=== PATIENT | female | born 1935 | race Caucasian/White ===

== ENCOUNTER 2017-02-06 21:11 | Inpatient (IN) | payer MEDICARE, BC ==
[2017-02-06 22:37] LABS: Basophils # (A) 0.1 k/uL (0-0.2); Basophils % (A) 1 %; CH 27.5; CHCM 32.3; Eosinophils # (A) 0.4 k/uL (0-0.7); Eosinophils % (A) 2 %; HCT 33.3 % (34.0-46.0); HDW 2.38; Luc # (Auto) 0.25; Luc % (Auto) 2; Lymphocytes # (A) 2.9 k/uL (1.0-4.8); Lymphocytes % (A) 18 %; MCH 28.2 pg (25.0-35.0); MCHC 32.9 g/dL (31.0-37.0); MCV 85.5 fL (80.0-100.0); Mean Platelet Volume 6.6; Monocytes # (A) 1.1 k/uL (0-1.0); Monocytes % (A) 7 %; Neutrophils # (A) 11.5 k/uL (1.3-7.7); Neutrophils % (A) 71 %; RBC 3.89 m/uL (3.80-5.40); RDW 14.8 % (11.5-15.5); WBC 16.1 k/uL (3.8-10.6); WBC (Perox) 15.63
[2017-02-06 22:43] LABS: Appearance,Urine Bloody (Clear); Bacteria,Urine Moderate /hpf; Particle Count 122698; RBC,Urine >182 /hpf (0-5); Squamous Epithelial Cell,Urine 10 /hpf (0-4); WBC,Urine >182 /hpf (0-5)
[2017-02-06 22:44] LABS: UA Billing (MACRO vs. MICRO) MICRO
[2017-02-06 22:45] LABS: INR 2.8 (<1.1); Partial Thromboplastin Time 36.2 sec (22.0-30.0); Prothrombin Time 26.8 sec (9.0-12.0)
[2017-02-06 22:50] LABS: Calcium 9.1 mg/dL (8.4-10.2); Potassium 4.2 mmol/L (3.5-5.1); Total Bilirubin 0.4 mg/dL (0.2-1.3); Total Protein 8.1 g/dL (6.3-8.2)
[2017-02-07] MEDS ORDERED: ONDANSETRON 4 MG/2 ML VIAL IVP PRN (00:09)
[2017-02-07] MEDS ORDERED: NALOXONE 0.4 MG/ML 1 ML VIAL IV PRN (00:09)
--- NOTE | 2017-02-07 00:09 | ED ---
Female Urogenital HPI - General Chief complaint: Urogenital Stated complaint: Blood in Urine Time Seen by Provider: 02/06/17 21:40 Source: patient, EMS, RN notes reviewed Mode of arrival: EMS - History of Present Illness Initial comments: Patient is an 81-year-old female presents to the emergency room for evaluation of blood in Pulido catheter bag. Patient was brought here from nursing facility. Patient had the same symptoms 3 weeks ago and was on antibiotics. Apparently, blood has returned over the past few days. Patient denies abdominal pain. Patient denies fevers or chills. Patient denies nausea or vomiting. Patient denies chest pain or shortness of breath. Patient is on Coumadin for A. fib. - Related Data Home Medications Medication Instructions Recorded Confirmed Aspirin 81 mg PO HS 09/11/15 02/06/17 Levothyroxine Sodium [Synthroid] 50 mcg PO HS 09/11/15 02/06/17 Pravastatin Sodium [Pravachol] 80 mg PO HS 09/11/15 02/06/17 Warfarin [Coumadin] 3 mg PO MOTUWEFRSA 09/11/15 02/06/17 aMILoride-HCTZ 5-50 mg [Moduretic 1 tab PO QAM 09/11/15 02/06/17 5-50] amLODIPine [Norvasc] 5 mg PO DAILY 09/11/15 02/06/17 INSULIN LISPRO (humaLOG) [humaLOG See Protocol SQ ACHS 01/16/16 02/06/17 (formulary)] Lisinopril [Zestril] 10 mg PO BID 01/16/16 02/06/17 Acetaminophen Tab [Tylenol Tab] 650 mg PO Q4H PRN 02/06/17 02/06/17 Folic Acid/Multivit-Min/Lutein 1 tab PO DAILY 02/06/17 02/06/17 [Therapeutic-M Tablet] Insulin Glargine [Lantus] 25 unit SQ HS 02/06/17 02/06/17 Warfarin Sodium [Coumadin] 4 mg PO SUTH 02/06/17 02/06/17 Previous Rx's Medication Instructions Recorded Bisacodyl [Dulcolax] 5 mg PO DAILY PRN #30 tablet. 12/05/15 Metoprolol Tartrate [Lopressor] 100 mg PO BID #1 tab 01/23/16 sitaGLIPtin [Januvia] 50 mg PO HS #1 tab 01/23/16 Allergies Allergy/AdvReac Type Severity Reaction Status Date / Time No Known Allergies Allergy Verified 02/06/17 21:58 Review of Systems ROS Statement: Those systems with pertinent positive or pertinent negative responses have been documented in the HPI. ROS Other: All systems not noted in ROS Statement are negative. Past Medical History Past Medical History: Atrial Fibrillation, Diabetes Mellitus, Hyperlipidemia, Hypertension, Thyroid Disorder Additional Past Medical History / Comment(s): peripheral neuropathy, UTIs, urinary incontinence, OA bilateral hands and back, PVD, cervical cancer History of Any Multi-Drug Resistant Organisms: MRSA Date of last positivie culture/infection: 09/11/2015 MDRO Source:: RIGHT FOOT Past Surgical History: Hysterectomy, Tonsillectomy Additional Past Surgical History / Comment(s): R leg bypass surgery, bilateral cataract removal Past Anesthesia/Blood Transfusion Reactions: No Reported Reaction Past Psychological History: No Psychological Hx Reported Smoking Status: Never smoker Past Alcohol Use History: None Reported Past Drug Use History: None Reported - Past Family History Mother Family Medical History: CVA/TIA Additional Family Medical History / Comment(s): Mother in her 70's. Father Family Medical History: Hypertension Additional Family Medical History / Comment(s): Father in his 70's. General Exam - General Exam Comments Initial Comments: laying in exam room, no acute distress. General appearance: alert, in no apparent distress Head exam: Present: atraumatic, normocephalic, normal inspection Eye exam: Present: normal appearance ENT exam: Present: normal exam Neck exam: Present: normal inspection Respiratory exam: Present: normal lung sounds bilaterally. Absent: respiratory distress Cardiovascular Exam: Present: regular rate, normal rhythm, normal heart sounds GI/Abdominal exam: Present: soft, normal bowel sounds. Absent: distended, tenderness, guarding, rebound, rigid External exam: Present: other (pulido catheter in place, blood in urine pulido bag ) Extremities exam: Present: normal inspection Back exam: Present: normal inspection Neurological exam: Present: alert, oriented X3, CN II-XII intact, normal gait Psychiatric exam: Present: normal affect, normal mood Skin exam: Present: warm, dry, intact, normal color. Absent: rash Course Vital Signs 02/06/17 02/06/17 02/07/17 21:19 23:33 00:54 Temperature 98.1 F 98.4 F Pulse Rate 87 68 84 Respiratory 18 18 18 Rate Blood Pressure 150/71 139/66 141/65 O2 Sat by Pulse 100 94 L 100 Oximetry 02/07/17 01:21 Temperature 98.1 F Pulse Rate 92 Respiratory 20 Rate Blood Pressure 133/63 O2 Sat by Pulse 98 Oximetry Medical Decision Making - Medical Decision Making Patient is an 81-year-old female presents emergency room for evaluation hematuria. Urinalysis suspicious for urinary tract infection. WBC elevated. Patient started on Rocephin and admitted. Case discussed with Dr. Corcoran. Dr. Corcoran discussed case with Dr. Chirinos who agreed to admit patient. Will consult with urology. - Lab Data Result diagrams: 02/06/17 22:20 02/06/17 22:20 Lab Results 02/06/17 02/06/17 02/06/17 Range/Units 22:20 22:20 22:20 WBC 16.1 H (3.8-10.6) k/uL RBC 3.89 (3.80-5.40) m/uL Hgb 11.0 L (11.4-16.0) gm/dL Hct 33.3 L (34.0-46.0) % MCV 85.5 (80.0-100.0) fL MCH 28.2 (25.0-35.0) pg MCHC 32.9 (31.0-37.0) g/dL RDW 14.8 (11.5-15.5) % Plt Count 373 (150-450) k/uL Neutrophils % 71 % Lymphocytes % 18 % Monocytes % 7 % Eosinophils % 2 % Basophils % 1 % Neutrophils # 11.5 H (1.3-7.7) k/uL Lymphocytes # 2.9 (1.0-4.8) k/uL Monocytes # 1.1 H (0-1.0) k/uL Eosinophils # 0.4 (0-0.7) k/uL Basophils # 0.1 (0-0.2) k/uL PT 26.8 H (9.0-12.0) sec INR 2.8 (<1.1) APTT 36.2 H (22.0-30.0) sec Sodium 135 L (137-145) mmol/L Potassium 4.2 (3.5-5.1) mmol/L Chloride 102 (98-107) mmol/L Carbon Dioxide 23 (22-30) mmol/L Anion Gap 10 mmol/L BUN 42 H (7-17) mg/dL Creatinine 1.37 H (0.52-1.04) mg/dL Est GFR (MDRD) Af Amer 45 (>60 ml/min/1.73 sqM) Est GFR (MDRD) Non-Af 37 (>60 ml/min/1.73 sqM) Glucose 263 H (74-99) mg/dL Calcium 9.1 (8.4-10.2) mg/dL Total Bilirubin 0.4 (0.2-1.3) mg/dL AST 18 (14-36) U/L ALT 22 (9-52) U/L Alkaline Phosphatase 116 (38-126) U/L Total Protein 8.1 (6.3-8.2) g/dL Albumin 3.6 (3.5-5.0) g/dL Urine Color Urine Appearance (Clear) Urine RBC (0-5) /hpf Urine WBC (0-5) /hpf Urine WBC Clumps (None) /hpf Ur Squamous Epith Cells (0-4) /hpf Urine Bacteria (None) /hpf 02/06/17 Range/Units 22:20 WBC (3.8-10.6) k/uL RBC (3.80-5.40) m/uL Hgb (11.4-16.0) gm/dL Hct (34.0-46.0) % MCV (80.0-100.0) fL MCH (25.0-35.0) pg MCHC (31.0-37.0) g/dL RDW (11.5-15.5) % Plt Count (150-450) k/uL Neutrophils % % Lymphocytes % % Monocytes % % Eosinophils % % Basophils % % Neutrophils # (1.3-7.7) k/uL Lymphocytes # (1.0-4.8) k/uL Monocytes # (0-1.0) k/uL Eosinophils # (0-0.7) k/uL Basophils # (0-0.2) k/uL PT (9.0-12.0) sec INR (<1.1) APTT (22.0-30.0) sec Sodium (137-145) mmol/L Potassium (3.5-5.1) mmol/L Chloride (98-107) mmol/L Carbon Dioxide (22-30) mmol/L Anion Gap mmol/L BUN (7-17) mg/dL Creatinine (0.52-1.04) mg/dL Est GFR (MDRD) Af Amer (>60 ml/min/1.73 sqM) Est GFR (MDRD) Non-Af (>60 ml/min/1.73 sqM) Glucose (74-99) mg/dL Calcium (8.4-10.2) mg/dL Total Bilirubin (0.2-1.3) mg/dL AST (14-36) U/L ALT (9-52) U/L Alkaline Phosphatase (38-126) U/L Total Protein (6.3-8.2) g/dL Albumin (3.5-5.0) g/dL Urine Color Red Urine Appearance Bloody H (Clear) Urine RBC >182 H (0-5) /hpf Urine WBC >182 H (0-5) /hpf Urine WBC Clumps Many H (None) /hpf Ur Squamous Epith Cells 10 H (0-4) /hpf Urine Bacteria Moderate H (None) /hpf Disposition Clinical Impression: Urinary tract infection Disposition: ADMITTED IP TO THIS HOSP Condition: Stable Decision Date: 02/07/17
[2017-02-07] MEDS: SODIUM CHLORIDE 0.9% 1,000 ML IV SCH ×2 (00:52→11:26)
[2017-02-07 02:37] LABS: Glucose,Whole Blood 184 mg/dL (75-99)
[2017-02-07 02:46] VITALS: BMI 35.8
[2017-02-07] MEDS ORDERED: ACETAMINOPHEN TAB 325 MG TAB PO PRN (03:15)
[2017-02-07] MEDS ORDERED: BISACODYL 5 MG TABLET.DR PO PRN (03:15)
[2017-02-07 07:16] LABS: Glucose,Whole Blood 179 mg/dL (75-99)
[2017-02-07 08:16] LABS: Basophils # (A) 0.1 k/uL (0-0.2); Basophils % (A) 1 %; CH 26.8; CHCM 31.5; Eosinophils # (A) 0.2 k/uL (0-0.7); Eosinophils % (A) 2 %; HCT 31.7 % (34.0-46.0); HDW 2.36; HGB 10.6 gm/dL (11.4-16.0); Hypochromasia Slight; Luc % (Auto) 2; Lymphocytes # (A) 2.5 k/uL (1.0-4.8); Lymphocytes % (A) 21 %; MCH 28.5 pg (25.0-35.0); MCHC 33.4 g/dL (31.0-37.0); MCV 85.6 fL (80.0-100.0); Mean Platelet Volume 6.5; Monocytes # (A) 0.8 k/uL (0-1.0); Monocytes % (A) 7 %; Neutrophils # (A) 8.2 k/uL (1.3-7.7); Neutrophils % (A) 69 %; RBC 3.71 m/uL (3.80-5.40); RDW 14.6 % (11.5-15.5); WBC 11.9 k/uL (3.8-10.6); WBC (Perox) 12.16
[2017-02-07] MEDS: MULTIVITAMINS, THERA 1 EACH TAB PO SCH (08:16)
[2017-02-07] MEDS: amLODIPine 5 MG TAB PO SCH (08:16)
[2017-02-07] MEDS: aMILoride-HCTZ 5-50 mg 1 EACH TAB PO SCH (08:16)
[2017-02-07] MEDS: LISINOPRIL 10 MG TAB PO SCH ×2 (08:16→21:24)
[2017-02-07] MEDS: METOPROLOL TARTRATE 50 MG TAB PO SCH ×2 (08:16→21:24)
[2017-02-07] MEDS: INSULIN LISPRO (humaLOG) 300 UNIT/3 ML VIAL SQ SCH ×4 (08:21→21:24)
[2017-02-07 08:32] LABS: Calcium 8.9 mg/dL (8.4-10.2); Potassium 4.2 mmol/L (3.5-5.1); Total Bilirubin 0.5 mg/dL (0.2-1.3); Total Protein 7.5 g/dL (6.3-8.2)
[2017-02-07 10:18] LABS: Hemoglobin A1C 7.9 % (4.2-6.1)
--- NOTE | 2017-02-07 11:43 | P.HPIM ---
History of Present Illness H&P Date: 02/07/17 Chief Complaint: Blood and urine This is a 81-year-old female well-known to me with past medical history noted below significant for urinary retention with chronic indwelling Weeks catheter that presented to the emergency yesterday with blood in her urine. Patient herself is a very poor historian and most of the history was obtained by chart review and nursing staff report. Patient was doing fairly well few days ago and yesterday noted large amount of blood in her Weeks bag. Blood was bright red. Patient denies any abdominal pain, fevers or chills, or nausea. She was brought into the emergency room for further evaluation. She was noted to have significant hematuria but her hemoglobin was stable. Patient remained hemodynamically stable. She is awake and alert. She was seen and evaluated by urology earlier and plan is to exchange the catheter tube larger caliber catheter. Review of Systems Review of system: 14 points review of systems were obtained and were negative except to what were mentioned in the HPI. Past Medical History Past Medical History: Atrial Fibrillation, Diabetes Mellitus, Hyperlipidemia, Hypertension, Thyroid Disorder Additional Past Medical History / Comment(s): peripheral neuropathy, UTIs, urinary incontinence, OA bilateral hands and back, PVD, cervical cancer History of Any Multi-Drug Resistant Organisms: MRSA Date of last positivie culture/infection: 09/11/2015 MDRO Source:: RIGHT FOOT Past Surgical History: Hysterectomy, Tonsillectomy Additional Past Surgical History / Comment(s): R leg bypass surgery, bilateral cataract removal Past Anesthesia/Blood Transfusion Reactions: No Reported Reaction Past Psychological History: No Psychological Hx Reported Smoking Status: Never smoker Past Alcohol Use History: None Reported Past Drug Use History: None Reported - Past Family History Mother Family Medical History: CVA/TIA Additional Family Medical History / Comment(s): Mother in her 70's. Father Family Medical History: Hypertension Additional Family Medical History / Comment(s): Father in his 70's. Medications and Allergies Home Medications Medication Instructions Recorded Confirmed Type Aspirin 81 mg PO HS 09/11/15 02/06/17 History Levothyroxine Sodium [Synthroid] 50 mcg PO HS 09/11/15 02/06/17 History Pravastatin Sodium [Pravachol] 80 mg PO HS 09/11/15 02/06/17 History Warfarin [Coumadin] 3 mg PO MOTUWEFRSA 09/11/15 02/06/17 History aMILoride-HCTZ 5-50 mg [Moduretic 1 tab PO QAM 09/11/15 02/06/17 History 5-50] amLODIPine [Norvasc] 5 mg PO DAILY 09/11/15 02/06/17 History INSULIN LISPRO (humaLOG) [humaLOG See Protocol SQ ACHS 01/16/16 02/06/17 History (formulary)] Lisinopril [Zestril] 10 mg PO BID 01/16/16 02/06/17 History Acetaminophen Tab [Tylenol Tab] 650 mg PO Q4H PRN 02/06/17 02/06/17 History Folic Acid/Multivit-Min/Lutein 1 tab PO DAILY 02/06/17 02/06/17 History [Therapeutic-M Tablet] Insulin Glargine [Lantus] 25 unit SQ HS 02/06/17 02/06/17 History Warfarin Sodium [Coumadin] 4 mg PO SUTH 02/06/17 02/06/17 History Allergies Allergy/AdvReac Type Severity Reaction Status Date / Time No Known Allergies Allergy Verified 02/06/17 21:58 Physical Exam Vitals: Vital Signs Temp Pulse Pulse Resp BP BP Pulse Ox 02/07/17 07:00 98.3 F 78 18 128/62 97 02/07/17 02:42 97.9 F 78 20 142/67 100 02/07/17 01:21 98.1 F 92 20 133/63 98 02/07/17 00:54 98.4 F 84 18 141/65 100 02/06/17 23:33 68 18 139/66 94 L 02/06/17 21:19 98.1 F 87 18 150/71 100 Intake and Output 02/06/17 02/07/17 02/07/17 22:59 06:59 14:59 Intake Total 200 Output Total 1000 Balance -1000 200 Intake: Oral 200 Output: Urine 1000 Other: Voiding Method Indwelling Catheter Indwelling Catheter Weight 86.183 kg 90.718 kg General: The patient is awake and alert, in no distress Eye: there is normal conjunctiva bilaterally. Neck: The neck is supple, there is no JVD. Cardiovascular: Normal S1-S2, no S3-S4, no murmurs. Respiratory: Lungs clear to auscultation bilaterally Gastrointestinal: Abdomen is soft, nontender Musculoskeletal: There is no pedal edema. Neurological:. Speech is normal. Skin: Skin is warm and dry Results CBC & Chem 7: 02/07/17 08:00 02/07/17 08:00 Labs: Abnormal Lab Results - Last 24 Hours (Table) 02/06/17 02/06/17 02/06/17 Range/Units 22:20 22:20 22:20 WBC 16.1 H (3.8-10.6) k/uL RBC (3.80-5.40) m/uL Hgb 11.0 L (11.4-16.0) gm/dL Hct 33.3 L (34.0-46.0) % Neutrophils # 11.5 H (1.3-7.7) k/uL Monocytes # 1.1 H (0-1.0) k/uL PT 26.8 H (9.0-12.0) sec APTT 36.2 H (22.0-30.0) sec Sodium 135 L (137-145) mmol/L Chloride (98-107) mmol/L Carbon Dioxide (22-30) mmol/L BUN 42 H (7-17) mg/dL Creatinine 1.37 H (0.52-1.04) mg/dL Glucose 263 H (74-99) mg/dL POC Glucose (mg/dL) (75-99) mg/dL Hemoglobin A1c (4.2-6.1) % Albumin (3.5-5.0) g/dL Urine Appearance (Clear) Urine RBC (0-5) /hpf Urine WBC (0-5) /hpf Urine WBC Clumps (None) /hpf Ur Squamous Epith Cells (0-4) /hpf Urine Bacteria (None) /hpf 02/06/17 02/07/17 02/07/17 Range/Units 22:20 02:32 07:15 WBC (3.8-10.6) k/uL RBC (3.80-5.40) m/uL Hgb (11.4-16.0) gm/dL Hct (34.0-46.0) % Neutrophils # (1.3-7.7) k/uL Monocytes # (0-1.0) k/uL PT (9.0-12.0) sec APTT (22.0-30.0) sec Sodium (137-145) mmol/L Chloride (98-107) mmol/L Carbon Dioxide (22-30) mmol/L BUN (7-17) mg/dL Creatinine (0.52-1.04) mg/dL Glucose (74-99) mg/dL POC Glucose (mg/dL) 184 H 179 H (75-99) mg/dL Hemoglobin A1c (4.2-6.1) % Albumin (3.5-5.0) g/dL Urine Appearance Bloody H (Clear) Urine RBC >182 H (0-5) /hpf Urine WBC >182 H (0-5) /hpf Urine WBC Clumps Many H (None) /hpf Ur Squamous Epith Cells 10 H (0-4) /hpf Urine Bacteria Moderate H (None) /hpf 02/07/17 02/07/17 02/07/17 Range/Units 08:00 08:00 08:00 WBC 11.9 H (3.8-10.6) k/uL RBC 3.71 L (3.80-5.40) m/uL Hgb 10.6 L (11.4-16.0) gm/dL Hct 31.7 L (34.0-46.0) % Neutrophils # 8.2 H (1.3-7.7) k/uL Monocytes # (0-1.0) k/uL PT (9.0-12.0) sec APTT (22.0-30.0) sec Sodium (137-145) mmol/L Chloride 108 H (98-107) mmol/L Carbon Dioxide 20 L (22-30) mmol/L BUN 35 H (7-17) mg/dL Creatinine 1.16 H (0.52-1.04) mg/dL Glucose 167 H (74-99) mg/dL POC Glucose (mg/dL) (75-99) mg/dL Hemoglobin A1c 7.9 H (4.2-6.1) % Albumin 3.2 L (3.5-5.0) g/dL Urine Appearance (Clear) Urine RBC (0-5) /hpf Urine WBC (0-5) /hpf Urine WBC Clumps (None) /hpf Ur Squamous Epith Cells (0-4) /hpf Urine Bacteria (None) /hpf Thrombosis Risk Factor Assmnt - Choose All That Apply Any of the Below Risk Factors Present?: Yes Each Factor Represents 1 point: Medical pt on bed rest, Obesity (BMI >25), Swollen legs (current) Other Risk Factors: Yes Each Risk Factor Represents 2 Points: Patient confined to bed Each Risk Factor Represents 3 Points: Age 75 years or older Thrombosis Risk Factor Assessment Total Risk Factor Score: 8 Thrombosis Risk Factor Assessment Level: High Risk Assessment and Plan Plan: 1. Hematuria: Maybe traumatic secondary to Weeks catheter. Now improving and clearing up. Urology consulted, appreciate recommendations. Hemoglobin is stable. 2. Complicated urinary tract infection: Currently on IV ceftriaxone. 3. Paroxysmal atrial fibrillation on anticoagulation with Coumadin 4. Essential hypertension: Blood pressure well controlled 5. Type 2 diabetes mellitus 6. Mixed hyperlipidemia Today, I reviewed her medication list and lab work results. I will continue with anticoagulation for now as her hematuria appears to be improving anyway despite that her INR is 2.8. I would await further recommendations from urology. Will repeat CBC in the morning. Exchange Weeks catheter as directed.
[2017-02-07 11:51] LABS: Glucose,Whole Blood 145 mg/dL (75-99)
[2017-02-07 16:53] LABS: Glucose,Whole Blood 159 mg/dL (75-99)
[2017-02-07] MEDS: WARFARIN 3 MG TAB PO SCH (16:55)
--- NOTE | 2017-02-07 17:13 | P.GSCN ---
History of Present Illness Consult date: 02/07/17 Reason for Consult: Hematuria Requesting physician: Nette Chirinos History of present illness: She is an 81-year-old woman hospitalized in January 2016. At that time, she was found to have a UTI, as well as bilateral hydronephrosis secondary to urinary retention. She has had a Weeks catheter in place since that time, and her overall health has improved. A renal ultrasound in April 2016 confirmed resolution of her hydronephrosis, and she has had an IDC since that time. The catheter is changed monthly, and was last changed approximately 3 days ago. Since that time, she has experienced gross hematuria. She was admitted for this reason. On the morning of my evaluation, the urine is faint pink in color without clots. Review of Systems - Genitourinary Genitourinary: Reports difficulty voiding, Reports hematuria Past Medical History Past Medical History: Atrial Fibrillation, Diabetes Mellitus, Hyperlipidemia, Hypertension, Thyroid Disorder Additional Past Medical History / Comment(s): peripheral neuropathy, UTIs, urinary incontinence, OA bilateral hands and back, PVD, cervical cancer History of Any Multi-Drug Resistant Organisms: MRSA Year Discovered:: 09/11/2015 MDRO Source:: RIGHT FOOT Past Surgical History: Hysterectomy, Tonsillectomy Additional Past Surgical History / Comment(s): R leg bypass surgery, bilateral cataract removal Past Anesthesia/Blood Transfusion Reactions: No Reported Reaction Past Psychological History: No Psychological Hx Reported Smoking Status: Never smoker Past Alcohol Use History: None Reported Past Drug Use History: None Reported - Past Family History Mother Family Medical History: CVA/TIA Additional Family Medical History / Comment(s): Mother in her 70's. Father Family Medical History: Hypertension Additional Family Medical History / Comment(s): Father in his 70's. Medications and Allergies Home Medications Medication Instructions Recorded Confirmed Type Aspirin 81 mg PO HS 09/11/15 02/06/17 History Levothyroxine Sodium [Synthroid] 50 mcg PO HS 09/11/15 02/06/17 History Pravastatin Sodium [Pravachol] 80 mg PO HS 09/11/15 02/06/17 History Warfarin [Coumadin] 3 mg PO MOTUWEFRSA 09/11/15 02/06/17 History aMILoride-HCTZ 5-50 mg [Moduretic 1 tab PO QAM 09/11/15 02/06/17 History 5-50] amLODIPine [Norvasc] 5 mg PO DAILY 09/11/15 02/06/17 History INSULIN LISPRO (humaLOG) [humaLOG See Protocol SQ ACHS 01/16/16 02/06/17 History (formulary)] Lisinopril [Zestril] 10 mg PO BID 01/16/16 02/06/17 History Acetaminophen Tab [Tylenol Tab] 650 mg PO Q4H PRN 02/06/17 02/06/17 History Folic Acid/Multivit-Min/Lutein 1 tab PO DAILY 02/06/17 02/06/17 History [Therapeutic-M Tablet] Insulin Glargine [Lantus] 25 unit SQ HS 02/06/17 02/06/17 History Warfarin Sodium [Coumadin] 4 mg PO SUTH 02/06/17 02/06/17 History Allergies Allergy/AdvReac Type Severity Reaction Status Date / Time No Known Allergies Allergy Verified 02/06/17 21:58 Surgical - Exam Vital Signs Temp Pulse Resp BP Pulse Ox 98.1 F 87 18 150/71 100 02/06/17 21:19 02/06/17 21:19 02/06/17 21:19 02/06/17 21:19 02/06/17 21:19 - General well developed, well nourished, no distress - Abdomen Abdomen: soft, non tender, no guarding, no rigid, no rebound - Psychiatric oriented to time, oriented to person, oriented to place, speech is normal, memory intact Results - Labs 02/07/17 08:00 02/07/17 08:00 Abnormal Lab Results - Last 24 Hours (Table) 02/06/17 02/06/17 02/06/17 Range/Units 22:20 22:20 22:20 WBC 16.1 H (3.8-10.6) k/uL Hgb 11.0 L (11.4-16.0) gm/dL Hct 33.3 L (34.0-46.0) % Neutrophils # 11.5 H (1.3-7.7) k/uL Monocytes # 1.1 H (0-1.0) k/uL PT 26.8 H (9.0-12.0) sec APTT 36.2 H (22.0-30.0) sec Sodium 135 L (137-145) mmol/L BUN 42 H (7-17) mg/dL Creatinine 1.37 H (0.52-1.04) mg/dL Glucose 263 H (74-99) mg/dL POC Glucose (mg/dL) (75-99) mg/dL Urine Appearance (Clear) Urine RBC (0-5) /hpf Urine WBC (0-5) /hpf Urine WBC Clumps (None) /hpf Ur Squamous Epith Cells (0-4) /hpf Urine Bacteria (None) /hpf 02/06/17 02/07/17 Range/Units 22:20 02:32 WBC (3.8-10.6) k/uL Hgb (11.4-16.0) gm/dL Hct (34.0-46.0) % Neutrophils # (1.3-7.7) k/uL Monocytes # (0-1.0) k/uL PT (9.0-12.0) sec APTT (22.0-30.0) sec Sodium (137-145) mmol/L BUN (7-17) mg/dL Creatinine (0.52-1.04) mg/dL Glucose (74-99) mg/dL POC Glucose (mg/dL) 184 H (75-99) mg/dL Urine Appearance Bloody H (Clear) Urine RBC >182 H (0-5) /hpf Urine WBC >182 H (0-5) /hpf Urine WBC Clumps Many H (None) /hpf Ur Squamous Epith Cells 10 H (0-4) /hpf Urine Bacteria Moderate H (None) /hpf Diabetes panel 02/06/17 Range/Units 22:20 Sodium 135 L (137-145) mmol/L Potassium 4.2 (3.5-5.1) mmol/L Chloride 102 (98-107) mmol/L Carbon Dioxide 23 (22-30) mmol/L BUN 42 H (7-17) mg/dL Creatinine 1.37 H (0.52-1.04) mg/dL Glucose 263 H (74-99) mg/dL Calcium 9.1 (8.4-10.2) mg/dL AST 18 (14-36) U/L ALT 22 (9-52) U/L Alkaline Phosphatase 116 (38-126) U/L Total Protein 8.1 (6.3-8.2) g/dL Albumin 3.6 (3.5-5.0) g/dL Calcium panel 02/06/17 Range/Units 22:20 Calcium 9.1 (8.4-10.2) mg/dL Albumin 3.6 (3.5-5.0) g/dL Pituitary panel 02/06/17 Range/Units 22:20 Sodium 135 L (137-145) mmol/L Potassium 4.2 (3.5-5.1) mmol/L Chloride 102 (98-107) mmol/L Carbon Dioxide 23 (22-30) mmol/L BUN 42 H (7-17) mg/dL Creatinine 1.37 H (0.52-1.04) mg/dL Glucose 263 H (74-99) mg/dL Calcium 9.1 (8.4-10.2) mg/dL Adrenal panel 02/06/17 Range/Units 22:20 Sodium 135 L (137-145) mmol/L Potassium 4.2 (3.5-5.1) mmol/L Chloride 102 (98-107) mmol/L Carbon Dioxide 23 (22-30) mmol/L BUN 42 H (7-17) mg/dL Creatinine 1.37 H (0.52-1.04) mg/dL Glucose 263 H (74-99) mg/dL Calcium 9.1 (8.4-10.2) mg/dL Total Bilirubin 0.4 (0.2-1.3) mg/dL AST 18 (14-36) U/L ALT 22 (9-52) U/L Alkaline Phosphatase 116 (38-126) U/L Total Protein 8.1 (6.3-8.2) g/dL Albumin 3.6 (3.5-5.0) g/dL Assessment and Plan (1) Gross hematuria Status: Acute Plan: Mrs. Rene has a chronic indwelling Weeks catheter and takes Coumadin for atrial fibrillation. Her catheter was changed approximately 3 days ago, and she has experienced gross hematuria since that time. This occurred several weeks ago, and she was treated with antibiotics. I have asked the nursing staff to change her Weeks catheter, given that she has had problems since this catheter was placed. It is noteworthy that the catheter currently in place has a 30 mL balloon, and I have suggested to be replaced with an 18-Polish Weeks catheter with a 5 mL balloon. I do not feel that any further evaluation is warranted at this time. I have suggested to Mrs. Rene that she follow up with me as an outpatient if this is an ongoing problem, in which case I will perform cystoscopy to rule out intravesical pathology. Please notify me if I can be of any further assistance during this hospitalization.
[2017-02-07 21:03] LABS: Glucose,Whole Blood 207 mg/dL (75-99)
[2017-02-07] MEDS: LEVOTHYROXINE 50 MCG TAB PO SCH (21:24)
[2017-02-07] MEDS: PRAVASTATIN SODIUM 80 MG TAB PO SCH (21:24)
[2017-02-07] MEDS: ASPIRIN 81 MG CHEW PO SCH (21:24)
[2017-02-08 07:32] LABS: Glucose,Whole Blood 161 mg/dL (75-99)
[2017-02-08] MEDS: aMILoride-HCTZ 5-50 mg 1 EACH TAB PO SCH (07:50)
[2017-02-08] MEDS: INSULIN LISPRO (humaLOG) 300 UNIT/3 ML VIAL SQ SCH ×4 (07:50→21:50)
[2017-02-08] MEDS: MULTIVITAMINS, THERA 1 EACH TAB PO SCH (07:51)
[2017-02-08] MEDS: LISINOPRIL 10 MG TAB PO SCH ×2 (07:51→20:33)
[2017-02-08] MEDS: METOPROLOL TARTRATE 50 MG TAB PO SCH ×2 (07:51→20:33)
[2017-02-08] MEDS: amLODIPine 5 MG TAB PO SCH (07:51)
[2017-02-08 07:54] LABS: Basophils # (A) 0.1 k/uL (0-0.2); Basophils % (A) 1 %; CH 26.8; CHCM 30.9; Eosinophils # (A) 0.3 k/uL (0-0.7); Eosinophils % (A) 2 %; HCT 34.1 % (34.0-46.0); HDW 2.31; HGB 11.1 gm/dL (11.4-16.0); Hypochromasia Slight; Luc # (Auto) 0.26; Luc % (Auto) 2; Lymphocytes # (A) 2.2 k/uL (1.0-4.8); Lymphocytes % (A) 21 %; MCH 28.3 pg (25.0-35.0); MCHC 32.5 g/dL (31.0-37.0); MCV 87.1 fL (80.0-100.0); Mean Platelet Volume 6.5; Monocytes # (A) 0.7 k/uL (0-1.0); Monocytes % (A) 7 %; Neutrophils # (A) 6.9 k/uL (1.3-7.7); Neutrophils % (A) 66 %; RBC 3.91 m/uL (3.80-5.40); RDW 14.6 % (11.5-15.5); WBC 10.5 k/uL (3.8-10.6); WBC (Perox) 10.94
[2017-02-08 07:59] LABS: INR 2.7 (<1.1); Prothrombin Time 25.9 sec (9.0-12.0)
[2017-02-08 08:19] LABS: Calcium 9.4 mg/dL (8.4-10.2); Potassium 4.3 mmol/L (3.5-5.1)
[2017-02-08 12:11] LABS: Glucose,Whole Blood 224 mg/dL (75-99)
--- NOTE | 2017-02-08 15:09 | P.PN ---
Objective - Vital Signs Vital signs: Vital Signs Temp 97.5 F L 02/08/17 07:00 Pulse 79 02/08/17 07:00 Resp 18 02/08/17 07:00 BP 162/72 02/08/17 07:00 Pulse Ox 98 02/08/17 07:00 Intake & Output 02/07/17 02/08/17 02/08/17 18:59 06:59 18:59 Intake Total 200 120 Output Total 2450 1500 Balance -2250 -1380 Intake: Oral 200 120 Output: Urine 2450 1500 Other: Voiding Method Indwelling Catheter Indwelling Catheter Indwelling Catheter # Bowel Movements 0 - Labs CBC & Chem 7: 02/08/17 07:28 02/08/17 07:28 Labs: Abnormal Lab Results - Last 24 Hours (Table) 02/07/17 02/07/17 02/08/17 Range/Units 16:51 21:02 07:28 Hgb 11.1 L (11.4-16.0) gm/dL PT (9.0-12.0) sec Carbon Dioxide (22-30) mmol/L BUN (7-17) mg/dL Creatinine (0.52-1.04) mg/dL Glucose (74-99) mg/dL POC Glucose (mg/dL) 159 H 207 H (75-99) mg/dL 02/08/17 02/08/17 02/08/17 Range/Units 07:28 07:28 07:30 Hgb (11.4-16.0) gm/dL PT 25.9 H (9.0-12.0) sec Carbon Dioxide 20 L (22-30) mmol/L BUN 38 H (7-17) mg/dL Creatinine 1.09 H (0.52-1.04) mg/dL Glucose 169 H (74-99) mg/dL POC Glucose (mg/dL) 161 H (75-99) mg/dL 02/08/17 Range/Units 12:09 Hgb (11.4-16.0) gm/dL PT (9.0-12.0) sec Carbon Dioxide (22-30) mmol/L BUN (7-17) mg/dL Creatinine (0.52-1.04) mg/dL Glucose (74-99) mg/dL POC Glucose (mg/dL) 224 H (75-99) mg/dL Assessment and Plan Plan: 1. Hematuria: now resolved. Maybe traumatic secondary to Weeks catheter. Urology consulted, appreciate recommendations. Hemoglobin is stable. 2. Complicated urinary tract infection: Currently on IV ceftriaxone. 3. Paroxysmal atrial fibrillation on anticoagulation with Coumadin 4. Essential hypertension: Blood pressure well controlled 5. Type 2 diabetes mellitus 6. Mixed hyperlipidemia Today, I reviewed her medication list and lab work results. I will continue with anticoagulation for now as her hematuria appears to be improving anyway despite that her INR is therapeutic. Will repeat CBC in the morning. plan to return to [facility] on Friday
--- NOTE | 2017-02-08 15:34 | P.PN ---
Progress Note - Text Mrs. Rene is resting comfortably. Her urine is clear, and her hemoglobin level is stable. I agree with the plan to transfer her back to the [facility] on 02/10. Please notify me if I can be of any further assistance.
[2017-02-08] MEDS: WARFARIN 3 MG TAB PO SCH (17:36)
[2017-02-08 17:44] LABS: Glucose,Whole Blood 170 mg/dL (75-99)
[2017-02-08] MEDS: LEVOTHYROXINE 50 MCG TAB PO SCH (20:33)
[2017-02-08] MEDS: ASPIRIN 81 MG CHEW PO SCH (20:33)
[2017-02-08] MEDS: PRAVASTATIN SODIUM 80 MG TAB PO SCH (20:33)
[2017-02-08 21:48] LABS: Glucose,Whole Blood 210 mg/dL (75-99)
[2017-02-09] MEDS: INSULIN LISPRO (humaLOG) 300 UNIT/3 ML VIAL SQ SCH ×4 (07:34→21:28)
[2017-02-09] MEDS: LISINOPRIL 10 MG TAB PO SCH ×2 (07:35→21:28)
[2017-02-09] MEDS: MULTIVITAMINS, THERA 1 EACH TAB PO SCH (07:35)
[2017-02-09] MEDS: aMILoride-HCTZ 5-50 mg 1 EACH TAB PO SCH (07:35)
[2017-02-09] MEDS: METOPROLOL TARTRATE 50 MG TAB PO SCH ×2 (07:35→21:28)
[2017-02-09] MEDS: amLODIPine 5 MG TAB PO SCH (07:35)
[2017-02-09 07:45] LABS: Basophils # (A) 0.1 k/uL (0-0.2); Basophils % (A) 1 %; CH 26.9; CHCM 31.4; Eosinophils # (A) 0.2 k/uL (0-0.7); Eosinophils % (A) 3 %; HCT 31.7 % (34.0-46.0); HDW 2.36; HGB 10.2 gm/dL (11.4-16.0); Hypochromasia Slight; Luc # (Auto) 0.24; Luc % (Auto) 3; Lymphocytes # (A) 2.2 k/uL (1.0-4.8); Lymphocytes % (A) 23 %; MCH 27.8 pg (25.0-35.0); MCHC 32.3 g/dL (31.0-37.0); MCV 86.1 fL (80.0-100.0); Mean Platelet Volume 6.7; Monocytes # (A) 0.7 k/uL (0-1.0); Monocytes % (A) 7 %; Neutrophils # (A) 6.2 k/uL (1.3-7.7); Neutrophils % (A) 64 %; RBC 3.69 m/uL (3.80-5.40); RDW 14.6 % (11.5-15.5); WBC 9.7 k/uL (3.8-10.6); WBC (Perox) 10.53
[2017-02-09 07:46] LABS: INR 2.9 (<1.1); Prothrombin Time 27.7 sec (9.0-12.0)
[2017-02-09 07:54] LABS: Glucose,Whole Blood 182 mg/dL (75-99)
[2017-02-09 08:11] LABS: Calcium 9.2 mg/dL (8.4-10.2); Potassium 3.8 mmol/L (3.5-5.1)
[2017-02-09 11:56] LABS: Glucose,Whole Blood 204 mg/dL (75-99)
[2017-02-09 17:20] LABS: Glucose,Whole Blood 173 mg/dL (75-99)
[2017-02-09] MEDS ORDERED: WARFARIN 2 MG TAB PO SCH (18:00)
--- NOTE | 2017-02-09 18:18 | P.PN ---
Subjective No events overnight Objective - Vital Signs Vital signs: Vital Signs Temp 97.6 F 02/09/17 15:00 Pulse 81 02/09/17 15:00 Resp 18 02/09/17 15:00 BP 134/71 02/09/17 15:00 Pulse Ox 99 02/09/17 15:00 Intake & Output 02/08/17 02/09/17 02/09/17 18:59 06:59 18:59 Intake Total 240 100 400 Output Total 700 1100 800 Balance -460 -1000 -400 Intake: Oral 240 100 400 Output: Urine 700 1100 800 Other: Voiding Method Indwelling Catheter Indwelling Catheter Indwelling Catheter # Bowel Movements 0 0 - Exam General: The patient is awake and alert, in no distress Eye: there is normal conjunctiva bilaterally. Neck: The neck is supple, there is no JVD. Cardiovascular: Normal S1-S2, no S3-S4, no murmurs. Respiratory: Lungs clear to auscultation bilaterally Gastrointestinal: Abdomen is soft, nontender Musculoskeletal: There is no pedal edema. Neurological:. Speech is normal. Skin: Skin is warm and dry - Labs CBC & Chem 7: 02/09/17 07:21 02/09/17 07:21 Labs: Abnormal Lab Results - Last 24 Hours (Table) 02/08/17 02/09/17 02/09/17 Range/Units 21:31 07:21 07:21 RBC 3.69 L (3.80-5.40) m/uL Hgb 10.2 L (11.4-16.0) gm/dL Hct 31.7 L (34.0-46.0) % PT 27.7 H (9.0-12.0) sec Chloride (98-107) mmol/L Carbon Dioxide (22-30) mmol/L BUN (7-17) mg/dL Creatinine (0.52-1.04) mg/dL Glucose (74-99) mg/dL POC Glucose (mg/dL) 210 H (75-99) mg/dL 02/09/17 02/09/17 02/09/17 Range/Units 07:21 07:27 11:49 RBC (3.80-5.40) m/uL Hgb (11.4-16.0) gm/dL Hct (34.0-46.0) % PT (9.0-12.0) sec Chloride 109 H (98-107) mmol/L Carbon Dioxide 20 L (22-30) mmol/L BUN 34 H (7-17) mg/dL Creatinine 1.09 H (0.52-1.04) mg/dL Glucose 179 H (74-99) mg/dL POC Glucose (mg/dL) 182 H 204 H (75-99) mg/dL 02/09/17 Range/Units 17:04 RBC (3.80-5.40) m/uL Hgb (11.4-16.0) gm/dL Hct (34.0-46.0) % PT (9.0-12.0) sec Chloride (98-107) mmol/L Carbon Dioxide (22-30) mmol/L BUN (7-17) mg/dL Creatinine (0.52-1.04) mg/dL Glucose (74-99) mg/dL POC Glucose (mg/dL) 173 H (75-99) mg/dL Assessment and Plan Plan: 1. Hematuria: now resolved. Maybe traumatic secondary to Weeks catheter. Urology consulted, appreciate recommendations. Hemoglobin is stable. 2. Complicated urinary tract infection: Currently on IV ceftriaxone. 3. Paroxysmal atrial fibrillation on anticoagulation with Coumadin 4. Essential hypertension: Blood pressure well controlled 5. Type 2 diabetes mellitus 6. Mixed hyperlipidemia Today, I reviewed her medication list and lab work results. I will continue with anticoagulation for now as her hematuria appears to be improving anyway despite that her INR is therapeutic. Will repeat CBC in the morning. plan to return to ECF on Friday
[2017-02-09 20:45] LABS: Glucose,Whole Blood 297 mg/dL (75-99)
[2017-02-09] MEDS: PRAVASTATIN SODIUM 80 MG TAB PO SCH (21:28)
[2017-02-09] MEDS: LEVOTHYROXINE 50 MCG TAB PO SCH (21:28)
[2017-02-09] MEDS: ASPIRIN 81 MG CHEW PO SCH (21:28)
[2017-02-10 07:05] LABS: Glucose,Whole Blood 163 mg/dL (75-99)
[2017-02-10 07:25] VITALS: PULSE 78
[2017-02-10] MEDS: METOPROLOL TARTRATE 50 MG TAB PO SCH (07:43)
[2017-02-10] MEDS: MULTIVITAMINS, THERA 1 EACH TAB PO SCH (07:43)
[2017-02-10] MEDS: aMILoride-HCTZ 5-50 mg 1 EACH TAB PO SCH (07:43)
[2017-02-10] MEDS: amLODIPine 5 MG TAB PO SCH (07:43)
[2017-02-10] MEDS: LISINOPRIL 10 MG TAB PO SCH (07:43)
[2017-02-10] MEDS: INSULIN LISPRO (humaLOG) 300 UNIT/3 ML VIAL SQ SCH ×2 (07:43→13:03)
[2017-02-10 09:27] LABS: INR 2.7 (<1.1); Prothrombin Time 26.1 sec (9.0-12.0)
[2017-02-10 09:50] LABS: Calcium 9.2 mg/dL (8.4-10.2); Potassium 3.9 mmol/L (3.5-5.1)
[2017-02-10 11:17] LABS: Basophils # (A) 0.1 k/uL (0-0.2); Basophils % (A) 1 %; CH 26.7; CHCM 30.5; Eosinophils # (A) 0.3 k/uL (0-0.7); Eosinophils % (A) 3 %; HCT 33.6 % (34.0-46.0); HDW 2.37; HGB 10.9 gm/dL (11.4-16.0); Hypochromasia Moderate; Luc # (Auto) 0.33; Luc % (Auto) 3; Lymphocytes # (A) 2.6 k/uL (1.0-4.8); Lymphocytes % (A) 25 %; MCH 28.5 pg (25.0-35.0); MCHC 32.5 g/dL (31.0-37.0); MCV 87.8 fL (80.0-100.0); Mean Platelet Volume 7.5; Monocytes # (A) 0.8 k/uL (0-1.0); Monocytes % (A) 7 %; Neutrophils # (A) 6.3 k/uL (1.3-7.7); Neutrophils % (A) 61 %; RBC 3.83 m/uL (3.80-5.40); RDW 14.6 % (11.5-15.5); WBC 10.4 k/uL (3.8-10.6); WBC (Perox) 8.95
[2017-02-10 11:57] LABS: Glucose,Whole Blood 221 mg/dL (75-99)
--- NOTE | 2017-02-10 14:51 | P.DS ---
Providers Date of admission: 02/07/17 01:34 Expected date of discharge: 02/10/17 Attending physician: Nette Chirinos Consults: 02/07/17 00:13 Consult Physician Urgent Consulting Provider: Abilio Hansen Consult Reason/Comments: urinary tract infeciton Do you want consulting provider notified?: Yes Primary care physician: Nette Chirinos [facility] Course: This is a 81-year-old female who presented to the hospital from a half-way with deyvi hematuria. Patient was admitted and was seen and evaluated by urology. Hemoglobin remained stable. Her hematuria was thought to be attributed to a traumatic Weeks insertion. Her urine cleared within the first 24 hours. She was maintained on Coumadin and her INR was therapeutic. She will be discharged back in stable condition. 1. Hematuria 2. Complicated urinary tract infection: Will finish antibiotic course with Keflex. 3. Paroxysmal atrial fibrillation on anticoagulation with Coumadin 4. Essential hypertension: Blood pressure well controlled 5. Type 2 diabetes mellitus 6. Mixed hyperlipidemia Patient Condition at Discharge: Stable Plan - Discharge Summary New Discharge Prescriptions: New Cephalexin [Keflex] 500 mg PO Q8HR #21 cap Continue Aspirin 81 mg PO HS Pravastatin Sodium [Pravachol] 80 mg PO HS Warfarin [Coumadin] 3 mg PO MOTUWEFRSA Levothyroxine Sodium [Synthroid] 50 mcg PO HS aMILoride-HCTZ 5-50 mg [Moduretic 5-50] 1 tab PO QAM amLODIPine [Norvasc] 5 mg PO DAILY Bisacodyl [Dulcolax] 5 mg PO DAILY PRN #30 tablet. PRN Reason: Constipation Lisinopril [Zestril] 10 mg PO BID INSULIN LISPRO (humaLOG) [humaLOG (formulary)] See Protocol SQ ACHS sitaGLIPtin [Januvia] 50 mg PO HS #1 tab Metoprolol Tartrate [Lopressor] 100 mg PO BID #1 tab Acetaminophen Tab [Tylenol] 650 mg PO Q4H PRN PRN Reason: Pain Folic Acid/Multivit-Min/Lutein [Therapeutic-M Tablet] 1 tab PO DAILY Insulin Glargine [Lantus] 25 unit SQ HS Warfarin Sodium [Coumadin] 4 mg PO SUTH Discharge Medication List Aspirin 81 mg PO HS 09/11/15 [History] Levothyroxine Sodium [Synthroid] 50 mcg PO HS 09/11/15 [History] Pravastatin Sodium [Pravachol] 80 mg PO HS 09/11/15 [History] Warfarin [Coumadin] 3 mg PO MOTUWEFRSA 09/11/15 [History] aMILoride-HCTZ 5-50 mg [Moduretic 5-50] 1 tab PO QAM 09/11/15 [History] amLODIPine [Norvasc] 5 mg PO DAILY 09/11/15 [History] Bisacodyl [Dulcolax] 5 mg PO DAILY PRN #30 tablet. 12/05/15 [Rx] INSULIN LISPRO (humaLOG) [humaLOG (formulary)] See Protocol SQ ACHS 01/16/16 [ History] Lisinopril [Zestril] 10 mg PO BID 01/16/16 [History] Metoprolol Tartrate [Lopressor] 100 mg PO BID #1 tab 01/23/16 [Rx] sitaGLIPtin [Januvia] 50 mg PO HS #1 tab 01/23/16 [Rx] Acetaminophen Tab [Tylenol] 650 mg PO Q4H PRN 02/06/17 [History] Folic Acid/Multivit-Min/Lutein [Therapeutic-M Tablet] 1 tab PO DAILY 02/06/17 [ History] Insulin Glargine [Lantus] 25 unit SQ HS 02/06/17 [History] Warfarin Sodium [Coumadin] 4 mg PO SUTH 02/06/17 [History] Cephalexin [Keflex] 500 mg PO Q8HR #21 cap 02/10/17 [Rx] Follow up Appointment(s)/Referral(s): Nette Chirinos MD [Primary Care Provider] - 1-2 days Discharge Disposition: TRANSFER TO SNF/ECF
[2017-02-10 15:23] VITALS: BP 131/55; RESP 16; TEMP 97.4
--- NOTE | 2017-02-12 10:40 | CDI ---
In responding to this query, please exercise your independent professional judgment. The [facility] Coding Staff and Clinical Documentation Specialists appreciate your assistance in clarifying documentation, maintaining compliance with coding guidelines, accurately documenting patients condition and capturing severity of illness. The fact that a question is asked does not imply that any particular answer is desired or expected. Communication forms are a method of clarifying documentation and are not made part of the Legal Health Record. Thank you in advance for your clarification. Last Revision, June 2015 [facility] [address] [facility] [place] [address] Documentation Clarification Form Date: 02/12/2017 10:28:00 AM From: Mariah Velazquez Admit Date: 02/07/2017 1:34:00 AM Patient Name: Fozia Rene Visit Number: [id number] Discharge Date: 02/10/17 Dr. Nette Chirinos 81 year old female presents with blood in Weeks catheter bag following recent catheter change. She was found to have a complicated urinary tract infection. Urinalysis: WBC>182, WBC clumps many, bacteria: moderate. Placed on IV Ceftriaxone. In your professional opinion, can you please clarify the etiology of the UTI, if known? Weeks catheter UTI not related to catheter/urostomy Other condition, please specify Unable to determine If an infective organism is present, please specify cause and effect relationship if applicable. Please document addendum in your discharge summary in order to capture severity of illness and risk of mortality. Include clinical findings that support your diagnosis. FYI: Press F11 to launch patient chart Place X here if this finding has no clinical significance, is not applicable or if you are not able to provide any additional documentation. OSCAR Alexander, CCS, AHIMA Certified [employer] Hospital Librarian/Pier Hand/Hospital Librarian II If you have any questions or concerns please contact Jodi Lindsay, Community Service Organization Director, Catie Fraser @ [phone] [facility]
== END 2017-02-10 16:45 | DRG 699 ==
LOC: EC 21:11 → 4MS4W 02-07 01:34
PROVIDERS: ADMIT Internal Medicine; ATTEND Internal Medicine
DX: T83.83XA Hemorrhage due to genitourinary prosthetic devices, implants and grafts, initial encounter (principal); N39.0 Urinary tract infection, site not specified; T83.518A Infection and inflammatory reaction due to other urinary catheter, initial encounter; E11.42 Type 2 diabetes mellitus with diabetic polyneuropathy; E11.51 Type 2 diabetes mellitus with diabetic peripheral angiopathy without gangrene; I48.0 Paroxysmal atrial fibrillation; I10 Essential (primary) hypertension; R32 Unspecified urinary incontinence; E78.2 Mixed hyperlipidemia; M19.041 Primary osteoarthritis, right hand; M19.042 Primary osteoarthritis, left hand; Z86.14 Personal history of Methicillin resistant Staphylococcus aureus infection; Z85.41 Personal history of malignant neoplasm of cervix uteri; Z79.01 Long term (current) use of anticoagulants; Z79.4 Long term (current) use of insulin; Z79.82 Long term (current) use of aspirin; Z79.899 Other long term (current) drug therapy; Z79.84 Long term (current) use of oral hypoglycemic drugs; Y84.6 Urinary catheterization as the cause of abnormal reaction of the patient, or of later complication, without mention of misadventure at the time of the procedure; Y92.129 Unspecified place in nursing home as the place of occurrence of the external cause
CPT/HCPCS: 36415; 80048; 80053; 81001; 83036; 85025; 85610; 85730; 96365; 99285

== ENCOUNTER 2017-06-17 09:57 | Observation (INO) | payer MEDICARE, BC ==
[2017-06-17] MEDS ORDERED: ALPRAZolam 0.25 MG TAB PO PRN (10:21)
[2017-06-17] MEDS ORDERED: SODIUM CHLORIDE 0.9% 1,000 ML in EMPTY BAG 1 BAG IV ONE ×2 (10:21→15:11)
[2017-06-17] MEDS ORDERED: ASPIRIN 325 MG TAB PO STA (10:22)
[2017-06-17 10:46] LABS: INR 1.4 (<1.2); Prothrombin Time 13.9 sec (9.0-12.0)
[2017-06-17 10:57] LABS: Glucose,Whole Blood 206 mg/dL (75-99)
[2017-06-17] MEDS: INSULIN ASPART 100 UNIT/ML 1 ML 10 ML VIAL SQ SCH ×3 (11:10→21:52)
[2017-06-17] MEDS ORDERED: SODIUM CHLORIDE 0.9% 1,000 ML IV SCH (11:45)
[2017-06-17] MEDS ORDERED: INSULIN ASPART 100 UNIT/ML 1 ML 10 ML VIAL SQ SCH (17:30)
[2017-06-17 17:46] LABS: Glucose,Whole Blood 116 mg/dL (75-99)
[2017-06-17 20:27] LABS: Glucose,Whole Blood 143 mg/dL (75-99)
[2017-06-17] MEDS ORDERED: INSULIN DETEMIR 100 UNIT/ML 10 ML VIAL SQ SCH (21:00)
[2017-06-17] MEDS ORDERED: PRAVASTATIN SODIUM 80 MG TAB PO SCH (21:00)
[2017-06-17] MEDS ORDERED: LINAGLIPTIN 5 MG TABLET PO SCH (21:00)
[2017-06-17] MEDS: METOPROLOL TARTRATE 50 MG TAB PO SCH (21:52)
[2017-06-17] MEDS: LISINOPRIL 10 MG TAB PO SCH (21:52)
[2017-06-18 06:18] LABS: Anisocytosis Slight; Basophils # (A) 0.1 k/uL (0-0.2); Basophils % (A) 1 %; Eosinophils # (A) 0.4 k/uL (0-0.7); Eosinophils % (A) 4 %; HCT 35.8 % (34.0-46.0); HGB 11.4 gm/dL (11.4-16.0); Hypochromasia Moderate; Lymphocytes % (A) 30 %; MCH 28.5 pg (25.0-35.0); MCHC 31.8 g/dL (31.0-37.0); MCV 89.6 fL (80.0-100.0); Mean Platelet Volume 7.2; Monocytes # (A) 0.8 k/uL (0-1.0); Monocytes % (A) 8 %; Neutrophils # (A) 5.5 k/uL (1.3-7.7); Neutrophils % (A) 56 %; Platelet Count 244 k/uL (150-450)
[2017-06-18 06:28] LABS: Calcium 9.2 mg/dL (8.4-10.2); Potassium 4.1 mmol/L (3.5-5.1)
[2017-06-18] MEDS ORDERED: LEVOTHYROXINE 50 MCG TAB PO SCH (06:30)
[2017-06-18] MEDS ORDERED: fentaNYL (PF) 50 MCG/ML 2 ML AMP IV ONE (06:39)
[2017-06-18] MEDS ORDERED: MIDAZOLAM 2 MG/2 ML VIAL IV ONE (06:39)
[2017-06-18] MEDS ORDERED: LIDOCAINE 2% INJ 20 MG/ML SQ ONE ×2 (06:40→06:41)
[2017-06-18] MEDS ORDERED: SODIUM CHLORIDE 0.9% 1,000 ML IV ONE (06:44)
[2017-06-18] MEDS ORDERED: IODIXANOL 320 MG/ML 100 ML INTRAARTER ONE (06:52)
[2017-06-18] MEDS ORDERED: METOPROLOL TARTRATE 5 MG/5 ML VIAL IVP ONE (07:03)
[2017-06-18] MEDS ORDERED: hydrALAZINE HCL 20 MG/ML 1 ML VIAL IV ONE (07:03)
[2017-06-18] MEDS ORDERED: SODIUM CHLORIDE 0.9% 1,000 ML IV SCH (07:15)
[2017-06-18] MEDS ORDERED: INSULIN ASPART 100 UNIT/ML 1 ML 10 ML VIAL SQ SCH ×2 (07:30→12:30)
[2017-06-18 07:43] VITALS: RESP 18
--- NOTE | 2017-06-18 08:06 | AN ---
ANGIOGRAPHY REPORT DATE OF SERVICE: 06/18/2017 PERFORMING PHYSICIAN: Yoel Dye MD, Home Delivery Driver. PROCEDURE PERFORMED: Right lower extremity runoff. INDICATION: This is a pleasant 81-year-old female patient who sees Dr. Aragon as an outpatient who was diagnosed with what seems to be critical limb ischemia and nonhealing ulcer involving the right foot. In view of that, she was scheduled to undergo a peripheral angiogram. APPROACH: Right common femoral artery. COMPLICATION: None. LEVEL OF SEDATION: Moderate with sedation length of 13 minutes. PROCEDURE DESCRIPTION: After obtaining an informed consent, the patient was brought to the Cardiac Janitorial Services Supervisor. The right common femoral artery was cannulated using micropuncture technique, the micropuncture wire passed easily, then I placed a 5-[place] sheath in the right common femoral artery. After that, I did right lower extremity runoff using DSA. The procedure was completed without any complication. SELECTIVE PERIPHERAL ANGIOGRAM: The right common femoral artery is angiographically normal. It bifurcates into profunda and SFA. The right profunda is angiographically normal. The right SFA appeared to have mild disease only. The right popliteal is occluded in the mid segment. The occlusion is extending into the right tibioperoneal trunk. Then the proximal AT as well as proximal PT are occluded. The peroneal was not opacified at all. The AT and PT occlusions only in the proximal portion. Down by the foot, I was able to visualize both the AT and PT. CONCLUSION: 1. Occluded right popliteal. 2. Occluded tibioperoneal trunk. 3. Two-vessel runoff below the knee with anterior tibial and posterior tibial. POSTPROCEDURE MANAGEMENT: The patient is going to follow up with Dr. Aragon who will assess the patient for revascularization in term of percutaneous or surgical. MMODL / IJN: [id number] /
[2017-06-18] MEDS ORDERED: SENNOSIDES-DOCUSATE SODIUM 1 EACH TAB PO SCH (09:00)
[2017-06-18] MEDS ORDERED: amLODIPine 5 MG TAB PO SCH (09:00)
[2017-06-18] MEDS ORDERED: aMILoride-HCTZ 5-50 mg 1 EACH TAB PO SCH (09:00)
[2017-06-18] MEDS ORDERED: VIT A,C & E-LUTEIN-MINERALS 1 EACH TAB PO SCH (09:00)
[2017-06-18] MEDS: METOPROLOL TARTRATE 50 MG TAB PO SCH (09:28)
[2017-06-18] MEDS: LISINOPRIL 10 MG TAB PO SCH (09:28)
--- NOTE | 2017-06-18 09:42 | DS ---
DISCHARGE SUMMARY DATE OF ADMISSION: 06/17/2017 DATE OF DISCHARGE: 06/18/2017 BRIEF HISTORY: This is a pleasant 81-year-old female patient who sees Dr. Aragon as an outpatient who is known to have peripheral arterial disease and she underwent in the past a popliteal to pedal bypass for what seems to be critical limb ischemia, was not doing well and her right foot ulcer was not healing well. She was seen and evaluated by Dr. Aragon who recommended proceeding with a peripheral angiogram for better clarification. The patient was admitted overnight for IV hydration in view of her low GFR which was about 35. Her max contrast was 110 mL. The patient underwent only right lower extremity runoff and that revealed an occluded right popliteal and occluded right tibioperoneal trunk. She has 2-vessel runoff with AT and PT. The patient is going to be discharged later on today into an extended care facility and she will follow up with Dr. Aragon as an outpatient. MMODL / TRICIAN: [id number] /
--- NOTE | 2017-06-18 09:44 | IR ---
Fluoroscopy HISTORY: Pain 2 minutes fluoroscopy time supplied to the referring clinician. 79 intraoperative C-arm images docum ent the procedure. See dictated report from cardiology.
[2017-06-18] MEDS: INSULIN ASPART 100 UNIT/ML 1 ML 10 ML VIAL SQ SCH ×2 (10:53→12:31)
[2017-06-18 12:06] LABS: Glucose,Whole Blood 169 mg/dL (75-99)
[2017-06-18 12:36] LABS: Hemoglobin A1C 7.5 % (4.0-6.0)
[2017-06-18 15:33] VITALS: BP 136/61; PULSE 101; TEMP 97.9
[2017-06-18] MEDS ORDERED: ASPIRIN 81 MG PO SCH (21:00)
== END 2017-06-18 16:25 ==
LOC: CATHCVL 09:57 → 3OBS 15:21
PROVIDERS: ADMIT Internal Medicine Interventional Cardiology; ATTEND Internal Medicine Interventional Cardiology
DX: I70.235 Atherosclerosis of native arteries of right leg with ulceration of other part of foot (principal); E11.621 Type 2 diabetes mellitus with foot ulcer; E78.5 Hyperlipidemia, unspecified; I10 Essential (primary) hypertension; I48.91 Unspecified atrial fibrillation; E11.51 Type 2 diabetes mellitus with diabetic peripheral angiopathy without gangrene; L97.519 Non-pressure chronic ulcer of other part of right foot with unspecified severity; Z79.899 Other long term (current) drug therapy; Z79.01 Long term (current) use of anticoagulants; Z79.82 Long term (current) use of aspirin; Z79.4 Long term (current) use of insulin; Z68.34 Body mass index [BMI] 34.0-34.9, adult
CPT/HCPCS: 36140; 75710; 80048; 85025; 85610; 83036; G0378 ×2; C1769 ×3; J2001; J2250; J0360; Q9967; J3010; 36200

== ENCOUNTER → 2017-08-15 | Outpatient (CLI) | payer MEDICARE, BC, OTHER ==
--- NOTE | 2017-08-15 11:32 | CT ---
EXAMINATION TYPE: CT abdomen pelvis wo con DATE OF EXAM: 08/15/2017 COMPARISON: NONE HISTORY: Stones, Chronic bladder pain CT DLP: 824.50 mGycm Automated exposure control for dose reduction was used. TECHNIQUE: Helical acquisition of images from the lung bases through the pelvis. FINDINGS: Lack of contrast could compromise sensitivity. LUNG BASES: Similar to prior exam, minimal pleural effusion suspected on the right, some basilar atel ectasis is noted. Heart is enlarged. There are coronary artery calcifications. AORTA: No significant abnormality is appreciated. LIVER/GB: No significant abnormality is appreciated. PANCREAS: No significant abnormality is seen. SPLEEN: No significant abnormality is seen. ADRENALS: No significant abnormality is seen. KIDNEYS: Similar to prior exam. Right kidney is atrophic. There is improvement in the bilateral hydro nephrosis. Cortical cyst present at the lower pole of the left kidney. No evident ureteral calculus. REPRODUCTIVE ORGANS: Not seen with certainty. URINARY BLADDER: Catheterized however urine is present within the bladder, urinary bladder shows wal l thickening BOWEL: Question some thickening of the rectosigmoid junction. FREE AIR: No Free Air is visible. ASCITES: None visible. PELVIC ADENOPATHY: None visualized. RETROPERITONEAL ADENOPATHY: No Retroperitoneal Adenopathy visible. OSSEOUS STRUCTURES: Stable. There is a marked scoliosis, degenerative disc changes in the visualized spine. IMPRESSION: NONCONTRAST EXAM. THERE IS URINE PRESENT WITHIN THE BLADDER DESPITE CATHETERIZATION, CORRELATE FOR PO SSIBLE CYSTITIS, THERE IS WALL THICKENING. DIFFICULT TO EXCLUDE A MUCOSAL LESION AT THE RECTOSIGMOID JUNCTION OF THE COLON. CONSIDER BOWEL SURVEILLANCE IF THIS HAS NOT BEEN PERFORMED. CORONARY ARTERY DI SEASE AND CARDIOMEGALY. SMALL RIGHT PLEURAL EFFUSION. INTERVAL RESOLUTION OF PATIENT'S HYDRONEPHROSIS BILATERALLY. ATROPHIC RIGHT KIDNEY.
== END | disposition home or self-care (01) ==
LOC: RADCTMAIN 09:10
PROVIDERS: ATTEND Internal Medicine
DX: N26.1 Atrophy of kidney (terminal) (principal); N32.89 Other specified disorders of bladder
CPT/HCPCS: 74176

== ENCOUNTER 2018-05-04 11:54 | Inpatient (IN) | payer MEDICARE, BC, OTHER ==
[2018-05-04 12:39] LABS: Basophils # (A) 0.1 k/uL (0-0.2); Basophils % (A) 0 %; Eosinophils # (A) 0.2 k/uL (0-0.7); Eosinophils % (A) 1 %; HCT 30.6 % (34.0-46.0); HGB 10.3 gm/dL (11.4-16.0); Lymphocytes # (A) 1.9 k/uL (1.0-4.8); Lymphocytes % (A) 9 %; MCH 28.6 pg (25.0-35.0); MCHC 33.6 g/dL (31.0-37.0); Mean Platelet Volume 7.7; Monocytes # (A) 1.1 k/uL (0-1.0); Monocytes % (A) 5 %; Neutrophils # (A) 18.8 k/uL (1.3-7.7); Neutrophils % (A) 84 %; Platelet Count 248 k/uL (150-450); RDW 13.4 % (11.5-15.5); WBC 22.4 k/uL (3.8-10.6)
[2018-05-04 12:46] LABS: Amorphous Sediment,Urine Few /hpf; Appearance,Urine Cloudy (Clear); Bacteria,Urine Occasional /hpf; Bilirubin,Urine Negative (Negative); Blood,Urine Trace (Negative); Color,Urine Light Yellow; Glucose,Urine (UA) Negative (Negative); Ketones,Urine Negative (Negative); Leukocyte Esterase,Urine Large (Negative); Mucus,Urine Rare /hpf; Nitrite,Urine Positive (Negative); Protein,Urine Negative (Negative); RBC,Urine 3 /hpf (0-5); Specific Gravity,Urine 1.008 (1.001-1.035); Urobilinogen,Urine <2.0 mg/dL (<2.0); WBC,Urine 13 /hpf (0-5)
[2018-05-04 12:50] LABS: Albumin 3.6 g/dL (3.5-5.0); Total Bilirubin 0.9 mg/dL (0.2-1.3); Total Protein 8.3 g/dL (6.3-8.2)
[2018-05-04 12:57] LABS: Potassium 5.2 mmol/L (3.5-5.1)
--- NOTE | 2018-05-04 13:04 | ED ---
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 Pt states that she has had chronic issues with her right leg and neuropathy b/l however for weeks she has had right LE swelling and redness Erythema was worsening and pt was sent for evaluation for DVT by [facility]. Upon arrival pt febrile at 100.0F, remainder VS within acceptable limits. (Karen Bianchi) - Related Data Home Medications Medication Instructions Recorded Confirmed Aspirin 81 mg PO HS 09/11/15 05/04/18 Levothyroxine Sodium [Synthroid] 50 mcg PO QAM 09/11/15 05/04/18 Pravastatin Sodium [Pravachol] 80 mg PO HS 09/11/15 05/04/18 Warfarin [Coumadin] 3 mg PO SUMOTUTHSA 09/11/15 05/04/18 aMILoride-HCTZ 5-50 mg [Moduretic 1 tab PO DAILY 09/11/15 05/04/18 5-50] amLODIPine [Norvasc] 5 mg PO DAILY 09/11/15 05/04/18 Lisinopril [Zestril] 10 mg PO BID 01/16/16 05/04/18 Insulin Glargine [Lantus] 30 unit SQ HS 02/06/17 05/04/18 INSULIN LISPRO (humaLOG) [humaLOG] 10 units SQ AC-TID@07,,16 06/16/17 05/04/18 Sennosides-Docusate Sodium 1 tab PO DAILY 06/16/17 05/04/18 [Senokot-S] Acetaminophen Tab [Tylenol Tab] 650 mg PO Q6H PRN 10/01/18 10/01/18 Furosemide [Lasix] 60 mg PO BID@08,16 05/04/18 05/04/18 Multivitamins, Thera [Multivitamin 1 tab PO DAILY 05/04/18 05/04/18 (formulary)] Potassium Chloride ER [K-Dur 10] 10 meq PO DAILY 05/04/18 05/04/18 Sodium Chloride 5% Ophth Soln 1 drop BOTH EYES BID 05/04/18 05/04/18 [Hari 128] Warfarin [Coumadin] 6 mg PO WEFR 05/04/18 05/04/18 Previous Rx's Medication Instructions Recorded Metoprolol Tartrate [Lopressor] 100 mg PO BID #1 tab 01/23/16 sitaGLIPtin [Januvia] 50 mg PO HS #1 tab 01/23/16 Allergies Allergy/AdvReac Type Severity Reaction Status Date / Time No Known Allergies Allergy Verified 05/04/18 12:45 Review of Systems ROS Other: All systems not noted in ROS Statement are negative. <Sixto Dumont - Last Filed: 05/04/18 14:23> ROS Other: All systems not noted in ROS Statement are negative. Constitutional: Denies: fever, chills, night sweats ENT: Denies: ear pain, throat pain Respiratory: Denies: cough, dyspnea, wheezes, hemoptysis, stridor Cardiovascular: Denies: chest pain, palpitations, dyspnea on exertion Gastrointestinal: Denies: abdominal pain, nausea, vomiting, diarrhea, constipation Genitourinary: Denies: urgency, dysuria, frequency, hematuria Musculoskeletal: Reports: other (right LE swelling, erythema and warmth). Denies: back pain Skin: Reports: as per HPI, change in color. Denies: rash, lesions Neurological: Denies: headache, weakness, numbness, paresthesias, confusion, abnormal gait <Karen Bianchi - Last Filed: 05/04/18 16:01> ROS Statement: Those systems with pertinent positive or pertinent negative responses have been documented in the HPI. Past Medical History Past Medical History: Atrial Fibrillation, Diabetes Mellitus, Hyperlipidemia, Hypertension, Thyroid Disorder Additional Past Medical History / Comment(s): peripheral neuropathy, UTIs, urinary incontinence, OA bilateral hands and back, PVD, cervical cancer History of Any Multi-Drug Resistant Organisms: MRSA Date of last positivie culture/infection: 09/11/2015 MDRO Source:: RIGHT FOOT Past Surgical History: Hysterectomy, Tonsillectomy Additional Past Surgical History / Comment(s): R leg bypass surgery, bilateral cataract removal Past Anesthesia/Blood Transfusion Reactions: No Reported Reaction Past Psychological History: No Psychological Hx Reported Smoking Status: Never smoker Past Alcohol Use History: None Reported Past Drug Use History: None Reported - Past Family History Mother Family Medical History: CVA/TIA Additional Family Medical History / Comment(s): Mother in her 70's. Father Family Medical History: Hypertension Additional Family Medical History / Comment(s): Father in his 70's. <KipgregKaren L - Last Filed: 05/04/18 16:01> General Exam <Sixto Dumont - Last Filed: 05/04/18 14:23> Limitations: no limitations <Tessa Bianchijavy Pryor - Last Filed: 05/04/18 16:01> - General Exam Comments Initial Comments: General: The patient is awake and alert, in no distress, and does not appear acutely ill. Pt is hard of hearing. Eye: Pupils are equal, round and reactive to light, extra-ocular movements are intact. No nystagmus. There is normal conjunctiva bilaterally. No signs of icterus. Ears, nose, mouth and throat: There are moist mucous membranes and no oral lesions. Neck: The neck is supple, there is no tenderness or JVD. Cardiovascular: There is a regular rate and rhythm. No murmur, rub or gallop is appreciated. Respiratory: Lungs are clear to auscultation, respirations are non-labored, breath sounds are equal. No wheezes, stridor, rales, or rhonchi. Gastrointestinal: Soft, non-distended, non-tender abdomen without masses or organomegaly noted. There is no rebound or guarding present. No CVA tenderness. Bowel sounds are unremarkable. Musculoskeletal: Normal ROM of the LE equally b/l, no tenderness. Strength 5/ 5. Pt able to feel deep palpation of the LE bilaterally, but not with light touch. Posterior tibial pulses equal bilaterally 2+, unable to palpate DP pulses b/l. Extremities are warm to touch b/l. No pallor. Neurological: A&O x 3. CN II-XII intact, There are no obvious motor or sensory deficits. Coordination appears grossly intact. Speech is normal. Skin: Skin is warm and dry. Right LE is sigificantly larger on the left. There is erythema that is warm to palpation from ankle to 3inches below the knee joint. No pitting edema b/l. No pain to palpation along the deep venous system. (-) Homans b/l. No palpable masses along deep venous system. No areas of ulceration. Psychiatric: Cooperative, appropriate mood & affect, normal judgment. (Karen Bianchi) Vital Signs 05/04/18 05/04/18 12:02 13:28 Temperature 100.0 F H Pulse Rate 94 89 Respiratory 18 18 Rate Blood Pressure 120/60 129/59 O2 Sat by Pulse 98 99 Oximetry Medical Decision Making - Lab Data Result diagrams: 05/04/18 12:17 05/04/18 12:17 <Sixto Dumont - Last Filed: 05/04/18 14:23> - Lab Data Result diagrams: 05/04/18 12:17 05/04/18 12:17 <Karen Bianchi - Last Filed: 05/04/18 16:01> - Medical Decision Making Patient reevaluated by myself, Dr. Dumont. Patient does have erythema of the right lower leg with warmth. Decreased pulses of the right lower leg however this is easily heard with Doppler. Cap refill 2 seconds. Patient updated. Case was discussed in detail with Dr. Schuler who will admit for Dr. Mendoza. She does recommend vancomycin and cefepime. (Sixto Dumont) PE as noted above. Pulses diminished but heard easily with doppler. Labs as noted above. WBC with source of infection concerning for possible sepsis. Elevated BUN/Cr concerning for ALEA (last Cr 1.48). Lactic Acid WNL. Urine as noted above, concerning for catheter associated infection. Case discusse with Dr. Dumont and admission decided at this time. Pt given 500mL bolus. Dr. Reji carter, Dr. Schuler accepted admission for Dr. Mendoza after speaking with Dr. Dumont, at this time we ruled pt met sepsis critera pt started on cefepime and vanco. Pt transferred to floor in stable condition. (Karen Bianchi) - Lab Data Lab Results 05/04/18 05/04/18 05/04/18 Range/Units 12:17 12:17 12:17 WBC (3.8-10.6) k/uL RBC (3.80-5.40) m/uL Hgb (11.4-16.0) gm/dL Hct (34.0-46.0) % MCV (80.0-100.0) fL MCH (25.0-35.0) pg MCHC (31.0-37.0) g/dL RDW (11.5-15.5) % Plt Count (150-450) k/uL Neutrophils % % Lymphocytes % % Monocytes % % Eosinophils % % Basophils % % Neutrophils # (1.3-7.7) k/uL Lymphocytes # (1.0-4.8) k/uL Monocytes # (0-1.0) k/uL Eosinophils # (0-0.7) k/uL Basophils # (0-0.2) k/uL PT (9.0-12.0) sec INR (<1.2) APTT (22.0-30.0) sec Sodium 132 L (137-145) mmol/L Potassium 5.2 H (3.5-5.1) mmol/L Chloride 95 L (98-107) mmol/L Carbon Dioxide 25 (22-30) mmol/L Anion Gap 12 mmol/L BUN 108 H* (7-17) mg/dL Creatinine 2.35 H (0.52-1.04) mg/dL Est GFR (CKD-EPI)AfAm 21 (>60 ml/min/1.73 sqM) Est GFR (CKD-EPI)NonAf 19 (>60 ml/min/1.73 sqM) Glucose 144 H (74-99) mg/dL Plasma Lactic Acid Misael 1.4 (0.7-2.0) mmol/L Calcium 9.0 (8.4-10.2) mg/dL Total Bilirubin 0.9 (0.2-1.3) mg/dL AST 42 H (14-36) U/L ALT 23 (9-52) U/L Alkaline Phosphatase 70 (38-126) U/L Total Protein 8.3 H (6.3-8.2) g/dL Albumin 3.6 (3.5-5.0) g/dL Urine Color Light Yellow Urine Appearance Cloudy H (Clear) Urine pH 7.0 (5.0-8.0) Ur Specific Tracy 1.008 (1.001-1.035) Urine Protein Negative (Negative) Urine Glucose (UA) Negative (Negative) Urine Ketones Negative (Negative) Urine Blood Trace H (Negative) Urine Nitrite Positive H (Negative) Urine Bilirubin Negative (Negative) Urine Urobilinogen <2.0 (<2.0) mg/dL Ur Leukocyte Esterase Large H (Negative) Urine RBC 3 (0-5) /hpf Urine WBC 13 H (0-5) /hpf Amorphous Sediment Few H (None) /hpf Urine Bacteria Occasional H (None) /hpf Urine Mucus Rare H (None) /hpf 05/04/18 05/04/18 Range/Units 12:17 12:17 WBC 22.4 H (3.8-10.6) k/uL RBC 3.60 L (3.80-5.40) m/uL Hgb 10.3 L (11.4-16.0) gm/dL Hct 30.6 L (34.0-46.0) % MCV 85.0 (80.0-100.0) fL MCH 28.6 (25.0-35.0) pg MCHC 33.6 (31.0-37.0) g/dL RDW 13.4 (11.5-15.5) % Plt Count 248 (150-450) k/uL Neutrophils % 84 % Lymphocytes % 9 % Monocytes % 5 % Eosinophils % 1 % Basophils % 0 % Neutrophils # 18.8 H (1.3-7.7) k/uL Lymphocytes # 1.9 (1.0-4.8) k/uL Monocytes # 1.1 H (0-1.0) k/uL Eosinophils # 0.2 (0-0.7) k/uL Basophils # 0.1 (0-0.2) k/uL PT 27.4 H (9.0-12.0) sec INR 3.1 H (<1.2) APTT 39.8 H (22.0-30.0) sec Sodium (137-145) mmol/L Potassium (3.5-5.1) mmol/L Chloride (98-107) mmol/L Carbon Dioxide (22-30) mmol/L Anion Gap mmol/L BUN (7-17) mg/dL Creatinine (0.52-1.04) mg/dL Est GFR (CKD-EPI)AfAm (>60 ml/min/1.73 sqM) Est GFR (CKD-EPI)NonAf (>60 ml/min/1.73 sqM) Glucose (74-99) mg/dL Plasma Lactic Acid Misael (0.7-2.0) mmol/L Calcium (8.4-10.2) mg/dL Total Bilirubin (0.2-1.3) mg/dL AST (14-36) U/L ALT (9-52) U/L Alkaline Phosphatase (38-126) U/L Total Protein (6.3-8.2) g/dL Albumin (3.5-5.0) g/dL Urine Color Urine Appearance (Clear) Urine pH (5.0-8.0) Ur Specific Tracy (1.001-1.035) Urine Protein (Negative) Urine Glucose (UA) (Negative) Urine Ketones (Negative) Urine Blood (Negative) Urine Nitrite (Negative) Urine Bilirubin (Negative) Urine Urobilinogen (<2.0) mg/dL Ur Leukocyte Esterase (Negative) Urine RBC (0-5) /hpf Urine WBC (0-5) /hpf Amorphous Sediment (None) /hpf Urine Bacteria (None) /hpf Urine Mucus (None) /hpf Disposition <Sixto Dumont - Last Filed: 05/04/18 14:23> Is patient prescribed a controlled substance at d/c from ED?: No Time of Disposition: 14:43 Decision Date: 05/04/18 Decision Time: 14:00 <Karen Bianhci - Last Filed: 05/04/18 16:01> Clinical Impression: Sepsis, Cellulitis of right lower limb, Leukocytosis, UTI (urinary tract infection) Disposition: ADMITTED IP TO [facility] Condition: Stable
[2018-05-04 13:28] LABS: INR 3.1 (<1.2); Partial Thromboplastin Time 39.8 sec (22.0-30.0); Prothrombin Time 27.4 sec (9.0-12.0)
--- NOTE | 2018-05-04 13:39 | US ---
EXAMINATION TYPE: US venous doppler duplex LE RT DATE OF EXAM: 05/04/2018 1:17 PM COMPARISON: NONE CLINICAL HISTORY: Pain. Edema right leg for 2+ weeks. Discoloration right lower leg. Right leg bypass SIDE PERFORMED: right TECHNIQUE: The lower extremity deep venous system is examined utilizing real time linear array sonog en[place] with graded compression, doppler sonography and color-flow sonography. VESSELS IMAGED: External Iliac Vein (EIV) Common Femoral Vein Deep Femoral Vein Greater Saphenous Vein * Femoral Vein Popliteal Vein Small Saphenous Vein * Proximal Calf Veins (* superficial vessels) There is normal flow, compressibility, vascular waveforms. Right Leg: No evidence of DVT as visualized IMPRESSION: No evident deep venous thrombosis at or above the right knee. Follow-up as indicated.
[2018-05-04] MEDS ORDERED: SODIUM CHLORIDE 0.9% 500 ML 500 ML IV ONE (13:41)
[2018-05-04] MEDS ORDERED: VANCOMYCIN IV PER PHARMACY 1 EACH MISC MISCELLANE PRN (14:23)
[2018-05-04] MEDS ORDERED: CEFEPIME 2 GM in SODIUM CHLORIDE 0.9% 50 ML IVPB STA (14:27)
[2018-05-04] MEDS ORDERED: ACETAMINOPHEN TAB 325 MG TAB PO PRN ×2 (14:28→16:08)
[2018-05-04] MEDS ORDERED: IBUPROFEN 400 MG TAB PO PRN (14:28)
[2018-05-04] MEDS ORDERED: NALOXONE 0.4 MG/ML 1 ML VIAL IV PRN (14:28)
[2018-05-04] MEDS ORDERED: HYDROcodone/APAP 5-325MG 1 EACH TAB PO PRN (14:28)
[2018-05-04] MEDS ORDERED: SODIUM CHLORIDE 0.9% 1,000 ML IV SCH (14:30)
[2018-05-04] MEDS ORDERED: VANCOMYCIN 1,500 MG in SODIUM CHLORIDE 0.9% 250 ML IVPB STA (14:33)
--- NOTE | 2018-05-04 15:27 | US ---
EXAMINATION TYPE: US kidneys/renal and bladder DATE OF EXAM: 05/04/2018 COMPARISON: CT CLINICAL HISTORY: ALEA on CKD , r/o pyelonephritis . EXAM MEASUREMENTS: Right Kidney: 5.2 x 2.7 x 3.1 cm Left Kidney: 12.1 x 5.3 x 4.9 cm Morbidly obese patient laying RLD unable to move. Technically difficult, somewhat limited study. Right Kidney: not well visualized, atrophied, lower pole obscured by overlying bowel gas, no evident hydronephrosis Left Kidney: cyst seen 1.9 x 1.3 x 1.6cm, no hydronephrosis Bladder: not visualized There is no evidence for hydronephrosis at this point in time. No nephrolithiasis is seen. No pablo s are identified. The urinary bladder is anechoic. Bilateral ureteral jets are seen. There is no ascites. IMPRESSION: Atrophic changes of the right kidney as on prior exam. Cystic focus lower pole left kidney is similar to prior exam
[2018-05-04] MEDS ORDERED: SODIUM CHLORIDE 0.9% 1,000 ML IV ONE (15:40)
[2018-05-04] MEDS ORDERED: SODIUM POLYSTYRENE SULFONATE 15 GM/60 ML BOTTLE PO ONE (16:07)
[2018-05-04] MEDS ORDERED: MORPHINE SULFATE 2 MG/ML SYRINGE IVP PRN (16:08)
[2018-05-04] MEDS ORDERED: IPRATROPIUM-ALBUTEROL 3 ML NEB INHALATION PRN (16:08)
[2018-05-04] MEDS ORDERED: ONDANSETRON 4 MG/2 ML VIAL IVP PRN (16:08)
--- NOTE | 2018-05-04 16:17 | XR ---
Right hip HISTORY: Chronic right hip pain 2 views of the right hip Correlation to plain film of the pelvis 09/11/2015 Bone mineralization is reduced. Alignment, joint space maintained. There are vascular calcifications present, surgical clips present in the medial right thigh. No fracture or dislocation. Technique is s omewhat limited. IMPRESSION: No fracture or dislocation. No significant arthropathy.
--- NOTE | 2018-05-04 16:25 | P.HPIM ---
History of Present Illness H&P Date: 05/04/18 Chief Complaint: lower extremity swelling and pain 1 years old female patient of Dr. Mendoza recites them medical large with past medical history of atrial fibrillation on Coumadin, diabetes mellitus with neuropathy, hyperlipidemia, hypertension, thyroid disorder, history of peripheral artery disease status post to right lower extremity bypasses by Dr. Aragon, history of critical limb ischemia and nonhealing ulcer of right 11th in 2016 history of UTIs, urinary incontinence history of MRSA in 2016 presents with swelling and pain in the right lower extremity. Patient comes to the ER with significant swelling on involving the right lower extremity with erythema for the past few weeks. Arterial study was done as outpatient by Dr. Mendoza that suggested worsening of the peripheral artery disease. Venous Doppler was done in the ER to rule out DVT that was negative for any occlusion. Patient continues to complain of significant pain in the right lower extremity at the level of groin. Patient is wheelchair bound and is a long-term patient at discharge. Patient is hard of hearing and is unable to provide any history by herself history is obtained by the previous documentation and ER documentation. On evaluation in the ER, where a suggested temp of 101, tachycardia 101, blood pressure 120/60 saturating well on room air. Lab obtained suggest leukocytosis of 22.4, hemoglobin 10.3 which is close to patient's baseline. INR obtained suggest 3.1, BNP suggestive sodium 132, potassium 5.2, V1 108 which is increased from the baseline, creatinine 2.35 and GFR decreased to 21 from 38 urinalysis obtained as suggest some leukocytosis 13, with positive nitrates and leukocyte esterase. Review of Systems Constitutional: Denies chills, Denies fever, Denies lethargy, Denies malaise, Denies poor appetite, Denies weakness, Denies weight loss Eyes: denies decreased vision, denies diplopia, denies discharge, denies pain Ears: deny: decreased hearing Ears, nose, mouth and throat: Denies dental pain, Denies headache, Denies nasal discharge, Denies nose pain Cardiovascular: Denies chest pain, Denies decreased exercise tolerance, Denies edema, Denies high blood pressure, Denies irregular heart beat, Denies palpitations, Denies paroxysmal nocturnal dyspnea, Denies rapid heart beat, Denies shortness of breath Respiratory: Denies congestion, Denies cough, Denies cough with sputum, Denies dyspnea, Denies home oxygen, Denies wheezing Gastrointestinal: Endorses right lower quadrant abdominal pain, Denies change in bowel habits, Denies coffee ground emesis, Denies early satiety, Denies excessive gas, Denies heartburn, Denies hematemesis, Denies hematochezia, Denies loss of appetite, Denies nausea, Denies vomiting Genitourinary: Denies dysuria, Denies flank pain, Denies kidney stones, Denies menorrhagia, Denies urgency, Denies urinary frequency Musculoskeletal: Patient is wheelchair bound with limitation of motion. Weakness in the lower extremity bilaterally Integumentary: Denies rash, Denies wounds, Denies brittle nails, Denies change in hair/nails, Denies darkening of skin Neurological: Denies balance difficulties, Denies change in speech, Denies double vision, Denies gait dysfunction, Denies loss of vision, Denies motor disturbance, Denies numbness, Denies paralysis, Denies paresthesias, Denies seizures Psychiatric: Denies anxiety, Denies depression Endocrine: Denies excessive sweating, Denies excessive thirst, Denies high blood sugars, Denies palpitations Hematologic/Lymphatic: Denies easy bruising, Denies lymphadenopathy Past Medical History Past Medical History: Atrial Fibrillation, Diabetes Mellitus, Hyperlipidemia, Hypertension, Thyroid Disorder Additional Past Medical History / Comment(s): peripheral neuropathy, UTIs, urinary incontinence, OA bilateral hands and back, PVD, cervical cancer History of Any Multi-Drug Resistant Organisms: MRSA Date of last positivie culture/infection: 09/11/2015 MDRO Source:: RIGHT FOOT Past Surgical History: Hysterectomy, Tonsillectomy Additional Past Surgical History / Comment(s): R leg bypass surgery, bilateral cataract removal Past Anesthesia/Blood Transfusion Reactions: No Reported Reaction Past Psychological History: No Psychological Hx Reported Smoking Status: Never smoker Past Alcohol Use History: None Reported Past Drug Use History: None Reported - Past Family History Mother Family Medical History: CVA/TIA Additional Family Medical History / Comment(s): Mother in her 70's. Father Family Medical History: Hypertension Additional Family Medical History / Comment(s): Father in his 70's. Medications and Allergies Home Medications Medication Instructions Recorded Confirmed Type Aspirin 81 mg PO HS 09/11/15 05/04/18 History Levothyroxine Sodium [Synthroid] 50 mcg PO QAM 09/11/15 05/04/18 History Pravastatin Sodium [Pravachol] 80 mg PO HS 09/11/15 05/04/18 History Warfarin [Coumadin] 3 mg PO SUMOTUTHSA 09/11/15 05/04/18 History aMILoride-HCTZ 5-50 mg [Moduretic 1 tab PO DAILY 09/11/15 05/04/18 History 5-50] amLODIPine [Norvasc] 5 mg PO DAILY 09/11/15 05/04/18 History Lisinopril [Zestril] 10 mg PO BID 01/16/16 05/04/18 History Metoprolol Tartrate [Lopressor] 100 mg PO BID #1 tab 01/23/16 05/04/18 Rx sitaGLIPtin [Januvia] 50 mg PO HS #1 tab 01/23/16 05/04/18 Rx Insulin Glargine [Lantus] 30 unit SQ HS 02/06/17 05/04/18 History INSULIN LISPRO (humaLOG) [humaLOG] 10 units SQ AC-TID@07,,06/16/17 History Sennosides-Docusate Sodium 1 tab PO DAILY 06/16/17 05/04/18 History [Senokot-S] Acetaminophen Tab [Tylenol Tab] 650 mg PO Q6H PRN 05/04/18 05/04/18 History Furosemide [Lasix] 60 mg PO BID@08,16 05/04/18 05/04/18 History Multivitamins, Thera [Multivitamin 1 tab PO DAILY 05/04/18 05/04/18 History (formulary)] Potassium Chloride ER [K-Dur 10] 10 meq PO DAILY 05/04/18 05/04/18 History Sodium Chloride 5% Ophth Soln 1 drop BOTH EYES BID 05/04/18 05/04/18 History [Hari 128] Warfarin [Coumadin] 6 mg PO WEFR 05/04/18 05/04/18 History Allergies Allergy/AdvReac Type Severity Reaction Status Date / Time No Known Allergies Allergy Verified 05/04/18 12:45 Physical Exam Vitals: Vital Signs Temp Pulse Resp BP Pulse Ox 05/04/18 15:31 101 F H 107 H 18 116/59 100 05/04/18 13:28 89 18 129/59 99 05/04/18 12:02 100.0 F H 94 18 120/60 98 Intake and Output 05/04/18 05/04/18 05/04/18 06:59 14:59 22:59 Intake Total 500 Balance 500 Intake: Amount of Fluid Infused ( 500 ml) Other: Weight 90.718 kg - Constitutional General appearance: Unable to provide any history, cooperative, moderate acute distress, obese - EENT Eyes: anicteric sclerae, PERRLA, normal appearance ENT: Hard of hearing - Neck Neck: no lymphadenopathy, normal ROM, no other, no rigidity, no stridor, no thyromegaly - Respiratory Respiratory: bilateral: CTA, negative: diminished, dullness, rales, rhonchi - Cardiovascular Rhythm: regular Heart sounds: normal: S1, S2 Abnormal Heart Sounds: no systolic murmur, no diastolic murmur, no rub, no S3 Gallop, no S4 Gallop, no click, no other - Gastrointestinal General gastrointestinal: normal bowel sounds, soft - Integumentary Integumentary: no rash fourth and fifth right lower extremity digits with the necrotic tip with serous drainage and bad odor. With significant lower extremity edema and redness involving the medial side of the thigh and williamson - Neurologic Neurologic: CNII-XII intact - Musculoskeletal Musculoskeletal: Gait could not be assessed due to generalized weakness, strength equal bilaterally decreased in the lower extremity 3+/5 - Psychiatric Psychiatric: A&O x's3, appropriate affect Results CBC & Chem 7: 05/04/18 12:17 05/04/18 12:17 Labs: Abnormal Lab Results - Last 24 Hours (Table) 05/04/18 05/04/18 05/04/18 Range/Units 12:17 12:17 12:17 WBC 22.4 H (3.8-10.6) k/uL RBC 3.60 L (3.80-5.40) m/uL Hgb 10.3 L (11.4-16.0) gm/dL Hct 30.6 L (34.0-46.0) % Neutrophils # 18.8 H (1.3-7.7) k/uL Monocytes # 1.1 H (0-1.0) k/uL PT (9.0-12.0) sec INR (<1.2) APTT (22.0-30.0) sec Sodium 132 L (137-145) mmol/L Potassium 5.2 H (3.5-5.1) mmol/L Chloride 95 L (98-107) mmol/L BUN 108 H* (7-17) mg/dL Creatinine 2.35 H (0.52-1.04) mg/dL Glucose 144 H (74-99) mg/dL AST 42 H (14-36) U/L Total Protein 8.3 H (6.3-8.2) g/dL Urine Appearance Cloudy H (Clear) Urine Blood Trace H (Negative) Urine Nitrite Positive H (Negative) Ur Leukocyte Esterase Large H (Negative) Urine WBC 13 H (0-5) /hpf Amorphous Sediment Few H (None) /hpf Urine Bacteria Occasional H (None) /hpf Urine Mucus Rare H (None) /hpf 05/04/18 Range/Units 12:17 WBC (3.8-10.6) k/uL RBC (3.80-5.40) m/uL Hgb (11.4-16.0) gm/dL Hct (34.0-46.0) % Neutrophils # (1.3-7.7) k/uL Monocytes # (0-1.0) k/uL PT 27.4 H (9.0-12.0) sec INR 3.1 H (<1.2) APTT 39.8 H (22.0-30.0) sec Sodium (137-145) mmol/L Potassium (3.5-5.1) mmol/L Chloride (98-107) mmol/L BUN (7-17) mg/dL Creatinine (0.52-1.04) mg/dL Glucose (74-99) mg/dL AST (14-36) U/L Total Protein (6.3-8.2) g/dL Urine Appearance (Clear) Urine Blood (Negative) Urine Nitrite (Negative) Ur Leukocyte Esterase (Negative) Urine WBC (0-5) /hpf Amorphous Sediment (None) /hpf Urine Bacteria (None) /hpf Urine Mucus (None) /hpf Thrombosis Risk Factor Assmnt - DVT/VTE Prophylaxis DVT/VTE Prophylaxis: Pharmacologic Prophylaxis ordered Assessment and Plan Plan: #1 sepsis secondary to diabetic ulcer/lower extremity cellulitis. Temp of 101 with tachycardia and leukocytosis. Infectious disease and vascular surgery consulted for possible diabetic ulcer/osteomyelitis. Lower extremity with chronic dermatitis changes his possible superimposed infection as patient is warm and red to touch in the medial side of the thigh. Lower extremity Doppler was negative for DVT. Continue vancomycin pharmacy to dose and cefepime #2. 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 History of peripheral artery disease status post bypass and stenting with Dr. Aragon and Dr. Bond. Consult vascular surgery for possible angiogram and debridement. Continue aspirin hold Coumadin #3 paroxysmal atrial fibrillation on Coumadin. INR 3.1 hold Coumadin today. Repeat INR tomorrow #4 hyperkalemia secondary to acute kidney injury on CK D. Kayexalate ordered. 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 Status post 2 L IV fluid continue normal saline at 75 mL per hour. Hold Lasix, hydrochlorothiazide and amiloride. Hold lisinopril. Nephrology consult CT abdomen ordered to rule out pyelonephritis #6 UTI urine culture ordered continue cefepime and vancomycin pharmacy to dose #7 diabetes2 with diabetic neuropathy continue Lantus 30 units daily at bedtime with 10 units lispro with sliding scale #8 hypertension controlled on metoprolol hold Lasix hold hydrochlorothiazide and amiloride. Hold lisinopril for hyper hyperkalemia #10 DVT prophylaxis INR therapeutic hold Coumadin INR tomorrow #11 GI prophylaxis Pepcid 20 mg by mouth daily #12 CODE STATUS full code #13 right lower quadrant abdominal pain on movement CT abdomen and pelvis ordered to rule out abdominal source of infection and obstruction Disposition patient may need 1-2 inpatient night for stabilization
--- NOTE | 2018-05-04 16:31 | CT ---
EXAMINATION TYPE: CT abdomen pelvis wo con DATE OF EXAM: 05/04/2018 COMPARISON: Prior CT 08/15/2017 HISTORY: ALEA on CKD, right lower quad pain CT DLP: 770.1 mGycm Automated exposure control for dose reduction was used. TECHNIQUE: Helical acquisition of images from the lung bases through the pelvis. FINDINGS: Lack of contrast could compromise sensitivity. There is a fixed hiatal hernia present. Part ial intrathoracic stomach is noted. There are coronary artery calcifications. The heart is enlarged. LUNG BASES: Some minimal dependent atelectatic changes are present. No pleural or pericardial effusio n. AORTA: No significant abnormality is appreciated. LIVER/GB: No significant abnormality is appreciated. PANCREAS: No significant abnormality is seen. SPLEEN: No significant abnormality is seen. ADRENALS: No significant abnormality is seen. KIDNEYS: Right kidney is atrophic. Left kidney shows a lower pole cyst as on prior exam. REPRODUCTIVE ORGANS: No significant abnormality is seen. URINARY BLADDER: Catheterized. Weeks catheter is in place. Bladder is not distended. BOWEL: No significant abnormality is seen. FREE AIR: No Free Air is visible. ASCITES: None visible. PELVIC ADENOPATHY: None visualized. RETROPERITONEAL ADENOPATHY: No Retroperitoneal Adenopathy visible. OSSEOUS STRUCTURES: Degenerative disc changes are present, there is anterolisthesis grade 1 L4-5. Mi ld anterior wedging present at L3, scoliotic curvature. Multilevel spondylosis is present.. IMPRESSION: Noncontrast exam. Atrophic right kidney. Cardiomegaly. Coronary artery disease. Hiatal he rnia. Additional findings above.
[2018-05-04] MEDS: FAMOTIDINE 20 MG TAB PO SCH (17:06)
[2018-05-04] MEDS: SODIUM CHLORIDE 0.9% 1,000 ML IV SCH (17:06)
[2018-05-04 17:25] LABS: Glucose,Whole Blood 162 mg/dL (75-99)
[2018-05-04] MEDS: SODIUM CHLORIDE 5% OPHTH DROPS 15 ML BTL BOTH EYES SCH (20:27)
[2018-05-04] MEDS: LINAGLIPTIN 5 MG TABLET PO SCH (20:27)
[2018-05-04] MEDS: METOPROLOL TARTRATE 50 MG TAB PO SCH (20:27)
[2018-05-04] MEDS: ASPIRIN 81 MG PO SCH (20:27)
[2018-05-04] MEDS: PRAVASTATIN SODIUM 80 MG TAB PO SCH (20:27)
[2018-05-04 21:05] LABS: Glucose,Whole Blood 288 mg/dL (75-99)
[2018-05-04] MEDS: INSULIN DETEMIR 100 UNIT/ML 10 ML VIAL SQ SCH (21:12)
[2018-05-05] MEDS: LEVOTHYROXINE 50 MCG TAB PO SCH (05:59)
[2018-05-05] MEDS ORDERED: CEFEPIME 2 GM in SODIUM CHLORIDE 0.9% 50 ML IVPB SCH (06:00)
[2018-05-05] MEDS: SODIUM CHLORIDE 0.9% 1,000 ML IV SCH ×2 (06:00→17:32)
[2018-05-05 07:18] LABS: Glucose,Whole Blood 102 mg/dL (75-99)
[2018-05-05] MEDS: INSULIN ASPART 100 UNIT/ML 1 ML 10 ML VIAL SQ SCH ×3 (07:31→17:30)
[2018-05-05] MEDS: SODIUM CHLORIDE 5% OPHTH DROPS 15 ML BTL BOTH EYES SCH ×2 (07:38→21:02)
[2018-05-05] MEDS: METOPROLOL TARTRATE 50 MG TAB PO SCH ×3 (07:39→21:02)
[2018-05-05] MEDS: FAMOTIDINE 20 MG TAB PO SCH (07:39)
[2018-05-05] MEDS: SENNOSIDES-DOCUSATE SODIUM 1 EACH TAB PO SCH (07:39)
[2018-05-05] MEDS ORDERED: FUROSEMIDE 20 MG TAB PO SCH (08:00)
[2018-05-05] MEDS ORDERED: VANCOMYCIN 1,500 MG in SODIUM CHLORIDE 0.9% 250 ML IVPB ONE (08:00)
[2018-05-05] MEDS ORDERED: amLODIPine 5 MG TAB PO SCH (09:00)
[2018-05-05 09:28] LABS: Basophils # (A) 0.1 k/uL (0-0.2); Basophils % (A) 1 %; Eosinophils # (A) 0.2 k/uL (0-0.7); Eosinophils % (A) 1 %; HGB 9.9 gm/dL (11.4-16.0); Lymphocytes # (A) 1.3 k/uL (1.0-4.8); Lymphocytes % (A) 8 %; MCHC 31.9 g/dL (31.0-37.0); MCV 87.8 fL (80.0-100.0); Mean Platelet Volume 7.1; Monocytes # (A) 0.6 k/uL (0-1.0); Monocytes % (A) 4 %; Neutrophils # (A) 12.7 k/uL (1.3-7.7); Neutrophils % (A) 84 %; Platelet Count 242 k/uL (150-450); RBC 3.53 m/uL (3.80-5.40); RDW 13.2 % (11.5-15.5); WBC 15.1 k/uL (3.8-10.6)
[2018-05-05 09:32] LABS: Albumin 3.1 g/dL (3.5-5.0); Calcium 8.6 mg/dL (8.4-10.2); Potassium 3.5 mmol/L (3.5-5.1); Total Bilirubin 0.5 mg/dL (0.2-1.3); Total Protein 7.2 g/dL (6.3-8.2)
--- NOTE | 2018-05-05 11:23 | P.GSCN ---
History of Present Illness Consult date: 05/05/18 Reason for Consult: right 4th and 5th toe gangrene Requesting physician: Josephine Lu History of present illness: 82-year-old female past medical history of Atrial fibrillation on warfarin, diabetes, b/l peripheral neuropathy, UTIs, urinary incontinence, peripherall vascular disease status post two right lower extremity bypasses ([place]) and CHF presented from [facility] where she is a permanent resident for right LE erythema, and swelling x few weeks. Pt states that she has had chronic issues with her right leg and neuropathy b/l however for weeks she has had right LE swelling and redness which was worsening and pt was sent for evaluation for DVT by [facility]. Upon arrival pt febrile at 100.0F, remainder VS within acceptable limits. Patients denies any pain at her toes or feet. She was evaluated and noted to have black tips to the 4th and 5th toe. Review of Systems All systems: negative Past Medical History Past Medical History: Atrial Fibrillation, Diabetes Mellitus, Hyperlipidemia, Hypertension, Thyroid Disorder Additional Past Medical History / Comment(s): peripheral neuropathy, UTIs, urinary incontinence, OA bilateral hands and back, PVD, cervical cancer History of Any Multi-Drug Resistant Organisms: MRSA Year Discovered:: 09/11/2015 MDRO Source:: RIGHT FOOT Past Surgical History: Hysterectomy, Tonsillectomy Additional Past Surgical History / Comment(s): R leg bypass surgery, bilateral cataract removal Past Anesthesia/Blood Transfusion Reactions: No Reported Reaction Past Psychological History: No Psychological Hx Reported Smoking Status: Never smoker Past Alcohol Use History: None Reported Past Drug Use History: None Reported - Past Family History Mother Family Medical History: CVA/TIA Additional Family Medical History / Comment(s): Mother in her 70's. Father Family Medical History: Hypertension Additional Family Medical History / Comment(s): Father in his 70's. Medications and Allergies Home Medications Medication Instructions Recorded Confirmed Type Aspirin 81 mg PO HS 09/11/15 05/04/18 History Levothyroxine Sodium [Synthroid] 50 mcg PO QAM 09/11/15 05/04/18 History Pravastatin Sodium [Pravachol] 80 mg PO HS 09/11/15 05/04/18 History Warfarin [Coumadin] 3 mg PO SUMOTUTHSA 09/11/15 05/04/18 History aMILoride-HCTZ 5-50 mg [Moduretic 1 tab PO DAILY 09/11/15 05/04/18 History 5-50] amLODIPine [Norvasc] 5 mg PO DAILY 09/11/15 05/04/18 History Lisinopril [Zestril] 10 mg PO BID 01/16/16 05/04/18 History Metoprolol Tartrate [Lopressor] 100 mg PO BID #1 tab 01/23/16 05/04/18 Rx sitaGLIPtin [Januvia] 50 mg PO HS #1 tab 01/23/16 05/04/18 Rx Insulin Glargine [Lantus] 30 unit SQ HS 02/06/17 05/04/18 History INSULIN LISPRO (humaLOG) [humaLOG] 10 units SQ AC-TID@07,,06/16/17 History Sennosides-Docusate Sodium 1 tab PO DAILY 06/16/17 05/04/18 History [Senokot-S] Acetaminophen Tab [Tylenol Tab] 650 mg PO Q6H PRN 05/04/18 05/04/18 History Furosemide [Lasix] 60 mg PO BID@08,16 05/04/18 05/04/18 History Multivitamins, Thera [Multivitamin 1 tab PO DAILY 05/04/18 05/04/18 History (formulary)] Potassium Chloride ER [K-Dur 10] 10 meq PO DAILY 05/04/18 05/04/18 History Sodium Chloride 5% Ophth Soln 1 drop BOTH EYES BID 05/04/18 05/04/18 History [Hari 128] Warfarin [Coumadin] 6 mg PO WEFR 05/04/18 05/04/18 History Allergies Allergy/AdvReac Type Severity Reaction Status Date / Time No Known Allergies Allergy Verified 05/04/18 12:45 Surgical - Exam Vital Signs Temp Pulse Resp BP Pulse Ox 100.0 F H 94 18 120/60 98 05/04/18 12:02 05/04/18 12:02 05/04/18 12:02 05/04/18 12:02 05/04/18 12:02 +dp multiphasic signal right lower extremity. Multiphasic dp/pt signals of the left lower extremity. Multiple scars noted on right lower leg consistent with multiple bypasses. Foot is warm. There are two small distal areas of dry gangrene involving the right 4th and 5th toes, no purulent drainage from these areas, no fluctuance. Minimal erythema noted but doesn't extend to the foot or leg. Shallow ulcers noted on the sacral area and back x 4 consistent with stage I and II. Subcutaneous wounds without fat, muscle or bone exposure. Patient is wheelchair bound. Does move foot and lower legs with ease. - General well developed, no distress, no pain - Eyes PERRL, normal ocular movement - ENT normal pinna, normal nares - Neck no masses - Respiratory normal expansion - Cardiovascular Rhythm: regularly irregular - Abdomen Abdomen: soft, non tender, no rebound, no distended - Integumentary no rash, no growths - Neurologic normal coordination, no normal sensation - Psychiatric oriented to time, oriented to person Results - Labs 05/05/18 08:20 05/05/18 08:20 Abnormal Lab Results - Last 24 Hours (Table) 05/04/18 05/04/18 05/04/18 Range/Units 12:17 12:17 12:17 WBC 22.4 H (3.8-10.6) k/uL RBC 3.60 L (3.80-5.40) m/uL Hgb 10.3 L (11.4-16.0) gm/dL Hct 30.6 L (34.0-46.0) % Neutrophils # 18.8 H (1.3-7.7) k/uL Monocytes # 1.1 H (0-1.0) k/uL ESR (0-20) mm/hr PT (9.0-12.0) sec INR (<1.2) APTT (22.0-30.0) sec Sodium 132 L (137-145) mmol/L Potassium 5.2 H (3.5-5.1) mmol/L Chloride 95 L (98-107) mmol/L BUN 108 H* (7-17) mg/dL Creatinine 2.35 H (0.52-1.04) mg/dL Glucose 144 H (74-99) mg/dL POC Glucose (mg/dL) (75-99) mg/dL AST 42 H (14-36) U/L C-Reactive Protein (<10.0) mg/L Total Protein 8.3 H (6.3-8.2) g/dL Albumin (3.5-5.0) g/dL Urine Appearance Cloudy H (Clear) Urine Blood Trace H (Negative) Urine Nitrite Positive H (Negative) Ur Leukocyte Esterase Large H (Negative) Urine WBC 13 H (0-5) /hpf Amorphous Sediment Few H (None) /hpf Urine Bacteria Occasional H (None) /hpf Urine Mucus Rare H (None) /hpf 05/04/18 05/04/18 05/04/18 Range/Units 12:17 15:27 15:27 WBC (3.8-10.6) k/uL RBC (3.80-5.40) m/uL Hgb (11.4-16.0) gm/dL Hct (34.0-46.0) % Neutrophils # (1.3-7.7) k/uL Monocytes # (0-1.0) k/uL ESR 110 H (0-20) mm/hr PT 27.4 H (9.0-12.0) sec INR 3.1 H (<1.2) APTT 39.8 H (22.0-30.0) sec Sodium (137-145) mmol/L Potassium (3.5-5.1) mmol/L Chloride (98-107) mmol/L BUN (7-17) mg/dL Creatinine (0.52-1.04) mg/dL Glucose (74-99) mg/dL POC Glucose (mg/dL) (75-99) mg/dL AST (14-36) U/L C-Reactive Protein 83.6 H (<10.0) mg/L Total Protein (6.3-8.2) g/dL Albumin (3.5-5.0) g/dL Urine Appearance (Clear) Urine Blood (Negative) Urine Nitrite (Negative) Ur Leukocyte Esterase (Negative) Urine WBC (0-5) /hpf Amorphous Sediment (None) /hpf Urine Bacteria (None) /hpf Urine Mucus (None) /hpf 05/04/18 05/04/18 05/05/18 Range/Units 17:16 21:02 07:14 WBC (3.8-10.6) k/uL RBC (3.80-5.40) m/uL Hgb (11.4-16.0) gm/dL Hct (34.0-46.0) % Neutrophils # (1.3-7.7) k/uL Monocytes # (0-1.0) k/uL ESR (0-20) mm/hr PT (9.0-12.0) sec INR (<1.2) APTT (22.0-30.0) sec Sodium (137-145) mmol/L Potassium (3.5-5.1) mmol/L Chloride (98-107) mmol/L BUN (7-17) mg/dL Creatinine (0.52-1.04) mg/dL Glucose (74-99) mg/dL POC Glucose (mg/dL) 162 H 288 H 102 H (75-99) mg/dL AST (14-36) U/L C-Reactive Protein (<10.0) mg/L Total Protein (6.3-8.2) g/dL Albumin (3.5-5.0) g/dL Urine Appearance (Clear) Urine Blood (Negative) Urine Nitrite (Negative) Ur Leukocyte Esterase (Negative) Urine WBC (0-5) /hpf Amorphous Sediment (None) /hpf Urine Bacteria (None) /hpf Urine Mucus (None) /hpf 05/05/18 05/05/18 Range/Units 08:20 08:20 WBC 15.1 H (3.8-10.6) k/uL RBC 3.53 L (3.80-5.40) m/uL Hgb 9.9 L (11.4-16.0) gm/dL Hct 31.0 L (34.0-46.0) % Neutrophils # 12.7 H (1.3-7.7) k/uL Monocytes # (0-1.0) k/uL ESR (0-20) mm/hr PT (9.0-12.0) sec INR (<1.2) APTT (22.0-30.0) sec Sodium (137-145) mmol/L Potassium (3.5-5.1) mmol/L Chloride (98-107) mmol/L BUN 98 H (7-17) mg/dL Creatinine 2.44 H (0.52-1.04) mg/dL Glucose 107 H (74-99) mg/dL POC Glucose (mg/dL) (75-99) mg/dL AST (14-36) U/L C-Reactive Protein (<10.0) mg/L Total Protein (6.3-8.2) g/dL Albumin 3.1 L (3.5-5.0) g/dL Urine Appearance (Clear) Urine Blood (Negative) Urine Nitrite (Negative) Ur Leukocyte Esterase (Negative) Urine WBC (0-5) /hpf Amorphous Sediment (None) /hpf Urine Bacteria (None) /hpf Urine Mucus (None) /hpf Diabetes panel 05/04/18 05/05/18 Range/Units 12:17 08:20 Sodium 132 L 139 (137-145) mmol/L Potassium 5.2 H 3.5 (3.5-5.1) mmol/L Chloride 95 L 100 (98-107) mmol/L Carbon Dioxide 25 26 (22-30) mmol/L BUN 108 H* 98 H (7-17) mg/dL Creatinine 2.35 H 2.44 H (0.52-1.04) mg/dL Glucose 144 H 107 H (74-99) mg/dL Calcium 9.0 8.6 (8.4-10.2) mg/dL AST 42 H 18 (14-36) U/L ALT 23 18 (9-52) U/L Alkaline Phosphatase 70 77 (38-126) U/L Total Protein 8.3 H 7.2 (6.3-8.2) g/dL Albumin 3.6 3.1 L (3.5-5.0) g/dL Calcium panel 05/04/18 05/05/18 Range/Units 12:17 08:20 Calcium 9.0 8.6 (8.4-10.2) mg/dL Albumin 3.6 3.1 L (3.5-5.0) g/dL Pituitary panel 05/04/18 05/05/18 Range/Units 12:17 08:20 Sodium 132 L 139 (137-145) mmol/L Potassium 5.2 H 3.5 (3.5-5.1) mmol/L Chloride 95 L 100 (98-107) mmol/L Carbon Dioxide 25 26 (22-30) mmol/L BUN 108 H* 98 H (7-17) mg/dL Creatinine 2.35 H 2.44 H (0.52-1.04) mg/dL Glucose 144 H 107 H (74-99) mg/dL Calcium 9.0 8.6 (8.4-10.2) mg/dL Adrenal panel 05/04/18 05/05/18 Range/Units 12:17 08:20 Sodium 132 L 139 (137-145) mmol/L Potassium 5.2 H 3.5 (3.5-5.1) mmol/L Chloride 95 L 100 (98-107) mmol/L Carbon Dioxide 25 26 (22-30) mmol/L BUN 108 H* 98 H (7-17) mg/dL Creatinine 2.35 H 2.44 H (0.52-1.04) mg/dL Glucose 144 H 107 H (74-99) mg/dL Calcium 9.0 8.6 (8.4-10.2) mg/dL Total Bilirubin 0.9 0.5 (0.2-1.3) mg/dL AST 42 H 18 (14-36) U/L ALT 23 18 (9-52) U/L Alkaline Phosphatase 70 77 (38-126) U/L Total Protein 8.3 H 7.2 (6.3-8.2) g/dL Albumin 3.6 3.1 L (3.5-5.0) g/dL Assessment and Plan Assessment: 1. 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 Severe peripheral arterial disease with h/o multiple right lower extremity bypass surgeries. 3. Stage 1 and II sacral decubitus ulcers. 4. DM 5. Acute on chronic renal failure Plan: Local wound care to the sacral decubitus ulcers. At this time there is little to be done to the toes and her peripheral vascular disease. If her kidney function improves then may benefit from angiogram to further delineate blood flow. I would recommend continued monitoring of the toes and if become purulent then will need distal amputation.
[2018-05-05] MEDS: MULTIVITAMINS, THERA 1 EACH TAB PO SCH (12:04)
[2018-05-05 12:20] LABS: Glucose,Whole Blood 110 mg/dL (75-99)
--- NOTE | 2018-05-05 14:09 | P.PN ---
Subjective Progress Note Date: 05/05/18 1 years old female patient of Dr. Mendoza recites them medical large with past medical history of atrial fibrillation on Coumadin, diabetes mellitus with neuropathy, hyperlipidemia, hypertension, thyroid disorder, history of peripheral artery disease status post to right lower extremity bypasses by Dr. Aragon, history of critical limb ischemia and nonhealing ulcer of right 11th in 2016 history of UTIs, urinary incontinence history of MRSA in 2016 presents with swelling and pain in the right lower extremity. Patient comes to the ER with significant swelling on involving the right lower extremity with erythema for the past few weeks. Arterial study was done as outpatient by Dr. Mendoza that suggested worsening of the peripheral artery disease. Venous Doppler was done in the ER to rule out DVT that was negative for any occlusion. Patient continues to complain of significant pain in the right lower extremity at the level of groin. Patient is wheelchair bound and is a long-term patient at discharge. Patient is hard of hearing and is unable to provide any history by herself history is obtained by the previous documentation and ER documentation. On evaluation in the ER, where a suggested temp of 101, tachycardia 101, blood pressure 120/60 saturating well on room air. Lab obtained suggest leukocytosis of 22.4, hemoglobin 10.3 which is close to patient's baseline. INR obtained suggest 3.1, BNP suggestive sodium 132, potassium 5.2, V1 108 which is increased from the baseline, creatinine 2.35 and GFR decreased to 21 from 38 urinalysis obtained as suggest some leukocytosis 13, with positive nitrates and leukocyte esterase. 05/05: Consults and place with Dr. Garcia and Dr. Boyd. Dr. Garcia does not plan for any intervention at this time. If patient's kidney function improve she may benefit from angiogram. Patient does have pulses palpable in her lower extremities. Weeks catheter is to be exchanged today. She has stage II pressure ulcers of the buttocks that were present on admission. She has been afebrile since admission. White count is down to 15.1. BUN 98 creatinine 2.44. She is currently on cefepime and vancomycin that have been changed over to Zosyn and vancomycin. Patient remains pleasantly confused and also suffers from difficulty hearing patient communication difficult. Abdominal pain seems to have resolved. Hip x-ray showed no fracture or dislocation. CT of the abdomen and pelvis shows atrophic right kidney. Cardiomegaly. Coronary artery disease. Hiatal hernia. Renal ultrasound shows atrophic changes to the right kidney as on prior exam. Cystic focus lower pole left kidney is similar to prior exam. Objective - Vital Signs Vital signs: Vital Signs Temp 97.7 F 05/05/18 06:13 Pulse 82 05/05/18 06:13 Resp 16 05/05/18 06:13 BP 99/52 05/05/18 06:13 Pulse Ox 99 05/05/18 06:13 Intake & Output 05/04/18 05/05/18 05/05/18 18:59 06:59 18:59 Intake Total 500 20 240 Output Total 1501 Balance 500 -1481 240 Weight 90.718 kg Intake: Amount of Fluid Infused ( 500 ml) Oral 20 240 Output: Urine 1500 Stool 1 Other: Voiding Method Indwelling Catheter Indwelling Catheter # Voids 1 # Bowel Movements 1 - Exam General appearance: Unable to provide any history, cooperative, moderate acute distress, obese - EENT Eyes: anicteric sclerae, PERRLA, normal appearance ENT: Hard of hearing - Neck Neck: no lymphadenopathy, normal ROM, no other, no rigidity, no stridor, no thyromegaly - Respiratory Respiratory: bilateral: CTA, negative: diminished, dullness, rales, rhonchi - Cardiovascular Rhythm: regular Heart sounds: normal: S1, S2 Abnormal Heart Sounds: no systolic murmur, no diastolic murmur, no rub, no S3 Gallop, no S4 Gallop, no click, no other - Gastrointestinal General gastrointestinal: normal bowel sounds, soft - Integumentary Integumentary: no rash fourth and fifth right lower extremity digits with the necrotic tip with serous drainage and bad odor. With significant lower extremity edema and redness involving the medial side of the thigh and williamson - Neurologic Neurologic: CNII-XII intact - Musculoskeletal Musculoskeletal: Gait could not be assessed due to generalized weakness, strength equal bilaterally decreased in the lower extremity 3+/5 - Psychiatric Psychiatric: A&O x's3, appropriate affect - Labs CBC & Chem 7: 05/05/18 08:20 05/05/18 08:20 Labs: Abnormal Lab Results - Last 24 Hours (Table) 05/04/18 05/04/18 05/04/18 Range/Units 12:17 12:17 12:17 WBC 22.4 H (3.8-10.6) k/uL RBC 3.60 L (3.80-5.40) m/uL Hgb 10.3 L (11.4-16.0) gm/dL Hct 30.6 L (34.0-46.0) % Neutrophils # 18.8 H (1.3-7.7) k/uL Monocytes # 1.1 H (0-1.0) k/uL ESR (0-20) mm/hr PT (9.0-12.0) sec INR (<1.2) APTT (22.0-30.0) sec Sodium 132 L (137-145) mmol/L Potassium 5.2 H (3.5-5.1) mmol/L Chloride 95 L (98-107) mmol/L BUN 108 H* (7-17) mg/dL Creatinine 2.35 H (0.52-1.04) mg/dL Glucose 144 H (74-99) mg/dL POC Glucose (mg/dL) (75-99) mg/dL AST 42 H (14-36) U/L C-Reactive Protein (<10.0) mg/L Total Protein 8.3 H (6.3-8.2) g/dL Albumin (3.5-5.0) g/dL Urine Appearance Cloudy H (Clear) Urine Blood Trace H (Negative) Urine Nitrite Positive H (Negative) Ur Leukocyte Esterase Large H (Negative) Urine WBC 13 H (0-5) /hpf Amorphous Sediment Few H (None) /hpf Urine Bacteria Occasional H (None) /hpf Urine Mucus Rare H (None) /hpf 05/04/18 05/04/18 05/04/18 Range/Units 12:17 15:27 15:27 WBC (3.8-10.6) k/uL RBC (3.80-5.40) m/uL Hgb (11.4-16.0) gm/dL Hct (34.0-46.0) % Neutrophils # (1.3-7.7) k/uL Monocytes # (0-1.0) k/uL ESR 110 H (0-20) mm/hr PT 27.4 H (9.0-12.0) sec INR 3.1 H (<1.2) APTT 39.8 H (22.0-30.0) sec Sodium (137-145) mmol/L Potassium (3.5-5.1) mmol/L Chloride (98-107) mmol/L BUN (7-17) mg/dL Creatinine (0.52-1.04) mg/dL Glucose (74-99) mg/dL POC Glucose (mg/dL) (75-99) mg/dL AST (14-36) U/L C-Reactive Protein 83.6 H (<10.0) mg/L Total Protein (6.3-8.2) g/dL Albumin (3.5-5.0) g/dL Urine Appearance (Clear) Urine Blood (Negative) Urine Nitrite (Negative) Ur Leukocyte Esterase (Negative) Urine WBC (0-5) /hpf Amorphous Sediment (None) /hpf Urine Bacteria (None) /hpf Urine Mucus (None) /hpf 05/04/18 05/04/18 05/05/18 Range/Units 17:16 21:02 07:14 WBC (3.8-10.6) k/uL RBC (3.80-5.40) m/uL Hgb (11.4-16.0) gm/dL Hct (34.0-46.0) % Neutrophils # (1.3-7.7) k/uL Monocytes # (0-1.0) k/uL ESR (0-20) mm/hr PT (9.0-12.0) sec INR (<1.2) APTT (22.0-30.0) sec Sodium (137-145) mmol/L Potassium (3.5-5.1) mmol/L Chloride (98-107) mmol/L BUN (7-17) mg/dL Creatinine (0.52-1.04) mg/dL Glucose (74-99) mg/dL POC Glucose (mg/dL) 162 H 288 H 102 H (75-99) mg/dL AST (14-36) U/L C-Reactive Protein (<10.0) mg/L Total Protein (6.3-8.2) g/dL Albumin (3.5-5.0) g/dL Urine Appearance (Clear) Urine Blood (Negative) Urine Nitrite (Negative) Ur Leukocyte Esterase (Negative) Urine WBC (0-5) /hpf Amorphous Sediment (None) /hpf Urine Bacteria (None) /hpf Urine Mucus (None) /hpf 05/05/18 05/05/18 Range/Units 08:20 08:20 WBC 15.1 H (3.8-10.6) k/uL RBC 3.53 L (3.80-5.40) m/uL Hgb 9.9 L (11.4-16.0) gm/dL Hct 31.0 L (34.0-46.0) % Neutrophils # 12.7 H (1.3-7.7) k/uL Monocytes # (0-1.0) k/uL ESR (0-20) mm/hr PT (9.0-12.0) sec INR (<1.2) APTT (22.0-30.0) sec Sodium (137-145) mmol/L Potassium (3.5-5.1) mmol/L Chloride (98-107) mmol/L BUN 98 H (7-17) mg/dL Creatinine 2.44 H (0.52-1.04) mg/dL Glucose 107 H (74-99) mg/dL POC Glucose (mg/dL) (75-99) mg/dL AST (14-36) U/L C-Reactive Protein (<10.0) mg/L Total Protein (6.3-8.2) g/dL Albumin 3.1 L (3.5-5.0) g/dL Urine Appearance (Clear) Urine Blood (Negative) Urine Nitrite (Negative) Ur Leukocyte Esterase (Negative) Urine WBC (0-5) /hpf Amorphous Sediment (None) /hpf Urine Bacteria (None) /hpf Urine Mucus (None) /hpf Assessment and Plan Plan: #1 sepsis secondary to urinary tract infection. Weeks catheter to be changed. IV antibiotics have been changed to Zosyn and vancomycin by Dr. Boyd. Continue to monitor closely. #2. 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 History of peripheral artery disease status post bypass and stenting with Dr. Aragon and Dr. Bond. Consult with Dr. Garcia. No plan for any intervention. If patient kidney function improve she may benefit from angiogram. #3 paroxysmal atrial fibrillation on Coumadin. INR 3.1 hold Coumadin today. Repeat INR tomorrow #4 hyperkalemia secondary to acute kidney injury on CKD. Kayexalate ordered. 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 Status post 2 L IV fluid continue normal saline at 75 mL per hour. Hold Lasix, hydrochlorothiazide and amiloride. Hold lisinopril. Nephrology consult CT abdomen and renal ultrasound as above. #6 UTI urine culture ordered. #7 diabetes2 with diabetic neuropathy continue Lantus 30 units daily at bedtime with 10 units lispro with sliding scale #8 hypertension controlled on metoprolol hold Lasix hold hydrochlorothiazide and amiloride. Hold lisinopril for hyper hyperkalemia #10 DVT prophylaxis INR therapeutic hold Coumadin INR tomorrow #11 GI prophylaxis Pepcid 20 mg by mouth daily #12 CODE STATUS full code #13 right lower quadrant abdominal pain, resolved. No acute abnormality on CAT scan. Discharge plan: Return to [facility]. Impression and plan of care have been directed as dictated by the signing physician. Xi Olguin nurse practitioner acting as scribe for signing physician.
--- NOTE | 2018-05-05 14:29 | P.CONS ---
History of Present Illness - Reason for Consult Consult date: 05/05/18 Cellulitis right lower extremity - History of Present Illness This is an 82-year-old female patient known to ID service as she was seen in the past for right foot ulcer as well as sepsis from urinary tract infection in the past. Patient currently resides at [facility] and is wheelchair bound. She is known to have severe peripheral artery disease status post to right lower extremity bypasses by Dr. Aragon, history of critical limb ischemia and nonhealing ulcer of right. [facility] emergency center due to concerns of wounds to the fourth and fifth right toes. Venous Doppler was negative for DVT. Patient is hard of hearing and is unable to provide any history by herself history is obtained by the previous documentation and ER documentation. Temperature max was 101, tachycardia 101, blood pressure 120/60 saturating well on room air. Lab obtained suggest leukocytosis of 22.4, hemoglobin 10.3 which is close to patient's baseline. INR obtained suggest 3.1 and patient is on chronic Coumadin for atrial fibrillation, BNP suggestive sodium 132, potassium 5.2, creatinine 2.35 and GFR decreased to 21 from 38 urinalysis obtained as suggest some leukocytosis 13, with positive nitrates and leukocyte esterase. In the emergency center, patient received vancomycin and cefepime. Kayexalate was given for hyperkalemia. [facility] She has been seen by Dr. Garcia and he does not plan for any intervention at this time. If patient's kidney function improve she may benefit from angiogram. Patient does have pulses palpable in her lower extremities. Weeks catheter is to be exchanged today. She has stage II pressure ulcers of the buttocks that were present on admission. She has been afebrile since admission. White count is down to 15.1. BUN 98 creatinine 2.44. She is currently on cefepime and vancomycin. She apparently presented with abdominal pain that has resolved. Hip x-ray showed no fracture or dislocation. CT of the abdomen and pelvis shows atrophic right kidney. Cardiomegaly. Coronary artery disease. Hiatal hernia. Renal ultrasound shows atrophic changes to the right kidney as on prior exam. Cystic focus lower pole left kidney is similar to prior exam. Most recent previous urine culture from July 2017 was positive for ESBL E. coli and Enterococcus faecalis. Review of Systems ROS unobtainable: due to mental status All systems: negative Constitutional: Denies chills, Denies fever Eyes: denies blurred vision, denies pain Ears, nose, mouth and throat: Denies headache, Denies sore throat Cardiovascular: Denies chest pain, Denies shortness of breath Respiratory: Denies cough Gastrointestinal: Denies abdominal pain, Denies diarrhea, Denies nausea, Denies vomiting Genitourinary: Denies dysuria, Denies hematuria Musculoskeletal: Denies myalgias Integumentary: Denies pruritus, Denies rash Neurological: Denies numbness, Denies weakness Psychiatric: Denies anxiety, Denies depression Endocrine: Denies fatigue, Denies weight change Past Medical History Past Medical History: Atrial Fibrillation, Diabetes Mellitus, Hyperlipidemia, Hypertension, Thyroid Disorder Additional Past Medical History / Comment(s): peripheral neuropathy, UTIs, urinary incontinence, OA bilateral hands and back, PVD, cervical cancer History of Any Multi-Drug Resistant Organisms: MRSA Year Discovered:: 09/11/2015 MDRO Source:: RIGHT FOOT Past Surgical History: Hysterectomy, Tonsillectomy Additional Past Surgical History / Comment(s): R leg bypass surgery, bilateral cataract removal Past Anesthesia/Blood Transfusion Reactions: No Reported Reaction Past Psychological History: No Psychological Hx Reported Smoking Status: Never smoker Past Alcohol Use History: None Reported Additional Past Alcohol Use History / Comment(s): Patient resides at [facility] and is wheelchair bound. Past Drug Use History: None Reported - Past Family History Mother Family Medical History: CVA/TIA Additional Family Medical History / Comment(s): Mother in her 70's. Father Family Medical History: Hypertension Additional Family Medical History / Comment(s): Father in his 70's. Medications and Allergies Home Medications Medication Instructions Recorded Confirmed Type Aspirin 81 mg PO HS 09/11/15 05/04/18 History Levothyroxine Sodium [Synthroid] 50 mcg PO QAM 09/11/15 05/04/18 History Pravastatin Sodium [Pravachol] 80 mg PO HS 09/11/15 05/04/18 History Warfarin [Coumadin] 3 mg PO SUMOTUTHSA 09/11/15 05/04/18 History aMILoride-HCTZ 5-50 mg [Moduretic 1 tab PO DAILY 09/11/15 05/04/18 History 5-50] amLODIPine [Norvasc] 5 mg PO DAILY 09/11/15 05/04/18 History Lisinopril [Zestril] 10 mg PO BID 01/16/16 05/04/18 History Metoprolol Tartrate [Lopressor] 100 mg PO BID #1 tab 01/23/16 05/04/18 Rx sitaGLIPtin [Januvia] 50 mg PO HS #1 tab 01/23/16 05/04/18 Rx Insulin Glargine [Lantus] 30 unit SQ HS 02/06/17 05/04/18 History INSULIN LISPRO (humaLOG) [humaLOG] 10 units SQ AC-TID@,,06/16/17 History Sennosides-Docusate Sodium 1 tab PO DAILY 06/16/17 05/04/18 History [Senokot-S] Acetaminophen Tab [Tylenol Tab] 650 mg PO Q6H PRN 05/04/18 05/04/18 History Furosemide [Lasix] 60 mg PO BID@,05/04/18 05/04/18 History Multivitamins, Thera [Multivitamin 1 tab PO DAILY 05/04/18 05/04/18 History (formulary)] Potassium Chloride ER [K-Dur 10] 10 meq PO DAILY 05/04/18 05/04/18 History Sodium Chloride 5% Ophth Soln 1 drop BOTH EYES BID 05/04/18 05/04/18 History [Hari 128] Warfarin [Coumadin] 6 mg PO WEFR 05/04/18 05/04/18 History Allergies Allergy/AdvReac Type Severity Reaction Status Date / Time No Known Allergies Allergy Verified 05/04/18 12:45 Physical Exam Vitals: Vital Signs Temp Pulse Pulse Resp BP BP Pulse Ox 05/05/18 06:13 97.7 F 82 16 99/52 99 05/04/18 23:00 97.8 F 67 16 99/53 98 05/04/18 16:26 97.9 F 108 H 20 114/54 97 05/04/18 15:31 101 F H 107 H 18 116/59 100 05/04/18 13:28 89 18 129/59 99 05/04/18 12:02 100.0 F H 94 18 120/60 98 Intake and Output 05/04/18 05/05/18 05/05/18 22:59 06:59 14:59 Intake Total 520 240 Output Total 1501 Balance 520 -1501 240 Intake: Amount of Fluid Infused ( 500 ml) Oral 20 240 Output: Urine 1500 Stool 1 Other: Voiding Method Indwelling Catheter Indwelling Catheter # Voids 1 # Bowel Movements 1 Gen: This is an 82-year-old obese female. She is resting in bed appears to be comfortable and in no acute distress. HEENT: Head is atraumatic, normocephalic. Pupils equal, round. Sclerae is anicteric. NECK: Supple. No JVD. No lymphadenopathy. No thyromegaly. LUNGS: Clear to auscultation. No wheezes or rhonchi. No intercostal retractions. HEART: Regular rate and rhythm. No murmur. ABDOMEN: Soft. Bowel sounds are present. No masses. No tenderness. EXTREMITIES: No pedal edema. No calf tenderness. Necrotic tissue at the ends of toes 4 and 5 on the right foot. Foot is warm to the touch. No drainage noted. Minimal erythema localized only. NEUROLOGICAL: Patient is awake, alert and oriented to person and place. Generalized weakness. Her lower extremities.. Results Results: Laboratory Results WBC 15.1 k/uL (3.8-10.6) H 05/05/18 08:20 RBC 3.53 m/uL (3.80-5.40) L 05/05/18 08:20 Hgb 9.9 gm/dL (11.4-16.0) L 05/05/18 08:20 Hct 31.0 % (34.0-46.0) L 05/05/18 08:20 MCV 87.8 fL (80.0-100.0) 05/05/18 08:20 MCH 28.0 pg (25.0-35.0) 05/05/18 08:20 MCHC 31.9 g/dL (31.0-37.0) 05/05/18 08:20 RDW 13.2 % (11.5-15.5) 05/05/18 08:20 Plt Count 242 k/uL (150-450) 05/05/18 08:20 Neutrophils % 84 % 05/05/18 08:20 Lymphocytes % 8 % 05/05/18 08:20 Monocytes % 4 % 05/05/18 08:20 Eosinophils % 1 % 05/05/18 08:20 Basophils % 1 % 05/05/18 08:20 Neutrophils # 12.7 k/uL (1.3-7.7) H 05/05/18 08:20 Lymphocytes # 1.3 k/uL (1.0-4.8) 05/05/18 08:20 Monocytes # 0.6 k/uL (0-1.0) 05/05/18 08:20 Eosinophils # 0.2 k/uL (0-0.7) 05/05/18 08:20 Basophils # 0.1 k/uL (0-0.2) 05/05/18 08:20 ESR 110 mm/hr (0-20) H 05/04/18 15:27 PT 27.4 sec (9.0-12.0) H 05/04/18 12:17 INR 3.1 (<1.2) H 05/04/18 12:17 APTT 39.8 sec (22.0-30.0) H 05/04/18 12:17 Sodium 139 mmol/L (137-145) 05/05/18 08:20 Potassium 3.5 mmol/L (3.5-5.1) 05/05/18 08:20 Chloride 100 mmol/L (98-107) 05/05/18 08:20 Carbon Dioxide 26 mmol/L (22-30) 05/05/18 08:20 Anion Gap 13 mmol/L 05/05/18 08:20 BUN 98 mg/dL (7-17) H 05/05/18 08:20 Creatinine 2.44 mg/dL (0.52-1.04) H 05/05/18 08:20 Est GFR (CKD-EPI)AfAm 21 (>60 ml/min/1.73 sqM) 05/05/18 08:20 Est GFR (CKD-EPI)NonAf 18 (>60 ml/min/1.73 sqM) 05/05/18 08:20 Glucose 107 mg/dL (74-99) H 05/05/18 08:20 POC Glucose (mg/dL) 110 mg/dL (75-99) H 05/05/18 12:14 POC Glu Head Usher ID Grecia Herron 05/05/18 12:14 Plasma Lactic Acid Misael 1.4 mmol/L (0.7-2.0) 05/04/18 12:17 Calcium 8.6 mg/dL (8.4-10.2) 05/05/18 08:20 Total Bilirubin 0.5 mg/dL (0.2-1.3) 05/05/18 08:20 AST 18 U/L (14-36) 05/05/18 08:20 ALT 18 U/L (9-52) 05/05/18 08:20 Alkaline Phosphatase 77 U/L (38-126) 05/05/18 08:20 C-Reactive Protein 83.6 mg/L (<10.0) H 05/04/18 15:27 Total Protein 7.2 g/dL (6.3-8.2) 05/05/18 08:20 Albumin 3.1 g/dL (3.5-5.0) L 05/05/18 08:20 Urine Color Light Yellow 05/04/18 12:17 Urine Appearance Cloudy (Clear) H 05/04/18 12:17 Urine pH 7.0 (5.0-8.0) 05/04/18 12:17 Ur Specific Reading 1.008 (1.001-1.035) 05/04/18 12:17 Urine Protein Negative (Negative) 05/04/18 12:17 Urine Glucose (UA) Negative (Negative) 05/04/18 12:17 Urine Ketones Negative (Negative) 05/04/18 12:17 Urine Blood Trace (Negative) H 05/04/18 12:17 Urine Nitrite Positive (Negative) H 05/04/18 12:17 Urine Bilirubin Negative (Negative) 05/04/18 12:17 Urine Urobilinogen <2.0 mg/dL (<2.0) 05/04/18 12:17 Ur Leukocyte Esterase Large (Negative) H 05/04/18 12:17 Urine RBC 3 /hpf (0-5) 05/04/18 12:17 Urine WBC 13 /hpf (0-5) H 05/04/18 12:17 Amorphous Sediment Few /hpf (None) H 05/04/18 12:17 Urine Bacteria Occasional /hpf (None) H 05/04/18 12:17 Urine Mucus Rare /hpf (None) H 05/04/18 12:17 CBC & Chem 7: 05/05/18 08:20 05/05/18 08:20 Labs: Abnormal Lab Results - Last 24 Hours (Table) 05/04/18 05/04/18 05/04/18 Range/Units 12:17 12:17 12:17 WBC 22.4 H (3.8-10.6) k/uL RBC 3.60 L (3.80-5.40) m/uL Hgb 10.3 L (11.4-16.0) gm/dL Hct 30.6 L (34.0-46.0) % Neutrophils # 18.8 H (1.3-7.7) k/uL Monocytes # 1.1 H (0-1.0) k/uL ESR (0-20) mm/hr PT (9.0-12.0) sec INR (<1.2) APTT (22.0-30.0) sec Sodium 132 L (137-145) mmol/L Potassium 5.2 H (3.5-5.1) mmol/L Chloride 95 L (98-107) mmol/L BUN 108 H* (7-17) mg/dL Creatinine 2.35 H (0.52-1.04) mg/dL Glucose 144 H (74-99) mg/dL POC Glucose (mg/dL) (75-99) mg/dL AST 42 H (14-36) U/L C-Reactive Protein (<10.0) mg/L Total Protein 8.3 H (6.3-8.2) g/dL Albumin (3.5-5.0) g/dL Urine Appearance Cloudy H (Clear) Urine Blood Trace H (Negative) Urine Nitrite Positive H (Negative) Ur Leukocyte Esterase Large H (Negative) Urine WBC 13 H (0-5) /hpf Amorphous Sediment Few H (None) /hpf Urine Bacteria Occasional H (None) /hpf Urine Mucus Rare H (None) /hpf 05/04/18 05/04/18 05/04/18 Range/Units 12:17 15:27 15:27 WBC (3.8-10.6) k/uL RBC (3.80-5.40) m/uL Hgb (11.4-16.0) gm/dL Hct (34.0-46.0) % Neutrophils # (1.3-7.7) k/uL Monocytes # (0-1.0) k/uL ESR 110 H (0-20) mm/hr PT 27.4 H (9.0-12.0) sec INR 3.1 H (<1.2) APTT 39.8 H (22.0-30.0) sec Sodium (137-145) mmol/L Potassium (3.5-5.1) mmol/L Chloride (98-107) mmol/L BUN (7-17) mg/dL Creatinine (0.52-1.04) mg/dL Glucose (74-99) mg/dL POC Glucose (mg/dL) (75-99) mg/dL AST (14-36) U/L C-Reactive Protein 83.6 H (<10.0) mg/L Total Protein (6.3-8.2) g/dL Albumin (3.5-5.0) g/dL Urine Appearance (Clear) Urine Blood (Negative) Urine Nitrite (Negative) Ur Leukocyte Esterase (Negative) Urine WBC (0-5) /hpf Amorphous Sediment (None) /hpf Urine Bacteria (None) /hpf Urine Mucus (None) /hpf 05/04/18 05/04/18 05/05/18 Range/Units 17:16 21:02 07:14 WBC (3.8-10.6) k/uL RBC (3.80-5.40) m/uL Hgb (11.4-16.0) gm/dL Hct (34.0-46.0) % Neutrophils # (1.3-7.7) k/uL Monocytes # (0-1.0) k/uL ESR (0-20) mm/hr PT (9.0-12.0) sec INR (<1.2) APTT (22.0-30.0) sec Sodium (137-145) mmol/L Potassium (3.5-5.1) mmol/L Chloride (98-107) mmol/L BUN (7-17) mg/dL Creatinine (0.52-1.04) mg/dL Glucose (74-99) mg/dL POC Glucose (mg/dL) 162 H 288 H 102 H (75-99) mg/dL AST (14-36) U/L C-Reactive Protein (<10.0) mg/L Total Protein (6.3-8.2) g/dL Albumin (3.5-5.0) g/dL Urine Appearance (Clear) Urine Blood (Negative) Urine Nitrite (Negative) Ur Leukocyte Esterase (Negative) Urine WBC (0-5) /hpf Amorphous Sediment (None) /hpf Urine Bacteria (None) /hpf Urine Mucus (None) /hpf 05/05/18 05/05/18 Range/Units 08:20 08:20 WBC 15.1 H (3.8-10.6) k/uL RBC 3.53 L (3.80-5.40) m/uL Hgb 9.9 L (11.4-16.0) gm/dL Hct 31.0 L (34.0-46.0) % Neutrophils # 12.7 H (1.3-7.7) k/uL Monocytes # (0-1.0) k/uL ESR (0-20) mm/hr PT (9.0-12.0) sec INR (<1.2) APTT (22.0-30.0) sec Sodium (137-145) mmol/L Potassium (3.5-5.1) mmol/L Chloride (98-107) mmol/L BUN 98 H (7-17) mg/dL Creatinine 2.44 H (0.52-1.04) mg/dL Glucose 107 H (74-99) mg/dL POC Glucose (mg/dL) (75-99) mg/dL AST (14-36) U/L C-Reactive Protein (<10.0) mg/L Total Protein (6.3-8.2) g/dL Albumin 3.1 L (3.5-5.0) g/dL Urine Appearance (Clear) Urine Blood (Negative) Urine Nitrite (Negative) Ur Leukocyte Esterase (Negative) Urine WBC (0-5) /hpf Amorphous Sediment (None) /hpf Urine Bacteria (None) /hpf Urine Mucus (None) /hpf Assessment and Plan Plan: This is an 82-year-old female who presents to hospital with sepsis most likely secondary to urinary tract infection. Weeks catheter has been changed today. She is currently on IV antibiotics in form of cefepime and vancomycin. Antibiotics will be changed over to Zosyn and vancomycin. Patient also has severe peripheral vascular disease with dry gangrene to the tips of fourth and fifth toes on the right. Local wound care will be addressed. Continue local wound care to stage II decubitus to buttocks, present on admission. Continue supportive care. Further recommendations as patient versus. The above dictated assessment and findings were discussed with Dr. Boyd. The impression and plan of care have been directed as dictated. Xi Olguin nurse practitioner acting as scribe for Dr. Boyd.
[2018-05-05 17:16] LABS: Glucose,Whole Blood 213 mg/dL (75-99)
[2018-05-05] MEDS: PIPERACILLIN-TAZOBACTAM 3.375 GM in DEXTROSE/WATER 1 50ML.BAG IVPB SCH (17:30)
--- NOTE | 2018-05-05 20:34 | CONS ---
CONSULTATION REASON FOR CONSULT: Renal failure. HISTORY OF PRESENT ILLNESS: Patient is an 82-year-old female who was admitted to the hospital yesterday with complaints of right lower extremity swelling which had been going on for about a few weeks. Patient resides at [facility]. Her serum creatinine was 2.4 mg/dL today. Yesterday it was 2.35 and review of previous labs shows a serum creatinine of about 1.2 to 1.4 mg/dL in October and January of 2018. On this admission, blood pressure is noted to be on the lower side with systolic in the 99 range. The patient denies use of any non- steroidal anti-inflammatory agents prior to admission. Review of her med list shows she was on BATSHEVA inhibitors, which are currently on hold. Patient states she has been voiding well. She did have an ultrasound which did not show any evidence of hydronephrosis. Her right kidney is atrophic at 5.2 cm. PAST MEDICAL HISTORY: 1. Hypertension. 2. Chronic kidney disease. It appears to NKF stage III with baseline creatinine 1.2 to 1.4 mg/dL. 3. History of atrial fibrillation. 4. Type 2 diabetes with neuropathy. 5. Hyperlipidemia. 6. UTIs. 7. History of cervical cancer. 8. Peripheral vascular disease. PAST SURGICAL HISTORY: 1. Right leg vascular surgery for bypass. 2. Bilateral cataract surgery. 3. Tonsillectomy. 4. Hysterectomy. SOCIAL HISTORY: Negative for smoking, drug abuse or alcohol abuse. MEDICATIONS PRIOR TO ADMISSION: 1. Synthroid. 2. Aspirin. 3. Pravachol. 4. Coumadin. 5. Moduretic. 6. Zestril. 7. Norvasc. 8. Lopressor. 9. Januvia. 10.Insulin. 11.Potassium. 12.Coumadin. ALLERGIES: NONE. REVIEW OF SYSTEMS: As per HPI. Other systems negative. PHYSICAL EXAMINATION: Patient is comfortable, awake, alert, oriented x3. She is not in any acute distress. Blood pressure is 117/52, heart rate 88 per minute. She is afebrile. EXAMINATION OF THE HEART: S1, S2. EXAMINATION OF LUNGS: Bilateral breath sounds are heard. Decreased breath sounds at the bases. ABDOMEN: Soft, non-tender. Examination of lower extremities shows chronic skin changes. Bilateral lower extremity edema is noted. 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 LABS: Sodium 139, potassium 3.5, chloride 100, BUN 98, serum creatinine 2.4, hemoglobin 9.9 g/dL. ASSESSMENT: 1. Acute kidney injury, most likely secondary to hypoperfusion, currently non- oliguric. There is no evidence of obstruction noted on ultrasound; however, patient has an atrophic right kidney. Most of her kidney function is coming from the left kidney. She is not on any nephrotoxic medications. I will decrease the Lopressor and hold off on the Norvasc, given the low blood pressure. We will monitor her urine output closely. Patient is maintained on vancomycin, which I would avoid unless absolutely necessary, given her renal failure with acute kidney injury. Continue with the IV fluids for now. 2. Chronic kidney disease, NKF stage III, most likely secondary to nephrosclerosis. No evidence of proteinuria on current UA. Baseline creatinine about 1.2 to 1.4 mg/dL. 3. Anemia. Rule out iron deficiency. No active bleeding noted at this time. 4. Hypertension. Currently blood pressure is low. 5. Possible urinary tract infection. Culture has not grown anything yet. 6. 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 7. Paroxysmal atrial fibrillation, maintained on Coumadin. 8. Hyperkalemia associated with acute kidney injury. BATSHEVA inhibitors are on hold. PLAN: Hold Norvasc. Continue to hold off on BATSHEVA inhibitors. Decrease Lopressor. Continue IV fluids. Repeat labs in a.m. and check iron studies. Check phosphorus as well with labs in a.m. I would hold off on the vancomycin unless absolutely necessary. Thank you for this consultation. We will continue to follow the patient with you during her hospitalization. MMODL / IJN: [id number] /
[2018-05-05] MEDS: LINAGLIPTIN 5 MG TABLET PO SCH (21:02)
[2018-05-05] MEDS: PRAVASTATIN SODIUM 80 MG TAB PO SCH (21:02)
[2018-05-05] MEDS: ASPIRIN 81 MG PO SCH (21:02)
[2018-05-05] MEDS: INSULIN DETEMIR 100 UNIT/ML 10 ML VIAL SQ SCH (21:11)
[2018-05-05 21:15] LABS: Glucose,Whole Blood 287 mg/dL (75-99)
--- NOTE | 2018-05-05 21:19 | P.CON ---
Consult Note - . Consult date: 05/05/18 Assessment/Plan:: This is an 82-year-old female patient known to ID service as she was seen in the past for right foot ulcer as well as sepsis from urinary tract infection in the past. Patient currently resides at [facility] and is wheelchair bound. She is known to have severe peripheral artery disease status post to right lower extremity bypasses by Dr. Aragon, history of critical limb ischemia and nonhealing ulcer of right. Patient was transferred from the snf to [facility] emergency center due to concerns of wounds to the fourth and fifth right toes. Venous Doppler was negative for DVT. Patient is hard of hearing and is unable to provide any history by herself history is obtained by the previous documentation and ER documentation. Temperature max was 101, tachycardia 101, blood pressure 120/60 saturating well on room air. Lab obtained suggest leukocytosis of 22.4, hemoglobin 10.3 which is close to patient's baseline. INR obtained suggest 3.1 and patient is on chronic Coumadin for atrial fibrillation, BNP suggestive sodium 132, potassium 5.2, creatinine 2.35 and GFR decreased to 21 from 38 urinalysis obtained as suggest some leukocytosis 13, with positive nitrates and leukocyte esterase. In the emergency center, patient received vancomycin and cefepime. Kayexalate was given for hyperkalemia. Patient was admitted to the [facility] floor. She has been seen by Dr. Garcia and he does not plan for any intervention at this time. If patient's kidney function improve she may benefit from angiogram. Patient does have pulses palpable in her lower extremities. Weeks catheter is to be exchanged today. She has stage II pressure ulcers of the buttocks that were present on admission. She has been afebrile since admission. White count is down to 15.1. BUN 98 creatinine 2.44. She is currently on cefepime and vancomycin. She apparently presented with abdominal pain that has resolved. Hip x-ray showed no fracture or dislocation. CT of the abdomen and pelvis shows atrophic right kidney. Cardiomegaly. Coronary artery disease. Hiatal hernia. Renal ultrasound shows atrophic changes to the right kidney as on prior exam. Cystic focus lower pole left kidney is similar to prior exam. Most recent previous urine culture from July 2017 was positive for ESBL E. coli and Enterococcus faecalis. Please see the consult note is dictated by nurse practitioner Mrs. Xi Olguin. 82-year-old woman presents to Hospital from the extended care facility because of changes to her right foot at the distal aspect of the toes as well as significant swelling and erythema to the right leg. She's been evaluated by vascular surgery. Is on evidence of fever and there is concerns of a cellulitis to the area. Zosyn and vancomycin have been started because of her prior history of ESBL E. coli and enterococcal infection. With evidence of the dry gangrene, just a dry dressing will be utilized to the toes. She over does have more active ulcerations to her buttocks for which medical honey will be applied. She is evidence of acute renal failure with a creatinine from 2017 and 1.02. At presentation there was a severe leukocytosis of 22.4 improving to 15.1 with concerns for urinary infection as well as the dry gangrenous changes to her right leg and a cellulitis. Cultures are in process will further help direct therapy. I agree with evaluation, assessment and plan as dictated by nurse practitioner Mrs. Xi Olguin.
[2018-05-06 04:27] LABS: Iron Saturation 4.66 (12.00-45.00)
[2018-05-06] MEDS: PIPERACILLIN-TAZOBACTAM 3.375 GM in DEXTROSE/WATER 1 50ML.BAG IVPB SCH ×2 (06:19→17:11)
[2018-05-06] MEDS: LEVOTHYROXINE 50 MCG TAB PO SCH (06:19)
[2018-05-06 07:19] LABS: Glucose,Whole Blood 115 mg/dL (75-99)
[2018-05-06] MEDS: INSULIN ASPART 100 UNIT/ML 1 ML 10 ML VIAL SQ SCH ×3 (07:57→18:01)
[2018-05-06] MEDS: METOPROLOL TARTRATE 50 MG TAB PO SCH ×2 (07:58→21:32)
[2018-05-06] MEDS: MULTIVITAMINS, THERA 1 EACH TAB PO SCH (07:58)
[2018-05-06] MEDS: FAMOTIDINE 20 MG TAB PO SCH (07:58)
[2018-05-06] MEDS: SENNOSIDES-DOCUSATE SODIUM 1 EACH TAB PO SCH (07:58)
[2018-05-06] MEDS: SODIUM CHLORIDE 0.9% 1,000 ML IV SCH ×2 (07:58→21:34)
[2018-05-06] MEDS: SODIUM CHLORIDE 5% OPHTH DROPS 15 ML BTL BOTH EYES SCH ×2 (08:00→21:32)
--- NOTE | 2018-05-06 09:24 | CDI ---
Last Revision, July 2017 Documentation Clarification Form Date: 05/06/2018 8:59:48 AM From: María Elena Watson RN, CCDS Admit Date: 05/04/2018 2:43:00 PM Patient Name: Fozia Rene Visit Number: [id number] Discharge Date: ATTENTION: The Clinical Documentation Specialists (CDI) and [facility] Coding Staff appreciate your assistance in clarifying documentation. Please respond to the clarification below the line at the bottom and electronically sign. The CDI & [facility] Coding staff will review the response and follow-up if needed. Please note: Queries are made part of the Legal Health Record. If you have any questions, please contact the author of this message via ITS. Josephine Gillis MD A diagnosis of UTI has been documented in the ED, H/P and progress notes. . History/Risk factors: Chronic Weeks catheter, Paroxysmal atrial fibrillation, Diabetes mellitus, CKD stage 3, Per documentation in the ED assessment this patient was admitted with an indwelling Weeks catheter for urinary retention. Clinical Indicators: Per your progress notes on 05/05/18 presents to hospital with sepsis most likely secondary to urinary tract infection. Urinalysis: Ur Leukocyte Esterase Large, Urine bacteria occasional Urine culture: Pending Lab results: WBC 22.4, Neutrophils 18.8, BUN 108, CR 2.35, Lactic acid 1.4, c- reactive protein 83.6 Treatment: 05/05 Weeks catheter change Monotor Labs Vancomycin IV Zosyn IV IV Fluids In your professional opinion, can you please clarify the etiology of the UTI, if known? Weeks catheter related UTI UTI not related to catheter Other condition, please specify Unable to determine If an infective organism is present, please specify cause and effect relationship if applicable. Please continue to document in your progress notes and discharge summary in order to capture severity of illness and risk of mortality. Include clinical findings that support your diagnosis. Foley catheter related UTI MTDD
[2018-05-06] MEDS ORDERED: SODIUM FERRIC GLUCONAT-SUCROSE 125 MG in SODIUM CHLORIDE 0.9% 100 ML IVPB ONE (10:54)
[2018-05-06 11:34] LABS: Albumin 3.1 g/dL (3.5-5.0); Calcium 8.6 mg/dL (8.4-10.2); Potassium 3.6 mmol/L (3.5-5.1); Total Bilirubin 0.6 mg/dL (0.2-1.3); Total Protein 7.5 g/dL (6.3-8.2)
[2018-05-06 11:39] LABS: HCT 30.4 % (34.0-46.0); HGB 9.8 gm/dL (11.4-16.0); MCH 28.2 pg (25.0-35.0); MCHC 32.2 g/dL (31.0-37.0); MCV 87.4 fL (80.0-100.0); Mean Platelet Volume 7.2; Platelet Count 284 k/uL (150-450); RBC 3.48 m/uL (3.80-5.40); RDW 13.5 % (11.5-15.5); WBC 13.2 k/uL (3.8-10.6)
[2018-05-06 11:40] LABS: Vancomycin,Random 19.1 ug/mL
[2018-05-06 12:30] LABS: INR 2.5 (<1.2)
[2018-05-06 12:31] LABS: Prothrombin Time 22.7 sec (9.0-12.0)
[2018-05-06 12:39] LABS: Glucose,Whole Blood 108 mg/dL (75-99)
--- NOTE | 2018-05-06 15:29 | P.PN ---
Subjective Progress Note Date: 05/06/18 82-year-old female patient of Dr. Mendoza resides at [facility] with past medical history of atrial fibrillation on Coumadin, diabetes mellitus with neuropathy, hyperlipidemia, hypertension, thyroid disorder, history of peripheral artery disease status post to right lower extremity bypasses by Dr. Aragon, history of critical limb ischemia and nonhealing ulcer of right in 2016 history of UTIs, urinary incontinence history of MRSA in 2016 presents with swelling and pain in the right lower extremity. Patient comes to the ER with significant swelling on involving the right lower extremity with erythema for the past few weeks. Arterial study was done as outpatient by Dr. Mendoza that suggested worsening of the peripheral artery disease. Venous Doppler was done in the ER to rule out DVT that was negative for any occlusion. Patient continues to complain of significant pain in the right lower extremity at the level of groin. Patient is wheelchair bound and is a long-term patient at discharge. Patient is hard of hearing and is unable to provide any history by herself history is obtained by the previous documentation and ER documentation. On evaluation in the ER, where a suggested temp of 101, tachycardia 101, blood pressure 120/60 saturating well on room air. Lab obtained suggest leukocytosis of 22.4, hemoglobin 10.3 which is close to patient's baseline. INR obtained suggest 3.1, BNP suggestive sodium 132, potassium 5.2, V1 108 which is increased from the baseline, creatinine 2.35 and GFR decreased to 21 from 38 urinalysis obtained as suggest some leukocytosis 13 , with positive nitrates and leukocyte esterase. 05/05: Consults and place with Dr. Garcia and Dr. Boyd. Dr. Garcia does not plan for any intervention at this time. If patient's kidney function improve she may benefit from angiogram. Patient does have pulses palpable in her lower extremities. Weeks catheter is to be exchanged today. She has stage II pressure ulcers of the buttocks that were present on admission. She has been afebrile since admission. White count is down to 15.1. BUN 98 creatinine 2.44. She is currently on cefepime and vancomycin that have been changed over to Zosyn and vancomycin. Patient remains pleasantly confused and also suffers from difficulty hearing patient communication difficult. Abdominal pain seems to have resolved. Hip x-ray showed no fracture or dislocation. CT of the abdomen and pelvis shows atrophic right kidney. Cardiomegaly. Coronary artery disease. Hiatal hernia. Renal ultrasound shows atrophic changes to the right kidney as on prior exam. Cystic focus lower pole left kidney is similar to prior exam. 05/06: Dr. Boyd has added [facility] for local wound care on the right toes. Patient has been seen by nephrology and recommends avoiding vancomycin. Patient is currently on Zosyn and vancomycin. Iron level is low and patient will be giving Ferrlecit one dose. She did cough up small blood clot but otherwise has not had a cough. Blood culture and urine culture are in progress. Anticipate discharge back to [facility] tomorrow. Objective - Vital Signs Vital signs: Vital Signs Temp 98.0 F 05/06/18 07:00 Pulse 94 05/06/18 07:00 Resp 20 05/06/18 07:00 BP 132/67 05/06/18 07:00 Pulse Ox 99 05/06/18 07:00 Intake & Output 05/05/18 05/06/18 05/06/18 18:59 06:59 18:59 Intake Total 480 100 360 Output Total 1650 Balance 480 -1550 360 Intake: Oral 480 100 360 Output: Urine 1650 Other: Voiding Method Indwelling Catheter Indwelling Catheter Indwelling Catheter - Exam General appearance: Unable to provide any history, cooperative, moderate acute distress, obese - EENT Eyes: anicteric sclerae, PERRLA, normal appearance ENT: Hard of hearing - Neck Neck: no lymphadenopathy, normal ROM, no other, no rigidity, no stridor, no thyromegaly - Respiratory Respiratory: bilateral: CTA, negative: diminished, dullness, rales, rhonchi - Cardiovascular Rhythm: regular Heart sounds: normal: S1, S2 Abnormal Heart Sounds: no systolic murmur, no diastolic murmur, no rub, no S3 Gallop, no S4 Gallop, no click, no other - Gastrointestinal General gastrointestinal: normal bowel sounds, soft - Integumentary Integumentary: no rash fourth and fifth right lower extremity digits with the necrotic tip with serous drainage and bad odor. With significant lower extremity edema and redness involving the medial side of the thigh and williamson - Neurologic Neurologic: CNII-XII intact - Musculoskeletal Musculoskeletal: Gait could not be assessed due to generalized weakness, strength equal bilaterally decreased in the lower extremity 3+/5 - Psychiatric Psychiatric: A&O x's3, appropriate affect - Labs CBC & Chem 7: 05/06/18 10:22 05/06/18 10:22 Labs: Abnormal Lab Results - Last 24 Hours (Table) 05/05/18 05/05/18 05/05/18 Range/Units 08:20 12:14 16:59 POC Glucose (mg/dL) 110 H 213 H (75-99) mg/dL Iron 13 L (50-170) ug/dL Iron Saturation 4.66 L (12.00-45.00) 05/05/18 05/06/18 Range/Units 20:51 07:10 POC Glucose (mg/dL) 287 H 115 H (75-99) mg/dL Iron (50-170) ug/dL Iron Saturation (12.00-45.00) Microbiology - Last 24 Hours (Table) 05/05/18 14:21 Urine Culture - Preliminary Urine,Catheterized 05/04/18 12:45 Blood Culture - Preliminary Blood No Growth after 24 hours Assessment and Plan Plan: #1 sepsis secondary to the catheter associated urinary tract infection. Weeks catheter to be changed. IV antibiotics have been changed to Zosyn and daptomycin by Dr. Boyd. Continue to monitor closely. Urine culture is in progress. #2. 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 History of peripheral artery disease status post bypass and stenting with Dr. Aragon and Dr. Bond. Consult with Dr. Garcia. No plan for any intervention. If patient kidney function improve she may benefit from angiogram. #3 paroxysmal atrial fibrillation on Coumadin. INR 3.1 hold Coumadin today. Repeat INR tomorrow #4 hyperkalemia secondary to acute kidney injury on CKD. Kayexalate ordered. 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 Status post 2 L IV fluid continue normal saline at 75 mL per hour. Hold Lasix, hydrochlorothiazide and amiloride. Hold lisinopril. Nephrology consult appreciated. CT abdomen and renal ultrasound as above. #6 UTI urine culture ordered. #7 diabetes2 with diabetic neuropathy continue Lantus 30 units daily at bedtime with 10 units lispro with sliding scale #8 hypertension controlled on metoprolol hold Lasix hold hydrochlorothiazide and amiloride. Hold lisinopril for hyper hyperkalemia #10 DVT prophylaxis INR therapeutic hold Coumadin INR tomorrow #11 GI prophylaxis Pepcid 20 mg by mouth daily #12 CODE STATUS full code #13 right lower quadrant abdominal pain, resolved. No acute abnormality on CAT scan. Discharge plan: Return to [facility] on . Impression and plan of care have been directed as dictated by the signing physician. Xi Olguin nurse practitioner acting as scribe for signing physician.
[2018-05-06] MEDS: DAPTOmycin 500 MG in SODIUM CHLORIDE 0.9% 50 ML IVPB SCH (16:22)
[2018-05-06 17:02] LABS: Glucose,Whole Blood 164 mg/dL (75-99)
--- NOTE | 2018-05-06 19:36 | PN ---
PROGRESS NOTE Patient is seen for followup for acute kidney injury. Her serum creatinine was 2.3 mg/dL and it increased to 2.4 on admission. Patient's blood pressure has been on the lower side. Her previous creatinine was 1.2 to 1.4 mg/dL. Yesterday antihypertensive medications were held and serum creatinine has improved to 2.1 mg/dL today. Patient was also on vancomycin. Random vancomycin level is 19.1. Currently she is maintained on IV fluids at 75 mL/hour. On examination, blood pressure was 132/67, heart rate 94 per minute. Patient is afebrile. EXAMINATION OF THE HEART: S1, S2. EXAMINATION OF LUNGS: Bilateral breath sounds are heard. ABDOMEN: Soft, non-tender, obese. Examination of lower extremities shows chronic skin changes. Right leg is currently wrapped. There is 1+ edema noted. 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 ASSESSMENT: 1. Acute kidney injury secondary to hypotension and underlying infection, currently improved. Serum creatinine is down to 2.1. The patient is non-oliguric. UA shows some WBCs. There is no proteinuria. Patient has trace hematuria. She has an indwelling Weeks catheter. Abdominal CT did not show any significant abnormalities in the kidney; however, patient does have an atrophic right kidney and there is a cyst in the left kidney. No retention or hydronephrosis was noted. Vancomycin level was 19. 2. Chronic kidney disease, NKF stage III, secondary to nephrosclerosis. Baseline creatinine about 1.2 to 1.4. 3. Hyperkalemia on initial admission associated with acute kidney injury. BATSHEVA inhibitors are on hold. Renal function has improved. 4. Iron deficiency, maintained on IV iron. PLAN: Continue off of vancomycin. I will decrease the IV fluids. I will give her 2 more doses of IV iron, as iron saturation was only 4%. MMODL / IJN: [id number] /
[2018-05-06] MEDS ORDERED: VANCOMYCIN 1,500 MG in SODIUM CHLORIDE 0.9% 250 ML IVPB ONE (20:00)
[2018-05-06 20:47] LABS: Glucose,Whole Blood 193 mg/dL (75-99)
[2018-05-06] MEDS: ASPIRIN 81 MG PO SCH (21:32)
[2018-05-06] MEDS: LINAGLIPTIN 5 MG TABLET PO SCH (21:32)
[2018-05-06] MEDS: INSULIN DETEMIR 100 UNIT/ML 10 ML VIAL SQ SCH (21:34)
[2018-05-07] MEDS: PIPERACILLIN-TAZOBACTAM 3.375 GM in DEXTROSE/WATER 1 50ML.BAG IVPB SCH ×2 (06:44→18:11)
[2018-05-07] MEDS: LEVOTHYROXINE 50 MCG TAB PO SCH (06:44)
[2018-05-07 07:50] LABS: Glucose,Whole Blood 90 mg/dL (75-99)
[2018-05-07] MEDS: INSULIN ASPART 100 UNIT/ML 1 ML 10 ML VIAL SQ SCH ×3 (08:04→17:37)
[2018-05-07] MEDS: SODIUM CHLORIDE 5% OPHTH DROPS 15 ML BTL BOTH EYES SCH ×2 (08:05→20:48)
[2018-05-07] MEDS: SENNOSIDES-DOCUSATE SODIUM 1 EACH TAB PO SCH (08:05)
[2018-05-07] MEDS: FAMOTIDINE 20 MG TAB PO SCH (08:05)
[2018-05-07] MEDS: METOPROLOL TARTRATE 50 MG TAB PO SCH ×2 (08:05→20:47)
[2018-05-07 09:44] LABS: HCT 30.4 % (34.0-46.0); HGB 9.4 gm/dL (11.4-16.0); Hypochromasia Slight; MCH 28.3 pg (25.0-35.0); MCHC 30.8 g/dL (31.0-37.0); Mean Platelet Volume 6.8; Platelet Count 247 k/uL (150-450); RBC 3.31 m/uL (3.80-5.40); RDW 13.3 % (11.5-15.5); WBC 12.5 k/uL (3.8-10.6)
[2018-05-07] MEDS: SODIUM FERRIC GLUCONAT-SUCROSE 125 MG in SODIUM CHLORIDE 0.9% 100 ML IVPB SCH (09:57)
[2018-05-07 09:59] LABS: Prothrombin Time 18.2 sec (9.0-12.0)
[2018-05-07 10:05] LABS: Albumin 2.9 g/dL (3.5-5.0); Calcium 8.6 mg/dL (8.4-10.2); Potassium 3.5 mmol/L (3.5-5.1); Total Bilirubin 0.6 mg/dL (0.2-1.3); Total Protein 6.9 g/dL (6.3-8.2)
[2018-05-07 12:05] LABS: Glucose,Whole Blood 172 mg/dL (75-99)
[2018-05-07] MEDS: MULTIVITAMINS, THERA 1 EACH TAB PO SCH (12:32)
[2018-05-07] MEDS ORDERED: POTASSIUM CHLORIDE ER 20 MEQ TAB.ER PO STA (13:03)
--- NOTE | 2018-05-07 13:03 | P.PN ---
Subjective Patient is seen in follow-up for acute kidney injury on chronic kidney disease. Patient has chronic kidney disease stage III with baseline creatinine in the range of 1.2-1.4. Renal function is better today with creatinine down to 1.92. She is noted to have an atrophic right kidney. BATSHEVA inhibitor is held. Blood pressure is well controlled. She is nonoliguric. Oral intake is good. Vital signs are stable. General: The patient appeared well nourished and normally developed. HEENT: Head exam is unremarkable. Neck is without jugular venous distension. LUNGS: Lungs are clear to auscultation and percussion. Breath sounds decreased. HEART: Rate and Rhythm are regular. First and second heart sounds normal. No murmurs, rubs or gallops. ABDOMEN: Abdominal exam reveals normal bowel sounds. Non-tender and non- distended. No evidence of peritonitis. EXTREMITITES: No clubbing, cyanosis, or edema. Objective - Vital Signs Vital signs: Vital Signs Temp 99.2 F 05/07/18 07:00 Pulse 94 05/07/18 07:00 Resp 16 05/07/18 07:00 BP 138/75 05/07/18 07:00 Pulse Ox 99 05/07/18 07:00 Intake & Output 05/06/18 05/07/18 05/07/18 18:59 06:59 18:59 Intake Total 600 200 Output Total 1225 2100 Balance -625 -2100 200 Intake: Oral 600 200 Output: Urine 1225 2100 Uretheral (Weeks) 800 Other: Voiding Method Indwelling Catheter Indwelling Catheter Indwelling Catheter # Bowel Movements 1 - Labs CBC & Chem 7: 05/07/18 08:57 05/07/18 08:57 Labs: Abnormal Lab Results - Last 24 Hours (Table) 05/06/18 05/06/18 05/07/18 Range/Units 16:54 20:46 08:57 WBC (3.8-10.6) k/uL RBC (3.80-5.40) m/uL Hgb (11.4-16.0) gm/dL Hct (34.0-46.0) % MCHC (31.0-37.0) g/dL PT (9.0-12.0) sec INR (<1.2) Carbon Dioxide 21 L (22-30) mmol/L BUN 71 H (7-17) mg/dL Creatinine 1.92 H (0.52-1.04) mg/dL Glucose 137 H (74-99) mg/dL POC Glucose (mg/dL) 164 H 193 H (75-99) mg/dL Albumin 2.9 L (3.5-5.0) g/dL 05/07/18 05/07/18 05/07/18 Range/Units 08:57 08:57 12:03 WBC 12.5 H (3.8-10.6) k/uL RBC 3.31 L (3.80-5.40) m/uL Hgb 9.4 L (11.4-16.0) gm/dL Hct 30.4 L (34.0-46.0) % MCHC 30.8 L (31.0-37.0) g/dL PT 18.2 H (9.0-12.0) sec INR 2.0 H (<1.2) Carbon Dioxide (22-30) mmol/L BUN (7-17) mg/dL Creatinine (0.52-1.04) mg/dL Glucose (74-99) mg/dL POC Glucose (mg/dL) 172 H (75-99) mg/dL Albumin (3.5-5.0) g/dL Microbiology - Last 24 Hours (Table) 05/05/18 14:21 Urine Culture - Final Urine,Catheterized 05/04/18 12:45 Blood Culture - Preliminary Blood No Growth after 48 hours Assessment and Plan Plan: Assessment: 1. Nonoliguric acute kidney injury secondary to ATN secondary to hypotension and underlying infection. Renal function improving with creatinine down to 1.92 today. Vancomycin level 19.1 as of yesterday. 2. Chronic kidney disease stage III secondary to nephrosclerosis with baseline creatinine in the range of 1.2-1.4. 3. Hyperkalemia secondary to acute kidney injury and a slightly better. Resolved. 4. Anemia with severe iron deficiency maintained on IV iron. 5. Catheter associated UTI maintained on antibiotics per infectious disease. 6. Hypertension with chronic kidney disease. Controlled. 7. Mild metabolic acidosis secondary to acute kidney injury and IV fluids. 8. Insulin-dependent diabetes mellitus. Plan: Hep-Lock IV fluids. Encourage oral intake. Avoid nephrotoxins. 20 mEq daily today. Check magnesium level as well. Vancomycin discontinued. Now on daptomycin and Zosyn. Possible discharge tomorrow. Follow up outpatient in the next 1-2 weeks.
--- NOTE | 2018-05-07 14:34 | P.PN ---
Subjective Progress Note Date: 05/07/18 82-year-old female patient of Dr. Mendoza resides at [facility] with past medical history of atrial fibrillation on Coumadin, diabetes mellitus with neuropathy, hyperlipidemia, hypertension, thyroid disorder, history of peripheral artery disease status post to right lower extremity bypasses by Dr. Aragon, history of critical limb ischemia and nonhealing ulcer of right in 2016 history of UTIs, urinary incontinence history of MRSA in 2016 presents with swelling and pain in the right lower extremity. Patient comes to the ER with significant swelling on involving the right lower extremity with erythema for the past few weeks. Arterial study was done as outpatient by Dr. Mendoza that suggested worsening of the peripheral artery disease. Venous Doppler was done in the ER to rule out DVT that was negative for any occlusion. Patient continues to complain of significant pain in the right lower extremity at the level of groin. Patient is wheelchair bound and is a long-term patient at discharge. Patient is hard of hearing and is unable to provide any history by herself history is obtained by the previous documentation and ER documentation. On evaluation in the ER, where a suggested temp of 101, tachycardia 101, blood pressure 120/60 saturating well on room air. Lab obtained suggest leukocytosis of 22.4, hemoglobin 10.3 which is close to patient's baseline. INR obtained suggest 3.1, BNP suggestive sodium 132, potassium 5.2, V1 108 which is increased from the baseline, creatinine 2.35 and GFR decreased to 21 from 38 urinalysis obtained as suggest some leukocytosis 13 , with positive nitrates and leukocyte esterase. 05/05: Consults and place with Dr. Garcia and Dr. Boyd. Dr. Garcia does not plan for any intervention at this time. If patient's kidney function improve she may benefit from angiogram. Patient does have pulses palpable in her lower extremities. Weeks catheter is to be exchanged today. She has stage II pressure ulcers of the buttocks that were present on admission. She has been afebrile since admission. White count is down to 15.1. BUN 98 creatinine 2.44. She is currently on cefepime and vancomycin that have been changed over to Zosyn and vancomycin. Patient remains pleasantly confused and also suffers from difficulty hearing patient communication difficult. Abdominal pain seems to have resolved. Hip x-ray showed no fracture or dislocation. CT of the abdomen and pelvis shows atrophic right kidney. Cardiomegaly. Coronary artery disease. Hiatal hernia. Renal ultrasound shows atrophic changes to the right kidney as on prior exam. Cystic focus lower pole left kidney is similar to prior exam. 05/06: Dr. Boyd has added medihoney for local wound care on the right toes. Patient has been seen by nephrology and recommends avoiding vancomycin. Patient is currently on Zosyn and vancomycin. Iron level is low and patient will be giving Ferrlecit one dose. She did cough up small blood clot but otherwise has not had a cough. Blood culture and urine culture are in progress. Anticipate discharge back to [facility] tomorrow. 05/07: Nephrology has seen the patient and added and 2 more doses of Ferrlecit which will be completed tomorrow. Urine culture is showing no growth but note that this was obtained after 24 hours of antibiotics. White count is at 12.5, hemoglobin 9.4. Creatinine is down to 1.92. INR 2.0 and Coumadin will be resumed at her normal dose. Patient remains pleasantly confused.. Objective - Vital Signs Vital signs: Vital Signs Temp 99.2 F 05/07/18 07:00 Pulse 94 05/07/18 07:00 Resp 16 05/07/18 07:00 BP 138/75 05/07/18 07:00 Pulse Ox 99 05/07/18 07:00 Intake & Output 05/06/18 05/07/18 05/07/18 18:59 06:59 18:59 Intake Total 600 200 Output Total 1225 2100 Balance -625 -2100 200 Intake: Oral 600 200 Output: Urine 1225 2100 Uretheral (Weeks) 800 Other: Voiding Method Indwelling Catheter Indwelling Catheter Indwelling Catheter # Bowel Movements 1 - Exam General appearance: Unable to provide any history, cooperative, moderate acute distress, obese - EENT Eyes: anicteric sclerae, PERRLA, normal appearance ENT: Hard of hearing - Neck Neck: no lymphadenopathy, normal ROM, no other, no rigidity, no stridor, no thyromegaly - Respiratory Respiratory: bilateral: CTA, negative: diminished, dullness, rales, rhonchi - Cardiovascular Rhythm: regular Heart sounds: normal: S1, S2 Abnormal Heart Sounds: no systolic murmur, no diastolic murmur, no rub, no S3 Gallop, no S4 Gallop, no click, no other - Gastrointestinal General gastrointestinal: normal bowel sounds, soft - Integumentary Integumentary: no rash fourth and fifth right lower extremity digits with the necrotic tip with serous drainage and bad odor. With significant lower extremity edema and redness involving the medial side of the thigh and williamson - Neurologic Neurologic: CNII-XII intact - Musculoskeletal Musculoskeletal: Gait could not be assessed due to generalized weakness, strength equal bilaterally decreased in the lower extremity 3+/5 - Psychiatric Psychiatric: A&O x's2, appropriate affect - Labs CBC & Chem 7: 05/07/18 08:57 05/07/18 08:57 Labs: Abnormal Lab Results - Last 24 Hours (Table) 05/06/18 05/06/18 05/06/18 Range/Units 10:22 10:22 10:22 WBC 13.2 H (3.8-10.6) k/uL RBC 3.48 L (3.80-5.40) m/uL Hgb 9.8 L (11.4-16.0) gm/dL Hct 30.4 L (34.0-46.0) % MCHC (31.0-37.0) g/dL PT 22.7 H (9.0-12.0) sec INR 2.5 H (<1.2) Carbon Dioxide (22-30) mmol/L BUN 92 H (7-17) mg/dL Creatinine 2.15 H (0.52-1.04) mg/dL Glucose 116 H (74-99) mg/dL POC Glucose (mg/dL) (75-99) mg/dL AST 38 H (14-36) U/L Albumin 3.1 L (3.5-5.0) g/dL 05/06/18 05/06/18 05/06/18 Range/Units 12:33 16:54 20:46 WBC (3.8-10.6) k/uL RBC (3.80-5.40) m/uL Hgb (11.4-16.0) gm/dL Hct (34.0-46.0) % MCHC (31.0-37.0) g/dL PT (9.0-12.0) sec INR (<1.2) Carbon Dioxide (22-30) mmol/L BUN (7-17) mg/dL Creatinine (0.52-1.04) mg/dL Glucose (74-99) mg/dL POC Glucose (mg/dL) 108 H 164 H 193 H (75-99) mg/dL AST (14-36) U/L Albumin (3.5-5.0) g/dL 05/07/18 05/07/18 05/07/18 Range/Units 08:57 08:57 08:57 WBC 12.5 H (3.8-10.6) k/uL RBC 3.31 L (3.80-5.40) m/uL Hgb 9.4 L (11.4-16.0) gm/dL Hct 30.4 L (34.0-46.0) % MCHC 30.8 L (31.0-37.0) g/dL PT 18.2 H (9.0-12.0) sec INR 2.0 H (<1.2) Carbon Dioxide 21 L (22-30) mmol/L BUN 71 H (7-17) mg/dL Creatinine 1.92 H (0.52-1.04) mg/dL Glucose 137 H (74-99) mg/dL POC Glucose (mg/dL) (75-99) mg/dL AST (14-36) U/L Albumin 2.9 L (3.5-5.0) g/dL Microbiology - Last 24 Hours (Table) 05/05/18 14:21 Urine Culture - Final Urine,Catheterized 05/04/18 12:45 Blood Culture - Preliminary Blood No Growth after 48 hours Assessment and Plan Plan: #1 sepsis secondary to the catheter associated urinary tract infection. Weeks catheter to be changed. IV antibiotics have been changed to Zosyn and daptomycin by Dr. Boyd. Continue to monitor closely. Urine culture is showing no growth. #2. 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 History of peripheral artery disease status post bypass and stenting with Dr. Aragon and Dr. Bond. Consult with Dr. Garcia. No plan for any intervention. If patient kidney function improve she may benefit from angiogram. #3 paroxysmal atrial fibrillation on Coumadin. INR 3.1 hold Coumadin today. Repeat INR tomorrow #4 hyperkalemia secondary to acute kidney injury on CKD. Kayexalate ordered. 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 Status post 2 L IV fluid continue normal saline at 75 mL per hour. Hold Lasix, hydrochlorothiazide and amiloride. Hold lisinopril. Nephrology consult appreciated. CT abdomen and renal ultrasound as above. #6 UTI urine culture ordered. #7 diabetes2 with diabetic neuropathy continue Lantus 30 units daily at bedtime with 10 units lispro with sliding scale #8 hypertension controlled on metoprolol hold Lasix hold hydrochlorothiazide and amiloride. Hold lisinopril for hyper hyperkalemia #10 DVT prophylaxis INR therapeutic hold Coumadin INR tomorrow #11 GI prophylaxis Pepcid 20 mg by mouth daily #12 CODE STATUS full code #13 right lower quadrant abdominal pain, resolved. No acute abnormality on CAT scan. 14. Anemia of chronic disease. Ferrlecit transfusion 3 to be completed tomorrow. [facility] Impression and plan of care have been directed as dictated by the signing physician. Xi Olguin nurse practitioner acting as scribe for signing physician.
[2018-05-07 17:34] LABS: Glucose,Whole Blood 131 mg/dL (75-99)
[2018-05-07] MEDS ORDERED: WARFARIN 3 MG TAB PO ONE (18:00)
[2018-05-07] MEDS: LINAGLIPTIN 5 MG TABLET PO SCH (20:47)
[2018-05-07] MEDS: ASPIRIN 81 MG PO SCH (20:47)
[2018-05-07] MEDS: INSULIN DETEMIR 100 UNIT/ML 10 ML VIAL SQ SCH (21:10)
[2018-05-07 21:23] LABS: Glucose,Whole Blood 167 mg/dL (75-99)
[2018-05-08 00:37] VITALS: RESP 18
[2018-05-08] MEDS: PIPERACILLIN-TAZOBACTAM 3.375 GM in DEXTROSE/WATER 1 50ML.BAG IVPB SCH (05:35)
[2018-05-08] MEDS: LEVOTHYROXINE 50 MCG TAB PO SCH (06:12)
[2018-05-08 07:21] VITALS: BP 144/79; PULSE 80; TEMP 99.3
[2018-05-08 07:32] LABS: Glucose,Whole Blood 91 mg/dL (75-99)
[2018-05-08] MEDS: METOPROLOL TARTRATE 50 MG TAB PO SCH (08:04)
[2018-05-08] MEDS: INSULIN ASPART 100 UNIT/ML 1 ML 10 ML VIAL SQ SCH ×2 (08:04→13:23)
[2018-05-08] MEDS: SODIUM CHLORIDE 5% OPHTH DROPS 15 ML BTL BOTH EYES SCH (08:05)
[2018-05-08] MEDS: FAMOTIDINE 20 MG TAB PO SCH (08:05)
[2018-05-08] MEDS: SENNOSIDES-DOCUSATE SODIUM 1 EACH TAB PO SCH (08:07)
[2018-05-08 09:01] LABS: HCT 30.7 % (34.0-46.0); HGB 9.6 gm/dL (11.4-16.0); MCH 27.7 pg (25.0-35.0); MCHC 31.4 g/dL (31.0-37.0); MCV 88.1 fL (80.0-100.0); Mean Platelet Volume 7.2; Platelet Count 278 k/uL (150-450); RBC 3.49 m/uL (3.80-5.40); RDW 13.5 % (11.5-15.5); WBC 11.1 k/uL (3.8-10.6)
[2018-05-08 09:07] LABS: INR 1.7 (<1.2); Prothrombin Time 15.3 sec (9.0-12.0)
[2018-05-08 09:08] LABS: Calcium 8.9 mg/dL (8.4-10.2); Magnesium 2.1 mg/dL (1.6-2.3); Potassium 3.9 mmol/L (3.5-5.1)
[2018-05-08 09:13] LABS: Vancomycin,Random 10.7 ug/mL
[2018-05-08] MEDS: SODIUM FERRIC GLUCONAT-SUCROSE 125 MG in SODIUM CHLORIDE 0.9% 100 ML IVPB SCH (10:03)
[2018-05-08 12:01] LABS: Glucose,Whole Blood 102 mg/dL (75-99)
[2018-05-08] MEDS: MULTIVITAMINS, THERA 1 EACH TAB PO SCH (12:25)
--- NOTE | 2018-05-08 14:54 | P.DS ---
Providers Date of admission: 05/04/18 14:43 Expected date of discharge: 05/08/18 Attending physician: Josephine Lu MD Consults: 05/04/18 15:38 Consult Physician Routine Consulting Provider: Dalton Fernandez Consult Reason/Comments: ALEA on CKD Do you want consulting provider notified?: Yes 05/04/18 15:39 Consult Physician Routine Consulting Provider: Garrett Boyd Consult Reason/Comments: cellulitis right lower extremity Do you want consulting provider notified?: Yes 05/04/18 16:19 Consult Physician Routine Consulting Provider: Randy Garcia Consult Reason/Comments: h/o PAD, new ulcer 4th and 5th right toes Do you want consulting provider notified?: Yes Primary care physician: Jeanne Mendoza Hospital Course: 82-year-old female patient of Dr. Mendoza resides at [facility] with past medical history of atrial fibrillation on Coumadin, diabetes mellitus with neuropathy, hyperlipidemia, hypertension, thyroid disorder, history of peripheral artery disease status post to right lower extremity bypasses by Dr. Aragon, history of critical limb ischemia and nonhealing ulcer of right in 2016 history of UTIs, urinary incontinence history of MRSA in 2016 presents with swelling and pain in the right lower extremity. Patient comes to the ER with significant swelling on involving the right lower extremity with erythema for the past few weeks. Arterial study was done as outpatient by Dr. Mendoza that suggested worsening of the peripheral artery disease. Venous Doppler was done in the ER to rule out DVT that was negative for any occlusion. Patient continues to complain of significant pain in the right lower extremity at the level of groin. Patient is wheelchair bound and is a long-term patient at discharge. Patient is hard of hearing and is unable to provide any history by herself history is obtained by the previous documentation and ER documentation. On evaluation in the ER, where a suggested temp of 101, tachycardia 101, blood pressure 120/60 saturating well on room air. Lab obtained suggest leukocytosis of 22.4, hemoglobin 10.3 which is close to patient's baseline. INR obtained suggest 3.1, BNP suggestive sodium 132, potassium 5.2, V1 108 which is increased from the baseline, creatinine 2.35 and GFR decreased to 21 from 38 urinalysis obtained as suggest some leukocytosis 13 , with positive nitrates and leukocyte esterase. 10: Consults and place with Dr. Garcia and Dr. Boyd. Dr. Garcia does not plan for any intervention at this time. If patient's kidney function improve she may benefit from angiogram. Patient does have pulses palpable in her lower extremities. Weeks catheter is to be exchanged today. She has stage II pressure ulcers of the buttocks that were present on admission. She has been afebrile since admission. White count is down to 15.1. BUN 98 creatinine 2.44. She is currently on cefepime and vancomycin that have been changed over to Zosyn and vancomycin. Patient remains pleasantly confused and also suffers from difficulty hearing patient communication difficult. Abdominal pain seems to have resolved. Hip x-ray showed no fracture or dislocation. CT of the abdomen and pelvis shows atrophic right kidney. Cardiomegaly. Coronary artery disease. Hiatal hernia. Renal ultrasound shows atrophic changes to the right kidney as on prior exam. Cystic focus lower pole left kidney is similar to prior exam. 05/06: Dr. Boyd has added [facility] for local wound care on the right toes. Patient has been seen by nephrology and recommends avoiding vancomycin. Patient is currently on Zosyn and vancomycin. Iron level is low and patient will be giving Ferrlecit one dose. She did cough up small blood clot but otherwise has not had a cough. Blood culture and urine culture are in progress. Anticipate discharge back to [facility] tomorrow. 05/07: Nephrology has seen the patient and added and 2 more doses of Ferrlecit which will be completed tomorrow. Urine culture is showing no growth but note that this was obtained after 24 hours of antibiotics. White count is at 12.5, hemoglobin 9.4. Creatinine is down to 1.92. INR 2.0 and Coumadin will be resumed at her normal dose. Patient remains pleasantly confused.. 05/08: Patient will follow up with Drs. Aragon and Marnie. White count is11.1, hgb 9.6, BUN [address] Boyd has clarified antibiotics with doxycycline. Patient will return to [facility] today in stable condition. Discharge diagnoses: #1 sepsis secondary to the catheter associated urinary tract infection. #2. 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 History of peripheral artery disease status post bypass and stenting with Dr. Aragon and Dr. Bond. #3 paroxysmal atrial fibrillation on Coumadin. #4 hyperkalemia secondary to acute kidney injury on CKD. #5 ALEA on CKD 3 #6 UTI #7 diabetes2 with diabetic neuropathy #8 hypertension #10 right lower quadrant abdominal pain, resolved. No acute abnormality on CAT scan. 14. Anemia of chronic disease. Discharge plan: Return to [facility] Impression and plan of care have been directed as dictated by the signing physician. Xi Olguin nurse practitioner acting as scribe for signing physician. Patient Condition at Discharge: Good Plan - Discharge Summary Discharge Rx Participant: No New Discharge Prescriptions: New Metoprolol Tartrate [Lopressor] 75 mg PO BID tab Continue Aspirin 81 mg PO HS Pravastatin Sodium [Pravachol] 80 mg PO HS Warfarin [Coumadin] 3 mg PO SUMOTUTHSA Levothyroxine Sodium [Synthroid] 50 mcg PO QAM sitaGLIPtin [Januvia] 50 mg PO HS #1 tab Insulin Glargine [Lantus] 30 unit SQ HS INSULIN LISPRO (humaLOG) [humaLOG] 10 units SQ AC-TID@07,11,16 Sennosides-Docusate Sodium [Senokot-S] 1 tab PO DAILY Acetaminophen Tab [Tylenol] 650 mg PO Q6H PRN PRN Reason: Pain Sodium Chloride 5% Ophth Soln [Hari 128] 1 drop BOTH EYES BID Multivitamins, Thera [Multivitamin (formulary)] 1 tab PO DAILY Potassium Chloride ER [K-Dur 10] 10 meq PO DAILY Warfarin [Coumadin] 6 mg PO WEFR Changed Furosemide [Lasix] 40 mg PO DAILY #0 Discontinued aMILoride-HCTZ 5-50 mg [Moduretic 5-50] 1 tab PO DAILY amLODIPine [Norvasc] 5 mg PO DAILY Lisinopril [Zestril] 10 mg PO BID Metoprolol Tartrate [Lopressor] 100 mg PO BID #1 tab Discharge Medication List Aspirin 81 mg PO HS 09/11/15 [History] Levothyroxine Sodium [Synthroid] 50 mcg PO QAM 09/11/15 [History] Pravastatin Sodium [Pravachol] 80 mg PO HS 09/11/15 [History] Warfarin [Coumadin] 3 mg PO SUMOTUTHSA 09/11/15 [History] sitaGLIPtin [Januvia] 50 mg PO HS #1 tab 01/23/16 [Rx] Insulin Glargine [Lantus] 30 unit SQ HS 02/06/17 [History] INSULIN LISPRO (humaLOG) [humaLOG] 10 units SQ AC-TID@07,11,16 06/16/17 [History ] Sennosides-Docusate Sodium [Senokot-S] 1 tab PO DAILY 06/16/17 [History] Acetaminophen Tab [Tylenol] 650 mg PO Q6H PRN 05/04/18 [History] Multivitamins, Thera [Multivitamin (formulary)] 1 tab PO DAILY 05/04/18 [History ] Potassium Chloride ER [K-Dur 10] 10 meq PO DAILY 05/04/18 [History] Sodium Chloride 5% Ophth Soln [Hari 128] 1 drop BOTH EYES BID 05/04/18 [History] Warfarin [Coumadin] 6 mg PO WEFR 05/04/18 [History] Furosemide [Lasix] 40 mg PO DAILY #0 05/08/18 [Rx] Metoprolol Tartrate [Lopressor] 75 mg PO BID tab 05/08/18 [Rx] Follow up Appointment(s)/Referral(s): Jeanne Mendoza MD [Primary Care Provider] - 1-2 days (at [facility]) Yoel Dye MD [STAFF PHYSICIAN] - 1 Week [facility], [NON-STAFF] - 1 Week Alan Aragon DO [Doctor of Osteopathic Medicine] - 1 Week Ambulatory/Diagnostic Orders: Prothrombin Time INR [LAB.AMB] Location: None Selected Patient Instructions/Handouts: Sepsis (IP), Gangrene (DC) Activity/Diet/Wound Care/Special Instructions: Cardiac, diabetic diet Weeks to gravity, pericare every 8 hours. Change position every 2 hours while awake, stay off pressure ulcer on buttock therahoney to pressure ulcers MWF. . Right foot dressing change daily with dry dressing and kerlex
[2018-05-08] MEDS: DAPTOmycin 500 MG in SODIUM CHLORIDE 0.9% 50 ML IVPB SCH (15:57)
--- NOTE | 2018-05-08 17:47 | PN ---
PROGRESS NOTE Patient is seen for followup for acute kidney injury. She is currently sitting up in a bedside chair. Patient states she feels well. Her kidney function has improved with the serum creatinine down from 2.3 to 1.8 mg/dL. The patient denies any significant complaints. She is maintained on IV iron. She is not on any diuretics or IV fluids. The patient has had good oral intake. PHYSICAL EXAMINATION: Blood pressure is 144/79, heart rate 80 per minute. She is afebrile. Examination of the heart S1, S2. Examination of the lungs bilateral breath sounds are heard. Abdomen is soft, nontender. Examination of lower extremities shows chronic skin changes, chronic edema bilaterally. Legs are wrapped. LABS: Revealed sodium 140, potassium 3.9, chloride 106, BUN 63, serum creatinine 1.82, hemoglobin 9.6 g/dL. ASSESSMENT: 1. Acute kidney injury, nonoliguric, currently improving. Continue to encourage increased oral intake. The patient is not on any IV fluids or diuretics. She does have an atrophic right kidney. She is off of BATSHEVA inhibitors. The vancomycin level was slightly on the high side at 19. It is currently down to 10. 2. Chronic kidney disease stage 3 secondary to nephrosclerosis. Baseline creatinine 1.2-1.4. 3. Hyperkalemia associated with acute kidney injury, now improved and resolved. 4. Urinary tract infection with indwelling Weeks catheter, being followed by ID. 5. Hypertension currently controlled. Hypertension with chronic kidney disease, currently controlled. 6. Type 2 diabetes. Continue to maintain good oral intake. Repeat labs in a.m. The patient is stable for discharge from Nephrology standpoint. She will need follow up as outpatient for CKD. MMODL / IJN: [id number] /
--- NOTE | 2018-05-08 22:15 | P.PN ---
Subjective Progress Note Date: 05/08/18 This is an 82-year-old female patient known to ID service as she was seen in the past for right foot ulcer as well as sepsis from urinary tract infection in the past. Patient currently resides at [facility] and is wheelchair bound. She is known to have severe peripheral artery disease status post to right lower extremity bypasses by Dr. Aragon, history of critical limb ischemia and nonhealing ulcer of right. Patient was transferred from the alf to [facility] emergency center due to concerns of wounds to the fourth and fifth right toes. Venous Doppler was negative for DVT. Patient is hard of hearing and is unable to provide any history by herself history is obtained by the previous documentation and ER documentation. Temperature max was 101, tachycardia 101, blood pressure 120/60 saturating well on room air. Lab obtained suggest leukocytosis of 22.4, hemoglobin 10.3 which is close to patient's baseline. INR obtained suggest 3.1 and patient is on chronic Coumadin for atrial fibrillation, BNP suggestive sodium 132, potassium 5.2, creatinine 2.35 and GFR decreased to 21 from 38 urinalysis obtained as suggest some leukocytosis 13, with positive nitrates and leukocyte esterase. In the emergency center, patient received vancomycin and cefepime. Kayexalate was given for hyperkalemia. Patient was admitted to the [facility] floor. She has been seen by Dr. Garcia and he does not plan for any intervention at this time. If patient's kidney function improve she may benefit from angiogram. Patient does have pulses palpable in her lower extremities. Weeks catheter is to be exchanged today. She has stage II pressure ulcers of the buttocks that were present on admission. She has been afebrile since admission. White count is down to 15.1. BUN 98 creatinine 2.44. She is currently on cefepime and vancomycin. She apparently presented with abdominal pain that has resolved. Hip x-ray showed no fracture or dislocation. CT of the abdomen and pelvis shows atrophic right kidney. Cardiomegaly. Coronary artery disease. Hiatal hernia. Renal ultrasound shows atrophic changes to the right kidney as on prior exam. Cystic focus lower pole left kidney is similar to prior exam. Most recent previous urine culture from July 2017 was positive for ESBL E. coli and Enterococcus faecalis. 05/07/2018 patient is having further improvement and will be discharged to the extended care facility today. The patient is denying fevers or chills overall feeling better. Leukocytosis is improving and is afebrile. Objective - Vital Signs Vital signs: Vital Signs Temp 99.3 F 05/08/18 07:00 Pulse 80 05/08/18 07:00 Resp 18 05/08/18 07:00 BP 144/79 05/08/18 07:00 Pulse Ox 99 05/08/18 07:00 Intake & Output 05/08/18 05/08/18 05/09/18 06:59 18:59 06:59 Intake Total 450 Output Total 950 700 Balance -500 -700 Intake: Oral 450 Output: Urine 950 700 Other: Voiding Method Indwelling Catheter Indwelling Catheter - Exam Gen: This is an 82-year-old obese female. She is resting in bed appears to be comfortable and in no acute distress. HEENT: Head is atraumatic, normocephalic. Pupils equal, round. Sclerae is anicteric. NECK: Supple. No JVD. No lymphadenopathy. No thyromegaly. LUNGS: Clear to auscultation. No wheezes or rhonchi. No intercostal retractions. HEART: Regular rate and rhythm. No murmur. ABDOMEN: Soft. Bowel sounds are present. No masses. No tenderness. EXTREMITIES: No pedal edema. No calf tenderness. Necrotic tissue at the ends of toes 4 and 5 on the right foot. Foot is warm to the touch. No drainage noted. Minimal erythema localized only. NEUROLOGICAL: Patient is awake, alert and oriented to person and place. Generalized weakness. - Labs CBC & Chem 7: 05/08/18 08:22 05/08/18 08:22 Labs: Abnormal Lab Results - Last 24 Hours (Table) 05/08/18 05/08/18 05/08/18 Range/Units 08:22 08:22 08:22 WBC 11.1 H (3.8-10.6) k/uL RBC 3.49 L (3.80-5.40) m/uL Hgb 9.6 L (11.4-16.0) gm/dL Hct 30.7 L (34.0-46.0) % PT 15.3 H (9.0-12.0) sec INR 1.7 H (<1.2) BUN 63 H (7-17) mg/dL Creatinine 1.82 H (0.52-1.04) mg/dL Glucose 131 H (74-99) mg/dL POC Glucose (mg/dL) (75-99) mg/dL 05/08/18 Range/Units 11:59 WBC (3.8-10.6) k/uL RBC (3.80-5.40) m/uL Hgb (11.4-16.0) gm/dL Hct (34.0-46.0) % PT (9.0-12.0) sec INR (<1.2) BUN (7-17) mg/dL Creatinine (0.52-1.04) mg/dL Glucose (74-99) mg/dL POC Glucose (mg/dL) 102 H (75-99) mg/dL Microbiology - Last 24 Hours (Table) 05/04/18 12:45 Blood Culture - Preliminary Blood No Growth after 96 hours Laboratory Results WBC 11.1 k/uL (3.8-10.6) H 05/08/18 08:22 RBC 3.49 m/uL (3.80-5.40) L 05/08/18 08:22 Hgb 9.6 gm/dL (11.4-16.0) L 05/08/18 08:22 Hct 30.7 % (34.0-46.0) L 05/08/18 08:22 MCV 88.1 fL (80.0-100.0) 05/08/18 08:22 MCH 27.7 pg (25.0-35.0) 05/08/18 08:22 MCHC 31.4 g/dL (31.0-37.0) 05/08/18 08:22 RDW 13.5 % (11.5-15.5) 05/08/18 08:22 Plt Count 278 k/uL (150-450) 05/08/18 08:22 Neutrophils % 84 % 05/05/18 08:20 Lymphocytes % 8 % 05/05/18 08:20 Monocytes % 4 % 05/05/18 08:20 Eosinophils % 1 % 05/05/18 08:20 Basophils % 1 % 05/05/18 08:20 Neutrophils # 12.7 k/uL (1.3-7.7) H 05/05/18 08:20 Lymphocytes # 1.3 k/uL (1.0-4.8) 05/05/18 08:20 Monocytes # 0.6 k/uL (0-1.0) 05/05/18 08:20 Eosinophils # 0.2 k/uL (0-0.7) 05/05/18 08:20 Basophils # 0.1 k/uL (0-0.2) 05/05/18 08:20 Hypochromasia Slight 05/07/18 08:57 ESR 110 mm/hr (0-20) H 05/04/18 15:27 PT 15.3 sec (9.0-12.0) H 05/08/18 08:22 INR 1.7 (<1.2) H 05/08/18 08:22 APTT 39.8 sec (22.0-30.0) H 05/04/18 12:17 Sodium 140 mmol/L (137-145) 05/08/18 08:22 Potassium 3.9 mmol/L (3.5-5.1) 05/08/18 08:22 Chloride 106 mmol/L (98-107) 05/08/18 08:22 Carbon Dioxide 25 mmol/L (22-30) 05/08/18 08:22 Anion Gap 9 mmol/L 05/08/18 08:22 BUN 63 mg/dL (7-17) H 05/08/18 08:22 Creatinine 1.82 mg/dL (0.52-1.04) H 05/08/18 08:22 Est GFR (CKD-EPI)AfAm 29 (>60 ml/min/1.73 sqM) 05/08/18 08:22 Est GFR (CKD-EPI)NonAf 25 (>60 ml/min/1.73 sqM) 05/08/18 08:22 Glucose 131 mg/dL (74-99) H 05/08/18 08:22 POC Glucose (mg/dL) 102 mg/dL (75-99) H 05/08/18 11:59 POC Glu Cad Administrator Kaila Hamilton 05/08/18 11:59 Plasma Lactic Acid Misael 1.4 mmol/L (0.7-2.0) 05/04/18 12:17 Calcium 8.9 mg/dL (8.4-10.2) 05/08/18 08:22 Magnesium 2.1 mg/dL (1.6-2.3) 05/08/18 08:22 Iron 13 ug/dL (50-170) L 05/05/18 08:20 TIBC 279 ug/dL (228-460) 05/05/18 08:20 Iron Saturation 4.66 (12.00-45.00) L 05/05/18 08:20 Total Bilirubin 0.6 mg/dL (0.2-1.3) 05/07/18 08:57 AST 25 U/L (14-36) 05/07/18 08:57 ALT 29 U/L (9-52) 05/07/18 08:57 Alkaline Phosphatase 93 U/L (38-126) 05/07/18 08:57 C-Reactive Protein 83.6 mg/L (<10.0) H 05/04/18 15:27 Total Protein 6.9 g/dL (6.3-8.2) 05/07/18 08:57 Albumin 2.9 g/dL (3.5-5.0) L 05/07/18 08:57 Urine Color Light Yellow 05/04/18 12:17 Urine Appearance Cloudy (Clear) H 05/04/18 12:17 Urine pH 7.0 (5.0-8.0) 05/04/18 12:17 Ur Specific [place] 1.008 (1.001-1.035) 05/04/18 12:17 Urine Protein Negative (Negative) 05/04/18 12:17 Urine Glucose (UA) Negative (Negative) 05/04/18 12:17 Urine Ketones Negative (Negative) 05/04/18 12:17 Urine Blood Trace (Negative) H 05/04/18 12:17 Urine Nitrite Positive (Negative) H 05/04/18 12:17 Urine Bilirubin Negative (Negative) 05/04/18 12:17 Urine Urobilinogen <2.0 mg/dL (<2.0) 05/04/18 12:17 Ur Leukocyte Esterase Large (Negative) H 05/04/18 12:17 Urine RBC 3 /hpf (0-5) 05/04/18 12:17 Urine WBC 13 /hpf (0-5) H 05/04/18 12:17 Amorphous Sediment Few /hpf (None) H 05/04/18 12:17 Urine Bacteria Occasional /hpf (None) H 05/04/18 12:17 Urine Mucus Rare /hpf (None) H 05/04/18 12:17 Random Vancomycin 10.7 ug/mL 05/08/18 08:22 Microbiology 05/04/18 12:45 Blood Blood Culture - Preliminary No Growth after 96 hours 05/05/18 14:21 Urine,Catheterized Urine Culture - Final Assessment and Plan Assessment: 82-year-old woman presents to Hospital from the [facility] care facility because of changes to her right foot at the distal aspect of the toes as well as significant swelling and erythema to the right leg. She's been evaluated by vascular surgery. Is on evidence of fever and there is concerns of a cellulitis to the area. Zosyn and vancomycin have been started because of her prior history of ESBL E. coli and enterococcal infection. With evidence of the dry gangrene, just a dry dressing will be utilized to the toes. She over does have more active ulcerations to her buttocks for which medical honey will be applied. She is evidence of acute renal failure with a creatinine from 2017 and 1.02. At presentation there was a severe leukocytosis of 22.4 improving to 15.1 with concerns for urinary infection as well as the dry gangrenous changes to her right leg and a cellulitis. Cultures are in process will further help direct therapy. 05/08/2018 patient has improved. Leukocytosis is nearly resolved. She's having no fever or other acute changes. Explored going back to [facility] facility today. Will change antibiotic therapy to oral doxycycline 100 mg orally twice per day. She'll follow up with vascular surgery is indicated for the changes to the lower extremity. Continue with the medical honey dressings to the buttock ulcerations.
== END 2018-05-08 16:57 | DRG 698 ==
LOC: EC 11:54 → 4MS4W 14:43
PROVIDERS: ADMIT Internal Medicine; ATTEND Internal Medicine
DX: T83.511A Infection and inflammatory reaction due to indwelling urethral catheter, initial encounter (principal); A41.9 Sepsis, unspecified organism; N17.0 Acute kidney failure with tubular necrosis; E11.52 Type 2 diabetes mellitus with diabetic peripheral angiopathy with gangrene; E87.2 Acidosis; I13.0 Hypertensive heart and chronic kidney disease with heart failure and stage 1 through stage 4 chronic kidney disease, or unspecified chronic kidney disease; L03.115 Cellulitis of right lower limb; I96 Gangrene, not elsewhere classified; L89.302 Pressure ulcer of unspecified buttock, stage 2; N39.0 Urinary tract infection, site not specified; E11.22 Type 2 diabetes mellitus with diabetic chronic kidney disease; E11.42 Type 2 diabetes mellitus with diabetic polyneuropathy; E11.621 Type 2 diabetes mellitus with foot ulcer; I48.0 Paroxysmal atrial fibrillation; I50.9 Heart failure, unspecified; E87.5 Hyperkalemia; L97.519 Non-pressure chronic ulcer of other part of right foot with unspecified severity; N28.1 Cyst of kidney, acquired; D63.8 Anemia in other chronic diseases classified elsewhere; N18.3 Chronic kidney disease, stage 3 (moderate); D50.9 Iron deficiency anemia, unspecified; E66.9 Obesity, unspecified; E78.5 Hyperlipidemia, unspecified; H91.90 Unspecified hearing loss, unspecified ear; I25.10 Atherosclerotic heart disease of native coronary artery without angina pectoris; K44.9 Diaphragmatic hernia without obstruction or gangrene; L30.9 Dermatitis, unspecified; M19.041 Primary osteoarthritis, right hand; M19.042 Primary osteoarthritis, left hand; R32 Unspecified urinary incontinence; M47.9 Spondylosis, unspecified; E07.9 Disorder of thyroid, unspecified; Z79.01 Long term (current) use of anticoagulants; Z79.4 Long term (current) use of insulin; Z79.899 Other long term (current) drug therapy; Z79.890 Hormone replacement therapy; Z79.82 Long term (current) use of aspirin; Z99.3 Dependence on wheelchair; Z90.710 Acquired absence of both cervix and uterus; Z87.440 Personal history of urinary (tract) infections; Z86.19 Personal history of other infectious and parasitic diseases; Z86.14 Personal history of Methicillin resistant Staphylococcus aureus infection; Z85.41 Personal history of malignant neoplasm of cervix uteri; Z68.35 Body mass index [BMI] 35.0-35.9, adult; Z82.49 Family history of ischemic heart disease and other diseases of the circulatory system; Z82.3 Family history of stroke; Y84.6 Urinary catheterization as the cause of abnormal reaction of the patient, or of later complication, without mention of misadventure at the time of the procedure
CPT/HCPCS: 36415; 73502; 74176; 76770; 80048; 80053; 80202; 81001; 83540; 83550; 83605; 83735; 85025; 85027; 85610; 85652; 85730; 86140; 87040; 87086; 93005; 96361; 96365; 99285

== ENCOUNTER 2018-10-13 12:33 | Inpatient (IN) | payer MEDICARE, BC, OTHER ==
[2018-10-13] MEDS ORDERED: SODIUM CHLORIDE 0.9% 500 ML 500 ML IV STA (12:39)
[2018-10-13] MEDS ORDERED: SODIUM CHLORIDE 0.9% 1,000 ML IV STA (12:39)
--- NOTE | 2018-10-13 12:42 | ED ---
General Adult HPI - General Stated complaint: abnormal labs Time Seen by Provider: 10/13/18 12:35 Source: patient, EMS, RN notes reviewed, old records reviewed - History of Present Illness Initial comments: 83-year-old female presents from [facility] with abnormal outpatient laboratory studies. Patient has no history of chronic kidney disease, was noted to have an elevated BUN and creatinine. Patient reports increased generalized weakness and not feeling well over the past week. Denies pain complaints. Denies nausea vomiting or diarrhea. She states she has not had an appetite and has had very little to eat or drink over the past one week. She does have indwelling Weeks catheter, she is primarily bedbound and wheelchair-bound. Denies chest pain or dyspnea. Denies fever or chills. - Related Data Home Medications Medication Instructions Recorded Confirmed Aspirin 81 mg PO HS 09/11/15 10/13/18 Levothyroxine Sodium [Synthroid] 50 mcg PO QAM 09/11/15 10/13/18 Pravastatin Sodium [Pravachol] 80 mg PO HS 09/11/15 10/13/18 Insulin Glargine [Lantus] 26 unit SQ HS 02/06/17 10/13/18 INSULIN LISPRO (humaLOG) [humaLOG] 10 units SQ AC-TID 06/16/17 10/13/18 Sennosides-Docusate Sodium 1 tab PO DAILY 06/16/17 10/13/18 [Senokot-S] Multivitamins, Thera [Multivitamin 1 tab PO DAILY 05/04/18 10/13/18 (formulary)] Potassium Chloride ER [K-Dur 10] 10 meq PO DAILY 05/04/18 10/13/18 Sodium Chloride 5% Ophth Soln 1 drop BOTH EYES BID 05/04/18 10/13/18 [Hari 128] Amino Acids/Protein Hydrolys 30 ml PO DAILY 06/10/18 10/13/18 [Pro-Stat Supplement] amLODIPine BESYLATE 5 mg PO DAILY 06/10/18 10/13/18 Spironolactone [Aldactone] 12.5 mg PO DAILY 07/01/18 10/13/18 Cranberry 450mg 1 tab PO DAILY 10/13/18 10/13/18 Losartan Potassium 100 mg PO DAILY 10/13/18 10/13/18 Metoprolol Tartrate [Lopressor] 100 mg PO BID 10/13/18 10/13/18 Warfarin [Coumadin] 2.5 mg PO HS 10/13/18 10/13/18 hydrALAZINE HCL [Apresoline] 100 mg PO TID 10/13/18 10/13/18 sitaGLIPtin PHOSPHATE [Januvia] 50 mg PO HS 10/13/18 10/13/18 Previous Rx's Medication Instructions Recorded Furosemide [Lasix] 40 mg PO DAILY #0 05/08/18 Allergies Allergy/AdvReac Type Severity Reaction Status Date / Time No Known Allergies Allergy Verified 10/13/18 13:16 Review of Systems ROS Statement: Those systems with pertinent positive or pertinent negative responses have been documented in the HPI. ROS Other: All systems not noted in ROS Statement are negative. Past Medical History Past Medical History: Atrial Fibrillation, Diabetes Mellitus, Hyperlipidemia, Hypertension, Thyroid Disorder Additional Past Medical History / Comment(s): peripheral neuropathy, UTIs, urinary incontinence, OA bilateral hands and back, PVD, cervical cancer History of Any Multi-Drug Resistant Organisms: MRSA Date of last positivie culture/infection: 09/11/2015 MDRO Source:: RIGHT FOOT Past Surgical History: Hysterectomy, Tonsillectomy Additional Past Surgical History / Comment(s): R leg bypass surgery, bilateral cataract removal Past Anesthesia/Blood Transfusion Reactions: No Reported Reaction Past Psychological History: No Psychological Hx Reported Additional Psychological History / Comment(s): Pt states she lives at [facility]. States uses a wheelchair to get around. Smoking Status: Never smoker Past Alcohol Use History: None Reported Additional Past Alcohol Use History / Comment(s): Patient resides at [facility] and is wheelchair bound. Past Drug Use History: None Reported - Past Family History Mother Family Medical History: CVA/TIA Additional Family Medical History / Comment(s): Mother in her 70's. Father Family Medical History: Hypertension Additional Family Medical History / Comment(s): Father in his 70's. General Exam General appearance: alert, in no apparent distress Head exam: Present: atraumatic, normocephalic Eye exam: Present: normal appearance, PERRL ENT exam: Present: mucous membranes dry Neck exam: Present: normal inspection. Absent: tenderness, meningismus Respiratory exam: Present: normal lung sounds bilaterally. Absent: respiratory distress, wheezes Cardiovascular Exam: Present: regular rate, irregular rhythm GI/Abdominal exam: Present: soft. Absent: distended, tenderness, guarding, rebound, rigid Extremities exam: Present: normal capillary refill, other (Right lower extremity, greater circumference than left no tenderness.) Neurological exam: Present: alert, oriented X3. Absent: motor sensory deficit Psychiatric exam: Present: normal affect, normal mood Skin exam: Present: warm, dry, erythema. Absent: cyanosis, diaphoretic Course Vital Signs 10/13/18 10/13/18 10/13/18 12:37 13:00 13:30 Temperature 99.1 F Pulse Rate 96 98 89 Respiratory 18 16 16 Rate Blood Pressure 122/54 122/54 124/59 O2 Sat by Pulse 100 96 98 Oximetry 10/13/18 10/13/18 10/13/18 14:00 14:06 14:30 Temperature 98.8 F Pulse Rate 90 94 93 Respiratory 16 18 16 Rate Blood Pressure 125/62 134/64 134/64 O2 Sat by Pulse 99 99 100 Oximetry 10/13/18 16:00 Temperature Pulse Rate 85 Respiratory 18 Rate Blood Pressure 138/66 O2 Sat by Pulse 98 Oximetry EKG Findings - EKG Comments: EKG Findings:: EKG: Atrial fibrillation, no ST segment elevation, rate of 94, QRS duration 92, QTC 495 Medical Decision Making - Medical Decision Making 83-year-old female presents with abnormal outpatient labs. Patient found to be in acute renal failure. Laboratory studies are repeated in the emergency department, patient does have significantly elevated BUN and creatinine. Patient herself has no complaints, family had been sent with the patient complai bill of some lower abdominal pain. Weeks catheter is exchanged in the emergency department. Urinalysis does show signs of urinary tract infection, given the elevated white blood cell count of 15.2 patient is treated for UTI. She has mild electrolyte abnormalities with sodium 131 potassium 3.2 this is replaced. Hemoglobin is 8.4 which is stable from earlier at 8.3. CT the abdomen shows renal atrophy, does show concern for pelvic fluid which may be hemorrhagic. Patient is on Coumadin with INR 3.5. She is given vitamin K, repeat hemoglobin will be obtained, pelvic ultrasound will be obtained to evaluate for hemorrhage. Case discussed with Dr. Azevedo, who will admit. - Lab Data Result diagrams: 10/13/18 12:54 10/13/18 12:54 Lab Results 10/13/18 10/13/18 10/13/18 Range/Units 12:54 12:54 12:54 WBC 15.2 H (3.8-10.6) k/uL RBC 3.27 L (3.80-5.40) m/uL Hgb 8.4 L (11.4-16.0) gm/dL Hct 26.8 L (34.0-46.0) % MCV 82.0 (80.0-100.0) fL MCH 25.7 (25.0-35.0) pg MCHC 31.3 (31.0-37.0) g/dL RDW 16.6 H (11.5-15.5) % Plt Count 259 (150-450) k/uL Neutrophils % 81 % Lymphocytes % 6 % Monocytes % 10 % Eosinophils % 0 % Basophils % 0 % Neutrophils # 12.2 H (1.3-7.7) k/uL Lymphocytes # 1.0 (1.0-4.8) k/uL Monocytes # 1.4 H (0-1.0) k/uL Eosinophils # 0.1 (0-0.7) k/uL Basophils # 0.0 (0-0.2) k/uL Anisocytosis Slight PT (9.0-12.0) sec INR (<1.2) APTT (22.0-30.0) sec Sodium 131 L (137-145) mmol/L Potassium 3.2 L (3.5-5.1) mmol/L Chloride 97 L (98-107) mmol/L Carbon Dioxide 22 (22-30) mmol/L Anion Gap 12 mmol/L BUN 107 H* (7-17) mg/dL Creatinine 3.18 H (0.52-1.04) mg/dL Est GFR (CKD-EPI)AfAm 15 (>60 ml/min/1.73 sqM) Est GFR (CKD-EPI)NonAf 13 (>60 ml/min/1.73 sqM) Glucose 101 H (74-99) mg/dL Plasma Lactic Acid Misael 0.7 (0.7-2.0) mmol/L Calcium 8.4 (8.4-10.2) mg/dL Magnesium 2.0 (1.6-2.3) mg/dL Total Bilirubin 0.9 (0.2-1.3) mg/dL AST 57 H (14-36) U/L ALT 52 (9-52) U/L Alkaline Phosphatase 143 H (38-126) U/L Total Protein 6.8 (6.3-8.2) g/dL Albumin 3.0 L (3.5-5.0) g/dL Urine Color Urine Appearance (Clear) Urine pH (5.0-8.0) Ur Specific [place] (1.001-1.035) Urine Protein (Negative) Urine Glucose (UA) (Negative) Urine Ketones (Negative) Urine Blood (Negative) Urine Nitrite (Negative) Urine Bilirubin (Negative) Urine Urobilinogen (<2.0) mg/dL Ur Leukocyte Esterase (Negative) Urine RBC (0-5) /hpf Urine WBC (0-5) /hpf Urine WBC Clumps (None) /hpf Ur Squamous Epith Cells (0-4) /hpf Urine Bacteria (None) /hpf Urine Mucus (None) /hpf Influenza Type A RNA (Not Detectd) Influenza Type B (PCR) (Not Detectd) 10/13/18 10/13/18 10/13/18 Range/Units 12:54 12:54 14:45 WBC (3.8-10.6) k/uL RBC (3.80-5.40) m/uL Hgb (11.4-16.0) gm/dL Hct (34.0-46.0) % MCV (80.0-100.0) fL MCH (25.0-35.0) pg MCHC (31.0-37.0) g/dL RDW (11.5-15.5) % Plt Count (150-450) k/uL Neutrophils % % Lymphocytes % % Monocytes % % Eosinophils % % Basophils % % Neutrophils # (1.3-7.7) k/uL Lymphocytes # (1.0-4.8) k/uL Monocytes # (0-1.0) k/uL Eosinophils # (0-0.7) k/uL Basophils # (0-0.2) k/uL Anisocytosis PT 33.3 H (9.0-12.0) sec INR 3.5 H (<1.2) APTT 35.7 H (22.0-30.0) sec Sodium (137-145) mmol/L Potassium (3.5-5.1) mmol/L Chloride (98-107) mmol/L Carbon Dioxide (22-30) mmol/L Anion Gap mmol/L BUN (7-17) mg/dL Creatinine (0.52-1.04) mg/dL Est GFR (CKD-EPI)AfAm (>60 ml/min/1.73 sqM) Est GFR (CKD-EPI)NonAf (>60 ml/min/1.73 sqM) Glucose (74-99) mg/dL Plasma Lactic Acid Misael (0.7-2.0) mmol/L Calcium (8.4-10.2) mg/dL Magnesium (1.6-2.3) mg/dL Total Bilirubin (0.2-1.3) mg/dL AST (14-36) U/L ALT (9-52) U/L Alkaline Phosphatase (38-126) U/L Total Protein (6.3-8.2) g/dL Albumin (3.5-5.0) g/dL Urine Color Yellow Urine Appearance Cloudy H (Clear) Urine pH 6.5 (5.0-8.0) Ur Specific [place] 1.010 (1.001-1.035) Urine Protein 1+ H (Negative) Urine Glucose (UA) Negative (Negative) Urine Ketones Negative (Negative) Urine Blood Moderate H (Negative) Urine Nitrite Positive H (Negative) Urine Bilirubin Negative (Negative) Urine Urobilinogen <2.0 (<2.0) mg/dL Ur Leukocyte Esterase Large H (Negative) Urine RBC 134 H (0-5) /hpf Urine WBC >182 H (0-5) /hpf Urine WBC Clumps Many H (None) /hpf Ur Squamous Epith Cells 1 (0-4) /hpf Urine Bacteria Many H (None) /hpf Urine Mucus Rare H (None) /hpf Influenza Type A RNA Not Detected (Not Detectd) Influenza Type B (PCR) Not Detected (Not Detectd) Disposition Clinical Impression: Hypokalemia, Acute renal failure, UTI (urinary tract infection) Disposition: ADMITTED IP TO THIS HOSP Condition: Stable Is patient prescribed a controlled substance at d/c from ED?: No Referrals: Jeanne Mendoza MD [Primary Care Provider] - 1-2 days Decision to Admit Reason: Admit from EC Decision Date: 10/13/18 Decision Time: 16:33
[2018-10-13 13:06] LABS: Anisocytosis Slight; Basophils % (A) 0 %; Eosinophils # (A) 0.1 k/uL (0-0.7); Eosinophils % (A) 0 %; HCT 26.8 % (34.0-46.0); HGB 8.4 gm/dL (11.4-16.0); Lymphocytes % (A) 6 %; MCH 25.7 pg (25.0-35.0); MCHC 31.3 g/dL (31.0-37.0); Mean Platelet Volume 7.6; Monocytes # (A) 1.4 k/uL (0-1.0); Monocytes % (A) 10 %; Neutrophils # (A) 12.2 k/uL (1.3-7.7); Neutrophils % (A) 81 %; Platelet Count 259 k/uL (150-450); RBC 3.27 m/uL (3.80-5.40); RDW 16.6 % (11.5-15.5); WBC 15.2 k/uL (3.8-10.6)
[2018-10-13 13:14] LABS: INR 3.5 (<1.2); Partial Thromboplastin Time 35.7 sec (22.0-30.0); Prothrombin Time 33.3 sec (9.0-12.0)
[2018-10-13 13:22] LABS: Calcium 8.4 mg/dL (8.4-10.2); Potassium 3.2 mmol/L (3.5-5.1); Total Bilirubin 0.9 mg/dL (0.2-1.3); Total Protein 6.8 g/dL (6.3-8.2)
--- NOTE | 2018-10-13 13:45 | XR ---
EXAMINATION TYPE: XR chest 2V DATE OF EXAM: 10/13/2018 COMPARISON: 01/22/2016 HISTORY: Shortness of breath TECHNIQUE: Frontal and lateral views of the chest are obtained. FINDINGS: Scattered senescent parenchymal changes noted. Hyperinflation compatible with COPD. No evidence for infiltrate. No evidence for atelectasis. There is cardiomegaly with pulmonary venous congestion and small effusions. Mediastinal structures are stable and grossly unremarkable. No evidence for hilar prominence. Degenerative changes dorsal spine. IMPRESSION: 1. Borderline to mild congestive failure.
[2018-10-13] MEDS ORDERED: MORPHINE SULFATE 4 MG/ML SYRINGE IVP STA (15:00)
[2018-10-13 15:18] LABS: Appearance,Urine Cloudy (Clear); Bacteria,Urine Many /hpf; Bilirubin,Urine Negative (Negative); Blood,Urine Moderate (Negative); Color,Urine Yellow; Glucose,Urine (UA) Negative (Negative); Ketones,Urine Negative (Negative); Leukocyte Esterase,Urine Large (Negative); Mucus,Urine Rare /hpf; Nitrite,Urine Positive (Negative); PH, Urine 6.5 (5.0-8.0); Protein,Urine 1+ (Negative); RBC,Urine 134 /hpf (0-5); Squamous Epithelial Cell,Urine 1 /hpf (0-4); Urobilinogen,Urine <2.0 mg/dL (<2.0); WBC,Urine >182 /hpf (0-5)
--- NOTE | 2018-10-13 15:35 | CT ---
EXAMINATION TYPE: CT abdomen pelvis wo con DATE OF EXAM: 10/13/2018 COMPARISON: 05/04/2018 HISTORY: Abnormal renal function. CT DLP: 866 mGycm Automated exposure control for dose reduction was used. TECHNIQUE: Helical acquisition of images was performed from the lung bases through the pelvis. FINDINGS: LUNG BASES: There is cardiomegaly with right lower lobe and left lower lobe consolidation and pleural effusion. LIVER/GB: No significant abnormality is appreciated. PANCREAS: Localized focal prominence of the junction of the pancreatic body and tail on axial image 3 6 is indeterminate by noncontrast CT.. SPLEEN: No significant abnormality is seen. ADRENALS: No significant abnormality is seen. KIDNEYS: Right kidney is markedly atrophic. There is a hypodense lesion extending off the left kidney which is stable from prior exam measures 15 Hounsfield units. Perinephric edema noted bilaterally. B ladder wall is thickened but there is a Weeks catheter which may account for the finding. Suggestion of a hyperdense 1 cm lesion involving the upper pole the left kidney ADENOPATHY: The mesentery adjacent to left aorta there are multiple rounded densities measuring a sh ort axis of 1.4 cm compatible with adenopathy OSSEOUS STRUCTURES: Hypertrophic and degenerative change of the spine with facet arthropathy. BOWEL: Retained fecal debris throughout the rectum. Bowel gas pattern nonspecific. Appendix normal. OTHER: Atherosclerotic change of the vasculature. Small amount of free fluid in the pelvis. IMPRESSION: 1. There is marked atrophy of the right kidney correlate for chronic medical renal disease. 2. Stable indeterminate left renal lesion measuring 15Hounsfield units likely related to renal cyst. Perinephric edema noted bilaterally correlate with renal function study in urinalysis. Additionally, there is a 1 cm hyperdense lesion involving the upper pole the left kidney which could be correlated with ultrasound. 3. There is nonspecific pathologic adenopathy within the mesentery left periaortic region. 4. Small amount of free fluid in the pelvis. Appears somewhat hyperdense which may represent a hemorr hagic component. Would recommend pelvic ultrasound to exclude adnexal mass. 5. Cardiomegaly with coronary artery calcification bilateral consolidation and small pleural effusion s. 6. There is a localized focal prominence of the pancreatic body on axial image 36. This is difficult to assess without contrast. Recommend follow-up MRI.
[2018-10-13] MEDS ORDERED: cefTRIAXone IN SWFI 1,000 MG/10 ML SYRINGE IVP STA (15:55)
[2018-10-13] MEDS ORDERED: NALOXONE 0.4 MG/ML 1 ML VIAL IV PRN (16:08)
[2018-10-13] MEDS ORDERED: PHYTONADIONE 2 MG in SODIUM CHLORIDE 0.9% 50 ML IVPB STA (16:11)
--- NOTE | 2018-10-13 17:07 | P.HPIM ---
History of Present Illness H&P Date: 10/13/18 Chief Complaint: Mental status changes weakness, abnormal renal function test This is an 83-year-old pleasant female followed by Dr. [facility]endo[facility] of known history off diabetes mellitus type 2 requiring insulin, peripheral neuropathy hypertension, hypothyroidism atrial fibrillation, admitted to [facility] via EMS transfer secondary to increasing d ehydration. Patient has had diminished appetite, over the past 4-5 days, no diarrhea, patient is on diuretics, for chronic dependent edema, heat she has had increasing fatigue, weakness, patient cannot specify dysuria, however his recurrent low back pain, and has urinary incontinence occasional chills and myalgia. has nausea, bruises, chronic edema right leg more than left, chronic pulido x 2 years In the emergency room creatinine was 3.18, she was subsequently admitted for acute kidney failure, and azotemia electrolyte abnormalities, as well as with acute urinary tract infection urinalysis leukocyte positive nitrate positive with WBC clumping computed tomography scan emergency room, right kidney is markedly atrophic, hypodense lesion extending off the left kidney stable from previous, perinephric edema noted, bladder was taken, 1 cm lesion upper pole left kidney no hydronephrosis noted, lung bases shows cardiomegaly with right lower lobe left lower lobe consolidation pleural effusion there is small amount of free fluid in the pelvis, hypodense could represent hemorrhagic component, they have recommended pelvic ultrasound to exclude adrenal adnexal mass also localized focal prominence of pancreatic body however this is difficult to address to have recommended MRI Review of Systems Constitutional: Reports anorexia Ears, nose, mouth and throat: Reports as per HPI, Denies ant. neck pain, Denies bleeding gums, Denies dental pain, Denies dysphagia, Denies epistaxis, Denies headache, Denies hoarseness, Denies mouth pain, Denies nasal congestion, Denies nasal discharge, Denies neck fullness/pressure, Denies neck lump, Denies nose pain, Denies odynophagia, Denies post-nasal drip, Denies sinus pain, Denies sinu s pressure, Denies swelling in mouth, Denies swelling in throat, Denies sore throat, Denies vertigo, Denies voice changes Cardiovascular: Reports as per HPI, Reports lightheadedness Respiratory: Reports as per HPI Gastrointestinal: Reports as per HPI, Reports abdominal pain, Reports bloating, Reports change in bowel habits, Reports early satiety, Reports excessive gas Genitourinary: Reports as per HPI, Denies abnormal vaginal bleeding, Denies decreased libido, Denies difficulty conceiving, Denies difficulty voiding, Denies dysmenorrhea, Denies dyspareunia, Denies dysuria, Denies flank pain, De nies genital sores, Denies hematuria, Denies hot flashes, Denies incomplete emptying, Denies kidney stones, Denies menorrhagia, Denies mixed incontinence, Denies nocturia, Denies pelvic pain, Denies post void dribbling, Denies , Denies prolapse symptoms, Denies stress incontinence, Denies urge incontinence, Denies urgency, Denies urinary frequency, Denies vaginal discharge, Denies vaginal dryness, Denies vaginal itching, Denies vaginal odor Menstruation: Reports as per HPI Musculoskeletal: Reports as per HPI, Reports gait dysfunction, Reports limitation of motion Integumentary: Reports as per HPI, Denies acne, Denies boils, Denies brittle nails, Denies change in hair/nails, Denies color changes, Denies darkening of skin, Denies depigmentation, Denies dryness, Denies foot/leg ulcers, Denies growths, Denies hirsutism, Denies lesions, Denies onychomycosis, Denies pruritus, Denies rash, Denies sores, Denies striae, Denies unusual bruising, Denies wounds Neurological: Reports as per HPI, Reports loss of vision, Reports weakness Psychiatric: Reports as per HPI, Denies anhedonia, Denies anxiety, Denies anxiety attacks, Denies change in appetite, Denies change in libido, Denies change in sleep habits, Denies confusion, Denies depression, Denies difficulty concentrating, Denies disorientation, Denies hallucinations, Denies hopelessness, Denies hypersomnia, Denies insomnia, Denies irritability, Denies memory loss, Denies mood swings, Denies paranoia, Denies sadness/tearfulness, Denies sleep disturbances, Denies suicidal ideation Endocrine: Reports as per HPI, Denies cold intolerance, Denies deepening of the voice, Denies excessive sweating, Denies excessive thirst, Denies fatigue, Denies flushing, Denies heat intolerance, Denies high blood sugars, Denies increase in ring/shoe/hat size, Denies low blood sugars, Denies nocturia, Denies palpitations, Denies polydipsia, Denies polyphagia, Denies polyuria, Denies proptosis, Denies recent glucocorticoid use, Denies thyroid mass, Denies weight change Hematologic/Lymphatic: Reports as per HPI Allergic/Immunologic: Reports as per HPI, Denies allergic rhinitis, Denies anaphylaxis, Denies angioedema, Denies gluten intolerance, Denies persistent infections, Denies seasonal allergies, Denies urticaria, Denies wheezing Past Medical History Past Medical History: Atrial Fibrillation, Diabetes Mellitus, Hyperlipidemia, Hypertension, Thyroid Disorder Additional Past Medical History / Comment(s): peripheral neuropathy, UTIs, urinary incontinence, OA bilateral hands and back, PVD, cervical cancer History of Any Multi-Drug Resistant Organisms: MRSA Date of last positivie culture/infection: 09/11/2015 MDRO Source:: RIGHT FOOT Past Surgical History: Hysterectomy, Tonsillectomy Additional Past Surgical History / Comment(s): R leg bypass surgery, bilateral cataract removal Past Anesthesia/Blood Transfusion Reactions: No Reported Reaction Past Psychological History: No Psychological Hx Reported Additional Psychological History / Comment(s): Pt states she lives at [facility]. States uses a wheelchair to get around. Smoking Status: Never smoker Past Alcohol Use History: None Reported Additional Past Alcohol Use History / Comment(s): Patient resides at [facility] and is wheelchair bound. Past Drug Use History: None Reported - Past Family History Mother Family Medical History: CVA/TIA Additional Family Medical History / Comment(s): Mother in her 70's. Father Family Medical History: Hypertension Additional Family Medical History / Comment(s): Father in his 70's. Medications and Allergies Home Medications Medication Instructions Recorded Confirmed Type Aspirin 81 mg PO HS 09/11/15 10/13/18 History Levothyroxine Sodium [Synthroid] 50 mcg PO QAM 09/11/15 10/13/18 History Pravastatin Sodium [Pravachol] 80 mg PO HS 09/11/15 10/13/18 History Insulin Glargine [Lantus] 26 unit SQ HS 02/06/17 10/13/18 History INSULIN LISPRO (humaLOG) [humaLOG] 10 units SQ AC-TID 06/16/17 10/13/18 History Sennosides-Docusate Sodium 1 tab PO DAILY 06/16/17 10/13/18 History [Senokot-S] Multivitamins, Thera [Multivitamin 1 tab PO DAILY 05/04/18 10/13/18 History (formulary)] Potassium Chloride ER [K-Dur 10] 10 meq PO DAILY 05/04/18 10/13/18 History Sodium Chloride 5% Ophth Soln 1 drop BOTH EYES BID 05/04/18 10/13/18 History [Hari 128] Furosemide [Lasix] 40 mg PO DAILY #0 05/08/18 10/13/18 Rx Amino Acids/Protein Hydrolys 30 ml PO DAILY 06/10/18 10/13/18 History [Pro-Stat Supplement] amLODIPine BESYLATE 5 mg PO DAILY 06/10/18 10/13/18 History Spironolactone [Aldactone] 12.5 mg PO DAILY 07/01/18 10/13/18 History Cranberry 450mg 1 tab PO DAILY 10/13/18 10/13/18 History Losartan Potassium 100 mg PO DAILY 10/13/18 10/13/18 History Metoprolol Tartrate [Lopressor] 100 mg PO BID 10/13/18 10/13/18 History Warfarin [Coumadin] 2.5 mg PO HS 10/13/18 10/13/18 History hydrALAZINE HCL [Apresoline] 100 mg PO TID 10/13/18 10/13/18 History sitaGLIPtin PHOSPHATE [Januvia] 50 mg PO HS 10/13/18 10/13/18 History Allergies Allergy/AdvReac Type Severity Reaction Status Date / Time No Known Allergies Allergy Verified 10/13/18 13:16 Physical Exam Vitals: Vital Signs Temp Pulse Resp BP Pulse Ox 10/13/18 16:31 78 16 127/67 97 10/13/18 16:00 85 18 138/66 98 10/13/18 14:30 93 16 134/64 100 10/13/18 14:06 98.8 F 94 18 134/64 99 10/13/18 14:00 90 16 125/62 99 10/13/18 13:30 89 16 124/59 98 10/13/18 13:00 98 16 122/54 96 10/13/18 12:37 99.1 F 96 18 122/54 100 Intake and Output 10/13/18 10/13/18 10/13/18 06:59 14:59 22:59 Other: Weight 92.76 kg - Constitutional General appearance: cooperative, no acute distress - EENT Eyes: anicteric sclerae, EOMI, PERRLA, photophobia ENT: NA/AT, normal oropharynx - Neck Neck: normal ROM - Respiratory Respiratory: bilateral: CTA, negative: diminished, dullness, rales - Cardiovascular Rhythm: regular Heart sounds: normal: S1, S2 Abnormal Heart Sounds: no systolic murmur, no diastolic murmur, no rub, no S3 Gallop, no S4 Gallop, no click, no other - Gastrointestinal General gastrointestinal: normal bowel sounds, soft - Integumentary Integumentary: decreased turgor, normal - Neurologic Neurologic: CNII-XII intact - Musculoskeletal Musculoskeletal: gait normal, strength equal bilaterally - Psychiatric Psychiatric: appropriate affect, intact judgment & insight Results CBC & Chem 7: 10/14/18 06:44 10/14/18 06:44 Labs: Abnormal Lab Results - Last 24 Hours (Table) 10/13/18 10/13/18 10/13/18 Range/Units 12:54 12:54 12:54 WBC 15.2 H (3.8-10.6) k/uL RBC 3.27 L (3.80-5.40) m/uL Hgb 8.4 L (11.4-16.0) gm/dL Hct 26.8 L (34.0-46.0) % RDW 16.6 H (11.5-15.5) % Neutrophils # 12.2 H (1.3-7.7) k/uL Monocytes # 1.4 H (0-1.0) k/uL PT 33.3 H (9.0-12.0) sec INR 3.5 H (<1.2) APTT 35.7 H (22.0-30.0) sec Sodium 131 L (137-145) mmol/L Potassium 3.2 L (3.5-5.1) mmol/L Chloride 97 L (98-107) mmol/L BUN 107 H* (7-17) mg/dL Creatinine 3.18 H (0.52-1.04) mg/dL Glucose 101 H (74-99) mg/dL AST 57 H (14-36) U/L Alkaline Phosphatase 143 H (38-126) U/L Albumin 3.0 L (3.5-5.0) g/dL Urine Appearance (Clear) Urine Protein (Negative) Urine Blood (Negative) Urine Nitrite (Negative) Ur Leukocyte Esterase (Negative) Urine RBC (0-5) /hpf Urine WBC (0-5) /hpf Urine WBC Clumps (None) /hpf Urine Bacteria (None) /hpf Urine Mucus (None) /hpf 10/13/18 Range/Units 14:45 WBC (3.8-10.6) k/uL RBC (3.80-5.40) m/uL Hgb (11.4-16.0) gm/dL Hct (34.0-46.0) % RDW (11.5-15.5) % Neutrophils # (1.3-7.7) k/uL Monocytes # (0-1.0) k/uL PT (9.0-12.0) sec INR (<1.2) APTT (22.0-30.0) sec Sodium (137-145) mmol/L Potassium (3.5-5.1) mmol/L Chloride (98-107) mmol/L BUN (7-17) mg/dL Creatinine (0.52-1.04) mg/dL Glucose (74-99) mg/dL AST (14-36) U/L Alkaline Phosphatase (38-126) U/L Albumin (3.5-5.0) g/dL Urine Appearance Cloudy H (Clear) Urine Protein 1+ H (Negative) Urine Blood Moderate H (Negative) Urine Nitrite Positive H (Negative) Ur Leukocyte Esterase Large H (Negative) Urine RBC 134 H (0-5) /hpf Urine WBC >182 H (0-5) /hpf Urine WBC Clumps Many H (None) /hpf Urine Bacteria Many H (None) /hpf Urine Mucus Rare H (None) /hpf Assessment and Plan Plan: 1 sepsis secondary to acute urinary tract infection, chronic indwelling pulido, influenza test negative, IV Rocephin renal dosing, cultures has been sent, renal ultrasound to evaluate for nephrolithiasis or struvite stones 2 Acute kidney failure with azotemia from ATN secondary to dehydration, underlying history CK D stage III last creatinine 1.11 May 2018, and 3 creatinine 3.17, CPK will be done to evaluate for rhabdomyolysis, and postvoid residual as well as renal ultrasound, consult with Dr. Jerome nephrology, avoid nephrotoxins and hypotension. Hold of Lasix secondary to dehydration, losartan is held, continue on amlodipine and hydralazine with parameters. 3 paroxysmal atrial fibrillation on Coumadin. INR 3.1 hold Coumadin today as there are some concerns regarding hemorrhagic component in the pelvis. Repeat INR tomorrow vitamin K2.5 5 milligrams 1 dose given in the emergency room 4 diabetes2 with diabetic neuropathy continue Lantus 30 units daily at bedtime with hold 10 units lispro with sliding scale at this time until diet by mouth has fully recovered, correctional scale insulin to be given, but hold Januvia secondary to elevated creatinine 5. 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 Hold lisinopril for hyper hyperkalemia 6 Hyperlipidemia hold statins until CPK would stabilize 7 Mild protein calorie malnutrition 8 Mild transaminitis with slight elevation of alkaline phosphatase, check for l ipase CMP to be monitored DVT prophylaxis INR therapeutic hold Coumadin INR tomorrow GI prophylaxis Pepcid 20 mg by mouth daily CODE STATUS full code Disposition patient may need 1-2 inpatient night for stabilization
[2018-10-13 18:06] LABS: Anisocytosis Slight; Basophils # (A) 0.1 k/uL (0-0.2); Basophils % (A) 0 %; Eosinophils # (A) 0.1 k/uL (0-0.7); Eosinophils % (A) 0 %; HCT 26.1 % (34.0-46.0); HGB 8.2 gm/dL (11.4-16.0); Lymphocytes # (A) 1.1 k/uL (1.0-4.8); Lymphocytes % (A) 6 %; MCH 26.1 pg (25.0-35.0); MCHC 31.4 g/dL (31.0-37.0); MCV 83.2 fL (80.0-100.0); Monocytes # (A) 1.6 k/uL (0-1.0); Monocytes % (A) 9 %; Neutrophils % (A) 81 %; Platelet Count 252 k/uL (150-450); RBC 3.13 m/uL (3.80-5.40); RDW 16.6 % (11.5-15.5); WBC 17.3 k/uL (3.8-10.6)
[2018-10-13 18:18] LABS: Potassium 3.2 mmol/L (3.5-5.1); Total Bilirubin 0.8 mg/dL (0.2-1.3); Total Protein 6.8 g/dL (6.3-8.2)
[2018-10-13 18:30] VITALS: BMI 35.1
--- NOTE | 2018-10-13 19:25 | US ---
EXAMINATION TYPE: US pelvic complete DATE OF EXAM: 10/13/2018 COMPARISON: CT 05/04/2018 CLINICAL HISTORY: pain. ? Partial hysterectomy; patient not sure if she has her ovaries. TECHNIQUE: Transabdominal (TA). Transabdominal sonographic images of the pelvis were acquired. FINDINGS: Uterus: Surgically absent. Right Ovary: Ovary not visualized, surgically absent? No right adnexal findings. Left Ovary: Ovary not visualized, surgically absent? Area of shadowing in the left adnexal region is noted, measuring 11.9 x 7.5 x 5.9 cm. This nonspecifi c finding can be further characterized with CT if clinically indicated. CUL-DE-SAC: No fluid. IMPRESSION: Partially visualized left adnexal finding of unknown clinical significance; without CT correlate on [address]
[2018-10-13] MEDS: POTASSIUM CHLORIDE 10 MEQ in WATER FOR INJECTION 1 100ML.BAG IVPB SCH ×3 (20:08→22:58)
[2018-10-13 20:25] LABS: Glucose,Whole Blood 90 mg/dL (75-99)
[2018-10-13] MEDS: METOPROLOL TARTRATE 50 MG TAB PO SCH (21:49)
[2018-10-13] MEDS: INSULIN DETEMIR (LEVEMIR) 100 UNIT/ML SYR SQ SCH (21:51)
[2018-10-13 23:27] LABS: Anisocytosis Slight; HCT 26.3 % (34.0-46.0); HGB 8.7 gm/dL (11.4-16.0); MCH 27.5 pg (25.0-35.0); MCV 83.4 fL (80.0-100.0); Mean Platelet Volume 7.3; Platelet Count 237 k/uL (150-450); RBC 3.16 m/uL (3.80-5.40); RDW 16.7 % (11.5-15.5); WBC 16.8 k/uL (3.8-10.6)
[2018-10-14] MEDS: POTASSIUM CHLORIDE 10 MEQ in WATER FOR INJECTION 1 100ML.BAG IVPB SCH (02:58)
[2018-10-14] MEDS: LEVOTHYROXINE 50 MCG TAB PO SCH (05:28)
[2018-10-14 06:08] LABS: Glucose,Whole Blood 70 mg/dL (75-99)
[2018-10-14 06:56] LABS: Anisocytosis Slight; Basophils # (A) 0.1 k/uL (0-0.2); Basophils % (A) 0 %; Eosinophils # (A) 0.1 k/uL (0-0.7); Eosinophils % (A) 0 %; HCT 28.1 % (34.0-46.0); HGB 8.9 gm/dL (11.4-16.0); Lymphocytes % (A) 5 %; MCH 26.5 pg (25.0-35.0); MCHC 31.7 g/dL (31.0-37.0); MCV 83.5 fL (80.0-100.0); Mean Platelet Volume 7.3; Monocytes # (A) 1.8 k/uL (0-1.0); Monocytes % (A) 9 %; Neutrophils # (A) 17.4 k/uL (1.3-7.7); Neutrophils % (A) 84 %; Platelet Count 277 k/uL (150-450); RBC 3.36 m/uL (3.80-5.40); RDW 16.7 % (11.5-15.5); WBC 20.9 k/uL (3.8-10.6)
[2018-10-14 07:01] LABS: INR 1.5 (<1.2); Prothrombin Time 15.4 sec (9.0-12.0)
[2018-10-14 07:18] LABS: Albumin 3.1 g/dL (3.5-5.0); Calcium 8.4 mg/dL (8.4-10.2); Magnesium 1.9 mg/dL (1.6-2.3); Potassium 3.8 mmol/L (3.5-5.1); Total Bilirubin 1.1 mg/dL (0.2-1.3)
[2018-10-14] MEDS ORDERED: amLODIPine 5 MG TAB PO SCH (09:00)
[2018-10-14] MEDS: METOPROLOL TARTRATE 50 MG TAB PO SCH ×2 (09:25→21:27)
[2018-10-14 11:29] LABS: Glucose,Whole Blood 119 mg/dL (75-99)
[2018-10-14] MEDS: SODIUM CHLORIDE 0.9% 1,000 ML IV SCH (12:18)
[2018-10-14] MEDS: SENNOSIDES-DOCUSATE SODIUM 1 EACH TAB PO SCH (12:18)
[2018-10-14] MEDS: MORPHINE SULFATE 4 MG/ML SYRINGE IV PRN ×2 (13:45→18:09)
[2018-10-14] MEDS: INSULIN ASPART (NovoLOG) 100 UNIT/ML VIAL SQ SCH ×3 (14:06→22:24)
--- NOTE | 2018-10-14 14:55 | P.PN ---
Subjective Progress Note Date: 10/14/18 This is an 83-year-old pleasant female followed by Dr. Mendoza in [facility], known history off diabetes mellitus type 2 requiring insulin, peripheral neuropathy hypertension, hypothyroidism atrial fibrillation, admitted to [facility] via EMS transfer secondary to increasing dehy dration. Patient has had diminished appetite, over the past 4-5 days, no diarrhea, patient is on diuretics, for chronic dependent edema, heat she has had increasing fatigue, weakness, patient cannot specify dysuria, however his recurrent low back pain, and has urinary incontinence occasional chills and myalgia. has nausea, bruises, chronic edema right leg more than left, chronic pulido x 2 years In the emergency room creatinine was 3.18, she was subsequently admitted for acute kidney failure, and azotemia electrolyte abnormalities, as well as with acute urinary tract infection urinalysis leukocyte positive nitrate positive with WBC clumping computed tomography scan emergency room, right kidney is markedly atrophic, hypodense lesion extending off the left kidney stable from previous, perinephric edema noted, bladder was taken, 1 cm lesion upper pole left kidney no hydronephrosis noted, lung bases shows cardiomegaly with right lower lobe left lower lobe consolidation pleural effusion there is small amount of free fluid in the pelvis, hypodense could represent hemorrhagic component, they have recommended pelvic ultrasound to exclude adrenal adnexal mass also localized focal prominence of pancreatic body however this is difficult to address to have recommended MRI 10/14: Patient has been afebrile, heart rate in the 80s, blood pressure 118/64, pulse ox 96% on room air. Repeat lab work shows a white count of 20.9, hemoglobin 8.9, platelet count 277, INR 1.5. Sodium 134, potassium 3.8, chloride 101, CO2 20, BUN 97 creatinine 2.7. Liver function tests are improved with AST of 44, ALT 50, alkaline phosphatase 163. CK 228. Pulido catheter was changed in the ER. Urine culture is in progress. Patient has been seen by Dr. Madrid with no plan for any surgical intervention. CEA 125 came back at 147.4. Coumadin is currently on hold. Renal artery ultrasound ordered to rule out renal artery stenosis which will be done tomorrow. Review Of Systems: Constitutional: No fever, no chills, no night sweats. No weight change. Reports weakness, fatigue or lethargy. Reports daytime sleepiness. EENT: No headache. No blurred vision or double vision, no loss of vision. No loss of Hearing, no ringing in the ears, no dizziness. No nasal drainage or congestion. No epistaxis. No sore throat. Lungs: No shortness of breath, cough, no sputum production. No wheezing. Cardiovascular: No chest pain, no lower extremity edema. No palpitations. No paroxysmal nocturnal dyspnea. No orthopnea. Reports lightheadedness or dizziness. No syncopal episodes. Abdominal: Reports abdominal pain. Reports bloating, reports early satiety, No nausea, vomiting. No diarrhea. No constipation. No bloody or tarry stools.. No loss of appetite. Genitourinary: No dysuria, increased frequency, urgency. No urinary retention. Reports chronic Pulido catheter Musculoskeletal: No myalgias. No muscle weakness, reports gait dysfunction, no frequent falls. No back pain. No neck pain. Integumentary: No rash or pruritus. No unusual bruising. No change in hair or nails. Neurologic: Reports weakness, reports loss of vision. Psychiatric: No depression. No anxiety. No mood swings. Endocrine: No abnormal blood sugars. No weight change. No excessive sweating or thirst. No cold intolerance. No weight change. Objective - Vital Signs Vital signs: Vital Signs Temp 96 F L 10/14/18 03:50 Pulse 82 10/14/18 03:50 Resp 16 10/14/18 03:50 BP 118/64 10/14/18 03:50 Pulse Ox 96 10/14/18 03:50 Intake & Output 10/13/18 10/14/18 10/14/18 18:59 06:59 18:59 Intake Total 700 100 Output Total 975 Balance -275 100 Weight 92.76 kg 82.9 kg Intake: Intake, IV Titration 700 Amount Potassium Chloride 10 meq 400 In Water For Injection 1 100ml.bag @ 100 mls/hr IVPB Q1HR DENISE Rx#: [id number] Sodium Chloride 0.9% 1, 300 000 ml @ 75 mls/hr IV . [id number] STA Rx#:[id number] Oral 100 Output: Urine 975 Other: Voiding Method Indwelling Catheter # Voids 1 1 - Exam General appearance: cooperative, no acute distress, patient resting in recliner - EENT Eyes: anicteric sclerae, EOMI, PERRLA, photophobia ENT: NA/AT, normal oropharynx - Neck Neck: normal ROM - Respiratory Respiratory: bilateral: CTA, negative: diminished, dullness, rales - Cardiovascular Rhythm: regular Heart sounds: normal: S1, S2 Abnormal Heart Sounds: no systolic murmur, no diastolic murmur, no rub, no S3 Gallop, no S4 Gallop, no click, no other - Gastrointestinal General gastrointestinal: normal bowel sounds, soft - Integumentary Integumentary: decreased turgor, normal - Neurologic Neurologic: CNII-XII intact - Musculoskeletal Musculoskeletal: gait normal, strength equal bilaterally - Psychiatric Psychiatric: appropriate affect, intact judgment & insight - Labs CBC & Chem 7: 10/14/18 06:44 10/14/18 06:44 Labs: Abnormal Lab Results - Last 24 Hours (Table) 10/13/18 10/13/18 10/13/18 Range/Units 12:54 12:54 12:54 WBC 15.2 H (3.8-10.6) k/uL RBC 3.27 L (3.80-5.40) m/uL Hgb 8.4 L (11.4-16.0) gm/dL Hct 26.8 L (34.0-46.0) % RDW 16.6 H (11.5-15.5) % Neutrophils # 12.2 H (1.3-7.7) k/uL Monocytes # 1.4 H (0-1.0) k/uL PT 33.3 H (9.0-12.0) sec INR 3.5 H (<1.2) APTT 35.7 H (22.0-30.0) sec Sodium 131 L (137-145) mmol/L Potassium 3.2 L (3.5-5.1) mmol/L Chloride 97 L (98-107) mmol/L Carbon Dioxide (22-30) mmol/L BUN 107 H* (7-17) mg/dL Creatinine 3.18 H (0.52-1.04) mg/dL Glucose 101 H (74-99) mg/dL POC Glucose (mg/dL) (75-99) mg/dL Calcium (8.4-10.2) mg/dL AST 57 H (14-36) U/L ALT (9-52) U/L Alkaline Phosphatase 143 H (38-126) U/L Creatine Kinase (30-135) U/L Albumin 3.0 L (3.5-5.0) g/dL CA 125 Antigen (0.0-30.1) U/mL Urine Appearance (Clear) Urine Protein (Negative) Urine Blood (Negative) Urine Nitrite (Negative) Ur Leukocyte Esterase (Negative) Urine RBC (0-5) /hpf Urine WBC (0-5) /hpf Urine WBC Clumps (None) /hpf Urine Bacteria (None) /hpf Urine Mucus (None) /hpf 10/13/18 10/13/18 10/13/18 Range/Units 14:45 17:51 17:51 WBC 17.3 H (3.8-10.6) k/uL RBC 3.13 L (3.80-5.40) m/uL Hgb 8.2 L (11.4-16.0) gm/dL Hct 26.1 L (34.0-46.0) % RDW 16.6 H (11.5-15.5) % Neutrophils # 14.0 H (1.3-7.7) k/uL Monocytes # 1.6 H (0-1.0) k/uL PT (9.0-12.0) sec INR (<1.2) APTT (22.0-30.0) sec Sodium 134 L (137-145) mmol/L Potassium 3.2 L (3.5-5.1) mmol/L Chloride (98-107) mmol/L Carbon Dioxide 21 L (22-30) mmol/L BUN 106 H* (7-17) mg/dL Creatinine 3.08 H (0.52-1.04) mg/dL Glucose (74-99) mg/dL POC Glucose (mg/dL) (75-99) mg/dL Calcium 8.0 L (8.4-10.2) mg/dL AST 65 H (14-36) U/L ALT 56 H (9-52) U/L Alkaline Phosphatase 166 H (38-126) U/L Creatine Kinase (30-135) U/L Albumin 3.0 L (3.5-5.0) g/dL CA 125 Antigen (0.0-30.1) U/mL Urine Appearance Cloudy H (Clear) Urine Protein 1+ H (Negative) Urine Blood Moderate H (Negative) Urine Nitrite Positive H (Negative) Ur Leukocyte Esterase Large H (Negative) Urine RBC 134 H (0-5) /hpf Urine WBC >182 H (0-5) /hpf Urine WBC Clumps Many H (None) /hpf Urine Bacteria Many H (None) /hpf Urine Mucus Rare H (None) /hpf 10/13/18 10/13/18 10/14/18 Range/Units 17:51 22:52 06:02 WBC 16.8 H (3.8-10.6) k/uL RBC 3.16 L (3.80-5.40) m/uL Hgb 8.7 L (11.4-16.0) gm/dL Hct 26.3 L (34.0-46.0) % RDW 16.7 H (11.5-15.5) % Neutrophils # (1.3-7.7) k/uL Monocytes # (0-1.0) k/uL PT (9.0-12.0) sec INR (<1.2) APTT (22.0-30.0) sec Sodium (137-145) mmol/L Potassium (3.5-5.1) mmol/L Chloride (98-107) mmol/L Carbon Dioxide (22-30) mmol/L BUN (7-17) mg/dL Creatinine (0.52-1.04) mg/dL Glucose (74-99) mg/dL POC Glucose (mg/dL) 70 L (75-99) mg/dL Calcium (8.4-10.2) mg/dL AST (14-36) U/L ALT (9-52) U/L Alkaline Phosphatase (38-126) U/L Creatine Kinase (30-135) U/L Albumin (3.5-5.0) g/dL CA 125 Antigen 147.4 H (0.0-30.1) U/mL Urine Appearance (Clear) Urine Protein (Negative) Urine Blood (Negative) Urine Nitrite (Negative) Ur Leukocyte Esterase (Negative) Urine RBC (0-5) /hpf Urine WBC (0-5) /hpf Urine WBC Clumps (None) /hpf Urine Bacteria (None) /hpf Urine Mucus (None) /hpf 10/14/18 10/14/18 10/14/18 Range/Units 06:44 06:44 06:44 WBC 20.9 H (3.8-10.6) k/uL RBC 3.36 L (3.80-5.40) m/uL Hgb 8.9 L (11.4-16.0) gm/dL Hct 28.1 L (34.0-46.0) % RDW 16.7 H (11.5-15.5) % Neutrophils # 17.4 H (1.3-7.7) k/uL Monocytes # 1.8 H (0-1.0) k/uL PT 15.4 H (9.0-12.0) sec INR 1.5 H (<1.2) APTT (22.0-30.0) sec Sodium 134 L (137-145) mmol/L Potassium (3.5-5.1) mmol/L Chloride (98-107) mmol/L Carbon Dioxide 20 L (22-30) mmol/L BUN 97 H (7-17) mg/dL Creatinine 2.70 H (0.52-1.04) mg/dL Glucose 102 H (74-99) mg/dL POC Glucose (mg/dL) (75-99) mg/dL Calcium (8.4-10.2) mg/dL AST 44 H (14-36) U/L ALT (9-52) U/L Alkaline Phosphatase 163 H (38-126) U/L Creatine Kinase 228 H (30-135) U/L Albumin 3.1 L (3.5-5.0) g/dL CA 125 Antigen (0.0-30.1) U/mL Urine Appearance (Clear) Urine Protein (Negative) Urine Blood (Negative) Urine Nitrite (Negative) Ur Leukocyte Esterase (Negative) Urine RBC (0-5) /hpf Urine WBC (0-5) /hpf Urine WBC Clumps (None) /hpf Urine Bacteria (None) /hpf Urine Mucus (None) /hpf Microbiology - Last 24 Hours (Table) 10/13/18 14:45 Urine Culture - Preliminary Urine,Catheterized Assessment and Plan Plan: 1. Sepsis secondary to acute urinary tract infection due to chronic indwelling pulido. Continue IV Rocephin. Urine culture is in progress. 2 Acute kidney failure with azotemia from ATN secondary to dehydration, underlying history CK D stage III last creatinine 1.11 May 2018, and 3 creatinine 3.17, CPK will be done to evaluate for rhabdomyolysis, and postvoid residual as well as renal ultrasound, consult with Dr. Jerome nephrology, avoid nephrotoxins and hypotension. Hold of Lasix secondary to dehydration, losartan is held, continue on amlodipine and hydralazine with parameters. 3 paroxysmal atrial fibrillation on Coumadin. INR 3.1 hold Coumadin today as there are some concerns regarding hemorrhagic component in the pelvis. Repeat INR tomorrow vitamin K2.5 5 milligrams 1 dose given in the emergency room 4 diabetes2 with diabetic neuropathy continue Lantus 30 units daily at bedtime with hold 10 units lispro with sliding scale at this time until diet by mouth has fully recovered, correctional scale insulin to be given, but hold Januvia secondary to elevated creatinine 5. Suspected hemorrhagic bleed in the pelvis from CT imaging, Coumadin on hold, consult with Dr. Nurys corley. No plan for any intervention. Will monitor hemoglobin and hold Coumadin for 3 days. 5 hypertension on metoprolol hold Lasix hold hydrochlorothiazide and amiloride. Hold lisinopril for hyper hyperkalemia 6 Hyperlipidemia hold statins until CPK would stabilize 7 Mild protein calorie malnutrition 8 Mild transaminitis with slight elevation of alkaline phosphatase, check for lipase CMP to be monitored DVT prophylaxis INR therapeutic hold Coumadin INR tomorrow GI prophylaxis Pepcid 20 mg by mouth daily CODE STATUS full code Discharge plan: Return to [facility]. Family has brought up discussion on hospice with upper caser. Impression and plan of care have been directed as dictated by the signing physician. Xi Olguin nurse practitioner acting as scribe for signing physician.
--- NOTE | 2018-10-14 15:18 | P.GSCN ---
<Tracy Ellison - Last Filed: 10/14/18 15:20> History of Present Illness Consult date: 10/14/18 Reason for Consult: possible pelvis hemorrhage Requesting physician: Eliana Azevedo History of present illness: CHIEF COMPLAINT: possible pelvis hemorrhage HISTORY OF PRESENT ILLNESS: 83-year-old female who was admitted to the hospital secondary to dehydration. CT abdomen and pelvis was obtained which revealed small amount of free fluid in the pelvis. appears somewhat hyperdense which may represent a hemorrhagic component. General surgery was consulted for further evaluation. Patient takes coumadin at home. INR on admission was 3.5. Coumadin has been reversed. INR today is 1.5. Patient was seen and examined this morning at the bedside. She denies abdominal pain. Denies nausea and vomiting. She reports last BM was a couple days. Denies constipation. WBC 20.9. Hemoglobin 8.9. PAST MEDICAL HISTORY: See list. PAST SURGICAL HISTORY: See list. MEDICATIONS: See list. ALLERGIES: See list. SOCIAL HISTORY: No illicit drug use. REVIEW OF SYSTEMS: CONSTITUTIONAL: Denies fever or chills. HEENT: Denies blurred vision, vision changes, or eye pain. Denies hemoptysis ENDOCRINE: Denies heat or cold intolerance. CARDIOVASCULAR: Denies chest pain or pressure. RESPIRATORY: No shortness of breath. GASTROINTESTINAL: Denies abdominal pain. Denies nausea or vomiting. PSYCH: No depression or suicidal ideation HEMATOLOGIC: Denies bleeding disorders. LYMPHATIC: The patient denies any lumps and bumps around the neck. MUSCULOSKELETAL: Denies myalgias. Denies joint swelling. Denies decreased range of motion beyond patients baseline. SKIN: Denies pruitis. Denies rash. PHYSICAL EXAM: VITAL SIGNS: Currently stable. GENERAL: Well-developed in no acute distress. HEENT: No sclera icterus. Extraocular movements grossly intact. Moist buccal mucosa. Head is atraumatic, normocephalic. Hears conversational speech. No nasal drainage. NECK: Supple without lymphadenopathy. CHEST: Non-labored respirations and equal bilateral excursions. CARDIOVASCULAR: Regular rate with regular rhythm. Palpable 2+ radial pulses. ABDOMEN: Soft. Nondistended. Nontender. Positive bowel sounds. MUSCULOSKELETAL: No clubbing, cyanosis or edema. NEUROLOGIC: No focal or lateralizing signs. Cranial nerves II through XII grossly intact. PSYCH: Appropriate affect. Alert and oriented to person, place and time. SKIN: Well perfused. Good skin turgor. IMAGIN. CT abdomen and pelvis: Small amount of free fluid in the pelvis. appears somewhat hyperdense which may represent a hemorrhagic component. 2. Pelvic ultrasound: Ovaries not visualized. Area of shadowing in the left adnexal region is noted measuring 11.9 x 7.5 x 5.9 cm. ASSESSMENT: 1. Hyperdense region in pelvis which may represent a hemorrhagic component per CT, patient without drop in hemoglobin and hemodynamically stable 2. Elevated CA-125, history of hysterectomy including oophorectomy 3. Leukocytosis PLAN: No surgical intervention at this time. Patient is stable from a surgical perspective. She may resume Coumadin from our standpoint. Will defer to medicine. Nurse practitioner note has been reviewed by physician. Signing provider agrees with the documented findings, assessment, and plan of care. Past Medical History Past Medical History: Atrial Fibrillation, Diabetes Mellitus, Hyperlipidemia, Hypertension, Thyroid Disorder Additional Past Medical History / Comment(s): peripheral neuropathy, UTIs, u rinary incontinence, OA bilateral hands and back, PVD, cervical cancer History of Any Multi-Drug Resistant Organisms: MRSA Year Discovered:: 09/11/2015 MDRO Source:: RIGHT FOOT Past Surgical History: Hysterectomy, Tonsillectomy Additional Past Surgical History / Comment(s): R leg bypass surgery, bilateral cataract removal Past Anesthesia/Blood Transfusion Reactions: No Reported Reaction Past Psychological History: No Psychological Hx Reported Additional Psychological History / Comment(s): Pt states she [facility]. States uses a wheelchair to get around. Smoking Status: Never smoker Past Alcohol Use History: None Reported Additional Past Alcohol Use History / Comment(s): Patient resides at [facility] and is wheelchair bound. Past Drug Use History: None Reported - Past Family History Mother Family Medical History: CVA/TIA Additional Family Medical History / Comment(s): Mother in her 70's. Father Family Medical History: Hypertension Additional Family Medical History / Comment(s): Father in his 70's. Medications and Allergies Home Medications Medication Instructions Recorded Confirmed Type Aspirin 81 mg PO HS 09/11/15 10/13/18 History Levothyroxine Sodium [Synthroid] 50 mcg PO QAM 09/11/15 10/13/18 History Pravastatin Sodium [Pravachol] 80 mg PO HS 09/11/15 10/13/18 History Insulin Glargine [Lantus] 26 unit SQ HS 02/06/17 10/13/18 History INSULIN LISPRO (humaLOG) [humaLOG] 10 units SQ AC-TID 06/16/17 10/13/18 History Sennosides-Docusate Sodium 1 tab PO DAILY 06/16/17 10/13/18 History [Senokot-S] Multivitamins, Thera [Multivitamin 1 tab PO DAILY 05/04/18 10/13/18 History (formulary)] Potassium Chloride ER [K-Dur 10] 10 meq PO DAILY 05/04/18 10/13/18 History Sodium Chloride 5% Ophth Soln 1 drop BOTH EYES BID 05/04/18 10/13/18 History [Hari 128] Furosemide [Lasix] 40 mg PO DAILY #0 05/08/18 10/13/18 Rx Amino Acids/Protein Hydrolys 30 ml PO DAILY 06/10/18 10/13/18 History [Pro-Stat Supplement] amLODIPine BESYLATE 5 mg PO DAILY 06/10/18 10/13/18 History Spironolactone [Aldactone] 12.5 mg PO DAILY 07/01/18 10/13/18 History Cranberry 450mg 1 tab PO DAILY 10/13/18 10/13/18 History Losartan Potassium 100 mg PO DAILY 10/13/18 10/13/18 History Metoprolol Tartrate [Lopressor] 100 mg PO BID 10/13/18 10/13/18 History Warfarin [Coumadin] 2.5 mg PO HS 10/13/18 10/13/18 History hydrALAZINE HCL [Apresoline] 100 mg PO TID 10/13/18 10/13/18 History sitaGLIPtin PHOSPHATE [Januvia] 50 mg PO HS 10/13/18 10/13/18 History Allergies Allergy/AdvReac Type Severity Reaction Status Date / Time No Known Allergies Allergy Verified 10/13/18 13:16 Surgical - Exam Vital Signs Temp Pulse Resp BP Pulse Ox 99.1 F 96 18 122/54 100 10/13/18 12:37 10/13/18 12:37 10/13/18 12:37 10/13/18 12:37 10/13/18 12:37 Results - Labs 10/14/18 06:44 10/14/18 06:44 Abnormal Lab Results - Last 24 Hours (Table) 10/13/18 10/13/18 10/13/18 Range/Units 14:45 17:51 17:51 WBC 17.3 H (3.8-10.6) k/uL RBC 3.13 L (3.80-5.40) m/uL Hgb 8.2 L (11.4-16.0) gm/dL Hct 26.1 L (34.0-46.0) % RDW 16.6 H (11.5-15.5) % Neutrophils # 14.0 H (1.3-7.7) k/uL Monocytes # 1.6 H (0-1.0) k/uL PT (9.0-12.0) sec INR (<1.2) Sodium 134 L (137-145) mmol/L Potassium 3.2 L (3.5-5.1) mmol/L Carbon Dioxide 21 L (22-30) mmol/L BUN 106 H* (7-17) mg/dL Creatinine 3.08 H (0.52-1.04) mg/dL Glucose (74-99) mg/dL POC Glucose (mg/dL) (75-99) mg/dL Calcium 8.0 L (8.4-10.2) mg/dL AST 65 H (14-36) U/L ALT 56 H (9-52) U/L Alkaline Phosphatase 166 H (38-126) U/L Creatine Kinase (30-135) U/L Albumin 3.0 L (3.5-5.0) g/dL CA 125 Antigen (0.0-30.1) U/mL Urine Appearance Cloudy H (Clear) Urine Protein 1+ H (Negative) Urine Blood Moderate H (Negative) Urine Nitrite Positive H (Negative) Ur Leukocyte Esterase Large H (Negative) Urine RBC 134 H (0-5) /hpf Urine WBC >182 H (0-5) /hpf Urine WBC Clumps Many H (None) /hpf Urine Bacteria Many H (None) /hpf Urine Mucus Rare H (None) /hpf 10/13/18 10/13/18 10/14/18 Range/Units 17:51 22:52 06:02 WBC 16.8 H (3.8-10.6) k/uL RBC 3.16 L (3.80-5.40) m/uL Hgb 8.7 L (11.4-16.0) gm/dL Hct 26.3 L (34.0-46.0) % RDW 16.7 H (11.5-15.5) % Neutrophils # (1.3-7.7) k/uL Monocytes # (0-1.0) k/uL PT (9.0-12.0) sec INR (<1.2) Sodium (137-145) mmol/L Potassium (3.5-5.1) mmol/L Carbon Dioxide (22-30) mmol/L BUN (7-17) mg/dL Creatinine (0.52-1.04) mg/dL Glucose (74-99) mg/dL POC Glucose (mg/dL) 70 L (75-99) mg/dL Calcium (8.4-10.2) mg/dL AST (14-36) U/L ALT (9-52) U/L Alkaline Phosphatase (38-126) U/L Creatine Kinase (30-135) U/L Albumin (3.5-5.0) g/dL CA 125 Antigen 147.4 H (0.0-30.1) U/mL Urine Appearance (Clear) Urine Protein (Negative) Urine Blood (Negative) Urine Nitrite (Negative) Ur Leukocyte Esterase (Negative) Urine RBC (0-5) /hpf Urine WBC (0-5) /hpf Urine WBC Clumps (None) /hpf Urine Bacteria (None) /hpf Urine Mucus (None) /hpf 10/14/18 10/14/18 10/14/18 Range/Units 06:44 06:44 06:44 WBC 20.9 H (3.8-10.6) k/uL RBC 3.36 L (3.80-5.40) m/uL Hgb 8.9 L (11.4-16.0) gm/dL Hct 28.1 L (34.0-46.0) % RDW 16.7 H (11.5-15.5) % Neutrophils # 17.4 H (1.3-7.7) k/uL Monocytes # 1.8 H (0-1.0) k/uL PT 15.4 H (9.0-12.0) sec INR 1.5 H (<1.2) Sodium 134 L (137-145) mmol/L Potassium (3.5-5.1) mmol/L Carbon Dioxide 20 L (22-30) mmol/L BUN 97 H (7-17) mg/dL Creatinine 2.70 H (0.52-1.04) mg/dL Glucose 102 H (74-99) mg/dL POC Glucose (mg/dL) (75-99) mg/dL Calcium (8.4-10.2) mg/dL AST 44 H (14-36) U/L ALT (9-52) U/L Alkaline Phosphatase 163 H (38-126) U/L Creatine Kinase 228 H (30-135) U/L Albumin 3.1 L (3.5-5.0) g/dL CA 125 Antigen (0.0-30.1) U/mL Urine Appearance (Clear) Urine Protein (Negative) Urine Blood (Negative) Urine Nitrite (Negative) Ur Leukocyte Esterase (Negative) Urine RBC (0-5) /hpf Urine WBC (0-5) /hpf Urine WBC Clumps (None) /hpf Urine Bacteria (None) /hpf Urine Mucus (None) /hpf 10/14/18 Range/Units 11:28 WBC (3.8-10.6) k/uL RBC (3.80-5.40) m/uL Hgb (11.4-16.0) gm/dL Hct (34.0-46.0) % RDW (11.5-15.5) % Neutrophils # (1.3-7.7) k/uL Monocytes # (0-1.0) k/uL PT (9.0-12.0) sec INR (<1.2) Sodium (137-145) mmol/L Potassium (3.5-5.1) mmol/L Carbon Dioxide (22-30) mmol/L BUN (7-17) mg/dL Creatinine (0.52-1.04) mg/dL Glucose (74-99) mg/dL POC Glucose (mg/dL) 119 H (75-99) mg/dL Calcium (8.4-10.2) mg/dL AST (14-36) U/L ALT (9-52) U/L Alkaline Phosphatase (38-126) U/L Creatine Kinase (30-135) U/L Albumin (3.5-5.0) g/dL CA 125 Antigen (0.0-30.1) U/mL Urine Appearance (Clear) Urine Protein (Negative) Urine Blood (Negative) Urine Nitrite (Negative) Ur Leukocyte Esterase (Negative) Urine RBC (0-5) /hpf Urine WBC (0-5) /hpf Urine WBC Clumps (None) /hpf Urine Bacteria (None) /hpf Urine Mucus (None) /hpf Microbiology - Last 24 Hours (Table) 10/13/18 14:45 Urine Culture - Preliminary Urine,Catheterized Diabetes panel 10/13/18 10/14/18 Range/Units 17:51 06:44 Sodium 134 L 134 L (137-145) mmol/L Potassium 3.2 L 3.8 (3.5-5.1) mmol/L Chloride 101 101 (98-107) mmol/L Carbon Dioxide 21 L 20 L (22-30) mmol/L BUN 106 H* 97 H (7-17) mg/dL Creatinine 3.08 H 2.70 H (0.52-1.04) mg/dL Glucose 86 102 H (74-99) mg/dL Calcium 8.0 L 8.4 (8.4-10.2) mg/dL AST 65 H 44 H (14-36) U/L ALT 56 H 50 (9-52) U/L Alkaline Phosphatase 166 H 163 H (38-126) U/L Total Protein 6.8 7.0 (6.3-8.2) g/dL Albumin 3.0 L 3.1 L (3.5-5.0) g/dL Calcium panel 10/13/18 10/14/18 Range/Units 17:51 06:44 Calcium 8.0 L 8.4 (8.4-10.2) mg/dL Albumin 3.0 L 3.1 L (3.5-5.0) g/dL Pituitary panel 10/13/18 10/14/18 Range/Units 17:51 06:44 Sodium 134 L 134 L (137-145) mmol/L Potassium 3.2 L 3.8 (3.5-5.1) mmol/L Chloride 101 101 (98-107) mmol/L Carbon Dioxide 21 L 20 L (22-30) mmol/L BUN 106 H* 97 H (7-17) mg/dL Creatinine 3.08 H 2.70 H (0.52-1.04) mg/dL Glucose 86 102 H (74-99) mg/dL Calcium 8.0 L 8.4 (8.4-10.2) mg/dL Adrenal panel 10/13/18 10/14/18 Range/Units 17:51 06:44 Sodium 134 L 134 L (137-145) mmol/L Potassium 3.2 L 3.8 (3.5-5.1) mmol/L Chloride 101 101 (98-107) mmol/L Carbon Dioxide 21 L 20 L (22-30) mmol/L BUN 106 H* 97 H (7-17) mg/dL Creatinine 3.08 H 2.70 H (0.52-1.04) mg/dL Glucose 86 102 H (74-99) mg/dL Calcium 8.0 L 8.4 (8.4-10.2) mg/dL Total Bilirubin 0.8 1.1 (0.2-1.3) mg/dL AST 65 H 44 H (14-36) U/L ALT 56 H 50 (9-52) U/L Alkaline Phosphatase 166 H 163 H (38-126) U/L Total Protein 6.8 7.0 (6.3-8.2) g/dL Albumin 3.0 L 3.1 L (3.5-5.0) g/dL <Parrish Madrid - Last Filed: 10/14/18 18:29> History of Present Illness History of present illness: As above. We were consulted regarding CAT scan findings showing possible bloody fluid within the pelvis. Patient has an elevated white blood cell count likely related to urinary tract infection with indwelling Weeks catheter. Patient has no abdominal pain. Abdominal exam is benign. Elevated CEA 125 when checked. If family interested in further workup diagnostic paracentesis could be requested of radiology. At this time may resume Coumadin. Continue diet. Will follow. Surgical - Exam Vital Signs Temp Pulse Resp BP Pulse Ox 99.1 F 96 18 122/54 100 10/13/18 12:37 10/13/18 12:37 10/13/18 12:37 10/13/18 12:37 10/13/18 12:37 Results - Labs 10/14/18 06:44 10/14/18 06:44 Abnormal Lab Results - Last 24 Hours (Table) 10/13/18 10/13/18 10/14/18 Range/Units 17:51 22:52 06:02 WBC 16.8 H (3.8-10.6) k/uL RBC 3.16 L (3.80-5.40) m/uL Hgb 8.7 L (11.4-16.0) gm/dL Hct 26.3 L (34.0-46.0) % RDW 16.7 H (11.5-15.5) % Neutrophils # (1.3-7.7) k/uL Monocytes # (0-1.0) k/uL PT (9.0-12.0) sec INR (<1.2) Sodium (137-145) mmol/L Carbon Dioxide (22-30) mmol/L BUN (7-17) mg/dL Creatinine (0.52-1.04) mg/dL Glucose (74-99) mg/dL POC Glucose (mg/dL) 70 L (75-99) mg/dL AST (14-36) U/L Alkaline Phosphatase (38-126) U/L Creatine Kinase (30-135) U/L Albumin (3.5-5.0) g/dL CA 125 Antigen 147.4 H (0.0-30.1) U/mL 10/14/18 10/14/18 10/14/18 Range/Units 06:44 06:44 06:44 WBC 20.9 H (3.8-10.6) k/uL RBC 3.36 L (3.80-5.40) m/uL Hgb 8.9 L (11.4-16.0) gm/dL Hct 28.1 L (34.0-46.0) % RDW 16.7 H (11.5-15.5) % Neutrophils # 17.4 H (1.3-7.7) k/uL Monocytes # 1.8 H (0-1.0) k/uL PT 15.4 H (9.0-12.0) sec INR 1.5 H (<1.2) Sodium 134 L (137-145) mmol/L Carbon Dioxide 20 L (22-30) mmol/L BUN 97 H (7-17) mg/dL Creatinine 2.70 H (0.52-1.04) mg/dL Glucose 102 H (74-99) mg/dL POC Glucose (mg/dL) (75-99) mg/dL AST 44 H (14-36) U/L Alkaline Phosphatase 163 H (38-126) U/L Creatine Kinase 228 H (30-135) U/L Albumin 3.1 L (3.5-5.0) g/dL CA 125 Antigen (0.0-30.1) U/mL 10/14/18 10/14/18 Range/Units 11:28 16:36 WBC (3.8-10.6) k/uL RBC (3.80-5.40) m/uL Hgb (11.4-16.0) gm/dL Hct (34.0-46.0) % RDW (11.5-15.5) % Neutrophils # (1.3-7.7) k/uL Monocytes # (0-1.0) k/uL PT (9.0-12.0) sec INR (<1.2) Sodium (137-145) mmol/L Carbon Dioxide (22-30) mmol/L BUN (7-17) mg/dL Creatinine (0.52-1.04) mg/dL Glucose (74-99) mg/dL POC Glucose (mg/dL) 119 H 191 H (75-99) mg/dL AST (14-36) U/L Alkaline Phosphatase (38-126) U/L Creatine Kinase (30-135) U/L Albumin (3.5-5.0) g/dL CA 125 Antigen (0.0-30.1) U/mL Microbiology - Last 24 Hours (Table) 10/13/18 13:00 Blood Culture - Preliminary Blood No Growth after 24 hours 10/13/18 14:45 Urine Culture - Preliminary Urine,Catheterized Diabetes panel 10/14/18 Range/Units 06:44 Sodium 134 L (137-145) mmol/L Potassium 3.8 (3.5-5.1) mmol/L Chloride 101 (98-107) mmol/L Carbon Dioxide 20 L (22-30) mmol/L BUN 97 H (7-17) mg/dL Creatinine 2.70 H (0.52-1.04) mg/dL Glucose 102 H (74-99) mg/dL Calcium 8.4 (8.4-10.2) mg/dL AST 44 H (14-36) U/L ALT 50 (9-52) U/L Alkaline Phosphatase 163 H (38-126) U/L Total Protein 7.0 (6.3-8.2) g/dL Albumin 3.1 L (3.5-5.0) g/dL Calcium panel 10/14/18 Range/Units 06:44 Calcium 8.4 (8.4-10.2) mg/dL Albumin 3.1 L (3.5-5.0) g/dL Pituitary panel 10/14/18 Range/Units 06:44 Sodium 134 L (137-145) mmol/L Potassium 3.8 (3.5-5.1) mmol/L Chloride 101 (98-107) mmol/L Carbon Dioxide 20 L (22-30) mmol/L BUN 97 H (7-17) mg/dL Creatinine 2.70 H (0.52-1.04) mg/dL Glucose 102 H (74-99) mg/dL Calcium 8.4 (8.4-10.2) mg/dL Adrenal panel 10/14/18 Range/Units 06:44 Sodium 134 L (137-145) mmol/L Potassium 3.8 (3.5-5.1) mmol/L Chloride 101 (98-107) mmol/L Carbon Dioxide 20 L (22-30) mmol/L BUN 97 H (7-17) mg/dL Creatinine 2.70 H (0.52-1.04) mg/dL Glucose 102 H (74-99) mg/dL Calcium 8.4 (8.4-10.2) mg/dL Total Bilirubin 1.1 (0.2-1.3) mg/dL AST 44 H (14-36) U/L ALT 50 (9-52) U/L Alkaline Phosphatase 163 H (38-126) U/L Total Protein 7.0 (6.3-8.2) g/dL Albumin 3.1 L (3.5-5.0) g/dL
[2018-10-14 16:38] LABS: Glucose,Whole Blood 191 mg/dL (75-99)
--- NOTE | 2018-10-14 17:58 | CONS ---
CONSULTATION REASON FOR CONSULT: Renal failure. HISTORY OF PRESENT ILLNESS: The patient is an 83-year-old female who was admitted to the hospital yesterday with abnormal labs. The patient was sent [facility] from the [facility] with elevated BUN and creatinine. She has been feeling more weak over the past few days. The patient has not been eating much. She has been mostly in bed. The patient does have an indwelling Weeks catheter. I do not see any nonsteroidal anti-inflammatory agents listed on her med list. Blood pressure was not significantly low. The lowest blood pressure was 117 mmHg systolic. Patient's serum creatinine was 2.7 mg/dL today, on admission it was 3.1. Review of previous labs shows a creatinine of 1.28 on 06/18/2018. The patient did have an abdominal and pelvic CT yesterday which showed markedly atrophic right kidney. No hydronephrosis was seen, and there was a left renal lesion, most likely a cyst. Another hyperdense lesion was noted on the left kidney. The patient has had good urine output with 24 hour urine output of about 975 mL. PAST MEDICAL HISTORY: Significant for hypertension, history of atrial fibrillation, type 2 diabetes, hypothyroidism, hyperlipidemia, peripheral neuropathy, history of UTIs, history of cervical cancer, peripheral vascular disease, osteoarthritis, previous history of MRSA infection in the right foot. PAST SURGICAL HISTORY: Tonsillectomy, hysterectomy, right leg bypass surgery, cataract surgery. SOCIAL HISTORY: Negative for smoking, drug abuse or alcohol abuse. MEDICATIONS AT HOME: Included aspirin, Synthroid, Pravachol, insulin, potassium, multivitamins, Lasix, Aldactone, Lopressor, Coumadin, hydralazine, Januvia. ALLERGIES: None. REVIEW OF SYSTEMS: Negative for fever, chills, nausea, vomiting, abdominal pain, or diarrhea. PHYSICAL EXAMINATION: Patient was seen this morning. She was comfortable. She is awake, not in any acute distress. Blood pressure was 117/66, heart rate of 90 per minute. Patient is afebrile. Examination of the heart S1, S2. Examination of the lungs bilateral breath sounds are heard. Decreased breath sounds at bases. ABDOMEN: Soft, obese. Examination of lower extremities shows edema 1+ bilaterally. [employer] exam is grossly intact. Patient moving all 4 extremities. LAB: Show hemoglobin 8.9, sodium 134, potassium 3.8, chloride 101, BUN 97, serum creatinine 2.7, INR was 1.5, calcium 8.4, albumin 3.1. UA shows 1+ protein, moderate blood, nitrite positive, WBCs more than 182. Urine culture is currently pending and chest x- ray from yesterday shows borderline to mild congestive heart failure. ASSESSMENT: 1. Acute kidney injury, appears to be prerenal. Patient is maintained on IV fluids. Her renal function has improved. There is no evidence of obstruction. She does have a solitary functioning kidney with significant right renal atrophy noted on the CAT scan. I will continue with IV fluids but turn it down to about 50 mL an hour. Continue to encourage increased oral intake. Patient is not on any nephrotoxic medications. We need to avoid hypotension as well. 2. Chronic kidney disease and NKF stage III, with previous creatinine of about 1.28 on 06/18/2018. 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 UA is protein but currently also has evidence of infection. 3. Urinary tract infection maintained on antibiotics. Urine culture is pending. The patient does have chronic indwelling Weeks catheter. I am not sure if this is asymptomatic bacteriuria. 4. Anemia, rule out iron deficiency. 5. History of atrial fibrillation. 6. Dyslipidemia. PLAN: Continue IV fluids. Decrease fluids to 50 mL an hour. Hold off on Lasix for now. Repeat labs in a.m. Check iron studies and follow up on urine cultures. Thank you for this consultation. We will continue to follow the patient with you during her hospitalization. MMODL / IJN: [id number] /
[2018-10-14] MEDS ORDERED: WARFARIN 2.5 MG TAB PO SCH (21:00)
[2018-10-14 21:11] LABS: Glucose,Whole Blood 162 mg/dL (75-99)
[2018-10-14] MEDS: ACETAMINOPHEN TAB 325 MG TAB PO PRN (21:26)
[2018-10-14] MEDS: ASPIRIN 81 MG PO SCH (21:27)
[2018-10-14] MEDS: INSULIN DETEMIR (LEVEMIR) 100 UNIT/ML SYR SQ SCH (22:26)
[2018-10-14] MEDS: SODIUM CHLORIDE 5% OPHTH DROPS 15 ML BTL BOTH EYES SCH (22:31)
[2018-10-15 01:06] LABS: Iron Saturation 8.2 (12.00-45.00)
[2018-10-15 06:00] LABS: Glucose,Whole Blood 134 mg/dL (75-99)
[2018-10-15] MEDS: SODIUM CHLORIDE 0.9% 1,000 ML IV SCH ×2 (06:25→22:01)
[2018-10-15] MEDS: LEVOTHYROXINE 50 MCG TAB PO SCH (06:25)
[2018-10-15] MEDS: INSULIN ASPART (NovoLOG) 100 UNIT/ML VIAL SQ SCH ×4 (06:30→21:44)
[2018-10-15 06:37] LABS: INR 1.4 (<1.2)
[2018-10-15 06:44] LABS: Calcium 8.6 mg/dL (8.4-10.2); Potassium 3.7 mmol/L (3.5-5.1)
[2018-10-15] MEDS: MULTIVITAMINS, THERA 1 EACH TAB PO SCH (10:19)
[2018-10-15] MEDS: METOPROLOL TARTRATE 50 MG TAB PO SCH ×2 (10:19→21:52)
[2018-10-15] MEDS: SENNOSIDES-DOCUSATE SODIUM 1 EACH TAB PO SCH (10:19)
[2018-10-15] MEDS: SODIUM CHLORIDE 5% OPHTH DROPS 15 ML BTL BOTH EYES SCH ×2 (10:28→22:01)
--- NOTE | 2018-10-15 11:31 | US ---
EXAMINATION TYPE: US renal artery duplex complet DATE OF EXAM: 10/15/2018 COMPARISON: CT 10/13/2018 CLINICAL HISTORY: 83-year-old female HTN, PEDRITO; ARF, anemia,UTI; right atrophic kidney per CT Technique: Multiple sonographic images of the kidneys were obtained. Color Doppler and spectral wavef orm analysis of the renal arteries. FINDINGS: US exam is technically limited for images due to large body habitus and limited patient ability to pe rform breath-hold maneuver for PW Doppler and Color flow assessment. MEASUREMENTS: RENAL SIZE: Rt Kidney: 8.2 x 4.2 x 4.2cm Lt Kidney: 13.6 x 7.0 x 7.0cm RESISTANCE INDEX Right: NA due to above limitations Left: 0.98 RA/AO RATIO (< 3.5 ) Right: NA due to above limitations Left: 1.6 RA VELOCITY ( < 180 cm/s) Right:NA Left: 74.5 distally Right kidney: atrophic with lobular borders as per CT. Limited color flow seen in right kidney. Left kidney: couple of renal cysts seen in lower pole with larger cyst =3.4 x 2.6x 2.7cm. Abnormal RI in acuate arteries left kidney as measured greater than 0.8. Aorta size is wnl. Scattered intimal wall thickening is noted. Overlying bowel gas results in limited organ visualization. IMPRESSION: 1. Technical and patient limitations. This results in inadequate Doppler assessment of the right kidn ey and right renal artery. The kidney, however, is atrophic/atretic. 2. Elevated resistive indices in the left kidney which can be seen in entities such as ureteral obstr uction, renal vein thrombosis, and medical renal disease. With obstruction or underlying medical keyona l disease. The lack of hydronephrosis argues against obstruction. Medical renal disease is favored. R enal vein Doppler can be attempted to exclude renal vein thrombosis.
[2018-10-15 11:33] LABS: Glucose,Whole Blood 146 mg/dL (75-99)
--- NOTE | 2018-10-15 12:21 | P.PN ---
<Tracy Ellison Jeovanny - Last Filed: 10/15/18 12:17> Subjective Progress Note Date: 10/15/18 CHIEF COMPLAINT: possible pelvis hemorrhage HISTORY OF PRESENT ILLNESS: Patient examined at the bedside. No family present. Patient denies abdominal pain. Denies nausea and vomiting. Tolerating heart healthy diet. No repeat cbc today. Vital signs are stable. PHYSICAL EXAM: VITAL SIGNS: Currently stable. GENERAL: Well-developed in no acute distress. HEENT: No sclera icterus. Extraocular movements grossly intact. Moist buccal mucosa. Head is atraumatic, normocephalic. Hears conversational speech. No nasal drainage. NECK: Supple without lymphadenopathy. CHEST: Non-labored respirations and equal bilateral excursions. CARDIOVASCULAR: Regular rate with regular rhythm. Palpable 2+ radial pulses. ABDOMEN: Soft. Nondistended. Nontender. Positive bowel sounds. MUSCULOSKELETAL: No clubbing, cyanosis or edema. NEUROLOGIC: No focal or lateralizing signs. Cranial nerves II through XII grossly intact. PSYCH: Appropriate affect. Alert and oriented to person. SKIN: Well perfused. Good skin turgor. ASSESSMENT: 1. Hyperdense region in pelvis which may represent a hemorrhagic component per CT, patient without drop in hemoglobin and hemodynamically stable 2. Elevated CA-125, history of hysterectomy including oophorectomy 3. Leukocytosis PLAN: No surgical intervention at this time. Patient is stable from a surgical perspective. She may resume Coumadin from our standpoint. Will defer to medicine. Repeat CBC in AM. We will sign off. Please re-consult if needed. Nurse practitioner note has been reviewed by physician. Signing provider agrees with the documented findings, assessment, and plan of care. Objective - Vital Signs Vital signs: Vital Signs Temp 98.2 F 10/15/18 04:00 Pulse 94 10/15/18 08:15 Resp 20 10/15/18 08:15 BP 146/75 10/15/18 08:15 Pulse Ox 98 10/15/18 08:15 Intake & Output 10/14/18 10/15/18 10/15/18 18:59 06:59 18:59 Intake Total 200 100 Output Total 1250 500 Balance -1050 -500 100 Weight 82.5 kg Intake: Oral 200 100 Output: Urine 1250 500 Post Void Residual 0 Other: Voiding Method Indwelling Catheter Indwelling Catheter # Bowel Movements 0 - Labs CBC & Chem 7: 10/14/18 06:44 10/15/18 06:13 Labs: Abnormal Lab Results - Last 24 Hours (Table) 10/14/18 10/14/18 10/14/18 Range/Units 06:44 16:36 21:09 PT (9.0-12.0) sec INR (<1.2) Sodium (137-145) mmol/L Carbon Dioxide (22-30) mmol/L BUN (7-17) mg/dL Creatinine (0.52-1.04) mg/dL Glucose (74-99) mg/dL POC Glucose (mg/dL) 191 H 162 H (75-99) mg/dL Iron 21 L (50-170) ug/dL Iron Saturation 8.20 L (12.00-45.00) 10/15/18 10/15/18 10/15/18 Range/Units 05:59 06:13 06:13 PT 14.0 H (9.0-12.0) sec INR 1.4 H (<1.2) Sodium 136 L (137-145) mmol/L Carbon Dioxide 20 L (22-30) mmol/L BUN 83 H (7-17) mg/dL Creatinine 2.47 H (0.52-1.04) mg/dL Glucose 120 H (74-99) mg/dL POC Glucose (mg/dL) 134 H (75-99) mg/dL Iron (50-170) ug/dL Iron Saturation (12.00-45.00) 10/15/18 Range/Units 11:32 PT (9.0-12.0) sec INR (<1.2) Sodium (137-145) mmol/L Carbon Dioxide (22-30) mmol/L BUN (7-17) mg/dL Creatinine (0.52-1.04) mg/dL Glucose (74-99) mg/dL POC Glucose (mg/dL) 146 H (75-99) mg/dL Iron (50-170) ug/dL Iron Saturation (12.00-45.00) Microbiology - Last 24 Hours (Table) 10/13/18 14:45 Urine Culture - Preliminary Urine,Catheterized Gram Neg Bacilli 10/13/18 13:00 Blood Culture - Preliminary Blood No Growth after 24 hours <Parrish Madrid - Last Filed: 10/15/18 18:34> Subjective Agree with above. Patient doing well clinically. She is afebrile. Denies a bdominal pain. We will sign off. Call if needed. Objective - Vital Signs Vital signs: Vital Signs Temp 99.1 F 10/15/18 16:00 Pulse 100 10/15/18 16:00 Resp 20 10/15/18 16:00 BP 131/65 10/15/18 16:00 Pulse Ox 100 10/15/18 16:00 Intake & Output 10/14/18 10/15/18 10/15/18 18:59 06:59 18:59 Intake Total 200 220 Output Total 7830 871 1835 Balance -1050 -500 -830 Weight 82.5 kg Intake: Oral 200 220 Output: Urine 2725 489 4837 Post Void Residual 0 Other: Voiding Method Indwelling Catheter Indwelling Catheter # Bowel Movements 0 0 - Labs CBC & Chem 7: 10/14/18 06:44 10/15/18 06:13 Labs: Abnormal Lab Results - Last 24 Hours (Table) 10/14/18 10/14/18 10/15/18 Range/Units 06:44 21:09 05:59 PT (9.0-12.0) sec INR (<1.2) Sodium (137-145) mmol/L Carbon Dioxide (22-30) mmol/L BUN (7-17) mg/dL Creatinine (0.52-1.04) mg/dL Glucose (74-99) mg/dL POC Glucose (mg/dL) 162 H 134 H (75-99) mg/dL Iron 21 L (50-170) ug/dL Iron Saturation 8.20 L (12.00-45.00) 10/15/18 10/15/18 10/15/18 Range/Units 06:13 06:13 11:32 PT 14.0 H (9.0-12.0) sec INR 1.4 H (<1.2) Sodium 136 L (137-145) mmol/L Carbon Dioxide 20 L (22-30) mmol/L BUN 83 H (7-17) mg/dL Creatinine 2.47 H (0.52-1.04) mg/dL Glucose 120 H (74-99) mg/dL POC Glucose (mg/dL) 146 H (75-99) mg/dL Iron (50-170) ug/dL Iron Saturation (12.00-45.00) 10/15/18 Range/Units 16:42 PT (9.0-12.0) sec INR (<1.2) Sodium (137-145) mmol/L Carbon Dioxide (22-30) mmol/L BUN (7-17) mg/dL Creatinine (0.52-1.04) mg/dL Glucose (74-99) mg/dL POC Glucose (mg/dL) 201 H (75-99) mg/dL Iron (50-170) ug/dL Iron Saturation (12.00-45.00) Microbiology - Last 24 Hours (Table) 10/13/18 13:00 Blood Culture - Preliminary Blood No Growth after 48 hours 10/13/18 14:45 Urine Culture - Preliminary Urine,Catheterized Gram Neg Bacilli
--- NOTE | 2018-10-15 14:32 | P.PN ---
Subjective Progress Note Date: 10/15/18 This is an 83-year-old pleasant female followed by Dr. Mendoza in [facility], known history off diabetes mellitus type 2 requiring insulin, peripheral neuropathy hypertension, hypothyroidism atrial fibrillation, admitted to [facility] via EMS transfer secondary to increasing dehy dration. Patient has had diminished appetite, over the past 4-5 days, no diarrhea, patient is on diuretics, for chronic dependent edema, heat she has had increasing fatigue, weakness, patient cannot specify dysuria, however his recurrent low back pain, and has urinary incontinence occasional chills and myalgia. has nausea, bruises, chronic edema right leg more than left, chronic pulido x 2 years In the emergency room creatinine was 3.18, she was subsequently admitted for acute kidney failure, and azotemia electrolyte abnormalities, as well as with acute urinary tract infection urinalysis leukocyte positive nitrate positive with WBC clumping computed tomography scan emergency room, right kidney is markedly atrophic, hypodense lesion extending off the left kidney stable from previous, perinephric edema noted, bladder was taken, 1 cm lesion upper pole left kidney no hydronephrosis noted, lung bases shows cardiomegaly with right lower lobe left lower lobe consolidation pleural effusion there is small amount of free fluid in the pelvis, hypodense could represent hemorrhagic component, they have recommended pelvic ultrasound to exclude adrenal adnexal mass also localized focal prominence of pancreatic body however this is difficult to address to have recommended MRI 10/14: Patient has been afebrile, heart rate in the 80s, blood pressure 118/64, pulse ox 96% on room air. Repeat lab work shows a white count of 20.9, hemoglobin 8.9, platelet count 277, INR 1.5. Sodium 134, potassium 3.8, chloride 101, CO2 20, BUN 97 creatinine 2.7. Liver function tests are improved with AST of 44, ALT 50, alkaline phosphatase 163. CK 228. Pulido catheter was changed in the ER. Urine culture is in progress. Patient has been seen by Dr. Madrid with no plan for any surgical intervention. CEA 125 came back at 147.4. Coumadin is currently on hold. Renal artery ultrasound ordered to rule out renal artery stenosis which will be done tomorrow. 10/15: Patient has been afebrile, heart rate in the 80s to 109, blood pressure 132/74, pulse ox 99% on room air. INR is 1.4, BUN 83 and creatinine 2.37, CO2 20. Blood sugars running between 120-162. Renal artery Doppler was inadequate on the right kidney and right renal artery due to atrophy. Elevated indices in the left kidney most likely secondary to medical renal disease. Patient is followed by Dr. Jerome with recommendations to decrease IV fluids to 50 mL per hour and hold Lasix for now. Urine culture showing gram-negative bacilli and blood culture no growth after 24 hours. Consult has been requested with HOT BRAIDER regarding concern for hemorrhage in the pelvis and elevated CA-125. Patient has had previous hysterectomy and bilateral oophorectomy. Family questioned continuous pillowcase cutter about hospice care yesterday. We will ask for hospice informational meeting but no plan to activate hospice at this point. Review Of Systems: Constitutional: No fever, no chills, no night sweats. No weight change. Reports weakness, reports fatigue. Reports daytime sleepiness. EENT: No headache. No blurred vision or double vision, no loss of vision. No loss of Hearing, no ringing in the ears, no dizziness. No nasal drainage or congestion. No epistaxis. No sore throat. Lungs: No shortness of breath, cough, no sputum production. No wheezing. Cardiovascular: No chest pain, no lower extremity edema. No palpitations. No paroxysmal nocturnal dyspnea. No orthopnea. Reports lightheadedness or dizziness. No syncopal episodes. Abdominal: Reports abdominal pain. Reports bloating, reports early satiety, No nausea, vomiting. No diarrhea. No constipation. No bloody or tarry stools.. No loss of appetite. Genitourinary: No dysuria, increased frequency, urgency. No urinary retention. Reports chronic Pulido catheter Musculoskeletal: No myalgias. No muscle weakness, reports gait dysfunction, no frequent falls. No back pain. No neck pain. Integumentary: No rash or pruritus. No unusual bruising. No change in hair or nails. Neurologic: Reports weakness, reports loss of vision. Psychiatric: No depression. No anxiety. No mood swings. Endocrine: No abnormal blood sugars. No weight change. No excessive sweating or thirst. No cold intolerance. No weight change. Objective - Vital Signs Vital signs: Vital Signs Temp 98.2 F 10/15/18 04:00 Pulse 94 10/15/18 08:15 Resp 20 10/15/18 08:15 BP 146/75 10/15/18 08:15 Pulse Ox 98 10/15/18 08:15 Intake & Output 10/14/18 10/15/18 10/15/18 18:59 06:59 18:59 Intake Total 200 100 Output Total 1250 500 Balance -1050 -500 100 Weight 82.5 kg Intake: Oral 200 100 Output: Urine 1250 500 Post Void Residual 0 Other: Voiding Method Indwelling Catheter Indwelling Catheter # Bowel Movements 0 - Exam General appearance: cooperative, no acute distress, patient resting in bed - EENT Eyes: anicteric sclerae, EOMI, PERRLA, photophobia ENT: NA/AT, normal oropharynx - Neck Neck: normal ROM - Respiratory Respiratory: bilateral: CTA, negative: diminished, dullness, rales - Cardiovascular Rhythm: regular Heart sounds: normal: S1, S2 Abnormal Heart Sounds: no systolic murmur, no diastolic murmur, no rub, no S3 Gallop, no S4 Gallop, no click, no other - Gastrointestinal General gastrointestinal: normal bowel sounds, soft - Integumentary Integumentary: decreased turgor, normal - Neurologic Neurologic: CNII-XII intact - Musculoskeletal Musculoskeletal: gait normal, strength equal bilaterally - Psychiatric Psychiatric: appropriate affect, intact judgment & insight - Labs CBC & Chem 7: 10/14/18 06:44 10/15/18 06:13 Labs: Abnormal Lab Results - Last 24 Hours (Table) 10/14/18 10/14/18 10/14/18 Range/Units 06:44 16:36 21:09 PT (9.0-12.0) sec INR (<1.2) Sodium (137-145) mmol/L Carbon Dioxide (22-30) mmol/L BUN (7-17) mg/dL Creatinine (0.52-1.04) mg/dL Glucose (74-99) mg/dL POC Glucose (mg/dL) 191 H 162 H (75-99) mg/dL Iron 21 L (50-170) ug/dL Iron Saturation 8.20 L (12.00-45.00) 10/15/18 10/15/18 10/15/18 Range/Units 05:59 06:13 06:13 PT 14.0 H (9.0-12.0) sec INR 1.4 H (<1.2) Sodium 136 L (137-145) mmol/L Carbon Dioxide 20 L (22-30) mmol/L BUN 83 H (7-17) mg/dL Creatinine 2.47 H (0.52-1.04) mg/dL Glucose 120 H (74-99) mg/dL POC Glucose (mg/dL) 134 H (75-99) mg/dL Iron (50-170) ug/dL Iron Saturation (12.00-45.00) 10/15/18 Range/Units 11:32 PT (9.0-12.0) sec INR (<1.2) Sodium (137-145) mmol/L Carbon Dioxide (22-30) mmol/L BUN (7-17) mg/dL Creatinine (0.52-1.04) mg/dL Glucose (74-99) mg/dL POC Glucose (mg/dL) 146 H (75-99) mg/dL Iron (50-170) ug/dL Iron Saturation (12.00-45.00) Microbiology - Last 24 Hours (Table) 10/13/18 14:45 Urine Culture - Preliminary Urine,Catheterized Gram Neg Bacilli 10/13/18 13:00 Blood Culture - Preliminary Blood No Growth after 24 hours Assessment and Plan Plan: 1. Sepsis secondary to acute urinary tract infection due to chronic indwelling pulido. Continue IV Rocephin. Urine culture is in progress. 2 Acute kidney failure with azotemia from ATN secondary to dehydration, underlying history CK D stage III last creatinine 1.11 May 2018, and 3 creatinine 3.17, CPK will be done to evaluate for rhabdomyolysis, and postvoid residual as well as renal ultrasound, consult with Dr. Jerome nephrology, avoid nephrotoxins and hypotension. Hold of Lasix secondary to dehydration, losartan is held, continue on amlodipine and hydralazine with parameters. 3 paroxysmal atrial fibrillation on Coumadin. INR 3.1 hold Coumadin today as there are some concerns regarding hemorrhagic component in the pelvis. Repeat INR tomorrow vitamin K2.5 5 milligrams 1 dose given in the emergency room 4 diabetes2 with diabetic neuropathy continue Lantus 30 units daily at bedtime with hold 10 units lispro with sliding scale at this time until diet by mouth has fully recovered, correctional scale insulin to be given, but hold Januvia secondary to elevated creatinine 5. Suspected hemorrhagic bleed in the pelvis from CT imaging, Coumadin on hold, consult with Dr. Balbir corley. No plan for any intervention. Plan to keep her Coumadin on hold. Consult with HOT BRAIDER 5 hypertension on metoprolol hold Lasix hold hydrochlorothiazide and amiloride. Hold lisinopril for hyper hyperkalemia 6 Hyperlipidemia hold statins until CPK would stabilize 7 Mild protein calorie malnutrition 8 Mild transaminitis with slight elevation of alkaline phosphatase, check for lipase CMP to be monitored DVT prophylaxis INR therapeutic hold Coumadin INR tomorrow GI prophylaxis Pepcid 20 mg by mouth daily CODE STATUS full code Discharge plan: Return to [facility]. Hospice informational meeting requested the family would like to pursue. Impression and plan of care have been directed as dictated by the signing physician. Xi Olguin nurse practitioner acting as scribe for signing physician.
--- NOTE | 2018-10-15 16:27 | PN ---
PROGRESS NOTE The patient is seen for followup for acute kidney injury. She is currently maintained on gentle IV hydration. Renal function has improved with creatinine going down from 3.1 to 2.47 today. The patient has a chronic indwelling Weeks catheter. She has had good urine output of about 1.7 L over 24 hours. PHYSICAL EXAMINATION: Blood pressure was 132/74, heart rate 109 per minute. Patient is afebrile. Examination of the heart S1, S2. Examination of the lungs bilateral breath sounds are heard. Abdomen is soft, nontender, obese. Examination of the lower extremities shows edema trace bilaterally. Chronic skin changes are noted. BUS MATRON exam is grossly intact. LAB: Shows sodium 136, potassium 3.7, BUN 83, serum creatinine 2.47. ASSESSMENT: 1. Acute kidney injury, acute tubular necrosis, currently nonoliguric. There was a component of prerenal acute renal failure. The patient does have solitary kidney. She has right renal atrophy on the CAT scan. She is not on any nephrotoxic agents at this point. I will continue with the gentle IV hydration at 50 mL an hour. 2. 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 Urinalysis did show evidence of proteinuria. 3. Urinary tract infection maintained on antibiotics. 4. History of atrial fibrillation. 5. Dyslipidemia. PLAN: Continue empiric antibiotics. Continue IV fluids at 50 mL an hour. Repeat labs in a.m. Encourage increased oral intake. MMODL / IJN: [id number] /
[2018-10-15 16:43] LABS: Glucose,Whole Blood 201 mg/dL (75-99)
[2018-10-15 20:44] LABS: Glucose,Whole Blood 231 mg/dL (75-99)
[2018-10-15] MEDS: INSULIN DETEMIR (LEVEMIR) 100 UNIT/ML SYR SQ SCH (21:52)
[2018-10-15] MEDS: ASPIRIN 81 MG PO SCH (21:52)
[2018-10-16 05:55] LABS: Glucose,Whole Blood 65 mg/dL (75-99)
[2018-10-16 06:16] LABS: Glucose,Whole Blood 70 mg/dL (75-99)
[2018-10-16] MEDS: INSULIN ASPART (NovoLOG) 100 UNIT/ML VIAL SQ SCH ×2 (06:19→12:17)
[2018-10-16] MEDS: LEVOTHYROXINE 50 MCG TAB PO SCH (06:27)
[2018-10-16] MEDS: ACETAMINOPHEN TAB 325 MG TAB PO PRN (06:29)
[2018-10-16 07:24] LABS: INR 1.7 (<1.2); Prothrombin Time 17.1 sec (9.0-12.0)
[2018-10-16 07:30] LABS: Anisocytosis Slight; HCT 28.8 % (34.0-46.0); HGB 8.9 gm/dL (11.4-16.0); Hypochromasia Moderate; MCH 26.6 pg (25.0-35.0); MCV 85.9 fL (80.0-100.0); Mean Platelet Volume 6.8; Platelet Count 317 k/uL (150-450); RBC 3.35 m/uL (3.80-5.40); RDW 16.8 % (11.5-15.5); WBC 16.9 k/uL (3.8-10.6)
[2018-10-16 08:27] LABS: Band Neutrophils % 3 %; Eosinophils # (M) 0.34 k/uL (0-0.7); Lymphocytes # (M) 1.86 k/uL (1.0-4.8); Metamyelocytes # (M) 0.17 k/uL (0); Metamyelocytes % 1 %; Monocytes # (M) 1.86 k/uL (0-1.0); Myelocytes # (M) 0.34 k/uL (0); Myelocytes % 2 %; Neutrophils % (M) 71 %; Nucleated Red Blood Cells 0 /100 WBC (0-0); Total Cells Counted 200
--- NOTE | 2018-10-16 09:12 | P.CON ---
Consult Note - . Consult date: 10/16/18 Assessment/Plan:: This is an 83-year-old white female 3 para 3003 status post hysterectomy many years ago for cervical cancer. Patient is a resident at [facility], and was admitted 3 days ago with acute renal failure, nausea with vomiting, and l ower abdominal pain. Patient states her last bowel movement was 9 days ago. The abdominal pain has improved since her admission here. She no longer is experiencing nausea or emesis. Computed tomography scan of the abdomen and pelvis was performed along with pelvic ultrasound. Computed tomography scan is essentially negative for the pelvis, however does reveal pleural effusions bilaterally. Ultrasound however suggests an 11.9 x 7.5 x 5.9 cm left adnexal area of shadowing. I have discussed this with the radiologist Dr. Hensley. It is our feeling that this could likely be consistent with bowel shadowing. I have ordered a repeat ultrasound this morning, with attention to turning of the transducer to see if the area elongates. Past medical history is extensive, and includes chronic atrial fibrillation, chronic Weeks catheter, type 2 diabetes, hyperlipidemia, hypothyroidism, hypertension. Patient also has a history of cervical cancer status post complete hysterectomy and likely pelvic radition. Past surgical history is significant for tonsillectomy as a child, hysterectomy, right leg bypass, and cataract removal. Past obstetric history is significant for normal spontaneous vaginal deliveries 3, 8 pound infants, all healthy. Home medications including hydralazine, amino acid supplement, Senokot, Coumadin, Humalog insulin, losartin, Synthroid, spironolactone, metoprolol, protocol, Lantus, Lasix, Norvasc, baby aspirin, multivitamin daily, and potassium supplement. ALLERGIES none known. Social history patient is , she has never been a smoker, she denies alcohol or drug use. As stated she is a resident at [facility]. Her power of estate planning attorney is her grandson Salomon. Family history is noncontributory. On exam this is a pleasant elderly female who is hard of hearing and a poor historian. She is 5 foot 4 inches, 94.5 kg, current vital signs include temperature 97.8, blood pressure 127/66, pulse 86, respirations 21, 96% O2 saturation on room air. Patient has poor dentition. No obvious thyromegaly. Breasts are atrophic, pendulous, with no obvious masses or lesions. No nipple deviation or skin changes. Abdomen is softly distended, somewhat hypertympanic, active bowel sounds, no obvious abdominal masses. No CVA tenderness. Cardiac exam reveals regular rate and rhythm with no murmur click or rub. Chest revealed diminished air exchange bilaterally, no obvious rales or rhonchi. Extremities reveal decreased peripheral pulses, +1 edema bilaterally. On pelvic exam the external genitalia is age appropriate and atrophic. The vaginal vault is very short, no obvious masses at the vaginal apex. No vaginal bleeding. There are no masses noted in the pelvis to do pelvic examination, however patient is uncomfortable to the exam and it is somewhat limited. Admitting BUN 107, decreased now to 84. Admitting creatinine 3.18, decreased to 2.47 currently. Urine culture positive for gram-negative bacilli, patient currently on IV Rocephin. CA-125 elevated at 147. Impression: Acute renal failure, urinary tract infection, anemia. Multiple medical problems noted. Computed tomography scan of the pelvis negative, ultrasound suggesting possible area of shadowing in the left adnexal region measuring 11.9 x 7.5 x 5.9 cm. Again after discussion with radiologist, we suspect that this could be consistent with bowel shadowing. Physical exa mination of the pelvis this morning is negative. Plan: Awaiting repeat ultrasound with turning of the transducer to see if this area elongate and might be consistent with bowel shadowing. CA-125 elevation is of course a nonspecific test, which can be elevated with many benign conditions including pleural effusion as demonstrated on this patient's computed tomography scan. I am not necessarily concerned that this is consistent with a pelvic malignancy. Thank you for the consultation, will discuss with attending physician after completion of follow-up ultrasound.
--- NOTE | 2018-10-16 09:40 | US ---
EXAMINATION TYPE: US pelvic complete DATE OF EXAM: 10/16/2018 COMPARISON: Pelvic ultrasound dated 10/13/[address] dated 10/13/2018 CLINICAL HISTORY: repeat abd pelvis us bowel vs other etiology. hysterectomy but patient unsure if ov bebo remain, reassess mass versus bowel in lt adnexa TECHNIQUE: TA. Transabdominal sonographic images of the pelvis were acquired. Date of LMP: hysterectomy EXAM MEASUREMENTS: Uterus: Surgically absent Endometrial Stripe: Surgically absent Right Ovary: atrophy versus surgically absent Left Ovary: atrophy versus surgically absent 1. Uterus: Surgically absent 2. Endometrium: Surgically absent 3. Right Ovary: not seen due to atrophy versus surgical removal 4. Left Ovary: not seen due to atrophy versus surgical removal 5. Bilateral Adnexa: Left adnexal area seen previously is slightly recreated at area of symphysis deloris ne, no focal mass lesion noted by scan today 6. Posterior cul-de-sac: wnl Some free fluid was noted underneath peristalsing bowel midline/right pelvis patient had pulido clamped for over an hour and no discernable bladder seen, as with previous study. IMPRESSION: 1. There is diffuse shadowing from the pubic bone and possibly additionally from air within the urina ry bladder as this patient has a Pulido catheter creating shadowing that was questioned to be a mass o n the prior ultrasound. No pelvic mass is seen. Finding was communicated with Dr. Gerber. 2. Small amount of free fluid within the pelvis as seen on the prior CT. This appears dependent and n onloculated.
[2018-10-16] MEDS: SODIUM CHLORIDE 5% OPHTH DROPS 15 ML BTL BOTH EYES SCH (09:54)
[2018-10-16] MEDS: METOPROLOL TARTRATE 50 MG TAB PO SCH (09:54)
[2018-10-16] MEDS: SENNOSIDES-DOCUSATE SODIUM 1 EACH TAB PO SCH (09:54)
[2018-10-16] MEDS: MULTIVITAMINS, THERA 1 EACH TAB PO SCH (09:54)
[2018-10-16 10:59] LABS: Calcium 8.7 mg/dL (8.4-10.2)
[2018-10-16 11:15] LABS: Potassium 3.9 mmol/L (3.5-5.1)
[2018-10-16 11:28] LABS: Glucose,Whole Blood 64 mg/dL (75-99)
[2018-10-16 11:42] LABS: Glucose,Whole Blood 73 mg/dL (75-99)
--- NOTE | 2018-10-16 11:43 | PN ---
PROGRESS NOTE Patient is seen for followup for acute kidney injury. Patient denies any significant complaints. Her renal function had been improving. Serum creatinine was down to 2.47 yesterday. I do not have any labs today. PHYSICAL EXAMINATION: Blood pressure is 127/66, heart rate 86 per minute. Patient is afebrile. Examination of the heart, S1, S2. Examination of the lungs bilateral breath sounds are heard. Abdomen is soft, obese, nontender. Examination of the lower extremities shows trace edema bilaterally. PASTEURIZER HELPER exam is grossly intact. Patient moving all 4 extremities. LABS: Not available from today, they are pending. ASSESSMENT: 1. Acute kidney injury, nonoliguric, currently improving. The patient does have a solitary kidney. She is not on any nephrotoxic agents or medications. The patient is maintained on IV fluids at 50 mL an hour, which we can discontinue and her oral intake has improved. 2. Chronic kidney disease stage III with previous creatinine 1.01 July 2018 secondary to diabetic nephropathy and nephrosclerosis. 3. Urinary tract infection, maintained on antibiotics. 4. History of atrial fibrillation. 5. Dyslipidemia. PLAN: Discontinue IV fluids. Check labs today and repeat labs in a.m. Encourage increased oral intake. MMODL / IJN: [id number] /
[2018-10-16 12:40] VITALS: BP 136/73; PULSE 83; RESP 20; TEMP 97.1
[2018-10-16] MEDS ORDERED: POLYETHYLENE GLYCOL 3350 17 GM POWD.PACK PO PRN (12:43)
[2018-10-16] MEDS ORDERED: SENNOSIDES-DOCUSATE SODIUM 1 EACH TAB PO SCH (12:45)
--- NOTE | 2018-10-16 13:50 | P.DS ---
Providers Date of admission: 10/13/18 16:08 Expected date of discharge: 10/16/18 Attending physician: Eliana Azevedo Consults: 10/13/18 16:09 Consult Physician Routine Consulting Provider: Renae Jerome Consult Reason/Comments: ARF Do you want consulting provider notified?: Yes 10/13/18 17:02 Consult Physician Routine Consulting Provider: Parrish Madrid Consult Reason/Comments: hemmorhage pelvis poss Do you want consulting provider notified?: Yes 10/14/18 17:03 Consult Physician Routine Consulting Provider: Gita Gerber Consult Reason/Comments: CT showed free FL in the abm Do you want consulting provider notified?: Yes Primary care physician: Jeanne Mendoza [facility] Course: This is an 83-year-old pleasant female followed by Dr. Mendoza in [facility], known history off diabetes mellitus type 2 requiring insulin, peripheral neuropathy hypertension, hypothyroidism atrial fibrillation, admitted to [facility] via EMS transfer secondary to increasing dehydration. Patient has had diminished appetite, over the past 4-5 days, no diarrhea, patient is on diuretics, for chronic dependent edema, heat she has had increasing fatigue, weakness, patient cannot specify dysuria, however his recurrent low back pain, and has urinary incontinence occasional chills and myalgia. has nausea, bruises, chronic edema right leg more than left, chronic pulido x 2 years In the emergency room creatinine was 3.18, she was subsequently admitted for acute kidney failure, and azotemia electrolyte abnormalities, as well as with acute urinary tract infection urinalysis leukocyte positive nitrate positive with WBC clumping computed tomography scan emergency room, right kidney is markedly atrophic, hypodense lesion extending off the left kidney stable from p revious, perinephric edema noted, bladder was taken, 1 cm lesion upper pole left kidney no hydronephrosis noted, lung bases shows cardiomegaly with right lower lobe left lower lobe consolidation pleural effusion there is small amount of free fluid in the pelvis, hypodense could represent hemorrhagic component, they have recommended pelvic ultrasound to exclude adrenal adnexal mass also localized focal prominence of pancreatic body however this is difficult to address to have recommended MRI 10/14: Patient has been afebrile, heart rate in the 80s, blood pressure 118/64, pulse ox 96% on room air. Repeat lab work shows a white count of 20.9, hemoglobin 8.9, platelet count 277, INR 1.5. Sodium 134, potassium 3.8, chloride 101, CO2 20, BUN 97 creatinine 2.7. Liver function tests are improved with AST of 44, ALT 50, alkaline phosphatase 163. CK 228. Pulido catheter was changed in the ER. Urine culture is in progress. Patient has been seen by Dr. Madrid with no plan for any surgical intervention. CEA 125 came back at 147.4. Coumadin is currently on hold. Renal artery ultrasound ordered to rule out renal artery stenosis which will be done tomorrow. 10/15: Patient has been afebrile, heart rate in the 80s to 109, blood pressure 132/74, pulse ox 99% on room air. INR is 1.4, BUN 83 and creatinine 2.37, CO2 20. Blood sugars running between 120-162. Renal artery Doppler was inadequate on the right kidney and right renal artery due to atrophy. Elevated indices in the left kidney most likely secondary to medical renal disease. Patient is followed by Dr. Jerome with recommendations to decrease IV fluids to 50 mL per hour and hold Lasix for now. Urine culture showing gram-negative bacilli and blood culture no growth after 24 hours. Consult has been requested with [facility] regarding concern for hemorrhage in the pelvis and elevated CA-125. Patient has had previous hysterectomy and bilateral oophorectomy. Family questioned child support case officer about hospice care yesterday. We will ask for hospice informational meeting but no plan to activate hospice at this point. 10/16: Patient has been afebrile, heart rate running in the 80s, blood pressure 127/66, pulse ox 96% on room air. White count is 16.9, hemoglobin 8.9, platelet count 317. INR is 1.7. His blood sugars have been running in the low 200s yesterday afternoon and evening and this morning at 65. Urine culture has been finalized with Klebsiella and Providencia susceptible to Rocephin. Consult placed with Dr. Boyd and he has recommended Rocephin to continue for 1 week. Midline will be ordered. Blood culture showing no growth after 48 hours. A patient has been seen by Dr. Gerber and repeat pelvic ultrasound was ordered which revealed diffuse shadowing from the pubic bone and possibly additionally from air within the urinary bladder as patient has a Pulido catheter grading shadowing that was questioned to be mass on prior ultrasound. No pelvic mass seen. Small amount of free fluid within the pelvis as seen on the prior CAT scan. No further workup is needed from Dr. Gerber. She also feels that elevated CA-125 is related to patient's pleural effusion. Discharge diagnoses: 1. Sepsis secondary to Klebsiella and Providencia acute urinary tract infection due to chronic indwelling pulido. 2. Acute kidney failure with ATN secondary to dehydration, underlying history CKD stage III 3. Paroxysmal atrial fibrillation 4. Diabetes2 with diabetic neuropathy 5. Suspected hemorrhagic bleed in the pelvis, ruled out 6. Hypertension 7. Hyperlipidemia 8. Mild protein calorie malnutrition 9. Mild transaminitis with slight elevation of alkaline phosphatas Discharge plan: Return to [facility]. Impression and plan of care have been directed as dictated by the signing physician. Xi Olguin nurse practitioner acting as scribe for signing physician. Patient Condition at Discharge: Good Plan - Discharge Summary New Discharge Prescriptions: New cefTRIAXone [Rocephin] 1 gm IVPB Q24HR #7 vial Insulin Detemir (Levemir) [Levemir] 20 unit SQ HS syr Continue Aspirin 81 mg PO HS Pravastatin Sodium [Pravachol] 80 mg PO HS Levothyroxine Sodium [Synthroid] 50 mcg PO QAM Sennosides-Docusate Sodium [Senokot-S] 1 tab PO DAILY Sodium Chloride 5% Ophth Soln [Hari 128] 1 drop BOTH EYES BID Multivitamins, Thera [Multivitamin (formulary)] 1 tab PO DAILY Potassium Chloride ER [K-Dur 10] 10 meq PO DAILY Furosemide [Lasix] 40 mg PO DAILY #0 Amino Acids/Protein Hydrolys [Pro-Stat Supplement] 30 ml PO DAILY amLODIPine BESYLATE 5 mg PO DAILY Spironolactone [Aldactone] 12.5 mg PO DAILY hydrALAZINE HCL [Apresoline] 100 mg PO TID Warfarin [Coumadin] 2.5 mg PO HS Metoprolol Tartrate [Lopressor] 100 mg PO BID Losartan Potassium 100 mg PO DAILY sitaGLIPtin PHOSPHATE [Januvia] 50 mg PO HS Cranberry 450mg 1 tab PO DAILY Changed INSULIN LISPRO (humaLOG) [humaLOG] 6 units SQ AC-TID #0 Discontinued Insulin Glargine [Lantus] 26 unit SQ HS Discharge Medication List Aspirin 81 mg PO HS 09/11/15 [History] Levothyroxine Sodium [Synthroid] 50 mcg PO QAM 09/11/15 [History] Pravastatin Sodium [Pravachol] 80 mg PO HS 09/11/15 [History] Sennosides-Docusate Sodium [Senokot-S] 1 tab PO DAILY 06/16/17 [History] Multivitamins, Thera [Multivitamin (formulary)] 1 tab PO DAILY 05/04/18 [History] Potassium Chloride ER [K-Dur 10] 10 meq PO DAILY 05/04/18 [History] Sodium Chloride 5% Ophth Soln [Hari 128] 1 drop BOTH EYES BID 05/04/18 [History] Furosemide [Lasix] 40 mg PO DAILY #0 05/08/18 [Rx] Amino Acids/Protein Hydrolys [Pro-Stat Supplement] 30 ml PO DAILY 06/10/18 [History] amLODIPine BESYLATE 5 mg PO DAILY 06/10/18 [History] Spironolactone [Aldactone] 12.5 mg PO DAILY 07/01/18 [History] Cranberry 450mg 1 tab PO DAILY 10/13/18 [History] Losartan Potassium 100 mg PO DAILY 10/13/18 [History] Metoprolol Tartrate [Lopressor] 100 mg PO BID 10/13/18 [History] Warfarin [Coumadin] 2.5 mg PO HS 10/13/18 [History] hydrALAZINE HCL [Apresoline] 100 mg PO TID 10/13/18 [History] sitaGLIPtin PHOSPHATE [Januvia] 50 mg PO HS 10/13/18 [History] INSULIN LISPRO (humaLOG) [humaLOG] 6 units SQ AC-TID #0 10/16/18 [Rx] Insulin Detemir (Levemir) [Levemir] 20 unit SQ HS syr 10/16/18 [Rx] cefTRIAXone [Rocephin] 1 gm IVPB Q24HR #7 vial 10/16/18 [Rx] Follow up Appointment(s)/Referral(s): Jeanne Mendoza MD [Primary Care Provider] - 1-2 days [facility], [NON-STAFF] - 1 Week Ambulatory/Diagnostic Orders: Basic Metabolic Panel [LAB.AMB] Location: None Selected Complete Blood Count w/diff [LAB.AMB] Location: None Selected Activity/Diet/Wound Care/Special Instructions: [place] Discharge Disposition: TRANSFER TO SNF/ECF
--- NOTE | 2018-10-16 14:25 | P.CONS ---
History of Present Illness - Reason for Consult Consult date: 10/16/18 Multidrug resistant urinary tract infection - History of Present Illness This is an 83-year-old female patient known to ID service as she was seen in the past for right foot ulcer as well as sepsis from urinary tract infection. Patient currently resides at [facility] and is wheelchair bound. She is known to have severe peripheral artery disease status post to right lower extremity bypasses by Dr. Aragon, history of critical limb ischemia and nonhealing ulcer of right. Patient has a chronic Weeks catheter in place. Patient was brought in to [facility] emergency center due to decreased appetite with decreased oral intake for the past 4-5 days. No diarrhea. Patient is also on diuretics and was having increasing fatigue, weakness, low back pain. She was found to have a creatinine of 3.18 and urinalysis was positive for leukoesterase, nitrates and a BBC clumping. CT of the abdomen and pelvis showed right kidney markedly atrophy, hypodense lesion extending off the left kidney stable, perinephric edema noted. No hydronephrosis. Small amount of free fluid in the pelvis and hypodensity could represent hemorrhagic component. Pelvic ultrasound was done. Patient was seen in consultation by Dr. Madrid and acute abdomen was ruled out. Patient was also seen by Dr. eGrber and repeat pelvic ultrasound was ordered which revealed diffuse shadowing from the pubic bone and possibly additionally from air within the urinary bladder as patient has a Weeks catheter grading shadowing that was questioned to be mass on prior ultrasound. No pelvic mass seen. Small amount of free fluid within the pelvis as seen on the prior CAT scan. No further workup is needed from Dr. Gerber. She also feels that elevated CA-125 is related to patient's pleural effusion. The patient is to be resumed back on Coumadin for her atrial fibrillation. Patient has been afebrile, heart rate running in the 80s, blood pressure 127/66, pulse ox 96% on room air. White count is 16.9, hemoglobin 8.9, platelet count 317. INR is 1.7. Urine culture has been finalized with Klebsiella and Providencia susceptible to Rocephin and thus this consult was requested. Review of Systems All systems: negative Constitutional: Reports anorexia, Reports fatigue, Reports poor appetite, Reports weakness, Denies chills, Denies fever Eyes: denies blurred vision, denies pain Ears, nose, mouth and throat: Denies dysphagia, Denies headache, Denies nasal discharge, Denies sore throat, Denies vertigo Cardiovascular: Denies chest pain, Denies edema, Denies lightheadedness, Denies shortness of breath, Denies syncope Respiratory: Denies cough, Denies cough with sputum, Denies dyspnea, Denies excessive sputum, Denies hemoptysis, Denies home oxygen, Denies wheezing Gastrointestinal: Reports bloating, Reports constipation, Reports loss of appetite, Denies abdominal pain, Denies diarrhea, Denies nausea, Denies vomiting Genitourinary: Denies dysuria, Denies hematuria Musculoskeletal: Denies myalgias Integumentary: Denies pruritus, Denies rash, Denies wounds Neurological: Reports gait dysfunction, Denies aphasia, Denies change in mentation, Denies change in speech, Denies numbness, Denies seizures, Denies we akness Psychiatric: Denies anxiety, Denies depression Endocrine: Denies fatigue, Denies weight change Past Medical History Past Medical History: Atrial Fibrillation, Diabetes Mellitus, Hyperlipidemia, Hypertension, Thyroid Disorder Additional Past Medical History / Comment(s): peripheral neuropathy, UTIs, urinary incontinence, OA bilateral hands and back, PVD, cervical cancer History of Any Multi-Drug Resistant Organisms: MRSA Year Discovered:: 09/11/2015 MDRO Source:: RIGHT FOOT Past Surgical History: Hysterectomy, Tonsillectomy Additional Past Surgical History / Comment(s): R leg bypass surgery, bilateral cataract removal Past Anesthesia/Blood Transfusion Reactions: No Reported Reaction Past Psychological History: No Psychological Hx Reported Additional Psychological History / Comment(s): Pt states she lives at [facility]. States uses a wheelchair to get around. Smoking Status: Never smoker Past Alcohol Use History: None Reported Additional Past Alcohol Use History / Comment(s): Patient resides at [facility] and is wheelchair bound. Past Drug Use History: None Reported - Past Family History Mother Family Medical History: CVA/TIA Additional Family Medical History / Comment(s): Mother in her 70's. Father Family Medical History: Hypertension Additional Family Medical History / Comment(s): Father in his 70's. Medications and Allergies Home Medications Medication Instructions Recorded Confirmed Type Aspirin 81 mg PO HS 09/11/15 10/13/18 History Levothyroxine Sodium [Synthroid] 50 mcg PO QAM 09/11/15 10/13/18 History Pravastatin Sodium [Pravachol] 80 mg PO HS 09/11/15 10/13/18 History Insulin Glargine [Lantus] 26 unit SQ HS 02/06/17 10/13/18 History INSULIN LISPRO (humaLOG) [humaLOG] 10 units SQ AC-TID 06/16/17 10/13/18 History Sennosides-Docusate Sodium 1 tab PO DAILY 06/16/17 10/13/18 History [Senokot-S] Multivitamins, Thera [Multivitamin 1 tab PO DAILY 05/04/18 10/13/18 History (formulary)] Potassium Chloride ER [K-Dur 10] 10 meq PO DAILY 05/04/18 10/13/18 History Sodium Chloride 5% Ophth Soln 1 drop BOTH EYES BID 05/04/18 10/13/18 History [Hari 128] Furosemide [Lasix] 40 mg PO DAILY #0 05/08/18 10/13/18 Rx Amino Acids/Protein Hydrolys 30 ml PO DAILY 06/10/18 10/13/18 History [Pro-Stat Supplement] amLODIPine BESYLATE 5 mg PO DAILY 06/10/18 10/13/18 History Spironolactone [Aldactone] 12.5 mg PO DAILY 07/01/18 10/13/18 History Cranberry 450mg 1 tab PO DAILY 10/13/18 10/13/18 History Losartan Potassium 100 mg PO DAILY 10/13/18 10/13/18 History Metoprolol Tartrate [Lopressor] 100 mg PO BID 10/13/18 10/13/18 History Warfarin [Coumadin] 2.5 mg PO HS 10/13/18 10/13/18 History hydrALAZINE HCL [Apresoline] 100 mg PO TID 10/13/18 10/13/18 History sitaGLIPtin PHOSPHATE [Januvia] 50 mg PO HS 10/13/18 10/13/18 History cefTRIAXone [Rocephin] 1 gm IVPB Q24HR #7 vial 10/16/18 Rx Allergies Allergy/AdvReac Type Severity Reaction Status Date / Time No Known Allergies Allergy Verified 10/13/18 13:16 Physical Exam Vitals: Vital Signs Temp Pulse Resp BP Pulse Ox 10/16/18 12:00 97.1 F L 83 20 136/73 100 10/16/18 08:00 97.8 F 86 21 127/66 96 10/16/18 04:00 98.4 F 89 17 155/74 96 10/16/18 00:00 97.4 F L 83 17 150/74 97 10/15/18 20:00 98.8 F 96 19 154/68 94 L 10/15/18 16:00 99.1 F 100 20 131/65 100 Intake and Output 10/15/18 10/16/18 10/16/18 22:59 06:59 14:59 Intake Total 620 400 Output Total 1500 Balance 620 -1100 Intake: Intake, IV Titration 500 400 Amount Sodium Chloride 0.9% 1, 400 400 000 ml @ 50 mls/hr IV . Q20H DENISE Rx#:[id number] cefTRIAXone 1 gm In 100 Sodium Chloride 0.9% 50 ml @ 100 mls/hr IVPB Q24HR DENISE Rx#:[id number] Oral 120 Output: Urine 1500 Other: Voiding Method Indwelling Catheter Indwelling Catheter Weight 94.5 kg Gen: This is an 83-year-old obese female. She is resting in bed appears to be comfortable and in no acute distress. HEENT: Head is atraumatic, normocephalic. Pupils equal, round. Sclerae is anicteric. NECK: Supple. No JVD. No lymphadenopathy. No thyromegaly. LUNGS: Clear to auscultation. No wheezes or rhonchi. No intercostal ret ractions. HEART: Irregular rate and rhythm. No murmur. ABDOMEN: Soft. Obese. Bowel sounds are present. No masses. No tenderness. EXTREMITIES: No pedal edema. No calf tenderness. NEUROLOGICAL: Patient is awake, alert and oriented to person and place. Generalized weakness. Results CBC & Chem 7: 10/16/18 06:56 10/16/18 06:56 Labs: Abnormal Lab Results - Last 24 Hours (Table) 10/15/18 10/15/18 10/16/18 Range/Units 16:42 20:43 05:53 WBC (3.8-10.6) k/uL RBC (3.80-5.40) m/uL Hgb (11.4-16.0) gm/dL Hct (34.0-46.0) % RDW (11.5-15.5) % Neutrophils # (Manual) (1.3-7.7) k/uL Monocytes # (Manual) (0-1.0) k/uL Metamyelocytes # (Man) (0) k/uL Myelocytes # (Manual) (0) k/uL PT (9.0-12.0) sec INR (<1.2) Carbon Dioxide (22-30) mmol/L BUN (7-17) mg/dL Creatinine (0.52-1.04) mg/dL POC Glucose (mg/dL) 201 H 231 H 65 L (75-99) mg/dL 10/16/18 10/16/18 10/16/18 Range/Units 06:15 06:56 06:56 WBC 16.9 H (3.8-10.6) k/uL RBC 3.35 L (3.80-5.40) m/uL Hgb 8.9 L (11.4-16.0) gm/dL Hct 28.8 L (34.0-46.0) % RDW 16.8 H (11.5-15.5) % Neutrophils # (Manual) 12.50 H (1.3-7.7) k/uL Monocytes # (Manual) 1.86 H (0-1.0) k/uL Metamyelocytes # (Man) 0.17 H (0) k/uL Myelocytes # (Manual) 0.34 H (0) k/uL PT 17.1 H (9.0-12.0) sec INR 1.7 H (<1.2) Carbon Dioxide (22-30) mmol/L BUN (7-17) mg/dL Creatinine (0.52-1.04) mg/dL POC Glucose (mg/dL) 70 L (75-99) mg/dL 10/16/18 10/16/18 10/16/18 Range/Units 06:56 11:16 11:40 WBC (3.8-10.6) k/uL RBC (3.80-5.40) m/uL Hgb (11.4-16.0) gm/dL Hct (34.0-46.0) % RDW (11.5-15.5) % Neutrophils # (Manual) (1.3-7.7) k/uL Monocytes # (Manual) (0-1.0) k/uL Metamyelocytes # (Man) (0) k/uL Myelocytes # (Manual) (0) k/uL PT (9.0-12.0) sec INR (<1.2) Carbon Dioxide 21 L (22-30) mmol/L BUN 69 H (7-17) mg/dL Creatinine 2.04 H (0.52-1.04) mg/dL POC Glucose (mg/dL) 64 L 73 L (75-99) mg/dL Microbiology - Last 24 Hours (Table) 10/13/18 14:45 Urine Culture - Final Urine,Catheterized Providencia stuartii Klebsiella oxytoca 10/13/18 13:00 Blood Culture - Preliminary Blood No Growth after 48 hours Assessment and Plan Plan: This is an 83-year-old female who presented to the hospital with sepsis secondary to catheter associated Klebsiella and Providencia urinary tract infection susceptible to Rocephin. We will plan to order a midline to be placed today and patient can be discharged back to [facility] with plan for a 7 day course of Rocephin. Repeat lab work in 1 week. Continue supportive care. The above dictated assessment and findings were discussed with Dr. Boyd. The impression and plan of care have been directed as dictated. Xi Olguin nurse practitioner acting as scribe for Dr. Boyd.
--- NOTE | 2018-10-16 17:12 | P.CON ---
Consult Note - . Consult date: 10/16/18 Assessment/Plan:: This is an 83-year-old female patient known to ID service as she was seen in the past for right foot ulcer as well as sepsis from urinary tract infection. Patient currently resides at [facility] and is wheelchair bound. She is known to have severe peripheral artery disease status post to right lower extremity bypasses by Dr. Aragon, history of critical limb ischemia and nonhealing ulcer of right. Patient has a chronic Weeks catheter in place. Patient was brought in to [facility] emergency center due to decreased appetite with decreased oral intake for the past 4-5 days. No diarrhea. Patient is also on diuretics and was having increasing fatigue, weakness, low back pain. She was found to have a creatinine of 3.18 and urinalysis was positive for leukoesterase, nitrates and a BBC clumping. CT of the abdomen and pelvis showed right kidney markedly atrophy, hypodense lesion extending off the left kidney stable, perinephric edema noted. No hydronephrosis. Small amount of free fluid in the pelvis and hypodensity could represent hemorrhagic component. Pelvic ultrasound was done. Patient was seen in consultation by Dr. Madrid and acute abdomen was ruled out. Patient was also seen by Dr. Gerber and repeat pelvic ultrasound was ordered which revealed diffuse shadowing from the pubic bone and possibly additionally from air within the urinary bladder as patient has a Weeks catheter grading shadowing that was questioned to be mass on prior ultrasound. No pelvic mass seen. Small amount of free fluid within the pelvis as seen on the prior CAT scan. No further workup is needed from Dr. Gerber. She also feels that elevated CA-125 is related to patient's pleural effusion. The patient is to be resumed back on Coumadin for her atrial fibrillation. Patient has been afebrile, heart rate running in the 80s, blood pressure 127/66, pulse ox 96% on room air. White count is 16.9, hemoglobin 8.9, platelet count 317. INR is 1.7. Urine culture has been finalized with Klebsiella and Providencia susceptible to Rocephin and thus this consult was requested.Please see the consult note as dictated by nurse practitioner Mrs. Xi Olguin. This 83-year-old woman is well known to infectious disease service presents to Hospital from the [facility] where she was having a change of her status in that she stopped eating for several days appetite was poor and became very fatigued and generalized weakness. There was evidence of urinary tract infection and acute renal failure. She is known about hydration and the renal failure is improved but there is no evidence of a polymicrobial gram-negative urinary tract infection that is not amenable to oral therapy and the consult was requested. There was concern for a possible pelvic mass but has been seen by gynecology and no evidence of any significant pelvic mass was found. The patient will have IV access placed and will be transferred to the [facility] today to complete 7 days of Rocephin for her Providencia and Klebsiella urinary infection. This is complicated because of her chronic urinary retention and chronic catheter. Catheter is changed every 4 weeks and ensure proper bag placement to prevent reflux from the catheter bag into the bladder. I agree with evaluation, assessment and plan as dictated by nurse practitioner Mrs. Xi Olguin.
[2018-10-16] MEDS ORDERED: INSULIN DETEMIR (LEVEMIR) 100 UNIT/ML SYR SQ SCH (21:00)
== END 2018-10-16 16:38 | DRG 698 ==
LOC: EC 12:33 → 3SCARD 16:08
PROVIDERS: ADMIT Family Medicine; ATTEND Family Medicine
DX: T83.511A Infection and inflammatory reaction due to indwelling urethral catheter, initial encounter (principal); N17.0 Acute kidney failure with tubular necrosis; A41.59 Other Gram-negative sepsis; E44.1 Mild protein-calorie malnutrition; J90 Pleural effusion, not elsewhere classified; N39.0 Urinary tract infection, site not specified; I48.0 Paroxysmal atrial fibrillation; E86.0 Dehydration; E87.5 Hyperkalemia; E11.42 Type 2 diabetes mellitus with diabetic polyneuropathy; E11.51 Type 2 diabetes mellitus with diabetic peripheral angiopathy without gangrene; E11.21 Type 2 diabetes mellitus with diabetic nephropathy; E11.22 Type 2 diabetes mellitus with diabetic chronic kidney disease; N18.3 Chronic kidney disease, stage 3 (moderate); D64.9 Anemia, unspecified; I73.9 Peripheral vascular disease, unspecified; I12.9 Hypertensive chronic kidney disease with stage 1 through stage 4 chronic kidney disease, or unspecified chronic kidney disease; H91.90 Unspecified hearing loss, unspecified ear; R97.1 Elevated cancer antigen 125 [CA 125]; M19.90 Unspecified osteoarthritis, unspecified site; E03.9 Hypothyroidism, unspecified; E78.5 Hyperlipidemia, unspecified; R32 Unspecified urinary incontinence; E87.6 Hypokalemia; R74.0 Nonspecific elevation of levels of transaminase and lactic acid dehydrogenase [LDH]; Y84.6 Urinary catheterization as the cause of abnormal reaction of the patient, or of later complication, without mention of misadventure at the time of the procedure; E66.9 Obesity, unspecified; Z68.35 Body mass index [BMI] 35.0-35.9, adult; Z99.3 Dependence on wheelchair; Z79.82 Long term (current) use of aspirin; Z79.890 Hormone replacement therapy; Z79.899 Other long term (current) drug therapy; Z79.4 Long term (current) use of insulin; Z79.01 Long term (current) use of anticoagulants; Z85.41 Personal history of malignant neoplasm of cervix uteri; Z86.14 Personal history of Methicillin resistant Staphylococcus aureus infection; Z90.710 Acquired absence of both cervix and uterus; Z98.42 Cataract extraction status, left eye; Z95.828 Presence of other vascular implants and grafts; Z87.440 Personal history of urinary (tract) infections; Z98.41 Cataract extraction status, right eye; Z74.01 Bed confinement status; Z82.49 Family history of ischemic heart disease and other diseases of the circulatory system; Z82.3 Family history of stroke
CPT/HCPCS: 36410; 36415; 51702; 71046; 74176; 76856; 76937; 80048; 80053; 81001; 82550; 83540; 83550; 83605; 83735; 85025; 85027; 85610; 85730; 86304; 87040; 87077; 87086; 87186; 87502; 93975; 96361; 96374; 96375; 99285

== ENCOUNTER 2019-03-31 11:58 | Inpatient (IN) | payer MEDICARE, BC, OTHER ==
--- NOTE | 2019-03-31 13:23 | ED ---
Recheck HPI - General Chief Complaint: Recheck/Abnormal Lab/Rx Stated Complaint: pre surg issue Time Seen by Provider: 03/31/19 12:37 Source: patient Mode of arrival: ambulatory - History of Present Illness Initial Comments: 83-year-old female with extensive past medical history presents today for chief complaint of sent in by provider for amputation of right foot. Patient states that she has had issues with chronic ulcers. Patient states she has had increasing problems with her right heel, "for quite some time". Patient denies any significant pain. She states she has neuropathy. Patient states she was evaluated by her provider who sent her to the emergency department to be admitted for evaluation by vascular surgeon Dr. Weeks who is to perform the amputation. Patient denies or chills night sweats or flank symptoms. Patient has no other complaints. Appears well on arrival. - Related Data Home Medications Medication Instructions Recorded Confirmed Aspirin 81 mg PO DAILY 09/11/15 03/31/19 Levothyroxine Sodium [Synthroid] 50 mcg PO QAM 09/11/15 03/31/19 Pravastatin Sodium [Pravachol] 80 mg PO DAILY@1800 09/11/15 03/31/19 Sennosides-Docusate Sodium 1 tab PO DAILY 06/16/17 03/31/19 [Senokot-S] Multivitamins, Thera [Multivitamin 1 tab PO HS 05/04/18 03/31/19 (formulary)] Potassium Chloride ER [K-Dur 10] 10 meq PO DAILY 05/04/18 03/31/19 Sodium Chloride 5% Ophth Soln 1 drop BOTH EYES BID 05/04/18 03/31/19 [Hari 128] Amino Acids/Protein Hydrolys 30 ml PO DAILY 06/10/18 03/31/19 [Pro-Stat Supplement] amLODIPine BESYLATE 5 mg PO DAILY 06/10/18 03/31/19 Spironolactone [Aldactone] 12.5 mg PO DAILY 07/01/18 03/31/19 Cranberry 450mg 450 mg PO DAILY 10/13/18 03/31/19 Losartan Potassium 100 mg PO DAILY 10/13/18 03/31/19 Metoprolol Tartrate [Lopressor] 100 mg PO BID 10/13/18 03/31/19 Warfarin [Coumadin] 2.5 mg PO HS 10/13/18 03/31/19 hydrALAZINE HCL [Apresoline] 100 mg PO TID 10/13/18 03/31/19 sitaGLIPtin PHOSPHATE [Januvia] 50 mg PO DAILY@1800 10/13/18 03/31/19 Amoxic-Pot Clav 875-125Mg 1 tab PO Q12HR 03/31/19 03/31/19 [Augmentin 875-125] Bisacodyl 5 mg PO DAILY PRN 03/31/19 03/31/19 Cholecalciferol (Vitamin D3) 2,000 unit PO DAILY 03/31/19 03/31/19 [Vitamin D3] Ferrous Sulfate [Feosol] 325 mg PO DAILY 03/31/19 03/31/19 Fluticasone Nasal [place] [Flonase 1 spr EA NOSTRIL DAILY 03/31/19 03/31/19 Nasal [place]] Insulin Detemir (Levemir) [Levemir] 20 unit SQ DAILY@1800 03/31/19 03/31/19 Loratadine [Claritin] 10 mg PO DAILY 03/31/19 03/31/19 Previous Rx's Medication Instructions Recorded Furosemide [Lasix] 40 mg PO DAILY #0 05/08/18 INSULIN LISPRO (humaLOG) [humaLOG] 6 units SQ AC-TID #0 10/16/18 Allergies Allergy/AdvReac Type Severity Reaction Status Date / Time No Known Allergies Allergy Verified 03/31/19 13:54 Review of Systems ROS Statement: Those systems with pertinent positive or pertinent negative responses have been documented in the HPI. ROS Other: All systems not noted in ROS Statement are negative. Past Medical History Past Medical History: Atrial Fibrillation, Diabetes Mellitus, Hyperlipidemia, Hypertension, Thyroid Disorder Additional Past Medical History / Comment(s): peripheral neuropathy, UTIs, urinary incontinence, OA bilateral hands and back, PVD, cervical cancer History of Any Multi-Drug Resistant Organisms: MRSA Date of last positivie culture/infection: 09/11/2015 MDRO Source:: RIGHT FOOT Past Surgical History: Hysterectomy, Tonsillectomy Additional Past Surgical History / Comment(s): R leg bypass surgery, bilateral cataract removal Past Anesthesia/Blood Transfusion Reactions: No Reported Reaction Past Psychological History: No Psychological Hx Reported Smoking Status: Never smoker Past Alcohol Use History: None Reported Past Drug Use History: None Reported - Past Family History Mother Family Medical History: CVA/TIA Additional Family Medical History / Comment(s): Mother in her 70's. Father Family Medical History: Hypertension Additional Family Medical History / Comment(s): Father in his 70's. General Exam - General Exam Comments Initial Comments: General: The patient is awake and alert, in no distress, and does not appear acutely ill. Eye: Pupils are equal, round and reactive to light, extra-ocular movements are intact. No nystagmus. There is normal conjunctiva bilaterally. No signs of icterus. Ears, nose, mouth and throat: There are moist mucous membranes and no oral lesions. Cardiovascular: There is a regular rate and rhythm. No murmur, rub or gallop is appreciated. Respiratory: Lungs are clear to auscultation, respirations are non-labored, breath sounds are equal. No wheezes, stridor, rales, or rhonchi. Musculoskeletal: Normal ROM, no tenderness. Strength 5/5. Sensation intact. Pulses equal bilaterally 2+. Neurological: A&O x 3. CN II-XII intact, There are no obvious motor or sensory deficits. Coordination appears grossly intact. Speech is normal. Skin: Skin is warm and dry and no rashes or lesions are noted. Psychiatric: Cooperative, appropriate mood & affect, normal judgment. Course Vital Signs 03/31/19 12:29 Temperature 98.1 F Pulse Rate 84 Respiratory 18 Rate Blood Pressure 148/75 O2 Sat by Pulse 100 Oximetry - Reevaluation(s) Reevaluation #1: Staff is unable to obtain line. 03/31/19 15:27 Medical Decision Making - Medical Decision Making 83yo female presenting for amputation of the right lower extremity. Patient has gangrene on examination. Afebrile--leukocytosis, does not appear toxic/septic. Evaluated by surgery in the ER. Patient case was discussed with Dr. oCrcoran. Who spoke with admitting provider. No other complaints. Patient appears well. Plan is to ungo surgical clearance before above knee amputation. - Lab Data Result diagrams: 03/31/19 14:26 03/31/19 14:26 Lab Results 03/31/19 03/31/19 03/31/19 Range/Units 14:26 14:26 14:26 WBC 14.0 H (3.8-10.6) k/uL RBC 2.76 L (3.80-5.40) m/uL Hgb 7.3 L (11.4-16.0) gm/dL Hct 22.9 L (34.0-46.0) % MCV 83.1 (80.0-100.0) fL MCH 26.4 (25.0-35.0) pg MCHC 31.8 (31.0-37.0) g/dL RDW 14.5 (11.5-15.5) % Plt Count 433 (150-450) k/uL Neutrophils % 74 % Lymphocytes % 13 % Monocytes % 8 % Eosinophils % 3 % Basophils % 1 % Neutrophils # 10.4 H (1.3-7.7) k/uL Lymphocytes # 1.8 (1.0-4.8) k/uL Monocytes # 1.1 H (0-1.0) k/uL Eosinophils # 0.5 (0-0.7) k/uL Basophils # 0.1 (0-0.2) k/uL Hypochromasia Slight Sodium 136 L (137-145) mmol/L Potassium 4.8 (3.5-5.1) mmol/L Chloride 104 (98-107) mmol/L Carbon Dioxide 21 L (22-30) mmol/L Anion Gap 11 mmol/L BUN 59 H (7-17) mg/dL Creatinine 2.34 H (0.52-1.04) mg/dL Est GFR (CKD-EPI)AfAm 21 (>60 ml/min/1.73 sqM) Est GFR (CKD-EPI)NonAf 19 (>60 ml/min/1.73 sqM) Glucose 112 H (74-99) mg/dL Plasma Lactic Acid Misael 0.8 (0.7-2.0) mmol/L Calcium 9.1 (8.4-10.2) mg/dL Total Bilirubin 0.4 (0.2-1.3) mg/dL AST 16 (14-36) U/L ALT 22 (9-52) U/L Alkaline Phosphatase 101 (38-126) U/L Total Protein 7.6 (6.3-8.2) g/dL Albumin 3.4 L (3.5-5.0) g/dL Disposition Clinical Impression: Gangrene, Arterial insufficiency Disposition: ADMITTED IP TO THIS HOSP Condition: Stable Is patient prescribed a controlled substance at d/c from ED?: No Referrals: Jeanne Mendoza MD [Primary Care Provider] - 1-2 days Time of Disposition: 15:31 Decision to Admit Reason: Admit from EC Decision Date: 03/31/19 Decision Time: 15:31
[2019-03-31] MEDS ORDERED: NALOXONE 0.4 MG/ML 1 ML VIAL IV PRN (14:35)
--- NOTE | 2019-03-31 14:37 | P.GSCN ---
History of Present Illness Consult date: 03/31/19 History of present illness: Fozia is an 83-year-old female with a right heel wound. She was initially seen in the office today for evaluation of her wound possibility of needing an amputation. She has a past medical history of atrial fibrillation with anticoagulation, peripheral arterial disease, hypertension, hypothyroidism, chronic debility, 2 diabetes, hyperlipidemia, chronic kidney disease. She has had a wound on her heel for many months per the patient. Telephone call was also made to her grandson who is her primary contact. He states that she has had issues with this right lower extremity for many years. She's had multiple bypasses in this leg and issues with multiple wounds. At some point there was previous discussion of possibly needing an amputation but the patient at that point years ago did not want to undergo at that time. She's had a wound on her right heel now for significant amount of time and is has only continue to progress. At this time she denies any fevers, chills, nausea or vomiting. Review of Systems 14 point review of systems performed. Pertinent positives and negatives per the HPI Past Medical History Past Medical History: Atrial Fibrillation, Diabetes Mellitus, Hyperlipidemia, Hypertension, Thyroid Disorder Additional Past Medical History / Comment(s): peripheral neuropathy, UTIs, urinary incontinence, OA bilateral hands and back, PVD, cervical cancer History of Any Multi-Drug Resistant Organisms: MRSA Year Discovered:: 09/11/2015 MDRO Source:: RIGHT FOOT Past Surgical History: Hysterectomy, Tonsillectomy Additional Past Surgical History / Comment(s): R leg bypass surgery, bilateral cataract removal Past Anesthesia/Blood Transfusion Reactions: No Reported Reaction Past Psychological History: No Psychological Hx Reported Smoking Status: Never smoker Past Alcohol Use History: None Reported Past Drug Use History: None Reported - Past Family History Mother Family Medical History: CVA/TIA Additional Family Medical History / Comment(s): Mother in her 70's. Father Family Medical History: Hypertension Additional Family Medical History / Comment(s): Father in his 70's. Medications and Allergies Home Medications Medication Instructions Recorded Confirmed Type Aspirin 81 mg PO DAILY 09/11/15 03/31/19 History Levothyroxine Sodium [Synthroid] 50 mcg PO QAM 09/11/15 03/31/19 History Pravastatin Sodium [Pravachol] 80 mg PO DAILY@1800 09/11/15 03/31/19 History Sennosides-Docusate Sodium 1 tab PO DAILY 06/16/17 03/31/19 History [Senokot-S] Multivitamins, Thera [Multivitamin 1 tab PO HS 05/04/18 03/31/19 History (formulary)] Potassium Chloride ER [K-Dur 10] 10 meq PO DAILY 05/04/18 03/31/19 History Sodium Chloride 5% Ophth Soln 1 drop BOTH EYES BID 05/04/18 03/31/19 History [Hari 128] Furosemide [Lasix] 40 mg PO DAILY #0 05/08/18 03/31/19 Rx Amino Acids/Protein Hydrolys 30 ml PO DAILY 06/10/18 03/31/19 History [Pro-Stat Supplement] amLODIPine BESYLATE 5 mg PO DAILY 06/10/18 03/31/19 History Spironolactone [Aldactone] 12.5 mg PO DAILY 07/01/18 03/31/19 History Cranberry 450mg 450 mg PO DAILY 10/13/18 03/31/19 History Losartan Potassium 100 mg PO DAILY 10/13/18 03/31/19 History Metoprolol Tartrate [Lopressor] 100 mg PO BID 10/13/18 03/31/19 History Warfarin [Coumadin] 2.5 mg PO HS 10/13/18 03/31/19 History hydrALAZINE HCL [Apresoline] 100 mg PO TID 10/13/18 03/31/19 History sitaGLIPtin PHOSPHATE [Januvia] 50 mg PO DAILY@1800 10/13/18 03/31/19 History INSULIN LISPRO (humaLOG) [humaLOG] 6 units SQ AC-TID #0 10/16/18 03/31/19 Rx Amoxic-Pot Clav 875-125Mg 1 tab PO Q12HR 03/31/19 03/31/19 History [Augmentin 875-125] Bisacodyl 5 mg PO DAILY PRN 03/31/19 03/31/19 History Cholecalciferol (Vitamin D3) 2,000 unit PO DAILY 03/31/19 03/31/19 History [Vitamin D3] Ferrous Sulfate [Feosol] 325 mg PO DAILY 03/31/19 03/31/19 History Fluticasone Nasal [place] [Flonase 1 spr EA NOSTRIL DAILY 03/31/19 03/31/19 History Nasal [place]] Insulin Detemir (Levemir) [Levemir] 20 unit SQ DAILY@1800 03/31/19 03/31/19 History Loratadine [Claritin] 10 mg PO DAILY 03/31/19 03/31/19 History Allergies Allergy/AdvReac Type Severity Reaction Status Date / Time No Known Allergies Allergy Verified 03/31/19 13:54 Surgical - Exam Vital Signs Temp Pulse Resp BP Pulse Ox 98.1 F 84 18 148/75 100 03/31/19 12:29 03/31/19 12:29 03/31/19 12:29 03/31/19 12:29 03/31/19 12:29 Genitals a pleasant cooperative female in a wheelchair, no acute distress HEENT is normal cephalic atraumatic extra motion intact heart is irregularly irregular lungs without any respiratory distress. No wheezing Abdomen is obese, nontender nondistended. Extremities the right lower extremity is malodorous. There is a significant calcaneal ulceration with wet gangrene. Nonpalpable pulses. Slightly delayed but adequate capillary refill. Assessment and Plan Assessment: #1 wet gangrene right heel #2 peripheral arterial disease #3 atrial fibrillation on anticoagulation #4 hypertension #5 diabetes #6 neuropathy #7 hypothyroidism #8 hyperlipidemia #9 chronic debility, nonambulatory Plan: This time the patient is admitted to the hospital for more expedient evaluation and workup for need to amputate her right lower extremity. Given her peripheral arterial disease with previously failed bypasses, immobility and the fact she does not ambulate, we would go forth with a above-knee amputation. Prior to this would like cardiology evaluation and workup. Hold Coumadin at this point, If the patient needs anticoagulation would prefer heparin drip which will be discontinued prior to surgery. Hopeful to be able to perform surgical intervention on 04/02 unless otherwise noted per medicine and cardiology. Please call with any questions or concerns [phone] (pager)
[2019-03-31 14:41] LABS: Basophils # (A) 0.1 k/uL (0-0.2); Basophils % (A) 1 %; Eosinophils # (A) 0.5 k/uL (0-0.7); Eosinophils % (A) 3 %; HCT 22.9 % (34.0-46.0); HGB 7.3 gm/dL (11.4-16.0); Hypochromasia Slight; Lymphocytes # (A) 1.8 k/uL (1.0-4.8); Lymphocytes % (A) 13 %; MCH 26.4 pg (25.0-35.0); MCHC 31.8 g/dL (31.0-37.0); MCV 83.1 fL (80.0-100.0); Mean Platelet Volume 7.1; Monocytes # (A) 1.1 k/uL (0-1.0); Monocytes % (A) 8 %; Neutrophils # (A) 10.4 k/uL (1.3-7.7); Neutrophils % (A) 74 %; Platelet Count 433 k/uL (150-450); RBC 2.76 m/uL (3.80-5.40); RDW 14.5 % (11.5-15.5)
[2019-03-31] MEDS ORDERED: SODIUM CHLORIDE 0.9% 1,000 ML IV SCH (14:45)
[2019-03-31 14:47] LABS: Albumin 3.4 g/dL (3.5-5.0); Calcium 9.1 mg/dL (8.4-10.2); Potassium 4.8 mmol/L (3.5-5.1); Total Bilirubin 0.4 mg/dL (0.2-1.3); Total Protein 7.6 g/dL (6.3-8.2)
[2019-03-31] MEDS ORDERED: BISACODYL 5 MG TABLET.DR PO PRN (21:16)
[2019-03-31] MEDS ORDERED: WARFARIN 2.5 MG TAB PO SCH (21:30)
[2019-03-31 21:39] LABS: Glucose,Whole Blood 167 mg/dL (75-99)
[2019-03-31 22:03] LABS: INR 1.7 (<1.2); Prothrombin Time 17.1 sec (9.0-12.0)
[2019-03-31] MEDS: hydrALAZINE HCL 50 MG TAB PO SCH (22:19)
--- NOTE | 2019-03-31 22:26 | P.HPIM ---
History of Present Illness H&P Date: 03/31/19 Chief Complaint: Gangrene right heel This is an 83-year-old pleasant female followed by Dr. Mendoza resides [facility] known history of diabetes mellitus type 2 requiring insulin, with PAD and other complications peripheral neuropathy hypertension, hy pothyroidism atrial fibrillation, PAD, call chronic and gangrene/chronic ulcer diabetic foot ulcers right heel at least since October 2018, admitted to [facility] as the ulcers has failed to heal, and they have discussed the necessity of amputation, and requested to be admitted for the vascular surgeon to auscultation with Dr. Weeks, he she was also seen by Dr. Boyd in the past. Cardiology was requested to see the patient consultation for preop, patient denies any history of CHF in the past, no history off CVA, no documented history of myocardial infarction, we are going to request an EKG him up preop. ProBNP, echocardiogram, with anticipation that the surgery would be done in the next 1-2 days. Coumadin will be held, Review of Systems Constitutional: Reports as per HPI, Denies anorexia, Denies chills, Denies chronic headaches, Denies chronic pain, Denies daytime sleepiness, Denies fatigue, Denies fever, Denies lethargy, Denies malaise, Denies night sweats, Denies poor appetite, Denies sweats, Denies weakness, Denies weight gain, Denies weight loss Ears: bilateral: decreased hearing Ears, nose, mouth and throat: Reports as per HPI Cardiovascular: Reports as per HPI, Denies chest pain, Denies claudication, Denies decreased exercise tolerance, Denies dyspnea on exertion, Denies edema, Denies high blood pressure, Denies irregular heart beat, Denies leg edema, Denies lightheadedness, Denies orthopnea, Denies palpitations, Denies paroxysmal nocturnal dyspnea, Denies phlebitis, Denies rapid heart beat, Denies shortness of breath, Denies syncope Respiratory: Reports as per HPI Gastrointestinal: Denies as per HPI, Denies abdominal pain, Denies belching, Denies bloating, Denies BRBPR, Denies change in bowel habits, Denies coffee ground emesis, Denies constipation, Denies diarrhea, Denies dyspepsia, Denies early satiety, Denies excessive gas, Denies heartburn, Denies hematemesis, Denies hematochezia, Denies indigestion, Denies jaundice, Denies lactose intolerance, Denies loss of appetite, Denies melena, Denies nausea, Denies vomiting Genitourinary: Reports as per HPI Menstruation: Reports as per HPI Musculoskeletal: Reports as per HPI Integumentary: Reports as per HPI, Reports foot/leg ulcers, Reports sores Neurological: Reports as per HPI Psychiatric: Reports as per HPI Endocrine: Reports as per HPI Hematologic/Lymphatic: Reports as per HPI Allergic/Immunologic: Reports as per HPI Past Medical History Past Medical History: Atrial Fibrillation, Diabetes Mellitus, Hyperlipidemia, Hypertension, Thyroid Disorder Additional Past Medical History / Comment(s): peripheral neuropathy, UTIs, u rinary incontinence, OA bilateral hands and back, PVD, cervical cancer History of Any Multi-Drug Resistant Organisms: MRSA Date of last positivie culture/infection: 09/11/2015 MDRO Source:: RIGHT FOOT Past Surgical History: Hysterectomy, Tonsillectomy Additional Past Surgical History / Comment(s): R leg bypass surgery, bilateral cataract removal Past Anesthesia/Blood Transfusion Reactions: No Reported Reaction Past Psychological History: No Psychological Hx Reported Additional Psychological History / Comment(s): Pt states she lives at [facility]. States uses a wheelchair to get around. Smoking Status: Never smoker Past Alcohol Use History: None Reported Additional Past Alcohol Use History / Comment(s): Patient resides at [facility] and is wheelchair bound. Past Drug Use History: None Reported - Past Family History Mother Family Medical History: CVA/TIA Additional Family Medical History / Comment(s): Mother in her 70's. Father Family Medical History: Hypertension Additional Family Medical History / Comment(s): Father in his 70's. Medications and Allergies Home Medications Medication Instructions Recorded Confirmed Type Aspirin 81 mg PO DAILY 09/11/15 03/31/19 History Levothyroxine Sodium [Synthroid] 50 mcg PO QAM 09/11/15 03/31/19 History Pravastatin Sodium [Pravachol] 80 mg PO DAILY@1800 09/11/15 03/31/19 History Sennosides-Docusate Sodium 1 tab PO DAILY 06/16/17 03/31/19 History [Senokot-S] Multivitamins, Thera [Multivitamin 1 tab PO HS 05/04/18 03/31/19 History (formulary)] Potassium Chloride ER [K-Dur 10] 10 meq PO DAILY 05/04/18 03/31/19 History Sodium Chloride 5% Ophth Soln 1 drop BOTH EYES BID 05/04/18 03/31/19 History [Hari 128] Furosemide [Lasix] 40 mg PO DAILY #0 05/08/18 03/31/19 Rx Amino Acids/Protein Hydrolys 30 ml PO DAILY 06/10/18 03/31/19 History [Pro-Stat Supplement] amLODIPine BESYLATE 5 mg PO DAILY 06/10/18 03/31/19 History Spironolactone [Aldactone] 12.5 mg PO DAILY 07/01/18 03/31/19 History Cranberry 450mg 450 mg PO DAILY 10/13/18 03/31/19 History Losartan Potassium 100 mg PO DAILY 10/13/18 03/31/19 History Metoprolol Tartrate [Lopressor] 100 mg PO BID 10/13/18 03/31/19 History Warfarin [Coumadin] 2.5 mg PO HS 10/13/18 03/31/19 History hydrALAZINE HCL [Apresoline] 100 mg PO TID 10/13/18 03/31/19 History sitaGLIPtin PHOSPHATE [Januvia] 50 mg PO DAILY@1800 10/13/18 03/31/19 History INSULIN LISPRO (humaLOG) [humaLOG] 6 units SQ AC-TID #0 10/16/18 03/31/19 Rx Amoxic-Pot Clav 875-125Mg 1 tab PO Q12HR 03/31/19 03/31/19 History [Augmentin 875-125] Bisacodyl 5 mg PO DAILY PRN 03/31/19 03/31/19 History Cholecalciferol (Vitamin D3) 2,000 unit PO DAILY 03/31/19 03/31/19 History [Vitamin D3] Ferrous Sulfate [Feosol] 325 mg PO DAILY 03/31/19 03/31/19 History Fluticasone Nasal [place] [Flonase 1 spr EA NOSTRIL DAILY 03/31/19 03/31/19 History Nasal [place]] Insulin Detemir (Levemir) [Levemir] 20 unit SQ DAILY@1800 03/31/19 03/31/19 History Loratadine [Claritin] 10 mg PO DAILY 03/31/19 03/31/19 History Allergies Allergy/AdvReac Type Severity Reaction Status Date / Time No Known Allergies Allergy Verified 03/31/19 13:54 Physical Exam Vitals: Vital Signs Temp Pulse Pulse Resp BP BP Pulse Ox 03/31/19 19:45 98.3 F 73 18 125/68 94 L 03/31/19 12:29 98.1 F 84 18 148/75 100 Intake and Output 03/31/19 03/31/19 03/31/19 06:59 14:59 22:59 Output Total 1400 Balance -1400 Output: Urine 1400 Other: Weight 86.183 kg - Constitutional General appearance: cooperative, no acute distress, obese - EENT Eyes: anicteric sclerae, EOMI, dentition normal, normal appearance ENT: hard of hearing, NA/AT, normal oropharynx - Neck Neck: normal ROM - Respiratory Respiratory: bilateral: CTA, negative: diminished, dullness, rales - Cardiovascular Rhythm: regular Heart sounds: normal: S1, S2 Abnormal Heart Sounds: no systolic murmur, no diastolic murmur, no rub, no S3 Gallop, no S4 Gallop, no click, no other - Gastrointestinal General gastrointestinal: normal bowel sounds, soft - Integumentary Integumentary: normal, ulcer (Has significant calcaneal ulceration with gangrene, mainly moist, PAD is nonpalpable, there is marked odor in the wound,) - Neurologic Neurologic: CNII-XII intact - Musculoskeletal Musculoskeletal: strength equal bilaterally - Psychiatric Psychiatric: A&O x's 3, appropriate affect, intact judgment & insight Results CBC & Chem 7: 04/01/19 05:32 04/01/19 05:32 Labs: Abnormal Lab Results - Last 24 Hours (Table) 03/31/19 03/31/19 03/31/19 Range/Units 14:26 14:26 21:27 WBC 14.0 H (3.8-10.6) k/uL RBC 2.76 L (3.80-5.40) m/uL Hgb 7.3 L (11.4-16.0) gm/dL Hct 22.9 L (34.0-46.0) % Neutrophils # 10.4 H (1.3-7.7) k/uL Monocytes # 1.1 H (0-1.0) k/uL Sodium 136 L (137-145) mmol/L Carbon Dioxide 21 L (22-30) mmol/L BUN 59 H (7-17) mg/dL Creatinine 2.34 H (0.52-1.04) mg/dL Glucose 112 H (74-99) mg/dL POC Glucose (mg/dL) 167 H (75-99) mg/dL Albumin 3.4 L (3.5-5.0) g/dL Laboratory Results WBC 14.0 k/uL (3.8-10.6) H 03/31/19 14:26 RBC 2.76 m/uL (3.80-5.40) L 03/31/19 14:26 Hgb 7.3 gm/dL (11.4-16.0) L 03/31/19 14:26 Hct 22.9 % (34.0-46.0) L 03/31/19 14:26 MCV 83.1 fL (80.0-100.0) 03/31/19 14:26 MCH 26.4 pg (25.0-35.0) 03/31/19 14:26 MCHC 31.8 g/dL (31.0-37.0) 03/31/19 14:26 RDW 14.5 % (11.5-15.5) 03/31/19 14:26 Plt Count 433 k/uL (150-450) 03/31/19 14:26 Neutrophils % 74 % 03/31/19 14:26 Lymphocytes % 13 % 03/31/19 14:26 Monocytes % 8 % 03/31/19 14:26 Eosinophils % 3 % 03/31/19 14:26 Basophils % 1 % 03/31/19 14:26 Neutrophils # 10.4 k/uL (1.3-7.7) H 03/31/19 14:26 Lymphocytes # 1.8 k/uL (1.0-4.8) 03/31/19 14:26 Monocytes # 1.1 k/uL (0-1.0) H 03/31/19 14:26 Eosinophils # 0.5 k/uL (0-0.7) 03/31/19 14:26 Basophils # 0.1 k/uL (0-0.2) 03/31/19 14:26 Hypochromasia Slight 03/31/19 14:26 PT 17.1 sec (9.0-12.0) H 03/31/19 14:26 INR 1.7 (<1.2) H 03/31/19 14:26 Sodium 136 mmol/L (137-145) L 03/31/19 14:26 Potassium 4.8 mmol/L (3.5-5.1) 03/31/19 14:26 Chloride 104 mmol/L (98-107) 03/31/19 14:26 Carbon Dioxide 21 mmol/L (22-30) L 03/31/19 14:26 Anion Gap 11 mmol/L 03/31/19 14:26 BUN 59 mg/dL (7-17) H 03/31/19 14:26 Creatinine 2.34 mg/dL (0.52-1.04) H 03/31/19 14:26 Est GFR (CKD-EPI)AfAm 21 (>60 ml/min/1.73 sqM) 03/31/19 14:26 Est GFR (CKD-EPI)NonAf 19 (>60 ml/min/1.73 sqM) 03/31/19 14:26 Glucose 112 mg/dL (74-99) H 03/31/19 14:26 POC Glucose (mg/dL) 167 mg/dL (75-99) H 03/31/19 21:27 POC Glu Wire Stitcher Operator ID Layo Aviles 03/31/19 21:27 Plasma Lactic Acid Misael 0.8 mmol/L (0.7-2.0) 03/31/19 14:26 Calcium 9.1 mg/dL (8.4-10.2) 03/31/19 14:26 Total Bilirubin 0.4 mg/dL (0.2-1.3) 03/31/19 14:26 AST 16 U/L (14-36) 03/31/19 14:26 ALT 22 U/L (9-52) 03/31/19 14:26 Alkaline Phosphatase 101 U/L (38-126) 03/31/19 14:26 NT-Pro-B Natriuret Pep 6910 pg/mL 03/31/19 14:26 Total Protein 7.6 g/dL (6.3-8.2) 03/31/19 14:26 Albumin 3.4 g/dL (3.5-5.0) L 03/31/19 14:26 Thrombosis Risk Factor Assmnt - DVT/VTE Prophylaxis DVT/VTE Prophylaxis: Pharmacologic Prophylaxis ordered, Contraindicated - See note (Calcaneal ulcer) - Choose All That Apply Any of the Below Risk Factors Present?: Yes Each Factor Represents 1 point: Obesity (BMI >25) Other Risk Factors: Yes Each Risk Factor Represents 2 Points: Patient confined to bed Other congenital or acquired thrombophilia - If yes, enter type in comment: No Thrombosis Risk Factor Assessment Total Risk Factor Score: 3 Thrombosis Risk Factor Assessment Level: Moderate Risk Assessment and Plan Plan: 1. Diabetic foot ulcer, involving right heel, with wet gangrene, known history of PAD, failed to heal despite adequate length of time as an outpatient, appr oximately 6 months has passed by, patient is now being prepared for amputation, a [facility] vascular surgeon, we are going to prepare the patient operatively, with an EKG, proBNP, echocardiogram, and a chest x-ray. He is on the current EKG based on the current values, no one cultures are anticipated to be done on as its expected that the amputation site with the above the gangrenous area however I will leave it up to the surgeon for the choice of culture, patient will be receiving pre-or prophylaxis antibiotics Preop clearance as follows RCRI of 2 based on creatinine, and current use insulin preop; ASA risk of class III, patient would be monitored with telemetry, proBNP, EKG, echocardiogram, troponins will be monitored for the next 2 days along with the proBNP. 2 Iron deficiency anemia or anemia of chronic disease needs to be called, patient we'll have iron studies, hemoglobin currently at 7.3, patient might need 1 unit of packed red blood cells prior to amputation, 3. Paroxysmal atrial fibrillation on chronic Coumadin for anticoagulation, Coumadin will be held today in this patient for her proposed procedure for below the knee amputation, patient would be receiving IV heparin, 4. CK D stage IV, creatinine of 2.34, avoid nephrotoxins and hypotension, 5 paroxysmal atrial fibrillation on Coumadin. Coumadin on hold a 28 with anticipation for the proposed below the knee amputation right leg [id number] with diabetic neuropathy continue Lantus 30 units daily at bedtime with hold 10 units lispro with sliding scale at this time until diet by mouth has fully recovered, correctional scale insulin to be given, continue her gentle, A1c to be done to maximize treatment, 7hypertension on metoprolol hold Lasix hold hydrochlorothiazide and amiloride. Hold lisinopril for hyper hyperkalemia 8Hyperlipidemia hold statins until CPK would stabilize 9Mild protein calorie malnutrition patient will be started on Glucerna, or ensure and live Debility, with expected below the knee amputation, to be seen by PT OT postdischarge, and subacute rehab is expected DVT prophylaxis INR therapeutic hold Coumadin, INR daily GI prophylaxis Pepcid 20 mg by mouth daily CODE STATUS full code
[2019-04-01] MEDS: LEVOTHYROXINE 50 MCG TAB PO SCH (05:30)
[2019-04-01 05:50] LABS: Basophils # (A) 0.1 k/uL (0-0.2); Basophils % (A) 1 %; Eosinophils # (A) 0.4 k/uL (0-0.7); Eosinophils % (A) 4 %; HCT 20.9 % (34.0-46.0); Hypochromasia Slight; Lymphocytes # (A) 1.7 k/uL (1.0-4.8); Lymphocytes % (A) 17 %; MCHC 31.1 g/dL (31.0-37.0); MCV 83.7 fL (80.0-100.0); Mean Platelet Volume 7.7; Monocytes # (A) 0.9 k/uL (0-1.0); Monocytes % (A) 9 %; Neutrophils # (A) 6.5 k/uL (1.3-7.7); Neutrophils % (A) 67 %; Platelet Count 349 k/uL (150-450); RDW 14.3 % (11.5-15.5); WBC 9.7 k/uL (3.8-10.6)
[2019-04-01 06:00] LABS: HGB 6.5 gm/dL (11.4-16.0)
[2019-04-01 06:05] LABS: Calcium 8.7 mg/dL (8.4-10.2); Potassium 4.2 mmol/L (3.5-5.1); Total Bilirubin 0.4 mg/dL (0.2-1.3); Total Protein 6.7 g/dL (6.3-8.2)
[2019-04-01 07:26] LABS: Glucose,Whole Blood 125 mg/dL (75-99)
[2019-04-01] MEDS: ASPIRIN 81 MG PO SCH (07:46)
[2019-04-01] MEDS: amLODIPine 5 MG TAB PO SCH (07:46)
[2019-04-01] MEDS: CHOLECALCIFEROL 1,000 UNIT TAB PO SCH (07:46)
[2019-04-01] MEDS: LOSARTAN 50 MG TAB PO SCH (07:47)
[2019-04-01] MEDS: SPIRONOLACTONE 25 MG TAB PO SCH (07:47)
[2019-04-01] MEDS: LORATADINE 10 MG TAB PO SCH (07:47)
[2019-04-01] MEDS: METOPROLOL TARTRATE 50 MG TAB PO SCH ×2 (07:47→20:59)
[2019-04-01] MEDS: hydrALAZINE HCL 50 MG TAB PO SCH ×3 (07:47→22:32)
[2019-04-01] MEDS: INSULIN ASPART (NovoLOG) 100 UNIT/ML VIAL SQ SCH ×3 (07:48→17:25)
[2019-04-01] MEDS: SENNOSIDES-DOCUSATE SODIUM 1 EACH TAB PO SCH (07:48)
[2019-04-01] MEDS: FUROSEMIDE 40 MG TAB PO SCH (07:48)
[2019-04-01] MEDS: FLUTICASONE 50MCG/SPRAY NASAL 16GM EA NOSTRIL SCH (07:48)
[2019-04-01] MEDS: POTASSIUM CHLORIDE ER 10 MEQ TAB.ER.PRT PO SCH (07:49)
[2019-04-01] MEDS: SODIUM CHLORIDE 5% OPHTH DROPS 15 ML BTL BOTH EYES SCH ×2 (07:49→20:59)
[2019-04-01] MEDS ORDERED: FUROSEMIDE 10 MG/ML 2 ML VIAL IV PRN (08:22)
--- NOTE | 2019-04-01 08:43 | P.PN ---
Subjective Progress Note Date: 04/01/19 Patient seen and examined. No complaints. Objective - Vital Signs Vital signs: Vital Signs Temp 98.3 F 04/01/19 07:00 Pulse 87 04/01/19 07:00 Resp 16 04/01/19 07:00 BP 123/65 04/01/19 07:00 Pulse Ox 96 04/01/19 07:00 Intake & Output 03/31/19 04/01/19 04/01/19 18:59 06:59 18:59 Intake Total 50 Output Total 1750 Balance -1700 Weight 86.183 kg Intake: Oral 50 Output: Urine 1750 Other: Voiding Method Indwelling Catheter - Exam No acute distress resting comfortably Heart irregularly irregular Lungs clear Abdomen soft, obese, nontender Foul odor still from right heel - Labs CBC & Chem 7: 04/01/19 05:32 04/01/19 05:32 Labs: Abnormal Lab Results - Last 24 Hours (Table) 03/31/19 03/31/19 03/31/19 Range/Units 14:26 14:26 14:26 WBC 14.0 H (3.8-10.6) k/uL RBC 2.76 L (3.80-5.40) m/uL Hgb 7.3 L (11.4-16.0) gm/dL Hct 22.9 L (34.0-46.0) % Neutrophils # 10.4 H (1.3-7.7) k/uL Monocytes # 1.1 H (0-1.0) k/uL PT 17.1 H (9.0-12.0) sec INR 1.7 H (<1.2) Sodium 136 L (137-145) mmol/L Carbon Dioxide 21 L (22-30) mmol/L BUN 59 H (7-17) mg/dL Creatinine 2.34 H (0.52-1.04) mg/dL Glucose 112 H (74-99) mg/dL POC Glucose (mg/dL) (75-99) mg/dL AST (14-36) U/L Albumin 3.4 L (3.5-5.0) g/dL 03/31/19 04/01/19 04/01/19 Range/Units 21:27 05:32 05:32 WBC (3.8-10.6) k/uL RBC 2.50 L (3.80-5.40) m/uL Hgb 6.5 L* (11.4-16.0) gm/dL Hct 20.9 L (34.0-46.0) % Neutrophils # (1.3-7.7) k/uL Monocytes # (0-1.0) k/uL PT (9.0-12.0) sec INR (<1.2) Sodium (137-145) mmol/L Carbon Dioxide (22-30) mmol/L BUN 56 H (7-17) mg/dL Creatinine 2.33 H (0.52-1.04) mg/dL Glucose 121 H (74-99) mg/dL POC Glucose (mg/dL) 167 H (75-99) mg/dL AST 13 L (14-36) U/L Albumin 3.0 L (3.5-5.0) g/dL 04/01/19 Range/Units 07:23 WBC (3.8-10.6) k/uL RBC (3.80-5.40) m/uL Hgb (11.4-16.0) gm/dL Hct (34.0-46.0) % Neutrophils # (1.3-7.7) k/uL Monocytes # (0-1.0) k/uL PT (9.0-12.0) sec INR (<1.2) Sodium (137-145) mmol/L Carbon Dioxide (22-30) mmol/L BUN (7-17) mg/dL Creatinine (0.52-1.04) mg/dL Glucose (74-99) mg/dL POC Glucose (mg/dL) 125 H (75-99) mg/dL AST (14-36) U/L Albumin (3.5-5.0) g/dL Assessment and Plan Assessment: #1 wet gangrene right heel #2 peripheral arterial disease #3 atrial fibrillation on anticoagulation #4 hypertension #5 diabetes #6 neuropathy #7 hypothyroidism #8 hyperlipidemia #9 chronic debility, nonambulatory #10 anemia Plan: Appreciate preoperative evaluations and recommendations. At this time her hemoglobin is 6.5. We will transfuse 1 unit of packed red cells today, and recheck. She will likely need repeat transfusion tomorrow in the perioperative timeframes for amputation. Again Given her peripheral arterial disease with previously failed bypasses, immobility and the fact she does not ambulate, we would go forth with a above-knee amputation. This is discussed with the patient and her grandson who both seemingly agreement willing to proceed. If there is any concern or further testing for preoperative evaluation, will hold off on procedure for tomorrow and plan accordingly and following days given no evidence of systemic issue from wet gangrene Please call with any questions or concerns [phone] (pager)
--- NOTE | 2019-04-01 10:01 | ECHOF ---
Referral Reason:chf MEASUREMENTS -------- HEIGHT: 160.0 cm WEIGHT: 86.2 kg BP: 115/63 RVIDd: 2.6 cm (< 3.3) IVSd: 1.3 cm (0.6 - 1.1) LVIDd: 4.1 cm (3.9 - 5.3) LVPWd: 1.4 cm (0.6 - 1.1) IVSs: 1.9 cm LVIDs: 2.3 cm LVPWs: 1.8 cm LAESV Index (A-L): 35.52 ml/m IVSd: 2.8 cm (0.6 - 1.1) LVIDd: 0.0 cm (3.9 - 5.3) EDV(Teich): 0 ml Ao Diam: 3.0 cm (2.0 - 3.7) AV Cusp: 1.5 cm (1.5 - 2.6) LA Diam: 4.4 cm (2.7 - 3.8) MV EXCURSION: 20.477 mm (> 18.000) MV EF SLOPE: 158 mm/s (70 - 150) EPSS: 0.6 cm MV E Hunter: 1.37 m/s MV DecT: 214 ms MV A Hunter: 0.36 m/s MV E/A Ratio: 3.79 AR PHT: 373 ms RAP: 5.00 mmHg RVSP: 40.75 mmHg FINDINGS -------- Atrial fibrillation. This was a technically good study. The left ventricular size is normal. There is mild concentric left ventricular hypertrophy. Overa left ventricular systolic function is normal with, an EF between 55 - 60 %. The right ventricle is normal in size. LA is moderately dilated 34-39 ml/m2 The right atrial size is normal. Interatrial and interventricular septum intact. Aortic valve is trileaflet and is mildly thickened. There is mild aortic regurgitation. The mitral valve is normal. The mitral valve leaflets are mildly thickened. Mild mitral annular c alcification present. Moderate mitral regurgitation is present. Moderate tricuspid regurgitation present. There is mild pulmonary hypertension. The right ventric ular systolic pressure, as measured by Doppler, is 40.75mmHg. There is no pulmonic regurgitation present. The aortic root size is normal. Normal inferior vena cava with normal inspiratory collapse consistent with estimated right atrial pre ssure of 5 mmHg. There is no pericardial effusion. CONCLUSIONS -------- 1. Atrial fibrillation. 2. This was a technically good study. 3. The left ventricular size is normal. 4. There is mild concentric left ventricular hypertrophy. 5. Overall left ventricular systolic function is normal with, an EF between 55 - 60 %. 6. The right ventricle is normal in size. 7. LA is moderately dilated 34-39 ml/m2 8. The right atrial size is normal. 9. Interatrial and interventricular septum intact. 10. Aortic valve is trileaflet and is mildly thickened. 11. There is mild aortic regurgitation. 12. The mitral valve is normal. 13. The mitral valve leaflets are mildly thickened. 14. Mild mitral annular calcification present. 15. Moderate mitral regurgitation is present. 16. Moderate tricuspid regurgitation present. 17. There is mild pulmonary hypertension. 18. The right ventricular systolic pressure, as measured by Doppler, is 40.75mmHg. 19. There is no pulmonic regurgitation present. 20. The aortic root size is normal. 21. Normal inferior vena cava with normal inspiratory collapse consistent with estimated right atrial pressure of 5 mmHg. 22. There is no pericardial effusion. TRAILER DRIVER: Alycia Painting RDCS
[2019-04-01 11:25] LABS: Glucose,Whole Blood 131 mg/dL (75-99)
--- NOTE | 2019-04-01 11:47 | XR ---
EXAMINATION TYPE: XR chest 2V DATE OF EXAM: 04/01/2019 COMPARISON: Chest x-ray October 13, 2018. HISTORY: Presurgical study. TECHNIQUE: Frontal and lateral views of the chest are obtained. FINDINGS: There is persistent cardiomegaly with tiny bilateral pleural effusions diminished in size from prior. . Chronic parenchymal change without suspicious new focal airspace opacity or pneumothora x. Multilevel spurring in thoracic spine is redemonstrated. IMPRESSION: Chronic changes and cardiomegaly with small to tiny bilateral pleural effusions diminish ed in size from prior.
[2019-04-01 14:38] LABS: Iron Saturation 4.33 (12.00-45.00)
--- NOTE | 2019-04-01 16:28 | P.PN ---
Subjective Progress Note Date: 04/01/19 This is an 83-year-old pleasant female followed by Dr. Mendoza known history of diabetes mellitus type 2 requiring insulin, with PAD and other complications peripheral neuropathy hypertension, hypothyroidism atrial fibrillation, PAD, chronic gangrene/chronic ulcer diabetic foot ulcers right heel at least since October 2018, admitted to [facility] as the ulcers have failed to heal, and they have discussed the necessity of amputation, and requested to be admitted for the vascular surgeon with Dr. Weeks, he she was also seen by Dr. Boyd in the past. Cardiology was requested to see the patient consultation for preop, patient denies any history of CHF in the past, no history off CVA, no documented history of myocardial infarction, we are going to request an EKG him up preop. ProBNP, echocardiogram, with anticipation that the surgery would be done in the next 1-2 days. Coumadin will be held, 04/01: Dr. Weeks is planning for [id number] amputation tomorrow. Coumadin remains on hold. Cardiology consult requested. Echocardiogram reveals EF 55- 60%, mild concentric left ventricular hypertrophy, mild aortic regurgitation, moderate mitral regurgitation, moderate tricuspid regurgitation, mild pulmonary hypertension. Chest x-ray reveals chronic changes and cardiomegaly with small 2 tiny bilateral pleural effusions diminished in size from prior. Patient has been afebrile, heart rate 77, blood pressure 115/63 and pulse ox 99% on room air. Repeat lab work reveals normal white count of 9.7, hemoglobin 6.5 and 1 unit of packed RBCs will be ordered for transfusion. BUN 56 and creatinine 2.33. Electrolytes within normal limits. Blood sugar running between 121 and 167. Hemoglobin A1c is pending.Patient denies any new complaints. Weeks catheter is in place. Sister is at the bedside. Objective - Vital Signs Vital signs: Vital Signs Temp 98.9 F 04/01/19 01:35 Pulse 77 04/01/19 01:35 Resp 17 04/01/19 01:35 BP 115/63 04/01/19 01:35 Pulse Ox 99 04/01/19 01:35 Intake & Output 03/31/19 04/01/19 04/01/19 18:59 06:59 18:59 Intake Total 50 Output Total 1750 Balance -1700 Weight 86.183 kg Intake: Oral 50 Output: Urine 1750 Other: Voiding Method Indwelling Catheter - Exam Review of Systems Constitutional: No fever, no chills, no night sweats. No weight change. No weakness, fatigue or lethargy. No daytime sleepiness. EENT: No headache. No blurred vision or double vision, no loss of vision. No loss of Hearing, no ringing in the ears, no dizziness. No nasal drainage or congestion. No epistaxis. No sore throat. Lungs: No shortness of breath, cough, no sputum production. No wheezing. Cardiovascular: No chest pain, no lower extremity edema. No palpitations. No paroxysmal nocturnal dyspnea. No orthopnea. No lightheadedness or dizziness. No syncopal episodes. Abdominal: No abdominal pain. No nausea, vomiting. No diarrhea. No constipation. No bloody or tarry stools.. No loss of appetite. Genitourinary: No dysuria, increased frequency, urgency. No urinary retention. Musculoskeletal: No myalgias. No muscle weakness, no gait dysfunction, no frequent falls. No back pain. No neck pain. Integumentary: Reports wounds, no lesions. No rash or pruritus. No unusual bruising. No change in hair or nails. Neurologic: No aphasia. No facial droop. No change in mentation. No head injury. No headache. No paralysis. No paresthesia. Psychiatric: No depression. No anxiety. No mood swings. Endocrine: No abnormal blood sugars. No weight change. No excessive sweating or thirst. No cold intolerance. - Constitutional General appearance: cooperative, no acute distress, obese - EENT Eyes: anicteric sclerae, EOMI, dentition normal, normal appearance ENT: hearing grossly normal, NA/AT, normal oropharynx - Neck Neck: normal ROM - Respiratory Respiratory: bilateral: CTA, negative: diminished, dullness, rales - Cardiovascular Rhythm: regular Heart sounds: normal: S1, S2 Abnormal Heart Sounds: no systolic murmur, no diastolic murmur, no rub, no S3 Gallop, no S4 Gallop, no click, no other - Gastrointestinal General gastrointestinal: normal bowel sounds, soft - Integumentary Integumentary: normal, ulcer (Has significant calcaneal ulceration with gangrene, mainly moist, PAD is nonpalpable, there is marked alteration in the wound, foul order) - Neurologic Neurologic: CNII-XII intact - Musculoskeletal Musculoskeletal: strength equal bilaterally - Psychiatric Psychiatric: A&O x's 3, appropriate affect, intact judgment & insight - Labs CBC & Chem 7: 04/01/19 05:32 04/01/19 05:32 Labs: Abnormal Lab Results - Last 24 Hours (Table) 03/31/19 03/31/19 03/31/19 Range/Units 14:26 14:26 14:26 WBC 14.0 H (3.8-10.6) k/uL RBC 2.76 L (3.80-5.40) m/uL Hgb 7.3 L (11.4-16.0) gm/dL Hct 22.9 L (34.0-46.0) % Neutrophils # 10.4 H (1.3-7.7) k/uL Monocytes # 1.1 H (0-1.0) k/uL PT 17.1 H (9.0-12.0) sec INR 1.7 H (<1.2) Sodium 136 L (137-145) mmol/L Carbon Dioxide 21 L (22-30) mmol/L BUN 59 H (7-17) mg/dL Creatinine 2.34 H (0.52-1.04) mg/dL Glucose 112 H (74-99) mg/dL POC Glucose (mg/dL) (75-99) mg/dL AST (14-36) U/L Albumin 3.4 L (3.5-5.0) g/dL 03/31/19 04/01/19 04/01/19 Range/Units 21:27 05:32 05:32 WBC (3.8-10.6) k/uL RBC 2.50 L (3.80-5.40) m/uL Hgb 6.5 L* (11.4-16.0) gm/dL Hct 20.9 L (34.0-46.0) % Neutrophils # (1.3-7.7) k/uL Monocytes # (0-1.0) k/uL PT (9.0-12.0) sec INR (<1.2) Sodium (137-145) mmol/L Carbon Dioxide (22-30) mmol/L BUN 56 H (7-17) mg/dL Creatinine 2.33 H (0.52-1.04) mg/dL Glucose 121 H (74-99) mg/dL POC Glucose (mg/dL) 167 H (75-99) mg/dL AST 13 L (14-36) U/L Albumin 3.0 L (3.5-5.0) g/dL 04/01/19 Range/Units 07:23 WBC (3.8-10.6) k/uL RBC (3.80-5.40) m/uL Hgb (11.4-16.0) gm/dL Hct (34.0-46.0) % Neutrophils # (1.3-7.7) k/uL Monocytes # (0-1.0) k/uL PT (9.0-12.0) sec INR (<1.2) Sodium (137-145) mmol/L Carbon Dioxide (22-30) mmol/L BUN (7-17) mg/dL Creatinine (0.52-1.04) mg/dL Glucose (74-99) mg/dL POC Glucose (mg/dL) 125 H (75-99) mg/dL AST (14-36) U/L Albumin (3.5-5.0) g/dL Assessment and Plan Plan: 1. Diabetic foot ulcer, involving right heel, with wet gangrene, known history of PAD, failed to heal despite adequate length of time as an outpatient, approximately 6 months. Patient scheduled tentatively for dexgs-srs-putr amputation on Friday with Dr. Weeks. Preop cardiology clearance requested. Coumadin is on hold. Echocardiogram as above. 2. Iron deficiency anemia or anemia of chronic disease. Iron studies pending. Transfuse 1 unit of packed RBCs followed by Lasix 20 mg IV push. 3. Paroxysmal atrial fibrillation on chronic Coumadin for anticoagulation, Coumadin will be held today in this patient for her proposed procedure for below the knee amputation, patient would be receiving IV heparin, 4. CKD stage IV, creatinine of 2.34, avoid nephrotoxins and hypotension, 5. Diabetes mellitus type 2 with diabetic neuropathy. Continue Lantus 20 units at bedtime, hold patient's scheduled 6 units with meals. Continue NovoLog scale before meals and at bedtime. Hemoglobin A1c. 6. Hypertension. Continue amlodipine 5 mg daily, losartan 100 mg daily, Lopressor 100 mg twice daily, hydralazine 100 mg 3 times daily, Lasix 40 orally milligrams daily, Aldactone 12.5 mg daily. 7. Hyperlipidemia. Continue Pravachol 80 mg daily. 8. Mild protein calorie malnutrition. Continue Glucerna. 9. Generalized debility. PT and OT to follow after surgery. 10. DVT prophylaxis. Coumadin/heparin drip. 11. GI prophylaxis. Pepcid CODE STATUS: Full code Discharge plan: Return to [facility] under the care of Dr. Mendoza. Impression and plan of care have been directed as dictated by the signing physician. Xi Olguin nurse practitioner acting as scribe for signing physician.
[2019-04-01 16:39] LABS: Hemoglobin A1C 5.9 % (4.0-6.0)
[2019-04-01 17:00] LABS: Glucose,Whole Blood 233 mg/dL (75-99)
[2019-04-01] MEDS: PRAVASTATIN SODIUM 80 MG TAB PO SCH (17:25)
[2019-04-01] MEDS: INSULIN DETEMIR (LEVEMIR) 100 UNIT/ML SYR SQ SCH (17:25)
[2019-04-01] MEDS: LINAGLIPTIN 5 MG TABLET PO SCH (17:25)
[2019-04-01 19:28] LABS: HCT 25.3 % (34.0-46.0); HGB 7.9 gm/dL (11.4-16.0); Hypochromasia Slight; MCH 26.6 pg (25.0-35.0); MCHC 31.1 g/dL (31.0-37.0); MCV 85.3 fL (80.0-100.0); Mean Platelet Volume 6.6; Platelet Count 358 k/uL (150-450); RBC 2.97 m/uL (3.80-5.40); RDW 14.7 % (11.5-15.5); WBC 11.2 k/uL (3.8-10.6)
[2019-04-01 20:51] LABS: Glucose,Whole Blood 120 mg/dL (75-99)
[2019-04-02] MEDS: LEVOTHYROXINE 50 MCG TAB PO SCH ×2 (05:49→05:51)
[2019-04-02 06:15] LABS: Basophils # (A) 0.1 k/uL (0-0.2); Basophils % (A) 1 %; Eosinophils # (A) 0.4 k/uL (0-0.7); Eosinophils % (A) 3 %; HCT 26.1 % (34.0-46.0); HGB 8.1 gm/dL (11.4-16.0); Lymphocytes # (A) 1.8 k/uL (1.0-4.8); Lymphocytes % (A) 15 %; MCH 25.9 pg (25.0-35.0); MCV 83.6 fL (80.0-100.0); Monocytes # (A) 1.1 k/uL (0-1.0); Monocytes % (A) 9 %; Neutrophils # (A) 8.7 k/uL (1.3-7.7); Neutrophils % (A) 71 %; Platelet Count 358 k/uL (150-450); RBC 3.13 m/uL (3.80-5.40); RDW 14.5 % (11.5-15.5); WBC 12.3 k/uL (3.8-10.6)
[2019-04-02 06:25] LABS: INR 1.6 (<1.2); Prothrombin Time 15.9 sec (9.0-12.0)
[2019-04-02 06:26] LABS: Calcium 8.7 mg/dL (8.4-10.2); Potassium 4.2 mmol/L (3.5-5.1); Total Bilirubin 0.5 mg/dL (0.2-1.3); Total Protein 6.9 g/dL (6.3-8.2)
[2019-04-02] MEDS: INSULIN ASPART (NovoLOG) 100 UNIT/ML VIAL SQ SCH ×3 (07:02→17:03)
[2019-04-02] MEDS: FUROSEMIDE 40 MG TAB PO SCH (07:02)
[2019-04-02] MEDS: ASPIRIN 81 MG PO SCH (07:02)
[2019-04-02] MEDS: CHOLECALCIFEROL 1,000 UNIT TAB PO SCH (07:02)
[2019-04-02] MEDS: POTASSIUM CHLORIDE ER 10 MEQ TAB.ER.PRT PO SCH (07:03)
[2019-04-02] MEDS: SENNOSIDES-DOCUSATE SODIUM 1 EACH TAB PO SCH (07:03)
[2019-04-02] MEDS: LORATADINE 10 MG TAB PO SCH (07:03)
[2019-04-02] MEDS: SPIRONOLACTONE 25 MG TAB PO SCH (07:03)
[2019-04-02] MEDS: hydrALAZINE HCL 50 MG TAB PO SCH ×3 (07:03→21:44)
[2019-04-02] MEDS: amLODIPine 5 MG TAB PO SCH (07:11)
[2019-04-02] MEDS: METOPROLOL TARTRATE 50 MG TAB PO SCH ×2 (07:11→20:46)
[2019-04-02] MEDS: LOSARTAN 50 MG TAB PO SCH (07:11)
[2019-04-02] MEDS: FLUTICASONE 50MCG/SPRAY NASAL 16GM EA NOSTRIL SCH (07:12)
[2019-04-02] MEDS: SODIUM CHLORIDE 5% OPHTH DROPS 15 ML BTL BOTH EYES SCH ×2 (07:12→21:44)
[2019-04-02 07:33] LABS: Glucose,Whole Blood 88 mg/dL (75-99)
--- NOTE | 2019-04-02 10:25 | P.CRDCN ---
History of Present Illness History of present illness: This is a pleasant 83-year-old female past medical history significant for persistent atrial fibrillation on long-term anticoagulation, hypertension, dyslipidemia, peripheral arterial disease s/p and diabetes mellitus. We've been asked to see her in consultation secondary to preoperative evaluation. She is scheduled to undergo [id number] amputation today with Dr. Weeks. She follows in the office with Dr. Early. She is seen and examined laying flat in bed in no acute distress. She denies symptoms of chest discomfort, shortness of breath, dizziness or palpitations. Chest x-ray obtained today reveals cardiomegaly with small tiny bilateral pleural effusions. Laboratory data reviewed, WBC 12.3, hemoglobin 8.1, platelets 250, INR 1.6, sodium 140, potassium 4.2, creatinine 2.47 with a GFR of 17, cardiac enzymes negative 3, proBNP on admission 6210, TSH 3.45. There is no EKG in the chart for review. Echocardiogram obtained reveals preserved LV systolic function with ejection fraction 55-60%, mild concentric LVH, mild aortic regurgitation, moderate mitral regurgitation, moderate tricuspid regurgitation and mild pulmonary hypertension with RVSP 40 mmHg. She has undergone a blood transfusion secondary to anemia noted on admission. At the time of my exam: CONSTITUTIONAL: Denies fever. Denies chills. EYES: Denies blurred vision. Denies vision changes. Denies eye pain. EARS, NOSE, MOUTH & THROAT: Denies headache. Denies sore throat. Denies ear pain. CARDIOVASCULAR: Denies chest pain. Denies shortness of breath. Denies orthopnea. Denies PND. Denies palpitations. RESPIRATORY: Denies cough. GASTROINTESTINAL: Denies abdominal pain. Denies diarrhea. Denies constipation. Denies nausea. Denies vomiting. MUSCULOSKELETAL: Denies myalgias. INTEGUMENTARY: Denies pruitis. Denies rash. NEUROLOGIC: Denies numbness. Denies tingling. Denies weakness. PSYCHIATRIC: Denies anxiety. Denies depression. ENDOCRINE: Denies fatigue. Denies weight change. Denies polydipsia. Denies polyurina. GENITOURINARY: Denies burning, hematuria or urgency with micturation. HEMATOLOGIC: Denies history of anemia. Denies bleeding. Blood pressure 127/74 heart rate 88 afebrile maintaining oxygen saturation on room air GENERAL: This is a 83-year-old female in no apparent distress at the time of my examination. HEENT: Head is atraumatic, normocephalic. Pupils are equal, round. Sclerae anicteric. Conjunctivae are clear. Mucous membranes of the mouth are moist. Neck is supple. There is no jugular venous distention. No carotid bruit is heard. LUNGS: Clear to auscultation no wheezes, rales or rhonchi. No chest wall tenderness is noted on palpation or with deep breathing. HEART: Irregular rate and rhythm with systolic ejection murmur at the left sternal, no rubs or gallops. S1 and S2 heard. ABDOMEN: Soft, nontender. Bowel sounds are heard. No organomegaly noted. EXTREMITIES: Multiple ulcerations bilaterally, foul odor. VASCULAR: No palpable pulses manually bilaterally. NEUROLOGIC: Patient is awake, alert and oriented x3. ASSESSMENT Peripheral arterial disease scheduled for [id number]-avj-[id number] amputation of the right leg. Gangrene wound of the right heel Persistent atrial fibrillation on halfway anticoagulation with coumadin Hypertension Diabetes mellitus Dyslipidemia Anemia, requiring transfusion PLAN Clinically she is not in overt heart failure and has no symptoms of angina. Obtain baseline EKG> She has multiple co-morbid conditions placing her at a higher risk however there are no absolute contraindications at this time. Resume coumadin as soon as possible per vascular surgery. Continue lasix, losartan, lopressor, pravastatin, aldactone, amlodipine and hydralazine as previously ordered. We will continue to follow in the post-operative phase. Thank you kindly for this consultation. Nurse Practitioner note has been reviewed, I agree with a documented findings and plan of care. Patient was seen and examined. Past Medical History Past Medical History: Atrial Fibrillation, Diabetes Mellitus, Hyperlipidemia, Hypertension, Thyroid Disorder Additional Past Medical History / Comment(s): peripheral neuropathy, UTIs, urinary incontinence, OA bilateral hands and back, PVD, cervical cancer History of Any Multi-Drug Resistant Organisms: MRSA Date of last positivie culture/infection: 09/11/2015 MDRO Source:: RIGHT FOOT Past Surgical History: Hysterectomy, Tonsillectomy Additional Past Surgical History / Comment(s): R leg bypass surgery, bilateral c ataract removal Past Anesthesia/Blood Transfusion Reactions: No Reported Reaction Past Psychological History: No Psychological Hx Reported Additional Psychological History / Comment(s): Pt states she lives at [facility]. States uses a wheelchair to get around. Smoking Status: Never smoker Past Alcohol Use History: None Reported Additional Past Alcohol Use History / Comment(s): Patient resides at [facility] and is wheelchair bound. Past Drug Use History: None Reported - Past Family History Mother Family Medical History: CVA/TIA Additional Family Medical History / Comment(s): Mother in her 70's. Father Family Medical History: Hypertension Additional Family Medical History / Comment(s): Father in his 70's. Medications and Allergies Home Medications Medication Instructions Recorded Confirmed Type Aspirin 81 mg PO DAILY 09/11/15 03/31/19 History Levothyroxine Sodium [Synthroid] 50 mcg PO QAM 09/11/15 03/31/19 History Pravastatin Sodium [Pravachol] 80 mg PO DAILY@1800 09/11/15 03/31/19 History Sennosides-Docusate Sodium 1 tab PO DAILY 06/16/17 03/31/19 History [Senokot-S] Multivitamins, Thera [Multivitamin 1 tab PO HS 05/04/18 03/31/19 History (formulary)] Potassium Chloride ER [K-Dur 10] 10 meq PO DAILY 05/04/18 03/31/19 History Sodium Chloride 5% Ophth Soln 1 drop BOTH EYES BID 05/04/18 03/31/19 History [Hari 128] Furosemide [Lasix] 40 mg PO DAILY #0 05/08/18 03/31/19 Rx Amino Acids/Protein Hydrolys 30 ml PO DAILY 06/10/18 03/31/19 History [Pro-Stat Supplement] amLODIPine BESYLATE 5 mg PO DAILY 06/10/18 03/31/19 History Spironolactone [Aldactone] 12.5 mg PO DAILY 07/01/18 03/31/19 History Cranberry 450mg 450 mg PO DAILY 10/13/18 03/31/19 History Losartan Potassium 100 mg PO DAILY 10/13/18 03/31/19 History Metoprolol Tartrate [Lopressor] 100 mg PO BID 10/13/18 03/31/19 History Warfarin [Coumadin] 2.5 mg PO HS 10/13/18 03/31/19 History hydrALAZINE HCL [Apresoline] 100 mg PO TID 10/13/18 03/31/19 History sitaGLIPtin PHOSPHATE [Januvia] 50 mg PO DAILY@1800 10/13/18 03/31/19 History INSULIN LISPRO (humaLOG) [humaLOG] 6 units SQ AC-TID #0 10/16/18 03/31/19 Rx Amoxic-Pot Clav 875-125Mg 1 tab PO Q12HR 03/31/19 03/31/19 History [Augmentin 875-125] Bisacodyl 5 mg PO DAILY PRN 03/31/19 03/31/19 History Cholecalciferol (Vitamin D3) 2,000 unit PO DAILY 03/31/19 03/31/19 History [Vitamin D3] Ferrous Sulfate [Feosol] 325 mg PO DAILY 03/31/19 03/31/19 History Fluticasone Nasal [place] [Flonase 1 spr EA NOSTRIL DAILY 03/31/19 03/31/19 History Nasal [place]] Insulin Detemir (Levemir) [Levemir] 20 unit SQ DAILY@1800 03/31/19 03/31/19 History Loratadine [Claritin] 10 mg PO DAILY 03/31/19 03/31/19 History Allergies Allergy/AdvReac Type Severity Reaction Status Date / Time No Known Allergies Allergy Verified 03/31/19 13:54 Physical Exam Vitals: Vital Signs Temp Pulse Pulse Resp BP BP Pulse Ox 04/02/19 07:08 98.5 F 88 15 127/74 99 04/02/19 01:20 98.6 F 82 17 125/64 99 04/01/19 19:05 98.8 F 76 17 120/64 97 04/01/19 16:59 98.0 F 79 16 132/71 04/01/19 14:12 97.6 F 94 16 117/65 100 04/01/19 13:42 98.1 F 102 H 16 119/63 04/01/19 13:32 98.1 F 89 16 118/57 100 Intake and Output 04/01/19 04/02/19 04/02/19 22:59 06:59 14:59 Intake Total 410 50 50 Output Total 700 Balance 410 -650 50 Intake: Oral 100 50 50 Blood Product 310 Rc As-3 Unit 310 [id number] Output: Urine 700 Other: Voiding Method Indwelling Catheter Indwelling Catheter Indwelling Catheter Results 04/02/19 05:57 04/02/19 05:57 Cardiac Enzymes 04/01/19 04/02/19 04/02/19 Range/Units 10:46 05:57 05:57 AST 15 (14-36) U/L Troponin I <0.012 <0.012 (0.000-0.034) ng/mL Coagulation 04/02/19 Range/Units 05:57 PT 15.9 H (9.0-12.0) sec CBC 04/01/19 04/02/19 Range/Units 18:58 05:57 WBC 11.2 H 12.3 H (3.8-10.6) k/uL RBC 2.97 L 3.13 L (3.80-5.40) m/uL Hgb 7.9 L 8.1 L (11.4-16.0) gm/dL Hct 25.3 L 26.1 L (34.0-46.0) % Plt Count 358 358 (150-450) k/uL Comprehensive Metabolic Panel 04/02/19 Range/Units 05:57 Sodium 140 (137-145) mmol/L Potassium 4.2 (3.5-5.1) mmol/L Chloride 108 H (98-107) mmol/L Carbon Dioxide 22 (22-30) mmol/L BUN 55 H (7-17) mg/dL Creatinine 2.47 H (0.52-1.04) mg/dL Glucose 75 (74-99) mg/dL Calcium 8.7 (8.4-10.2) mg/dL AST 15 (14-36) U/L ALT 17 (9-52) U/L Alkaline Phosphatase 81 (38-126) U/L Total Protein 6.9 (6.3-8.2) g/dL Albumin 3.0 L (3.5-5.0) g/dL Current Medications Generic Name Dose Route Start Last Admin Trade Name Freq PRN Reason Stop Dose Admin Amlodipine Besylate 5 mg 04/01/19 09:00 04/02/19 07:11 Norvasc PO 5 mg DAILY DENISE Administration Aspirin 81 mg 04/01/19 09:00 04/02/19 07:02 Aspirin PO Not Given DAILY DENISE Bisacodyl 5 mg 03/31/19 21:16 Dulcolax PO DAILY PRN Constipation Cholecalciferol 2,000 unit 04/01/19 09:00 04/02/19 07:02 Vitamin D3 (25 Mcg = 1000 Iu) PO Not Given DAILY [facility] Fluticasone Propionate 1 spray 04/01/19 09:00 04/02/19 07:12 Flonase Nasal [place] EA NOSTRIL 1 spray DAILY [facility] Administration Furosemide 40 mg 04/01/19 09:00 04/02/19 07:02 Lasix PO Not Given DAILY [facility] Furosemide 20 mg 04/01/19 08:22 Lasix IV 04/05/19 08:23 ONCE PRN Blood Transfusion Complete Hydralazine HCl 100 mg 03/31/19 22:00 04/02/19 07:03 Apresoline PO Not Given TID [facility] Insulin Aspart 6 unit 04/01/19 07:30 04/02/19 07:02 Novolog SQ Not Given AC-TID [facility] Insulin Detemir 20 unit 04/01/19 18:00 04/01/19 17:25 Levemir SQ 20 unit DAILY@1800 [facility] Administration Levothyroxine Sodium 50 mcg 04/01/19 06:30 04/02/19 05:51 Synthroid PO Not Given QAM@0630 [facility] Linagliptin 5 mg 04/01/19 18:00 04/01/19 17:25 Tradjenta PO 5 mg DAILY@1800 [facility] Administration Loratadine 10 mg 04/01/19 09:00 04/02/19 07:03 Claritin PO Not Given DAILY [facility] Losartan Potassium 100 mg 04/01/19 09:00 04/02/19 07:11 Cozaar PO 100 mg DAILY [facility] Administration Metoprolol Tartrate 100 mg 04/01/19 09:00 04/02/19 07:11 Lopressor PO 100 mg BID [facility] Administration Naloxone HCl 0.2 mg 03/31/19 14:35 Narcan IV Q2M PRN Opioid Reversal Potassium Chloride 10 meq 04/01/19 09:00 04/02/19 07:03 K-Dur 10 PO Not Given DAILY [facility] Pravastatin Sodium 80 mg 04/01/19 18:00 04/01/19 17:25 Pravachol PO 80 mg DAILY@1800 [facility] Administration Senna/Docusate Sodium 1 each 04/01/19 09:00 04/02/19 07:03 Senokot-S PO Not Given DAILY DENISE Sodium Chloride 1 drops 04/01/19 09:00 04/02/19 07:12 Hari 128 BOTH EYES 1 drops BID DENISE Administration Spironolactone 12.5 mg 04/01/19 09:00 04/02/19 07:03 Aldactone PO Not Given DAILY DENISE Intake and Output 04/01/19 04/02/19 04/02/19 22:59 06:59 14:59 Intake Total 410 50 50 Output Total 700 Balance 410 -650 50 Intake: Oral 100 50 50 Blood Product 310 As-3 Unit 310 [id number] Output: Urine 700 Other: Voiding Method Indwelling Catheter Indwelling Catheter Indwelling Catheter 04/02/19 05:57 04/02/19 05:57
[2019-04-02 11:48] LABS: Glucose,Whole Blood 99 mg/dL (75-99)
[2019-04-02] MEDS ORDERED: IV FLUID CONTINUATION 450 ML IV ONE (12:29)
[2019-04-02] MEDS ORDERED: LACTATED RINGERS 1,000 ML IV ONE ×3 (12:35→16:00)
[2019-04-02] MEDS ORDERED: LIDOCAINE 1% 20 ML VIAL (10MG/ML) FOR IV START INTRADERMA ONE (13:13)
[2019-04-02 13:18] LABS: Glucose,Whole Blood 87 mg/dL (75-99)
[2019-04-02] MEDS ORDERED: PROPOFOL 10 MG/ML 20 ML VIAL IV ONE (13:50)
[2019-04-02] MEDS ORDERED: fentaNYL (PF) 50 MCG/ML 2 ML AMP ONE (13:50)
[2019-04-02] MEDS ORDERED: SUCCINYLCHOLINE CHLORIDE 100 MG/5 ML SYR IV ONE (13:50)
[2019-04-02] MEDS ORDERED: FUROSEMIDE 10 MG/ML 2 ML VIAL ONE (13:50)
[2019-04-02] MEDS ORDERED: LIDOCAINE 1% INJ 10MG/ML (20 ML MDV) ONE (13:50)
[2019-04-02] MEDS ORDERED: LIDOCAINE 1% INJ 10MG/ML (20 ML MDV) IM ONE ×2 (14:56)
--- NOTE | 2019-04-02 16:41 | P.PN ---
Subjective Progress Note Date: 04/02/19 This is an 83-year-old pleasant female followed by Dr. Mendoza known history of diabetes mellitus type 2 requiring insulin, with PAD and other complications peripheral neuropathy hypertension, hypothyroidism atrial fibrillation, PAD, chronic gangrene/chronic ulcer diabetic foot ulcers right heel at least since October 2018, admitted to [facility] as the ulcers have failed to heal, and they have discussed the necessity of amputation, and requested to be admitted for the vascular surgeon with Dr. Weeks, he she was also seen by Dr. Boyd in the past. Cardiology was requested to see the patient consultation for preop, patient denies any history of CHF in the past, no history off CVA, no documented history of myocardial infarction, we are going to request an EKG him up preop. ProBNP, echocardiogram, with anticipation that the surgery would be done in the next 1-2 days. Coumadin will be held, 04/01: Dr. Weeks is planning for [id number] amputation tomorrow. Coumadin remains on hold. Cardiology consult requested. Echocardiogram reveals EF 55- 60%, mild concentric left ventricular hypertrophy, mild aortic regurgitation, moderate mitral regurgitation, moderate tricuspid regurgitation, mild pulmonary hypertension. Chest x-ray reveals chronic changes and cardiomegaly with small 2 tiny bilateral pleural effusions diminished in size from prior. Patient has been afebrile, heart rate 77, blood pressure 115/63 and pulse ox 99% on room air. Repeat lab work reveals normal white count of 9.7, hemoglobin 6.5 and 1 unit of packed RBCs will be ordered for transfusion. BUN 56 and creatinine 2.33. Electrolytes within normal limits. Blood sugar running between 121 and 167. Hemoglobin A1c is pending.Patient denies any new complaints. Weeks catheter is in place. Sister is at the bedside. 04/02: Human globin this morning is 8.[address] Weeks has ordered another unit of packed RBCs. She is scheduled for amputation this afternoon. She has been seen by cardiology this morning cleared for surgery. Repeat lab work reveals white count of 12.3, INR 1.6, BUN 55 and creatinine 2.47, blood sugars running 75-120. Patient's sisters also at the bedside. All questions have been answered. Patient denies any new complaints. Objective - Vital Signs Vital signs: Vital Signs Temp 98.5 F 04/02/19 07:08 Pulse 88 04/02/19 07:08 Resp 15 04/02/19 07:08 BP 127/74 04/02/19 07:08 Pulse Ox 99 04/02/19 07:08 Intake & Output 04/01/19 04/02/19 04/02/19 18:59 06:59 18:59 Intake Total 530 150 50 Output Total 900 700 Balance -370 -550 50 Weight 86.183 kg Intake: Oral 220 150 50 Blood Product 310 Rc As-3 Unit 310 [id number] Output: Urine 900 700 Other: Voiding Method Indwelling Catheter Indwelling Catheter # Voids 3 - Exam Review of Systems Constitutional: No fever, no chills, no night sweats. No weight change. Reports weakness, fatigue or lethargy. No daytime sleepiness. EENT: No headache. No blurred vision or double vision, no loss of vision. No loss of Hearing, no ringing in the ears, no dizziness. No nasal drainage or congestion. No epistaxis. No sore throat. Lungs: No shortness of breath, cough, no sputum production. No wheezing. Cardiovascular: No chest pain, no lower extremity edema. No palpitations. No paroxysmal nocturnal dyspnea. No orthopnea. No lightheadedness or dizziness. No syncopal episodes. Abdominal: No abdominal pain. No nausea, vomiting. No diarrhea. No constipation. No bloody or tarry stools.. No loss of appetite. Genitourinary: No dysuria, increased frequency, urgency. No urinary retention. Musculoskeletal: No myalgias. No muscle weakness, no gait dysfunction, no frequent falls. No back pain. No neck pain. Integumentary: Reports wounds, no lesions. No rash or pruritus. No unusual bru ising. No change in hair or nails. Neurologic: No aphasia. No facial droop. No change in mentation. No head injury. No headache. No paralysis. No paresthesia. Psychiatric: No depression. No anxiety. No mood swings. Endocrine: No abnormal blood sugars. No weight change. No excessive sweating or thirst. No cold intolerance. - Constitutional General appearance: cooperative, no acute distress, resting in bed, obese - EENT Eyes: anicteric sclerae, EOMI, dentition normal, normal appearance ENT: hearing grossly normal, NA/AT, normal oropharynx - Neck Neck: normal ROM - Respiratory Respiratory: bilateral: CTA, negative: diminished, dullness, rales - Cardiovascular Rhythm: regular Heart sounds: normal: S1, S2 Abnormal Heart Sounds: no systolic murmur, no diastolic murmur, no rub, no S3 Gallop, no S4 Gallop, no click, no other - Gastrointestinal General gastrointestinal: normal bowel sounds, soft - Integumentary Integumentary: normal, ulcer (Has significant calcaneal ulceration with gangrene, mainly moist, PAD is nonpalpable, there is marked alteration in the wound, foul order) - Neurologic Neurologic: CNII-XII intact - Musculoskeletal Musculoskeletal: strength equal bilaterally - Psychiatric Psychiatric: A&O x's 3, appropriate affect, intact judgment & insight - Labs CBC & Chem 7: 04/02/19 05:57 04/02/19 05:57 Labs: Abnormal Lab Results - Last 24 Hours (Table) 04/01/19 04/01/19 04/01/19 Range/Units 05:32 10:46 11:17 WBC (3.8-10.6) k/uL RBC (3.80-5.40) m/uL Hgb (11.4-16.0) gm/dL Hct (34.0-46.0) % Neutrophils # (1.3-7.7) k/uL Monocytes # (0-1.0) k/uL PT (9.0-12.0) sec INR (<1.2) Chloride (98-107) mmol/L BUN (7-17) mg/dL Creatinine (0.52-1.04) mg/dL POC Glucose (mg/dL) 131 H (75-99) mg/dL Iron 12 L (50-170) ug/dL Iron Saturation 4.33 L (12.00-45.00) Albumin (3.5-5.0) g/dL Crossmatch See Detail 04/01/19 04/01/19 04/01/19 Range/Units 16:58 18:58 20:40 WBC 11.2 H (3.8-10.6) k/uL RBC 2.97 L (3.80-5.40) m/uL Hgb 7.9 L (11.4-16.0) gm/dL Hct 25.3 L (34.0-46.0) % Neutrophils # (1.3-7.7) k/uL Monocytes # (0-1.0) k/uL PT (9.0-12.0) sec INR (<1.2) Chloride (98-107) mmol/L BUN (7-17) mg/dL Creatinine (0.52-1.04) mg/dL POC Glucose (mg/dL) 233 H 120 H (75-99) mg/dL Iron (50-170) ug/dL Iron Saturation (12.00-45.00) Albumin (3.5-5.0) g/dL Crossmatch 04/02/19 04/02/19 04/02/19 Range/Units 05:57 05:57 05:57 WBC 12.3 H (3.8-10.6) k/uL RBC 3.13 L (3.80-5.40) m/uL Hgb 8.1 L (11.4-16.0) gm/dL Hct 26.1 L (34.0-46.0) % Neutrophils # 8.7 H (1.3-7.7) k/uL Monocytes # 1.1 H (0-1.0) k/uL PT 15.9 H (9.0-12.0) sec INR 1.6 H (<1.2) Chloride 108 H (98-107) mmol/L BUN 55 H (7-17) mg/dL Creatinine 2.47 H (0.52-1.04) mg/dL POC Glucose (mg/dL) (75-99) mg/dL Iron (50-170) ug/dL Iron Saturation (12.00-45.00) Albumin 3.0 L (3.5-5.0) g/dL Crossmatch Microbiology - Last 24 Hours (Table) 03/31/19 14:26 Blood Culture - Preliminary Blood No Growth after 24 hours Assessment and Plan Plan: 1. Diabetic foot ulcer, involving right heel, with wet gangrene, known history of PAD, failed to heal despite adequate length of time as an outpatient, approximately 6 months. Patient scheduled for [id number] amputation today with Dr. Weeks. Preop cardiology clearance requested. Coumadin is on hold. Echocardiogram as above. 2. Iron deficiency anemia or anemia of chronic disease. Iron studies pending. Transfuse 1 unit of packed RBCs followed by Lasix 20 mg IV push. 3. Paroxysmal atrial fibrillation on chronic Coumadin for anticoagulation, Coumadin will be held today in this patient for her proposed procedure for below the knee amputation, patient would be receiving IV heparin, 4. CKD stage IV, creatinine of 2.34, avoid nephrotoxins and hypotension, 5. Diabetes mellitus type 2 with diabetic neuropathy. Continue Lantus 20 units at bedtime, hold patient's scheduled 6 units with meals. Continue NovoLog scale before meals and at bedtime. Hemoglobin A1c. 6. Hypertension. Continue amlodipine 5 mg daily, losartan 100 mg daily, Lopressor 100 mg twice daily, hydralazine 100 mg 3 times daily, Lasix 40 orally milligrams daily, Aldactone 12.5 mg daily. 7. Hyperlipidemia. Continue Pravachol 80 mg daily. 8. Mild protein calorie malnutrition. Continue Glucerna. 9. Generalized debility. PT and OT to follow after surgery. 10. DVT prophylaxis. Coumadin/heparin drip. 11. GI prophylaxis. Pepcid CODE STATUS: Full code Discharge plan: Return to [facility] under the care of Dr. Mendoza. Impression and plan of care have been directed as dictated by the signing physician. Xi Olguin nurse practitioner acting as scribe for signing physician.
[2019-04-02] MEDS: LINAGLIPTIN 5 MG TABLET PO SCH (17:03)
[2019-04-02] MEDS: PRAVASTATIN SODIUM 80 MG TAB PO SCH (17:03)
[2019-04-02] MEDS: INSULIN DETEMIR (LEVEMIR) 100 UNIT/ML SYR SQ SCH (17:03)
[2019-04-02 17:20] LABS: Glucose,Whole Blood 108 mg/dL (75-99)
--- NOTE | 2019-04-02 17:22 | P.OP ---
Date of Procedure: 04/02/19 Description of Procedure: SURGEON: Shruthi Weeks DO INTERNATIONAL EDITORIAL PRODUCER: None PREOPERATIVE DIAGNOSIS: Infected gangrene of the right heel, previous failed bypasses, peripheral vascular disease, diabetes, hypertension POSTOPERATIVE DIAGNOSIS: Same, likely pseudoaneurysm at proximal superficial femoral artery anastomosis OPERATION: Right above-knee amputation ANESTHESIA: Gen. endotracheal tube ESTIMATED BLOOD LOSS: 500 mL SPECIMENS REMOVED: Right leg, culture of bypass graft COMPLICATIONS: None OPERATIVE FINDINGS: The patient is an 83-year-old female with a past medical history including diabetes and peripheral vascular disease including multiple failed bypass grafts. She has a infected gangrenous ulcer on her right heel. Multiple previous attempted salvage were performed by another physician and at this point it was recommended the patient undergo an amputation. When seen in the office she is stating that she needs an amputation and she does not want to go under any further revascularization attempts or long/prolonged wound care treatments. She understands this course and does not ambulate. She is wheelchair-bound. Occasionally she stands to help with activities of daily living but essentially does not utilize this leg at all. At that point discussion was had with the grandson, her power of county attorney as well as the patient regarding going forward with an above-knee amputation. They'll seemingly understand and are willing to proceed. Risks and benefits were discussed. During the procedure the bypass graft was noted at the medial thigh, upon incising into it there was semi-purulent drainage. This was cultured. With gentle traction to ligated the proximal portion the portion of the anastomotic line and residual proximal portion of the graft was avulsed quite simply being immediately there was some degree of pseudoaneurysm at this area. Initially there was no evidence of bleeding from this area and closure was performed. It wasn't until the staple line placement that there was an abnormal amount of oozing from this medial portion of the incision. At that point the entire incision was reopened and the area of the superficial femoral artery where the avulsed graft came from was suture ligated. DESCRIPTION OF PROCEDURE: The patient was brought to the operating room, the operative leg was prepped and draped in the usual sterile manner. Incision was made above the knee and for the anterior flap an incision was made deepened in the skin, fat, and fascia and then the posterior flap incision was made, and deepened in the skin, fat, and fascia. Muscles were divided and neurovascular bundle was identified. The previous bypass graft was identified and transected. There was semi-purulent drainage from the distal portion, uncertain of this was just chronic breakdown versus infection. This was cultured. U attempts at ligating the proximal portion, with minimal traction the anastomotic line and residual proximal portion of the graft was levels with Prolene suture. There was no evidence of bleeding at that point. The portion of the wilton vessel identified was heavily calcified and suture ligated with 0 silk. That point the bone was cleared circumferentially a periosteal elevator was utilized. An oscillating saw was utilized to divide the femur. Using electrocautery the posterior flap was created. The saw was used to bevel the anterior portion of the femur. A rasp was utilized to smooth edges. The specimen was removed and the wound was copiously irrigated with saline. At that point hemostasis appeared adequate. The fascia was reapproximated with interrupted vertical mattress sutures of 2-0 Vicryl. The deep dermal tissues were reapproximated with interrupted vertical mattress sutures of 3-0 Vicryl. [place] were placed on the skin. Upon cleansing the skin, there was noted to be increased amount of blood through the incision with any applied pressure. At that point the incision was then reopened and the previously identified area of the superficial femoral artery, where the avulsed bypass graft was, was noted to be bleeding. The area was dissected circumferentially and the artery was circumferentially ligated. There is no further evidence of active bleeding. Previous steps were then taken again for closure. Robert were placed. Dressing was placed. The patient was extubated and taken back to PACU in stable condition having tolerated the procedure well.
[2019-04-02] MEDS ORDERED: HYDROmorphone 1 MG/ML 1 ML SYRINGE IVP ONE (17:33)
[2019-04-02 19:44] LABS: HCT 32.1 % (34.0-46.0); MCH 30.4 pg (25.0-35.0); MCHC 34.3 g/dL (31.0-37.0); MCV 88.5 fL (80.0-100.0); Mean Platelet Volume 6.7; Platelet Count 367 k/uL (150-450); RBC 3.63 m/uL (3.80-5.40); RDW 15.2 % (11.5-15.5); WBC 19.4 k/uL (3.8-10.6)
[2019-04-02] MEDS: HYDROcodone/APAP 5-325MG 1 EACH TAB PO PRN (20:45)
[2019-04-02 21:15] LABS: Glucose,Whole Blood 163 mg/dL (75-99)
[2019-04-03 06:07] LABS: Basophils # (A) 0.1 k/uL (0-0.2); Basophils % (A) 1 %; Eosinophils # (A) 0.1 k/uL (0-0.7); Eosinophils % (A) 1 %; HCT 31.9 % (34.0-46.0); HGB 10.3 gm/dL (11.4-16.0); Hypochromasia Slight; Lymphocytes # (A) 1.3 k/uL (1.0-4.8); Lymphocytes % (A) 9 %; MCH 28.1 pg (25.0-35.0); MCHC 32.4 g/dL (31.0-37.0); MCV 86.7 fL (80.0-100.0); Mean Platelet Volume 6.9; Monocytes % (A) 7 %; Neutrophils # (A) 11.7 k/uL (1.3-7.7); Neutrophils % (A) 82 %; Platelet Count 352 k/uL (150-450); Poikilocytosis Slight; RBC 3.68 m/uL (3.80-5.40); RDW 15.4 % (11.5-15.5); WBC 14.3 k/uL (3.8-10.6)
[2019-04-03 06:10] LABS: INR 1.5 (<1.2)
[2019-04-03 07:07] LABS: Glucose,Whole Blood 174 mg/dL (75-99)
[2019-04-03] MEDS: INSULIN ASPART (NovoLOG) 100 UNIT/ML VIAL SQ SCH ×5 (07:12→21:28)
[2019-04-03] MEDS: LEVOTHYROXINE 50 MCG TAB PO SCH (07:13)
[2019-04-03] MEDS: HYDROcodone/APAP 5-325MG 1 EACH TAB PO PRN ×4 (07:20→20:36)
[2019-04-03] MEDS: METOPROLOL TARTRATE 50 MG TAB PO SCH ×2 (08:28→20:27)
[2019-04-03] MEDS: ASPIRIN 81 MG PO SCH (08:28)
[2019-04-03] MEDS: SPIRONOLACTONE 25 MG TAB PO SCH (08:28)
[2019-04-03] MEDS: SENNOSIDES-DOCUSATE SODIUM 1 EACH TAB PO SCH (08:28)
[2019-04-03] MEDS: hydrALAZINE HCL 50 MG TAB PO SCH ×2 (08:28→16:01)
[2019-04-03] MEDS: POTASSIUM CHLORIDE ER 10 MEQ TAB.ER.PRT PO SCH (08:29)
[2019-04-03] MEDS: FUROSEMIDE 40 MG TAB PO SCH (08:29)
[2019-04-03] MEDS: SODIUM CHLORIDE 5% OPHTH DROPS 15 ML BTL BOTH EYES SCH ×2 (08:29→21:00)
[2019-04-03] MEDS: LORATADINE 10 MG TAB PO SCH (08:29)
[2019-04-03] MEDS: amLODIPine 5 MG TAB PO SCH (08:29)
[2019-04-03] MEDS: LOSARTAN 50 MG TAB PO SCH (08:29)
[2019-04-03] MEDS: CHOLECALCIFEROL 1,000 UNIT TAB PO SCH (08:29)
[2019-04-03] MEDS: FLUTICASONE 50MCG/SPRAY NASAL 16GM EA NOSTRIL SCH (08:37)
--- NOTE | 2019-04-03 10:39 | P.PN ---
Subjective Progress Note Date: 04/03/19 Principal diagnosis: right lower extremity wet gangrene s/p AKA Patient seen and examined. Complaining of pain a the amputation site which is controlled with pain medications. Denies any fevers, chills, nausea, vomiting, chest pain or shortness of breath. Objective - Vital Signs Vital signs: Vital Signs Temp 96.8 F L 04/03/19 08:00 Pulse 94 04/03/19 08:00 Resp 16 04/03/19 08:00 BP 149/67 04/03/19 08:00 Pulse Ox 100 04/03/19 08:00 Intake & Output 04/02/19 04/03/19 04/03/19 18:59 06:59 18:59 Intake Total 3180 190 210 Output Total 1650 700 Balance 1530 -510 210 Weight 78.5 kg Intake: IV 2150 Intake, IV Titration 190 210 Amount Lactated Ringers 1,000 ml 140 160 @ 0 mls/hr IV [facility] Rx#:[id number] ceFAZolin 2 gm In Sodium 50 50 Chloride 0.9% 50 ml @ 100 mls/hr IVPB Q[facility]HR [facility] Rx# :[id number] Oral 100 Blood Product 930 Rc As-1 Unit 310 [id number] Rc As-1 Unit 310 [id number] Rc As-1 Unit 310 [id number] Output: Urine 1150 700 Estimated Blood Loss 500 Other: Voiding Method Indwelling Catheter Indwelling Catheter Indwelling Catheter - Exam Pleasant female in no acute distress lying in bed. R AKA dressings intact. No bleeding noted through the dressing. +tenderness to palpation. - Constitutional General appearance: Present: cooperative - Labs CBC & Chem 7: 04/03/19 05:30 04/02/19 05:57 Labs: Abnormal Lab Results - Last 24 Hours (Table) 04/01/19 04/02/19 04/02/19 Range/Units 10:46 17:17 19:30 WBC 19.4 H (3.8-10.6) k/uL RBC 3.63 L (3.80-5.40) m/uL Hgb 11.0 L (11.4-16.0) gm/dL Hct 32.1 L (34.0-46.0) % Neutrophils # (1.3-7.7) k/uL PT (9.0-12.0) sec INR (<1.2) POC Glucose (mg/dL) 108 H (75-99) mg/dL Crossmatch See Detail 04/02/19 04/03/19 04/03/19 Range/Units 21:13 05:30 05:30 WBC 14.3 H (3.8-10.6) k/uL RBC 3.68 L (3.80-5.40) m/uL Hgb 10.3 L (11.4-16.0) gm/dL Hct 31.9 L (34.0-46.0) % Neutrophils # 11.7 H (1.3-7.7) k/uL PT 15.0 H (9.0-12.0) sec INR 1.5 H (<1.2) POC Glucose (mg/dL) 163 H (75-99) mg/dL Crossmatch 04/03/19 Range/Units 07:05 WBC (3.8-10.6) k/uL RBC (3.80-5.40) m/uL Hgb (11.4-16.0) gm/dL Hct (34.0-46.0) % Neutrophils # (1.3-7.7) k/uL PT (9.0-12.0) sec INR (<1.2) POC Glucose (mg/dL) 174 H (75-99) mg/dL Crossmatch Microbiology - Last 24 Hours (Table) 04/02/19 15:10 Gram Stain - Preliminary Other - Other Wound Culture - Preliminary 03/31/19 14:26 Blood Culture - Preliminary Blood No Growth after 48 hours Assessment and Plan Assessment: #1 POD 1 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
[2019-04-03 11:58] LABS: Glucose,Whole Blood 268 mg/dL (75-99)
--- NOTE | 2019-04-03 16:59 | P.PN ---
Subjective Progress Note Date: 04/03/19 This is an 83-year-old pleasant female followed by Dr. Mendoza known history of diabetes mellitus type 2 requiring insulin, with PAD and other complications peripheral neuropathy hypertension, hypothyroidism atrial fibrillation, PAD, chronic gangrene/chronic ulcer diabetic foot ulcers right heel at least since October 2018, admitted to [facility] as the ulcers have failed to heal, and they have discussed the necessity of amputation, and requested to be admitted for the vascular surgeon with Dr. Weeks, he she was also seen by Dr. Boyd in the past. Cardiology was requested to see the patient consultation for preop, patient denies any history of CHF in the past, no history off CVA, no documented history of myocardial infarction, we are going to request an EKG him up preop. ProBNP, echocardiogram, with anticipation that the surgery would be done in the next 1-2 days. Coumadin will be held, 04/01: Dr. Weeks is planning for [id number] amputation tomorrow. Coumadin remains on hold. Cardiology consult requested. Echocardiogram reveals EF 55- 60%, mild concentric left ventricular hypertrophy, mild aortic regurgitation, moderate mitral regurgitation, moderate tricuspid regurgitation, mild pulmonary hypertension. Chest x-ray reveals chronic changes and cardiomegaly with small 2 tiny bilateral pleural effusions diminished in size from prior. Patient has been afebrile, heart rate 77, blood pressure 115/63 and pulse ox 99% on room air. Repeat lab work reveals normal white count of 9.7, hemoglobin 6.5 and 1 unit of packed RBCs will be ordered for transfusion. BUN 56 and creatinine 2.33. Electrolytes within normal limits. Blood sugar running between 121 and 167. Hemoglobin A1c is pending.Patient denies any new complaints. Weeks catheter is in place. Sister is at the bedside. 04/02: Human globin this morning is 8.[address] Weeks has ordered another unit of packed RBCs. She is scheduled for amputation this afternoon. She has been seen by cardiology this morning cleared for surgery. Repeat lab work reveals white count of 12.3, INR 1.6, BUN 55 and creatinine 2.47, blood sugars running 75-120. Patient's sisters also at the bedside. All questions have been answered. Patient denies any new complaints. 04/03 patient examined bedside complains of significant in the right lower stump. Vital examination the temperature is 98.7 blood pressure 120/58 leukocytosis improved from 91.4-14 hemoglobin has slightly troponin dropped from 11-10.3 platelets and normal. Patient is restarted on Coumadin post surgery. Lantus increased to 25 units daily continue Tradjenta and insulin with insulin sliding scale. Review of Systems Constitutional: No fever, no chills, no night sweats. No weight change. Reports weakness, fatigue or lethargy. No daytime sleepiness. EENT: No headache. No blurred vision or double vision, no loss of vision. No loss of Hearing, no ringing in the ears, no dizziness. No nasal drainage or congestion. No epistaxis. No sore throat. Lungs: No shortness of breath, cough, no sputum production. No wheezing. Cardiovascular: No chest pain, no lower extremity edema. No palpitations. No paroxysmal nocturnal dyspnea. No orthopnea. No lightheadedness or dizziness. No syncopal episodes. Abdominal: No abdominal pain. No nausea, vomiting. No diarrhea. No constipation. No bloody or tarry stools.. No loss of appetite. Genitourinary: No dysuria, increased frequency, urgency. No urinary retention. Musculoskeletal: Pain in the right lower extremity Integumentary: Reports wounds, no lesions. No rash or pruritus. No unusual bruising. No change in hair or nails. Neurologic: No aphasia. No facial droop. No change in mentation. No head injury. No headache. No paralysis. No paresthesia. Psychiatric: No depression. No anxiety. No mood swings. Endocrine: No abnormal blood sugars. No weight change. No excessive sweating or thirst. No cold intolerance. Objective - Vital Signs Vital signs: Vital Signs Temp 96.2 F L 04/03/19 15:49 Pulse 83 04/03/19 15:49 Resp 16 04/03/19 15:49 BP 133/60 04/03/19 15:49 Pulse Ox 99 04/03/19 15:49 Intake & Output 04/02/19 04/03/19 04/03/19 18:59 06:59 18:59 Intake Total 3180 190 568 Output Total 1650 700 Balance 1530 -510 568 Weight 78.5 kg Intake: IV 2150 Intake, IV Titration 190 210 Amount Lactated Ringers 1,000 ml 140 160 @ 0 mls/hr IV [facility] Rx#:[id number] ceFAZolin 2 gm In Sodium 50 50 Chloride 0.9% 50 ml @ 100 mls/hr IVPB Q8HR [facility] Rx# :[id number] Oral 100 358 Blood Product 930 Rc As-1 Unit 310 [id number] Rc As-1 Unit 310 [id number] Rc As-1 Unit 310 [id number] Output: Urine 1150 700 Estimated Blood Loss 500 Other: Voiding Method Indwelling Catheter Indwelling Catheter Indwelling Catheter - Exam - Constitutional General appearance: cooperative, no acute distress, resting in bed, obese - EENT Eyes: anicteric sclerae, EOMI, dentition normal, normal appearance ENT: hearing grossly normal, NA/AT, normal oropharynx - Neck Neck: normal ROM - Respiratory Respiratory: bilateral: CTA, negative: diminished, dullness, rales - Cardiovascular Rhythm: regular Heart sounds: normal: S1, S2 Abnormal Heart Sounds: no systolic murmur, no diastolic murmur, no rub, no S3 Gallop, no S4 Gallop, no click, no other - Gastrointestinal General gastrointestinal: normal bowel sounds, soft - Integumentary Integumentary: Normal - Neurologic Neurologic: CNII-XII intact - Musculoskeletal Musculoskeletal: Right lower extremities done under dressing no oozing or drainage seen on the dressing. Weeks catheter and his - Psychiatric Psychiatric: A&O x's 3, appropriate affect, intact judgment & insight - Labs CBC & Chem 7: 04/03/19 05:30 04/02/19 05:57 Labs: Abnormal Lab Results - Last 24 Hours (Table) 04/01/19 04/02/19 04/02/19 Range/Units 10:46 17:17 19:30 WBC 19.4 H (3.8-10.6) k/uL RBC 3.63 L (3.80-5.40) m/uL Hgb 11.0 L (11.4-16.0) gm/dL Hct 32.1 L (34.0-46.0) % Neutrophils # (1.3-7.7) k/uL PT (9.0-12.0) sec INR (<1.2) POC Glucose (mg/dL) 108 H (75-99) mg/dL Crossmatch See Detail 04/02/19 04/03/19 04/03/19 Range/Units 21:13 05:30 05:30 WBC 14.3 H (3.8-10.6) k/uL RBC 3.68 L (3.80-5.40) m/uL Hgb 10.3 L (11.4-16.0) gm/dL Hct 31.9 L (34.0-46.0) % Neutrophils # 11.7 H (1.3-7.7) k/uL PT 15.0 H (9.0-12.0) sec INR 1.5 H (<1.2) POC Glucose (mg/dL) 163 H (75-99) mg/dL Crossmatch 04/03/19 04/03/19 Range/Units 07:05 11:56 WBC (3.8-10.6) k/uL RBC (3.80-5.40) m/uL Hgb (11.4-16.0) gm/dL Hct (34.0-46.0) % Neutrophils # (1.3-7.7) k/uL PT (9.0-12.0) sec INR (<1.2) POC Glucose (mg/dL) 174 H 268 H (75-99) mg/dL Crossmatch Microbiology - Last 24 Hours (Table) 03/31/19 14:26 Blood Culture - Preliminary Blood No Growth after 72 hours 04/02/19 15:10 Gram Stain - Preliminary Other - Other Wound Culture - Preliminary Assessment and Plan Plan: 1. Diabetic foot ulcer, involving right heel, with wet gangrene, known history of PAD, failed to heal despite adequate length of time as an outpatient, approximately 6 months. 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 Coumadin restarted Echocardiogram as above. 2. Iron deficiency anemia or anemia of chronic disease. Iron studies pending. Transfuse 1 unit of packed RBCs followed by Lasix 20 mg IV push. 3. Paroxysmal atrial fibrillation on chronic Coumadin for anticoagulation continue metoprolol 100 twice daily 4. CKD stage IV, creatinine of 2.34, avoid nephrotoxins and hypotension, 5. Diabetes mellitus type 2 with diabetic neuropathy. Continue Lantus 20 units at bedtime, hold patient's scheduled 6 units with meals. Continue NovoLog scale before meals and at bedtime. Hemoglobin A1c. 6. Hypertension. Continue amlodipine 5 mg daily, losartan 100 mg daily, Lopressor 100 mg twice daily, hydralazine 100 mg 3 times daily, Lasix 40 orally milligrams daily, Aldactone 12.5 mg daily. 7. Hyperlipidemia. Continue Pravachol 80 mg daily. 8. Mild protein calorie malnutrition. Continue Glucerna. 9. Generalized debility. PT and OT to follow after surgery. 10. DVT prophylaxis. On Coumadin 11. GI prophylaxis. Pepcid CODE STATUS: Full code
[2019-04-03 17:20] LABS: Glucose,Whole Blood 312 mg/dL (75-99)
[2019-04-03] MEDS: PRAVASTATIN SODIUM 80 MG TAB PO SCH (17:30)
[2019-04-03] MEDS: LINAGLIPTIN 5 MG TABLET PO SCH (17:30)
[2019-04-03 17:31] LABS: Glucose,Whole Blood 306 mg/dL (75-99)
[2019-04-03] MEDS: INSULIN DETEMIR (LEVEMIR) 100 UNIT/ML SYR SQ SCH (17:46)
[2019-04-03] MEDS ORDERED: WARFARIN 2.5 MG TAB PO SCH (18:00)
[2019-04-03 21:06] LABS: Glucose,Whole Blood 333 mg/dL (75-99)
--- NOTE | 2019-04-03 21:57 | CONS ---
CONSULTATION HISTORY: The patient is status post right above-knee amputation. She is otherwise doing well and is free of symptoms. EXAM: Patient is afebrile. Heart rate is 90 beats per minute. Blood pressure is 122/59. Chest exam reveals good air entry bilaterally. Heart exam reveals first and second heart sounds. No gallop. Exam of extremities reveals right AKA. Left dorsalis pedis pulses are palpable. MEDICATIONS: The patient is currently on aspirin Norvasc, Lasix, Apresoline, Claritin, Cozaar, Lopressor, K-Dur, and Pravastatin. ASSESSMENT: 1. Peripheral vascular disease, status post right above-knee amputation for wet gangrene. 2. Persistent atrial fibrillation. 3. Hypertension. 4. Diabetes. 5. Dyslipidemia. PLAN: Will resume Coumadin. Continue the rest of her medications. MMODL / IJN: [id number] /
[2019-04-04] MEDS: hydrALAZINE HCL 50 MG TAB PO SCH ×4 (00:31→20:57)
[2019-04-04] MEDS: HYDROcodone/APAP 5-325MG 1 EACH TAB PO PRN ×4 (05:23→19:51)
[2019-04-04] MEDS: LEVOTHYROXINE 50 MCG TAB PO SCH (05:24)
[2019-04-04 06:34] LABS: HGB 9.4 gm/dL (11.4-16.0); Hypochromasia Slight; MCH 27.9 pg (25.0-35.0); MCHC 32.2 g/dL (31.0-37.0); MCV 86.5 fL (80.0-100.0); Mean Platelet Volume 7.1; Platelet Count 346 k/uL (150-450); RBC 3.36 m/uL (3.80-5.40); RDW 15.9 % (11.5-15.5); WBC 14.4 k/uL (3.8-10.6)
[2019-04-04 06:41] LABS: INR 1.7 (<1.2)
[2019-04-04 06:48] LABS: Glucose,Whole Blood 135 mg/dL (75-99)
[2019-04-04] MEDS: INSULIN ASPART (NovoLOG) 100 UNIT/ML VIAL SQ SCH ×7 (07:45→20:54)
[2019-04-04] MEDS: CHOLECALCIFEROL 1,000 UNIT TAB PO SCH (08:44)
[2019-04-04] MEDS: ASPIRIN 81 MG PO SCH (08:44)
[2019-04-04] MEDS: LOSARTAN 50 MG TAB PO SCH (08:44)
[2019-04-04] MEDS: METOPROLOL TARTRATE 50 MG TAB PO SCH ×2 (08:44→20:55)
[2019-04-04] MEDS: POTASSIUM CHLORIDE ER 10 MEQ TAB.ER.PRT PO SCH (08:44)
[2019-04-04] MEDS: SPIRONOLACTONE 25 MG TAB PO SCH (08:44)
[2019-04-04] MEDS: SENNOSIDES-DOCUSATE SODIUM 1 EACH TAB PO SCH (08:44)
[2019-04-04] MEDS: amLODIPine 5 MG TAB PO SCH (08:44)
[2019-04-04] MEDS: FUROSEMIDE 40 MG TAB PO SCH (08:44)
[2019-04-04] MEDS: LORATADINE 10 MG TAB PO SCH (08:44)
--- NOTE | 2019-04-04 11:13 | P.PN ---
Subjective Progress Note Date: 04/04/19 This is an 83-year-old pleasant female followed by Dr. Mendoza known history of diabetes mellitus type 2 requiring insulin, with PAD and other complications peripheral neuropathy hypertension, hypothyroidism atrial fibrillation, PAD, chronic gangrene/chronic ulcer diabetic foot ulcers right heel at least since October 2018, admitted to [facility] as the ulcers have failed to heal, and they have discussed the necessity of amputation, and requested to be admitted for the vascular surgeon with Dr. Weeks, he she was also seen by Dr. Boyd in the past. Cardiology was requested to see the patient consultation for preop, patient denies any history of CHF in the past, no history off CVA, no documented history of myocardial infarction, we are going to request an EKG him up preop. ProBNP, echocardiogram, with anticipation that the surgery would be done in the next 1-2 days. Coumadin will be held, 04/01: Dr. Weeks is planning for [id number] amputation tomorrow. Coumadin remains on hold. Cardiology consult requested. Echocardiogram reveals EF 55- 60%, mild concentric left ventricular hypertrophy, mild aortic regurgitation, moderate mitral regurgitation, moderate tricuspid regurgitation, mild pulmonary hypertension. Chest x-ray reveals chronic changes and cardiomegaly with small 2 tiny bilateral pleural effusions diminished in size from prior. Patient has been afebrile, heart rate 77, blood pressure 115/63 and pulse ox 99% on room air. Repeat lab work reveals normal white count of 9.7, hemoglobin 6.5 and 1 unit of packed RBCs will be ordered for transfusion. BUN 56 and creatinine 2.33. Electrolytes within normal limits. Blood sugar running between 121 and 167. Hemoglobin A1c is pending.Patient denies any new complaints. Weeks catheter is in place. Sister is at the bedside. 04/02: Human globin this morning is 8.[address] Weeks has ordered another unit of packed RBCs. She is scheduled for amputation this afternoon. She has been seen by cardiology this morning cleared for surgery. Repeat lab work reveals white count of 12.3, INR 1.6, BUN 55 and creatinine 2.47, blood sugars running 75-120. Patient's sisters also at the bedside. All questions have been answered. Patient denies any new complaints. 04/03 patient examined bedside complains of significant in the right lower stump. Vital examination the temperature is 98.7 blood pressure 120/58 leukocytosis improved from 91.4-14 hemoglobin has slightly troponin dropped from 11-10.3 platelets and normal. Patient is restarted on Coumadin post surgery. Lantus increased to 25 units daily continue Tradjenta and insulin with insulin sliding scale. 04/04: Patient denies any new complaints. No chest pain or shortness of breath. She denies any diarrhea or constipation. INR today is at 1.7. Pharmacy is dosing Coumadin. Patient has been afebrile, heart rate 80, blood pressure 140/65, pulse ox 99% on room air. We will transfer the patient to [facility] without telemetry. orthotic fitter has been atrial fibrillation with rate controlled. Plan for discharge on Friday back to residential. Objective - Vital Signs Vital signs: Vital Signs Temp 98.6 F 04/04/19 04:00 Pulse 80 04/04/19 04:00 Resp 18 04/04/19 04:00 BP 110/60 04/04/19 04:00 Pulse Ox 99 04/04/19 04:00 Intake & Output 04/03/19 04/04/19 04/04/19 18:59 06:59 18:59 Intake Total 808 300 Output Total 500 Balance 308 300 Weight 84 kg Intake: Intake, IV Titration 210 Amount Lactated Ringers 1,000 ml 160 @ 0 mls/hr IV .[facility] Rx#:[id number] ceFAZolin 2 gm In Sodium 50 Chloride 0.9% 50 ml @ 100 mls/hr IVPB Q8HR [facility] Rx# :[id number] Oral 598 300 Output: Urine 500 Other: Voiding Method Indwelling Catheter Indwelling Catheter - Exam Review of Systems Constitutional: No fever, no chills, no night sweats. No weight change. Reports weakness, fatigue or lethargy. No daytime sleepiness. EENT: No headache. No blurred vision or double vision, no loss of vision. No loss of Hearing, no ringing in the ears, no dizziness. No nasal drainage or congestion. No epistaxis. No sore throat. Lungs: No shortness of breath, cough, no sputum production. No wheezing. Cardiovascular: No chest pain, no lower extremity edema. No palpitations. No paroxysmal nocturnal dyspnea. No orthopnea. No lightheadedness or dizziness. No syncopal episodes. Abdominal: No abdominal pain. No nausea, vomiting. No diarrhea. No constipation. No bloody or tarry stools.. No loss of appetite. Genitourinary: No dysuria, increased frequency, urgency. No urinary retention. Musculoskeletal: Pain in the right lower extremity continues Integumentary: Reports wounds, no lesions. No rash or pruritus. No unusual bruising. No change in hair or nails. Neurologic: No aphasia. No facial droop. No change in mentation. No head injury. No headache. No paralysis. No paresthesia. Psychiatric: No depression. No anxiety. No mood swings. Endocrine: No abnormal blood sugars. No weight change. No excessive sweating or thirst. No cold intolerance. - Exam - Constitutional General appearance: cooperative, no acute distress, resting in bed, obese - EENT Eyes: anicteric sclerae, EOMI, dentition normal, normal appearance ENT: hearing grossly normal, NA/AT, normal oropharynx - Neck Neck: normal ROM - Respiratory Respiratory: bilateral: CTA, negative: diminished, dullness, rales - Cardiovascular Rhythm: regular Heart sounds: normal: S1, S2 Abnormal Heart Sounds: no systolic murmur, no diastolic murmur, no rub, no S3 Gallop, no S4 Gallop, no click, no other - Gastrointestinal General gastrointestinal: normal bowel sounds, soft Weeks catheter in place - Integumentary Integumentary: Normal - Neurologic Neurologic: CNII-XII intact - Musculoskeletal Musculoskeletal: Right lower extremity dressing no oozing or drainage seen on the dressing. - Psychiatric Psychiatric: A&O x's 3, appropriate affect, intact judgment & insight - Labs CBC & Chem 7: 04/04/19 06:09 04/02/19 05:57 Labs: Abnormal Lab Results - Last 24 Hours (Table) 04/03/19 04/03/19 04/03/19 Range/Units 11:56 17:19 17:20 WBC (3.8-10.6) k/uL RBC (3.80-5.40) m/uL Hgb (11.4-16.0) gm/dL Hct (34.0-46.0) % RDW (11.5-15.5) % PT (9.0-12.0) sec INR (<1.2) POC Glucose (mg/dL) 268 H 312 H 306 H (75-99) mg/dL 04/03/19 04/04/19 04/04/19 Range/Units 21:04 06:09 06:09 WBC 14.4 H (3.8-10.6) k/uL RBC 3.36 L (3.80-5.40) m/uL Hgb 9.4 L (11.4-16.0) gm/dL Hct 29.0 L (34.0-46.0) % RDW 15.9 H (11.5-15.5) % PT 17.0 H (9.0-12.0) sec INR 1.7 H (<1.2) POC Glucose (mg/dL) 333 H (75-99) mg/dL 04/04/19 Range/Units 06:46 WBC (3.8-10.6) k/uL RBC (3.80-5.40) m/uL Hgb (11.4-16.0) gm/dL Hct (34.0-46.0) % RDW (11.5-15.5) % PT (9.0-12.0) sec INR (<1.2) POC Glucose (mg/dL) 135 H (75-99) mg/dL Microbiology - Last 24 Hours (Table) 04/02/19 15:10 Gram Stain - Preliminary Other - Other Wound Culture - Preliminary Gram Neg Bacilli 03/31/19 14:26 Blood Culture - Preliminary Blood No Growth after 72 hours Assessment and Plan Plan: 1. Diabetic foot ulcer, involving right heel, with wet gangrene, known history of PAD, failed to heal despite adequate length of time as an outpatient, ap proximately 6 months. 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 Coumadin restarted Echocardiogram as above. 2. Iron deficiency anemia or anemia of chronic disease. Iron studies pending. Transfuse 1 unit of packed RBCs followed by Lasix 20 mg IV push. 3. Paroxysmal atrial fibrillation on chronic Coumadin for anticoagulation- pharmacy dosing, continue metoprolol 100 twice daily 4. CKD stage IV, creatinine of 2.34, avoid nephrotoxins and hypotension, 5. Diabetes mellitus type 2 with diabetic neuropathy. Continue Lantus 20 units at bedtime, hold patient's scheduled 6 units with meals. Continue NovoLog scale before meals and at bedtime. Hemoglobin A1c. 6. Hypertension. Continue amlodipine 5 mg daily, losartan 100 mg daily, Lopressor 100 mg twice daily, hydralazine 100 mg 3 times daily, Lasix 40 orally milligrams daily, Aldactone 12.5 mg daily. 7. Hyperlipidemia. Continue Pravachol 80 mg daily. 8. Mild protein calorie malnutrition. Continue Glucerna. 9. Generalized debility. PT and OT to follow after surgery. 10. DVT prophylaxis. On Coumadin 11. GI prophylaxis. Pepcid CODE STATUS: Full code Discharge plan: Return to [facility] on Friday under the care of Dr. Mendoza. Impression and plan of care have been directed as dictated by the signing physician. Xi Olguin nurse practitioner acting as scribe for signing physician.
[2019-04-04 11:58] LABS: Glucose,Whole Blood 178 mg/dL (75-99)
--- NOTE | 2019-04-04 12:20 | PN ---
PROGRESS NOTE This is an 83-year-old lady who underwent right above-knee amputation for wet gangrene. This morning she complains of discomfort at the surgical site but is otherwise doing well. There is no history of chest pain, difficulty in breathing or palpitations. EXAM: Comfortable at rest. Vital signs are stable. Chest exam reveals good air entry bilaterally. Heart exam reveals first and second heart sounds. No gallop. Abdomen is soft. Exam of extremities reveals right above-knee amputation. LAB: Showed that the hemoglobin is 9.4, platelet count is 346. The patient is on aspirin, Norvasc, Lasix, Apresoline, Synthroid Cozaar, Lopressor, and Coumadin. Pharmacy is dosing Coumadin. INR today is 1.7. ASSESSMENT: 1. Peripheral vascular disease status post right above-knee amputation. 2. Persistent atrial fibrillation. 3. Hypertension. 4. Diabetes. 5. Dyslipidemia. PLAN: The patient will continue with Coumadin and rest of her medications. MMODL / IJN: [id number] /
--- NOTE | 2019-04-04 14:36 | P.PN ---
Subjective Progress Note Date: 04/04/19 Patient seen and examined. No complaints. Pain is essentially controlled although right leg is somewhat sore. No chest pains or shortness of breath Objective - Vital Signs Vital signs: Vital Signs Temp 98.5 F 04/04/19 12:00 Pulse 100 04/04/19 12:00 Resp 18 04/04/19 12:00 BP 145/63 04/04/19 12:00 Pulse Ox 99 04/04/19 12:00 Intake & Output 04/03/19 04/04/19 04/04/19 18:59 06:59 18:59 Intake Total 808 300 Output Total 500 1000 Balance 308 300 -1000 Weight 84 kg Intake: Intake, IV Titration 210 Amount Lactated Ringers 1,000 ml 160 @ 0 mls/hr IV [facility] Rx#:[id number] ceFAZolin 2 gm In Sodium 50 Chloride 0.9% 50 ml @ 100 mls/hr IVPB Q8HR [facility] Rx# :[id number] Oral 598 300 Output: Urine 500 1000 Other: Voiding Method Indwelling Catheter Indwelling Catheter Indwelling Catheter - Exam No acute distress resting comfortably Heart irregularly irregular Lungs clear Abdomen soft, obese, nontender Right residual limb clean, dry, intact. Dressing change. - Labs CBC & Chem 7: 04/04/19 06:09 04/02/19 05:57 Labs: Abnormal Lab Results - Last 24 Hours (Table) 04/03/19 04/03/19 04/03/19 Range/Units 17:19 17:20 21:04 WBC (3.8-10.6) k/uL RBC (3.80-5.40) m/uL Hgb (11.4-16.0) gm/dL Hct (34.0-46.0) % RDW (11.5-15.5) % PT (9.0-12.0) sec INR (<1.2) POC Glucose (mg/dL) 312 H 306 H 333 H (75-99) mg/dL 04/04/19 04/04/19 04/04/19 Range/Units 06:09 06:09 06:46 WBC 14.4 H (3.8-10.6) k/uL RBC 3.36 L (3.80-5.40) m/uL Hgb 9.4 L (11.4-16.0) gm/dL Hct 29.0 L (34.0-46.0) % RDW 15.9 H (11.5-15.5) % PT 17.0 H (9.0-12.0) sec INR 1.7 H (<1.2) POC Glucose (mg/dL) 135 H (75-99) mg/dL 04/04/19 Range/Units 11:57 WBC (3.8-10.6) k/uL RBC (3.80-5.40) m/uL Hgb (11.4-16.0) gm/dL Hct (34.0-46.0) % RDW (11.5-15.5) % PT (9.0-12.0) sec INR (<1.2) POC Glucose (mg/dL) 178 H (75-99) mg/dL Microbiology - Last 24 Hours (Table) 04/02/19 15:10 Gram Stain - Preliminary Other - Other Wound Culture - Preliminary Gram Neg Bacilli 03/31/19 14:26 Blood Culture - Preliminary Blood No Growth after 72 hours Assessment and Plan Assessment: #1 wet gangrene right heel status post right above-knee amputation #2 peripheral arterial disease #3 atrial fibrillation on anticoagulation #4 hypertension #5 diabetes #6 neuropathy #7 hypothyroidism #8 hyperlipidemia #9 chronic debility, nonambulatory #10 anemia Plan: Continue diet as tolerated. Increase activity as tolerated, physical therapy eval and treat. Prosthetics [employer], comfort prosthetics, to evaluate patient. Doing well overall. Coumadin restarted, pharmacy dosing
[2019-04-04] MEDS: FLUTICASONE 50MCG/SPRAY NASAL 16GM EA NOSTRIL SCH (15:31)
[2019-04-04] MEDS: SODIUM CHLORIDE 5% OPHTH DROPS 15 ML BTL BOTH EYES SCH ×2 (15:31→20:56)
[2019-04-04 17:04] LABS: Glucose,Whole Blood 197 mg/dL (75-99)
[2019-04-04] MEDS: PRAVASTATIN SODIUM 80 MG TAB PO SCH (17:22)
[2019-04-04] MEDS: LINAGLIPTIN 5 MG TABLET PO SCH (17:22)
[2019-04-04] MEDS ORDERED: WARFARIN 2 MG TAB PO ONE (18:00)
[2019-04-04] MEDS: INSULIN DETEMIR (LEVEMIR) 100 UNIT/ML SYR SQ SCH (18:49)
[2019-04-04 18:51] LABS: Glucose,Whole Blood 208 mg/dL (75-99)
[2019-04-04 20:29] LABS: Glucose,Whole Blood 238 mg/dL (75-99)
[2019-04-05] MEDS: LEVOTHYROXINE 50 MCG TAB PO SCH (05:58)
[2019-04-05 06:32] LABS: Glucose,Whole Blood 117 mg/dL (75-99)
[2019-04-05 06:45] LABS: HCT 29.9 % (34.0-46.0); HGB 9.6 gm/dL (11.4-16.0); Hypochromasia Slight; MCH 28.1 pg (25.0-35.0); MCHC 32.1 g/dL (31.0-37.0); MCV 87.3 fL (80.0-100.0); Mean Platelet Volume 7.4; Platelet Count 378 k/uL (150-450); RBC 3.42 m/uL (3.80-5.40); RDW 15.9 % (11.5-15.5); WBC 12.9 k/uL (3.8-10.6)
[2019-04-05 06:57] LABS: INR 1.7 (<1.2); Prothrombin Time 17.1 sec (9.0-12.0)
[2019-04-05] MEDS: INSULIN ASPART (NovoLOG) 100 UNIT/ML VIAL SQ SCH ×7 (06:59→20:38)
[2019-04-05] MEDS: hydrALAZINE HCL 50 MG TAB PO SCH ×3 (08:06→20:39)
[2019-04-05] MEDS: LOSARTAN 50 MG TAB PO SCH (08:06)
[2019-04-05] MEDS: FUROSEMIDE 40 MG TAB PO SCH (08:06)
[2019-04-05] MEDS: ASPIRIN 81 MG PO SCH (08:06)
[2019-04-05] MEDS: CHOLECALCIFEROL 1,000 UNIT TAB PO SCH (08:06)
[2019-04-05] MEDS: SPIRONOLACTONE 25 MG TAB PO SCH (08:06)
[2019-04-05] MEDS: LORATADINE 10 MG TAB PO SCH (08:06)
[2019-04-05] MEDS: SENNOSIDES-DOCUSATE SODIUM 1 EACH TAB PO SCH (08:07)
[2019-04-05] MEDS: POTASSIUM CHLORIDE ER 10 MEQ TAB.ER.PRT PO SCH (08:07)
[2019-04-05] MEDS: amLODIPine 5 MG TAB PO SCH (08:07)
[2019-04-05] MEDS: METOPROLOL TARTRATE 50 MG TAB PO SCH ×2 (08:07→20:39)
[2019-04-05] MEDS: HYDROcodone/APAP 5-325MG 1 EACH TAB PO PRN ×4 (08:07→20:39)
[2019-04-05] MEDS ORDERED: CEFEPIME 2 GM in SODIUM CHLORIDE 0.9% 100 ML IVPB ONE (10:30)
[2019-04-05 11:07] VITALS: BMI 32.8
--- NOTE | 2019-04-05 11:14 | P.PN ---
Subjective Progress Note Date: 04/05/19 Patient seen and examined. Pain is essentially controlled although right leg is somewhat sore. No chest pains or shortness of breath Objective - Vital Signs Vital signs: Vital Signs Temp 98.4 F 04/05/19 08:00 Pulse 90 04/05/19 08:00 Resp 16 04/05/19 08:00 BP 132/76 04/05/19 08:00 Pulse Ox 100 04/05/19 08:00 Intake & Output 04/04/19 04/05/19 04/05/19 18:59 06:59 18:59 Intake Total 480 120 240 Output Total 1400 1000 950 Balance -553 -572 -081 Intake: Intake, IV Titration 0 Amount Lactated Ringers 1,000 ml 0 @ 0 mls/hr IV .[facility] Rx#:[id number] Oral 480 120 240 Output: Urine 1400 1000 950 Other: Voiding Method Indwelling Catheter Indwelling Catheter Indwelling Catheter - Exam No acute distress resting comfortably Heart irregularly irregular Lungs clear Abdomen soft, obese, nontender Right residual limb clean, dry, intact. - Labs CBC & Chem 7: 04/05/19 06:29 04/02/19 05:57 Labs: Abnormal Lab Results - Last 24 Hours (Table) 04/04/19 04/04/19 04/04/19 Range/Units 11:57 16:56 18:48 WBC (3.8-10.6) k/uL RBC (3.80-5.40) m/uL Hgb (11.4-16.0) gm/dL Hct (34.0-46.0) % RDW (11.5-15.5) % PT (9.0-12.0) sec INR (<1.2) POC Glucose (mg/dL) 178 H 197 H 208 H (75-99) mg/dL 04/04/19 04/05/19 04/05/19 Range/Units 20:27 06:29 06:29 WBC 12.9 H (3.8-10.6) k/uL RBC 3.42 L (3.80-5.40) m/uL Hgb 9.6 L (11.4-16.0) gm/dL Hct 29.9 L (34.0-46.0) % RDW 15.9 H (11.5-15.5) % PT 17.1 H (9.0-12.0) sec INR 1.7 H (<1.2) POC Glucose (mg/dL) 238 H (75-99) mg/dL 04/05/19 Range/Units 06:31 WBC (3.8-10.6) k/uL RBC (3.80-5.40) m/uL Hgb (11.4-16.0) gm/dL Hct (34.0-46.0) % RDW (11.5-15.5) % PT (9.0-12.0) sec INR (<1.2) POC Glucose (mg/dL) 117 H (75-99) mg/dL Microbiology - Last 24 Hours (Table) 04/02/19 15:10 Gram Stain - Final Other - Other Wound Culture - Final Pseudomonas aeruginosa 03/31/19 14:26 Blood Culture - Preliminary Blood No Growth after 96 hours Assessment and Plan Assessment: #1 wet gangrene right heel status post right above-knee amputation #2 peripheral arterial disease #3 atrial fibrillation on anticoagulation #4 hypertension #5 diabetes #6 neuropathy #7 hypothyroidism #8 hyperlipidemia #9 chronic debility, nonambulatory #10 anemia #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 Prosthetics accompanying to evaluate and assist with dressing changes. Coumadin dosing per pharmacy. Patient did have a positive intraoperative culture at the level of the previous femoral-popliteal bypass graft. The entirety of this graft was excised during the procedure. Patient started on cefepime, infectious disease consult for further recommendations
[2019-04-05 12:13] LABS: Glucose,Whole Blood 184 mg/dL (75-99)
[2019-04-05] MEDS: FLUTICASONE 50MCG/SPRAY NASAL 16GM EA NOSTRIL SCH (12:41)
--- NOTE | 2019-04-05 13:08 | PN ---
PROGRESS NOTE 83-year-old lady who is admitted to the hospital following a right above-knee amputation for wet gangrene. This morning the patient complains of discomfort at the surgical site, but is otherwise doing well. EXAM: Comfortable at rest. Vital signs are stable. Chest exam reveals good air entry bilaterally. Heart exam reveals first and second heart sounds. Exam of the extremities reveals that the pulses are palpable over the left leg. LABS: Show a hemoglobin of 9.6, platelet count is 378. INR is 1.7. ASSESSMENT: 1. Chronic atrial fibrillation. 2. Peripheral vascular disease status post right above-knee amputation. 3. Diabetes. 4. Hypertension. 5. Dyslipidemia. PLAN: The patient will continue Coumadin, pharmacy to dose. MMODL / IJN: [id number] /
[2019-04-05] MEDS: SODIUM CHLORIDE 5% OPHTH DROPS 15 ML BTL BOTH EYES SCH ×2 (15:02→20:41)
--- NOTE | 2019-04-05 17:43 | P.PN ---
Subjective Progress Note Date: 04/05/19 This is an 83-year-old pleasant female followed by Dr. Mendoza known history of diabetes mellitus type 2 requiring insulin, with PAD and other complications peripheral neuropathy hypertension, hypothyroidism atrial fibrillation, PAD, chronic gangrene/chronic ulcer diabetic foot ulcers right heel at least since October 2018, admitted to [facility] as the ulcers have failed to heal, and they have discussed the necessity of amputation, and requested to be admitted for the vascular surgeon with Dr. Weeks, he she was also seen by Dr. Boyd in the past. Cardiology was requested to see the patient consultation for preop, patient denies any history of CHF in the past, no history off CVA, no documented history of myocardial infarction, we are going to request an EKG him up preop. ProBNP, echocardiogram, with anticipation that the surgery would be done in the next 1-2 days. Coumadin will be held, 04/01: Dr. Weeks is planning for [id number] amputation tomorrow. Coumadin remains on hold. Cardiology consult requested. Echocardiogram reveals EF 55- 60%, mild concentric left ventricular hypertrophy, mild aortic regurgitation, moderate mitral regurgitation, moderate tricuspid regurgitation, mild pulmonary hypertension. Chest x-ray reveals chronic changes and cardiomegaly with small 2 tiny bilateral pleural effusions diminished in size from prior. Patient has been afebrile, heart rate 77, blood pressure 115/63 and pulse ox 99% on room air. Repeat lab work reveals normal white count of 9.7, hemoglobin 6.5 and 1 unit of packed RBCs will be ordered for transfusion. BUN 56 and creatinine 2.33. Electrolytes within normal limits. Blood sugar running between 121 and 167. Hemoglobin A1c is pending.Patient denies any new complaints. Weeks catheter is in place. Sister is at the bedside. 04/02: Human globin this morning is 8.[address] Weeks has ordered another unit of packed RBCs. She is scheduled for amputation this afternoon. She has been seen by cardiology this morning cleared for surgery. Repeat lab work reveals white count of 12.3, INR 1.6, BUN 55 and creatinine 2.47, blood sugars running 75-120. Patient's sisters also at the bedside. All questions have been answered. Patient denies any new complaints. 04/03 patient examined bedside complains of significant in the right lower stump. Vital examination the temperature is 98.7 blood pressure 120/58 leukocytosis improved from 91.4-14 hemoglobin has slightly troponin dropped from 11-10.3 platelets and normal. Patient is restarted on Coumadin post surgery. Lantus increased to 25 units daily continue Tradjenta and insulin with insulin sliding scale. 04/04: Patient denies any new complaints. No chest pain or shortness of breath. She denies any diarrhea or constipation. INR today is at 1.7. Pharmacy is dosing Coumadin. Patient has been afebrile, heart rate 80, blood pressure 140/65, pulse ox 99% on room air. We will transfer the patient to [facility] without telemetry. manager monitoring has been atrial fibrillation with rate controlled. Plan for discharge on Friday back to [facility]. 04/05 patient's intraoperative culture is positive for Pseudomonas. Infectious disease consulted Leukocytosis is improving with a WBC of 12.9 glucose improved to 117. Continue Levemir 25 units daily with NovoLog 10 units 3 times a day with sliding scale Review of Systems Constitutional: No fever, no chills, no night sweats. No weight change. Reports weakness, fatigue or lethargy. No daytime sleepiness. EENT: No headache. No blurred vision or double vision, no loss of vision. No loss of Hearing, no ringing in the ears, no dizziness. No nasal drainage or congestion. No epistaxis. No sore throat. Lungs: No shortness of breath, cough, no sputum production. No wheezing. Cardiovascular: No chest pain, no lower extremity edema. No palpitations. No paroxysmal nocturnal dyspnea. No orthopnea. No lightheadedness or dizziness. No syncopal episodes. Abdominal: No abdominal pain. No nausea, vomiting. No diarrhea. No constipation. No bloody or tarry stools.. No loss of appetite. Genitourinary: No dysuria, increased frequency, urgency. No urinary retention. Musculoskeletal: Pain in the right lower extremity Integumentary: Reports wounds, no lesions. No rash or pruritus. No unusual bruising. No change in hair or nails. Neurologic: No aphasia. No facial droop. No change in mentation. No head injury. No headache. No paralysis. No paresthesia. Psychiatric: No depression. No anxiety. No mood swings. Endocrine: No abnormal blood sugars. No weight change. No excessive sweating or thirst. No cold intolerance. Objective - Vital Signs Vital signs: Vital Signs Temp 98.3 F 04/05/19 12:00 Pulse 94 04/05/19 12:00 Resp 18 04/05/19 12:00 BP 109/63 04/05/19 12:00 Pulse Ox 97 04/05/19 12:00 Intake & Output 04/04/19 04/05/19 04/05/19 18:59 06:59 18:59 Intake Total 480 120 480 Output Total 1400 1000 950 Balance -920 -880 -470 Weight 84 kg Intake: Intake, IV Titration 0 Amount Lactated Ringers 1,000 ml 0 @ 0 mls/hr IV .[employer] ONE Rx#:[id number] Oral 480 120 480 Output: Urine 1400 1000 950 Other: Voiding Method Indwelling Catheter Indwelling Catheter Indwelling Catheter - Exam - Constitutional General appearance: cooperative, no acute distress, resting in bed, obese - EENT Eyes: anicteric sclerae, EOMI, dentition normal, normal appearance ENT: hearing grossly normal, NA/AT, normal oropharynx - Neck Neck: normal ROM - Respiratory Respiratory: bilateral: CTA, negative: diminished, dullness, rales - Cardiovascular Rhythm: regular Heart sounds: normal: S1, S2 Abnormal Heart Sounds: no systolic murmur, no diastolic murmur, no rub, no S3 Gallop, no S4 Gallop, no click, no other - Gastrointestinal General gastrointestinal: normal bowel sounds, soft - Integumentary Integumentary: Normal - Neurologic Neurologic: CNII-XII intact - Musculoskeletal Musculoskeletal: Right lower extremities done under dressing no oozing or drainage seen on the dressing. Weeks catheter and his - Psychiatric Psychiatric: A&O x's 3, appropriate affect, intact judgment & insight - Labs CBC & Chem 7: 04/05/19 06:29 04/02/19 05:57 Labs: Abnormal Lab Results - Last 24 Hours (Table) 04/04/19 04/04/19 04/05/19 Range/Units 18:48 20:27 06:29 WBC 12.9 H (3.8-10.6) k/uL RBC 3.42 L (3.80-5.40) m/uL Hgb 9.6 L (11.4-16.0) gm/dL Hct 29.9 L (34.0-46.0) % RDW 15.9 H (11.5-15.5) % PT (9.0-12.0) sec INR (<1.2) POC Glucose (mg/dL) 208 H 238 H (75-99) mg/dL 04/05/19 04/05/19 04/05/19 Range/Units 06:29 06:31 12:11 WBC (3.8-10.6) k/uL RBC (3.80-5.40) m/uL Hgb (11.4-16.0) gm/dL Hct (34.0-46.0) % RDW (11.5-15.5) % PT 17.1 H (9.0-12.0) sec INR 1.7 H (<1.2) POC Glucose (mg/dL) 117 H 184 H (75-99) mg/dL Microbiology - Last 24 Hours (Table) 03/31/19 14:26 Blood Culture - Preliminary Blood No Growth after 120 hours 04/02/19 15:10 Gram Stain - Final Other - Other Wound Culture - Final Pseudomonas aeruginosa Assessment and Plan Plan: 1. Diabetic foot ulcer, involving right heel, with wet gangrene, known history of PAD, failed to heal despite adequate length of time as an outpatient, approximately 6 months. 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 Coumadin restarted Echocardiogram as above. 2. Iron deficiency anemia or anemia of chronic disease. Iron studies pending. Transfuse 1 unit of packed RBCs followed by Lasix 20 mg IV push. 3. Paroxysmal atrial fibrillation on chronic Coumadin for anticoagulation continue metoprolol 100 twice daily 4. CKD stage IV, creatinine of 2.34, avoid nephrotoxins and hypotension, 5. Diabetes mellitus type 2 with diabetic neuropathy. Continue Lantus 20 units at bedtime, hold patient's scheduled 6 units with meals. Continue NovoLog scale before meals and at bedtime. Hemoglobin A1c. 6. Hypertension. Continue amlodipine 5 mg daily, losartan 100 mg daily, Lopressor 100 mg twice daily, hydralazine 100 mg 3 times daily, Lasix 40 orally milligrams daily, Aldactone 12.5 mg daily. 7. Hyperlipidemia. Continue Pravachol 80 mg daily. 8. Mild protein calorie malnutrition. Continue Glucerna. 9. Generalized debility. PT and OT to follow after surgery. 10. DVT prophylaxis. On Coumadin 11. GI prophylaxis. Pepcid #12 infected fem-tib bypass graft is status post excision with above knee amputation positive for Pseudomonas infected disease consulted cefepime initiated CODE STATUS: Full code
[2019-04-05] MEDS: INSULIN DETEMIR (LEVEMIR) 100 UNIT/ML SYR SQ SCH (17:57)
[2019-04-05] MEDS: LINAGLIPTIN 5 MG TABLET PO SCH (17:58)
[2019-04-05] MEDS: PRAVASTATIN SODIUM 80 MG TAB PO SCH (17:58)
[2019-04-05] MEDS ORDERED: WARFARIN 2 MG TAB PO SCH (18:00)
[2019-04-05 18:02] LABS: Glucose,Whole Blood 152 mg/dL (75-99)
[2019-04-05 20:23] LABS: Glucose,Whole Blood 164 mg/dL (75-99)
--- NOTE | 2019-04-05 22:52 | P.CONS ---
History of Present Illness - Reason for Consult Consult date: 04/05/19 Infected femoral tibial bypass graft Requesting physician: Shruthi Weeks - Chief Complaint Right heel wound x few weeks - History of Present Illness Patient is 83-year-old female with a past medical history significant peripheral vascular disease in this patient who did have multiple grafts on her right leg patient is a chronic nonhealing wound to the right heel area for which the patient was admitted to the hospital for a chronic nonhealing wound patient on admission was afebrile and white count was normal the culture obtained was negative patient was taken to the OR and status post right [id number] amputation at the time of surgery she was noticed to have a pus pocket and the previous Fem-Tib bypass graft which was removed in entirety, pulse is an recommend back positive for pseudomonas aeruginosa patient was started on cefepime and infectious disease was consulted for further recommendation regarding antibiotic therapy Patient is currently afebrile not activity good historian the patient denies any pain to the right AKA site or any pain to the groin area no chest pains or shortness of breath minimal cough no nausea no vomiting no abdominal pain and no diarrhea Review of Systems Positive points has been mentioned in HPI rest of the systems are negative Past Medical History Past Medical History: Atrial Fibrillation, Diabetes Mellitus, Hyperlipidemia, Hypertension, Thyroid Disorder Additional Past Medical History / Comment(s): peripheral neuropathy, UTIs, urinary incontinence, OA bilateral hands and back, PVD, cervical cancer History of Any Multi-Drug Resistant Organisms: MRSA Year Discovered:: 09/11/2015 MDRO Source:: RIGHT FOOT Past Surgical History: Hysterectomy, Tonsillectomy Additional Past Surgical History / Comment(s): R leg bypass surgery, bilateral cataract removal Past Anesthesia/Blood Transfusion Reactions: No Reported Reaction Past Psychological History: No Psychological Hx Reported Additional Psychological History / Comment(s): Pt states she lives at [facility]. States uses a wheelchair to get around. Smoking Status: Never smoker Past Alcohol Use History: None Reported Additional Past Alcohol Use History / Comment(s): Patient resides at [facility] and is wheelchair bound. Past Drug Use History: None Reported - Past Family History Mother Family Medical History: CVA/TIA Additional Family Medical History / Comment(s): Mother in her 70's. Father Family Medical History: Hypertension Additional Family Medical History / Comment(s): Father in his 70's. Medications and Allergies Home Medications Medication Instructions Recorded Confirmed Type Aspirin 81 mg PO DAILY 09/11/15 03/31/19 History Levothyroxine Sodium [Synthroid] 50 mcg PO QAM 09/11/15 03/31/19 History Pravastatin Sodium [Pravachol] 80 mg PO DAILY@1800 09/11/15 03/31/19 History Sennosides-Docusate Sodium 1 tab PO DAILY 06/16/17 03/31/19 History [Senokot-S] Multivitamins, Thera [Multivitamin 1 tab PO HS 05/04/18 03/31/19 History (formulary)] Potassium Chloride ER [K-Dur 10] 10 meq PO DAILY 05/04/18 03/31/19 History Sodium Chloride 5% Ophth Soln 1 drop BOTH EYES BID 05/04/18 03/31/19 History [Hari 128] Furosemide [Lasix] 40 mg PO DAILY #0 05/08/18 03/31/19 Rx Amino Acids/Protein Hydrolys 30 ml PO DAILY 06/10/18 03/31/19 History [Pro-Stat Supplement] amLODIPine BESYLATE 5 mg PO DAILY 06/10/18 03/31/19 History Spironolactone [Aldactone] 12.5 mg PO DAILY 07/01/18 03/31/19 History Cranberry 450mg 450 mg PO DAILY 10/13/18 03/31/19 History Losartan Potassium 100 mg PO DAILY 10/13/18 03/31/19 History Metoprolol Tartrate [Lopressor] 100 mg PO BID 10/13/18 03/31/19 History Warfarin [Coumadin] 2.5 mg PO HS 10/13/18 03/31/19 History hydrALAZINE HCL [Apresoline] 100 mg PO TID 10/13/18 03/31/19 History sitaGLIPtin PHOSPHATE [Januvia] 50 mg PO DAILY@1800 10/13/18 03/31/19 History INSULIN LISPRO (humaLOG) [humaLOG] 6 units SQ AC-TID #0 10/16/18 03/31/19 Rx Amoxic-Pot Clav 875-125Mg 1 tab PO Q12HR 03/31/19 03/31/19 History [Augmentin 875-125] Bisacodyl 5 mg PO DAILY PRN 03/31/19 03/31/19 History Cholecalciferol (Vitamin D3) 2,000 unit PO DAILY 03/31/19 03/31/19 History [Vitamin D3] Ferrous Sulfate [Feosol] 325 mg PO DAILY 03/31/19 03/31/19 History Fluticasone Nasal Vanzant [Flonase 1 spr EA NOSTRIL DAILY 03/31/19 03/31/19 History Nasal Vanzant] Insulin Detemir (Levemir) [Levemir] 20 unit SQ DAILY@1800 03/31/19 03/31/19 History Loratadine [Claritin] 10 mg PO DAILY 03/31/19 03/31/19 History Allergies Allergy/AdvReac Type Severity Reaction Status Date / Time No Known Allergies Allergy Verified 04/02/19 12:39 Physical Exam Vitals: Vital Signs Temp Pulse Pulse Resp BP Pulse Ox 04/05/19 12:00 98.3 F 94 18 109/63 97 04/05/19 08:00 98.4 F 90 16 132/76 100 04/05/19 04:00 98.4 F 75 80 18 118/57 97 04/04/19 23:53 73 80 16 04/04/19 23:49 98.3 F 73 16 131/64 99 04/04/19 20:00 97.9 F 80 80 18 127/60 98 04/04/19 16:00 98.5 F 83 18 117/56 99 Intake and Output 04/04/19 04/05/19 04/05/19 22:59 06:59 14:59 Intake Total 240 120 240 Output Total 1000 950 Balance 240 880 -710 Intake: Intake, IV Titration 0 Amount Lactated Ringers 1,000 ml 0 @ 0 mls/hr IV .[employer] ONE Rx#:[id number] Oral 240 120 240 Output: Urine 1000 950 Other: Voiding Method Indwelling Catheter Indwelling Catheter Indwelling Catheter Weight 84 kg GENERAL DESCRIPTION: An elderly female lying in bed, no distress. No tachypnea or accessory muscle of respiration use. HEENT: Shows Pallor , no scleral icterus. Oral mucous membrane is dry. No pharyngeal erythema or thrush NECK: Trachea central, no thyromegaly. LUNGS: Unlabored breathing. Clear to auscultation anteriorly. No wheeze or crackle. HEART: S1, S2, regular rate and rhythm. No loud murmur ABDOMEN: Soft, no tenderness , guarding or rigidity, no organomegaly EXTREMITIES: Right groin with no swelling no redness right AKA stump incision is intact with no swelling no redness or any drainage SKIN: No rash, no masses palpable. NEUROLOGICAL: The patient is awake, alert, oriented x2, mood and affect normal. Results CBC & Chem 7: 04/05/19 06:29 04/02/19 05:57 Labs: Abnormal Lab Results - Last 24 Hours (Table) 04/04/19 04/04/19 04/04/19 Range/Units 16:56 18:48 20:27 WBC (3.8-10.6) k/uL RBC (3.80-5.40) m/uL Hgb (11.4-16.0) gm/dL Hct (34.0-46.0) % RDW (11.5-15.5) % PT (9.0-12.0) sec INR (<1.2) POC Glucose (mg/dL) 197 H 208 H 238 H (75-99) mg/dL 04/05/19 04/05/19 04/05/19 Range/Units 06:29 06:29 06:31 WBC 12.9 H (3.8-10.6) k/uL RBC 3.42 L (3.80-5.40) m/uL Hgb 9.6 L (11.4-16.0) gm/dL Hct 29.9 L (34.0-46.0) % RDW 15.9 H (11.5-15.5) % PT 17.1 H (9.0-12.0) sec INR 1.7 H (<1.2) POC Glucose (mg/dL) 117 H (75-99) mg/dL 04/05/19 Range/Units 12:11 WBC (3.8-10.6) k/uL RBC (3.80-5.40) m/uL Hgb (11.4-16.0) gm/dL Hct (34.0-46.0) % RDW (11.5-15.5) % PT (9.0-12.0) sec INR (<1.2) POC Glucose (mg/dL) 184 H (75-99) mg/dL Microbiology - Last 24 Hours (Table) 04/02/19 15:10 Gram Stain - Final Other - Other Wound Culture - Final Pseudomonas aeruginosa 03/31/19 14:26 Blood Culture - Preliminary Blood No Growth after 96 hours Assessment and Plan Assessment: 1-patient with positive culture with pseudomonas aeruginosa from a previous femoral to tibial bypass graft which has been removed in entirety during the surgical procedure along with AK in this patient who has not been bacteremic afebrile white count is normal and AK incision looks clean with no evidence cellulitis (1) Vascular graft infection Current Visit: Yes Status: Acute Code(s): T82.7XXA - INFECT/INFLM REACT D/T OTH CARDI/VASC DEV/IMPLNT/GRFT, INIT SNOMED Code(s): 425060368 (2) Pseudomonas aeruginosa infection Current Visit: Yes Status: Acute Code(s): A49.8 - OTHER BACTERIAL INFECTIONS OF UNSPECIFIED SITE SNOMED Code(s): 09908029 Plan: 1-cefepime 2 g 1 and then 1 daily dose has been adjusted to kidney function, she'll be transitioned to oral Cipro on discharge for 2 weeks, as infected graft was removed and patient was not bacteremic she would not need to be on a long- term IV antibiotic therapy we will follow on clinical condition and culture to further adjust medication if needed Thank you for this consultation will follow this patient along with you Time with Patient: Greater than 30
[2019-04-06 00:18] VITALS: RESP 20
[2019-04-06 06:22] LABS: INR 1.9 (<1.2)
[2019-04-06 06:32] LABS: Glucose,Whole Blood 147 mg/dL (75-99)
[2019-04-06] MEDS: HYDROcodone/APAP 5-325MG 1 EACH TAB PO PRN ×2 (06:39→15:57)
[2019-04-06] MEDS: INSULIN ASPART (NovoLOG) 100 UNIT/ML VIAL SQ SCH ×4 (06:40→12:52)
[2019-04-06] MEDS: LEVOTHYROXINE 50 MCG TAB PO SCH (06:40)
[2019-04-06 07:06] VITALS: BP 126/60; PULSE 72; TEMP 98.6
[2019-04-06] MEDS: SODIUM CHLORIDE 5% OPHTH DROPS 15 ML BTL BOTH EYES SCH (08:25)
[2019-04-06] MEDS: FUROSEMIDE 40 MG TAB PO SCH (08:26)
[2019-04-06] MEDS: FLUTICASONE 50MCG/SPRAY NASAL 16GM EA NOSTRIL SCH (08:26)
[2019-04-06] MEDS: LOSARTAN 50 MG TAB PO SCH (08:26)
[2019-04-06] MEDS: amLODIPine 5 MG TAB PO SCH (08:26)
[2019-04-06] MEDS: LORATADINE 10 MG TAB PO SCH (08:26)
[2019-04-06] MEDS: ASPIRIN 81 MG PO SCH (08:26)
[2019-04-06] MEDS: METOPROLOL TARTRATE 50 MG TAB PO SCH (08:26)
[2019-04-06] MEDS: SPIRONOLACTONE 25 MG TAB PO SCH (08:26)
[2019-04-06] MEDS: hydrALAZINE HCL 50 MG TAB PO SCH ×2 (08:26→15:57)
[2019-04-06] MEDS: POTASSIUM CHLORIDE ER 10 MEQ TAB.ER.PRT PO SCH (08:26)
[2019-04-06] MEDS: CHOLECALCIFEROL 1,000 UNIT TAB PO SCH (08:26)
[2019-04-06] MEDS: SENNOSIDES-DOCUSATE SODIUM 1 EACH TAB PO SCH (08:26)
--- NOTE | 2019-04-06 08:47 | P.PN ---
Subjective Progress Note Date: 04/06/19 Principal diagnosis: right lower extremity wet gangrene s/p AKA Patient seen and examined. Doing well with no complaints at this time. She states the pain is present but improving slightly. She denies any fevers, chills, chest pain or shortness of breath. Objective - Vital Signs Vital signs: Vital Signs Temp 98.6 F 04/06/19 07:00 Pulse 72 04/06/19 07:00 Resp 20 04/06/19 07:00 BP 126/60 04/06/19 07:00 Pulse Ox 98 04/06/19 07:00 Intake & Output 04/05/19 04/06/19 04/06/19 18:59 06:59 18:59 Intake Total 720 120 120 Output Total 950 300 Balance -230 -180 120 Weight 84 kg Intake: Oral 720 120 120 Output: Urine 950 300 Other: Voiding Method Indwelling Catheter Indwelling Catheter - Exam Pleasant female in no acute distress lying in bed. R AKA amputation site is clean, dry and intact. Suture line is without any drainage or signs of infection. - Labs CBC & Chem 7: 04/05/19 06:29 04/02/19 05:57 Labs: Abnormal Lab Results - Last 24 Hours (Table) 04/05/19 04/05/19 04/05/19 Range/Units 12:11 17:39 20:21 PT (9.0-12.0) sec INR (<1.2) POC Glucose (mg/dL) 184 H 152 H 164 H (75-99) mg/dL 04/06/19 04/06/19 Range/Units 05:52 06:27 PT 19.0 H (9.0-12.0) sec INR 1.9 H (<1.2) POC Glucose (mg/dL) 147 H (75-99) mg/dL Microbiology - Last 24 Hours (Table) 03/31/19 14:26 Blood Culture - Preliminary Blood No Growth after 120 hours Assessment and Plan Assessment: #1 wet gangrene right heel status post right above-knee amputation #2 peripheral arterial disease #3 atrial fibrillation on anticoagulation #4 hypertension #5 diabetes #6 neuropathy #7 hypothyroidism #8 hyperlipidemia #9 chronic debility, nonambulatory #10 anemia #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 Prosthetics accompanying continue with dressing changes. Coumadin dosing per pharmacy. ID for antibiotic management. Discharge planning.
[2019-04-06] MEDS ORDERED: CEFEPIME 1 GM in SODIUM CHLORIDE 0.9% 50 ML IVPB SCH (09:00)
--- NOTE | 2019-04-06 11:27 | P.DS ---
Providers Date of admission: 03/31/19 13:01 Expected date of discharge: 04/06/19 Attending physician: Jeanne Mendoza Consults: 03/31/19 14:35 Consult Physician Routine Consulting Provider: Shruthi Weeks Consult Reason/Comments: gangrene right foot Do you want consulting provider notified?: Yes 04/01/19 14:34 Consult Physician Routine Consulting Provider: Иван Bryson Consult Reason/Comments: preop clearance Do you want consulting provider notified?: Yes 04/05/19 13:24 Consult Physician Routine Consulting Provider: Brennan Elizabeth Consult Reason/Comments: wound culture Do you want consulting provider notified?: Already Contacted Primary care physician: Jeanne Mendoza [place] [facility] Course: This is an 83-year-old pleasant female followed by Dr. Mendoza known history of diabetes mellitus type 2 requiring insulin, with PAD and other complications peripheral neuropathy hypertension, hypothyroidism atrial fibrillation, PAD, chronic gangrene/chronic ulcer diabetic foot ulcers right heel at least since October 2018, admitted to [facility] as the ulcers have failed to heal, and they have discussed the necessity of amputation, and requested to be admitted for the vascular surgeon with Dr. Weeks, he she was also seen by Dr. Boyd in the past. Cardiology was requested to see the patient consultation for preop, patient denies any history of CHF in the past, no history off CVA, no documented history of myocardial infarction, we are going to request an EKG him up preop. ProBNP, echocardiogram, with anticipation that the surgery would be done in the next 1-2 days. Coumadin will be held, 04/01: Dr. Weeks is planning for [id number] amputation tomorrow. Coumadin remains on hold. Cardiology consult requested. Echocardiogram reveals EF 55- 60%, mild concentric left ventricular hypertrophy, mild aortic regurgitation, moderate mitral regurgitation, moderate tricuspid regurgitation, mild pulmonary hypertension. Chest x-ray reveals chronic changes and cardiomegaly with small 2 tiny bilateral pleural effusions diminished in size from prior. Patient has been afebrile, heart rate 77, blood pressure 115/63 and pulse ox 99% on room air. Repeat lab work reveals normal white count of 9.7, hemoglobin 6.5 and 1 unit of packed RBCs will be ordered for transfusion. BUN 56 and creatinine 2.33. Electrolytes within normal limits. Blood sugar running between 121 and 167. Hemoglobin A1c is pending.Patient denies any new complaints. Weeks catheter is in place. Sister is at the bedside. 04/02: Human globin this morning is 8.[address] Weeks has ordered another unit of packed RBCs. She is scheduled for amputation this afternoon. She has been seen by cardiology this morning cleared for surgery. Repeat lab work reveals white count of 12.3, INR 1.6, BUN 55 and creatinine 2.47, blood sugars running 75-120. Patient's sisters also at the bedside. All questions have been answered. Patient denies any new complaints. 04/03 patient examined bedside complains of significant in the right lower stump. Vital examination the temperature is 98.7 blood pressure 120/58 leukocytosis improved from 91.4-14 hemoglobin has slightly troponin dropped from 11-10.3 platelets and normal. Patient is restarted on Coumadin post surgery. Lantus increased to 25 units daily continue Tradjenta and insulin with insulin sliding scale. 04/04: Patient denies any new complaints. No chest pain or shortness of breath. She denies any diarrhea or constipation. INR today is at 1.7. Pharmacy is dosing Coumadin. Patient has been afebrile, heart rate 80, blood pressure 140/65, pulse ox 99% on room air. We will transfer the patient to [facility] floor without telemetry. 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 Plan for discharge on Friday back to residential. 04/05 patient's intraoperative culture is positive for Pseudomonas. Infectious disease consulted Leukocytosis is improving with a WBC of 12.9 glucose improved to 117. Continue Levemir 25 units daily with NovoLog 10 units 3 times a day with sliding scale 04/06: Dr. Elizabeth has recommended 2 weeks of oral Cipro. This has been adjusted for renal failure. Blood sugars have been elevated during her stay and insulin- dependent been adjusted. INR today is 1.7, pharmacy is dosing Coumadin and we will plan for discharge at 4 mg daily. White count at 14.4, hemoglobin 9.4. P atient will be discharged back to residential in stable condition. Discharge diagnoses: 1. 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 2. Iron deficiency anemia, anemia of chronic disease. 3. Paroxysmal atrial fibrillation 4. CKD stage IV 5. Diabetes mellitus type 2 with diabetic neuropathy. 6. Hypertension. 7. Hyperlipidemia. 8. Mild protein calorie malnutrition. 9. Generalized debility. 10. 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 Xi Olguin nurse practitioner acting as scribe for signing physician. Patient Condition at Discharge: Good Plan - Discharge Summary Discharge Rx Participant: Yes New Discharge Prescriptions: New Warfarin [Coumadin] 4 mg PO DAILY@1800 tab HYDROcodone/APAP 5-325MG [[place] 5-325] 1 each PO Q4HR PRN #18 tab PRN Reason: Pain Scale 6 To 7 INSULIN ASPART (NovoLOG) [NovoLOG (formulary)] 0 unit SQ ACHS vial Ciprofloxacin HCl [Cipro] 250 mg PO DAILY #14 tablet Continue Aspirin 81 mg PO DAILY Pravastatin Sodium [Pravachol] 80 mg PO DAILY@1800 Levothyroxine Sodium [Synthroid] 50 mcg PO QAM Sennosides-Docusate Sodium [Senokot-S] 1 tab PO DAILY Sodium Chloride 5% Ophth Soln [Hari 128] 1 drop BOTH EYES BID Multivitamins, Thera [Multivitamin (formulary)] 1 tab PO HS Potassium Chloride ER [K-Dur 10] 10 meq PO DAILY Furosemide [Lasix] 40 mg PO DAILY #0 Amino Acids/Protein Hydrolys [Pro-Stat Supplement] 30 ml PO DAILY amLODIPine BESYLATE 5 mg PO DAILY Spironolactone [Aldactone] 12.5 mg PO DAILY hydrALAZINE HCL [Apresoline] 100 mg PO TID Metoprolol Tartrate [Lopressor] 100 mg PO BID Losartan Potassium 100 mg PO DAILY sitaGLIPtin PHOSPHATE [Januvia] 50 mg PO DAILY@1800 Cranberry 450mg 450 mg PO DAILY Bisacodyl 5 mg PO DAILY PRN PRN Reason: Constipation Cholecalciferol (Vitamin D3) [Vitamin D3] 2,000 unit PO DAILY Fluticasone Nasal [place] [Flonase Nasal [place]] 1 spr EA NOSTRIL DAILY Ferrous Sulfate [Feosol] 325 mg PO DAILY Loratadine [Claritin] 10 mg PO DAILY Changed INSULIN LISPRO (humaLOG) [humaLOG] 10 units SQ AC-TID #0 Insulin Detemir (Levemir) [Levemir] 25 unit SQ DAILY@1800 #0 Discontinued Warfarin [Coumadin] 2.5 mg PO HS Amoxic-Pot Clav 875-125Mg [Augmentin 875-125] 1 tab PO Q12HR Discharge Medication List Aspirin 81 mg PO DAILY 09/11/15 [History] Levothyroxine Sodium [Synthroid] 50 mcg PO QAM 09/11/15 [History] Pravastatin Sodium [Pravachol] 80 mg PO DAILY@1800 09/11/15 [History] Sennosides-Docusate Sodium [Senokot-S] 1 tab PO DAILY 06/16/17 [History] Multivitamins, Thera [Multivitamin (formulary)] 1 tab PO HS 05/04/18 [History] Potassium Chloride ER [K-Dur 10] 10 meq PO DAILY 05/04/18 [History] Sodium Chloride 5% Ophth Soln [Hari 128] 1 drop BOTH EYES BID 05/04/18 [History] Furosemide [Lasix] 40 mg PO DAILY #0 05/08/18 [Rx] Amino Acids/Protein Hydrolys [Pro-Stat Supplement] 30 ml PO DAILY 06/10/18 [ History] amLODIPine BESYLATE 5 mg PO DAILY 06/10/18 [History] Spironolactone [Aldactone] 12.5 mg PO DAILY 07/01/18 [History] Cranberry 450mg 450 mg PO DAILY 10/13/18 [History] Losartan Potassium 100 mg PO DAILY 10/13/18 [History] Metoprolol Tartrate [Lopressor] 100 mg PO BID 10/13/18 [History] hydrALAZINE HCL [Apresoline] 100 mg PO TID 10/13/18 [History] sitaGLIPtin PHOSPHATE [Januvia] 50 mg PO DAILY@1800 10/13/18 [History] Bisacodyl 5 mg PO DAILY PRN 03/31/19 [History] Cholecalciferol (Vitamin D3) [Vitamin D3] 2,000 unit PO DAILY 03/31/19 [History] Ferrous Sulfate [Feosol] 325 mg PO DAILY 03/31/19 [History] Fluticasone Nasal [place] [Flonase Nasal [place]] 1 spr EA NOSTRIL DAILY 03/31/19 [History] Loratadine [Claritin] 10 mg PO DAILY 03/31/19 [History] Ciprofloxacin HCl [Cipro] 250 mg PO DAILY #14 tablet 04/06/19 [Rx] HYDROcodone/APAP 5-325MG [[place] 5-325] 1 each PO Q4HR PRN #18 tab 04/06/19 [Rx] INSULIN ASPART (NovoLOG) [NovoLOG (formulary)] 0 unit SQ ACHS vial 04/06/19 [Rx] INSULIN LISPRO (humaLOG) [humaLOG] 10 units SQ AC-TID #0 04/06/19 [Rx] Insulin Detemir (Levemir) [Levemir] 25 unit SQ DAILY@1800 #0 04/06/19 [Rx] Warfarin [Coumadin] 4 mg PO DAILY@1800 tab 04/06/19 [Rx] Follow up Appointment(s)/Referral(s): Jeanne Mendoza MD [Primary Care Provider] - 1 Week (at ECF) Discharge Disposition: TRANSFER TO SNF/ECF
[2019-04-06 12:09] LABS: Glucose,Whole Blood 114 mg/dL (75-99)
--- NOTE | 2019-04-06 19:06 | PN ---
PROGRESS NOTE DATE OF SERVICE: 04/06/2019 REASON FOR FOLLOWUP: Right tibia-femoral graft site infection with pseudomonas. INTERVAL HISTORY: The patient is currently afebrile. The patient has been complaining of pain to the right AKA stump area. The patient denies having any chest pain, shortness of breath or cough. No nausea, no vomiting, no abdominal pain and no diarrhea. PHYSICAL EXAMINATION: Blood pressure 126/60 with a pulse of 72, temperature 98.6. She is 98% on room air. General description is an elderly female lying in bed in no distress. RESPIRATORY SYSTEM: Unlabored breathing. Clear to auscultation anteriorly. HEART: S1, S2. Regular rate and rhythm. ABDOMEN: Soft. No tenderness. Right AKA stump is currently dressed up. No obvious drainage on the dressing. INR is 1.9. DIAGNOSTIC IMPRESSION AND PLAN: Patient with Pseudomonas aeruginosa culture positive from a fem-tib bypass graft which has been removed completely, and there was no evidence of any bacteremia. Currently on cefepime; to continue, transitioning to a short course of oral Cipro in the outpatient setting and careful monitoring of her INR. Continue with supportive care. MMODL / IJN: [id number] /
--- NOTE | 2019-04-09 07:58 | CDI ---
high Documentation Clarification Form Date: 04/09/2019 7:56:00 AM From: Judith Bright Phone: If you have a question regarding this query, please contact Jodi Lindsay at [phone] between 8am and 5pm. Admit Date: 03/31/2019 1:01:00 PM Patient Name: Fozia Rene Visit Number: [id number] Discharge Date: 04/06/2019 5:35:00 PM ATTENTION: The Clinical Documentation Specialists (CDI) and [facility] Coding Staff appreciate your assistance in clarifying documentation. Please respond to the clarification below the line at the bottom and electronically sign. The CDI & [facility] Coding staff will review the response and follow-up if needed. Please note: Queries are made part of the Legal Health Record. If you have any questions, please contact the author of this message via ITS. Dr. Shruthi Weeks The patient presented with diabetic peripheral vascular disease with wet gangrene of the right heel. History/Risk Factors: Peripheral vascular disease with previous femoral to tibial bypass, DM, right nonhealing heel ulcer Clinical Indicators: Purulent drainage and foul odor of right heel ulcer documented in the nursing documentation Treatment: Above the knee amputation In your professional opinion, can you please clarify the level of the amputation? High (proximal) Mid Low (distal) Other, please specify Unable to determine MTDD
--- NOTE | 2019-04-13 18:28 | CDI ---
High Documentation Clarification Form Date: 04/13/19 From: Judith Bright Phone: If you have a question regarding this query, please contact Jodi Lindsay at [phone] between 8am and 5pm. Admit Date: 03/31/2019 1:01:00 PM Patient Name: Fozia Rene Visit Number: [id number] Discharge Date: 04/06/2019 5:35:00 PM ATTENTION: The Clinical Documentation Specialists (CDI) and [facility] Coding Staff appreciate your assistance in clarifying documentation. Please respond to the clarification below the line at the bottom and electronically sign. The CDI & [facility] Coding staff will review the response and follow-up if needed. Please note: Queries are made part of the Legal Health Record. If you have any questions, please contact the author of this message via ITS. Dr. Shruthi Weeks Thank you for signing your previous query. Please document a response before signing this query. The patient presented with diabetic peripheral vascular disease with wet gangrene of the right heel. History/Risk Factors: Peripheral vascular disease with previous femoral to tibial bypass, DM, right nonhealing heel ulcer Clinical Indicators: Purulent drainage and foul odor of right heel ulcer documented in the nursing documentation Treatment: Above the knee amputation In your professional opinion, can you please clarify the level of the amputation? High (proximal) Mid Low (distal) Other, please specify Unable to determine MTDD
== END 2019-04-06 17:35 | DRG 240 ==
LOC: EC 11:58 → 4SSUR 13:01 → 3SCARD 04-02 17:55
PROVIDERS: ADMIT Internal Medicine; ATTEND Internal Medicine
PROC: 04PY0YZ Removal of Other Device from Lower Artery, Open Approach (ICD-10-PCS; 2019-04-02)
PROC: 0Y6C0Z1 Detachment at Right Upper Leg, High, Open Approach (ICD-10-PCS; principal; 2019-04-02 13:15)
DX: E11.52 Type 2 diabetes mellitus with diabetic peripheral angiopathy with gangrene (principal); L97.419 Non-pressure chronic ulcer of right heel and midfoot with unspecified severity; E44.1 Mild protein-calorie malnutrition; N18.4 Chronic kidney disease, stage 4 (severe); T82.7XXA Infection and inflammatory reaction due to other cardiac and vascular devices, implants and grafts, initial encounter; E11.621 Type 2 diabetes mellitus with foot ulcer; E11.22 Type 2 diabetes mellitus with diabetic chronic kidney disease; E11.40 Type 2 diabetes mellitus with diabetic neuropathy, unspecified; E87.5 Hyperkalemia; I27.20 Pulmonary hypertension, unspecified; I08.3 Combined rheumatic disorders of mitral, aortic and tricuspid valves; I48.0 Paroxysmal atrial fibrillation; D63.8 Anemia in other chronic diseases classified elsewhere; B96.5 Pseudomonas (aeruginosa) (mallei) (pseudomallei) as the cause of diseases classified elsewhere; D63.1 Anemia in chronic kidney disease; D72.829 Elevated white blood cell count, unspecified; D50.9 Iron deficiency anemia, unspecified; E03.9 Hypothyroidism, unspecified; E78.5 Hyperlipidemia, unspecified; I12.9 Hypertensive chronic kidney disease with stage 1 through stage 4 chronic kidney disease, or unspecified chronic kidney disease; M19.041 Primary osteoarthritis, right hand; M19.042 Primary osteoarthritis, left hand; R32 Unspecified urinary incontinence; M47.9 Spondylosis, unspecified; E66.9 Obesity, unspecified; Z68.32 Body mass index [BMI] 32.0-32.9, adult; R53.81 Other malaise; Z79.01 Long term (current) use of anticoagulants; Z79.4 Long term (current) use of insulin; Z79.82 Long term (current) use of aspirin; Z79.890 Hormone replacement therapy; Z79.899 Other long term (current) drug therapy; Z85.41 Personal history of malignant neoplasm of cervix uteri; Z90.710 Acquired absence of both cervix and uterus; Z99.3 Dependence on wheelchair; Z87.440 Personal history of urinary (tract) infections; Z98.42 Cataract extraction status, left eye; Z98.41 Cataract extraction status, right eye; Z96.1 Presence of intraocular lens; Z82.49 Family history of ischemic heart disease and other diseases of the circulatory system; Z82.3 Family history of stroke
CPT/HCPCS: 36415; 36430; 71046; 80053; 83036; 83540; 83550; 83605; 83880; 84443; 84484; 85025; 85027; 85610; 86850; 86900; 86901; 86920; 87040; 87070; 87075; 87077; 87102; 87186; 87205; 93306; 99285

== ENCOUNTER 2020-01-10 15:40 | Inpatient (IN) | payer MEDICARE, BC, OTHER ==
[2020-01-10] MEDS ORDERED: PIPERACILLIN-TAZOBACTAM 3.375 GM in SODIUM CHLORIDE 0.9% 100 ML IVPB STA (16:12)
[2020-01-10] MEDS ORDERED: VANCOMYCIN IV PER PHARMACY 1 EACH MISC MISCELLANE PRN (16:12)
[2020-01-10 16:18] LABS: Basophils # (A) 0.1 k/uL (0-0.2); Basophils % (A) 1 %; Eosinophils # (A) 0.2 k/uL (0-0.7); Eosinophils % (A) 2 %; HCT 27.9 % (34.0-46.0); HGB 8.9 gm/dL (11.4-16.0); Hypochromasia Slight; Lymphocytes # (A) 1.3 k/uL (1.0-4.8); Lymphocytes % (A) 11 %; MCH 28.8 pg (25.0-35.0); MCHC 31.9 g/dL (31.0-37.0); MCV 90.3 fL (80.0-100.0); Mean Platelet Volume 7.2; Monocytes # (A) 0.9 k/uL (0-1.0); Monocytes % (A) 8 %; Neutrophils % (A) 77 %; Platelet Count 307 k/uL (150-450); RBC 3.08 m/uL (3.80-5.40); RDW 14.1 % (11.5-15.5); WBC 11.7 k/uL (3.8-10.6)
[2020-01-10 16:28] LABS: Albumin 3.4 g/dL (3.5-5.0); Calcium 9.4 mg/dL (8.4-10.2); Potassium 4.9 mmol/L (3.5-5.1); Total Bilirubin 0.3 mg/dL (0.2-1.3)
[2020-01-10 16:32] LABS: INR 1.6 (<1.2); Partial Thromboplastin Time 31.4 sec (22.0-30.0); Prothrombin Time 16.2 sec (9.0-12.0)
[2020-01-10] MEDS ORDERED: VANCOMYCIN 1,500 MG in SODIUM CHLORIDE 0.9% 250 ML IVPB ONE (17:00)
--- NOTE | 2020-01-10 17:11 | XR ---
EXAMINATION TYPE: XR femur RT DATE OF EXAM: 01/10/2020 COMPARISON: None HISTORY: Distal femur infection TECHNIQUE: 2 views FINDINGS: There is amputation at the mid shaft of the femur. There are some medial surgical clips. Th ere is vascular calcification. There is mixed density at the stump in the soft tissues that could rel ate to edema. I see no definite soft tissue air. IMPRESSION: Amputation deformity. No specific sign of osteomyelitis. I have no recent comparison.
[2020-01-10] MEDS ORDERED: ACETAMINOPHEN TAB 325 MG TAB PO STA (17:13)
[2020-01-10 17:55] LABS: Appearance,Urine Turbid (Clear); Bacteria,Urine Moderate /hpf; Bilirubin,Urine Negative (Negative); Blood,Urine Moderate (Negative); Budding Yeast,Urine Many /hpf; Color,Urine Yellow; Glucose,Urine (UA) Negative (Negative); Ketones,Urine Negative (Negative); Leukocyte Esterase,Urine Large (Negative); Mucus,Urine Rare /hpf; Nitrite,Urine Positive (Negative); Protein,Urine 1+ (Negative); RBC,Urine 90 /hpf (0-5); Specific Gravity,Urine 1.015 (1.001-1.035); Urobilinogen,Urine <2.0 mg/dL (<2.0); WBC,Urine >182 /hpf (0-5)
[2020-01-10] MEDS ORDERED: ACETAMINOPHEN TAB 325 MG TAB PO PRN ×2 (18:18→21:07)
[2020-01-10] MEDS ORDERED: MORPHINE SULFATE 4 MG/ML SYRINGE IV PRN (18:18)
[2020-01-10] MEDS ORDERED: NALOXONE 0.4 MG/ML 1 ML VIAL IV PRN (18:18)
--- NOTE | 2020-01-10 18:22 | ED ---
General Adult HPI - General Chief complaint: Wound/Laceration Stated complaint: Poss Infection Time Seen by Provider: 01/10/20 15:43 Source: EMS, RN notes reviewed, old records reviewed Mode of arrival: EMS Limitations: physical limitation - History of Present Illness Initial comments: 84-year-old female patient with past history significant for right lower extremity above-knee amputation is sent from rehabilitation facility with concerns of infection. Patient denies any acute complaints at this time. Denies any other complaints. Systemic: Pt denies fatigue, fever/chills, rash. Pt denies weakness, night sweats, weight loss. Neuro: Pt denies headache, visual disturbances, syncope or pre-syncope. HEENT: Pt denies ocular discharge or irritation, otalgia, rhinorrhea, pharyngitis or notable lymphadenopathy. Cardiopulmonary: Pt denies chest pain, SOB, heart palpitations, dyspnea on exertion. Abdominal/GI: Pt denies abdominal pain, n/v/d. : Pt denies dysuria, burning w/ urination, frequency/urgency. Denies new onset urinary or bowel incontinence. MSK: Pt denies myalgia, loss of strength or function in extremities. Neuro: Pt denies new onset weakness, paresthesias. - Related Data Home Medications Medication Instructions Recorded Confirmed Aspirin 81 mg PO DAILY 09/11/15 01/10/20 Levothyroxine Sodium [Synthroid] 50 mcg PO QAM 09/11/15 01/10/20 Pravastatin Sodium [Pravachol] 80 mg PO DAILY@1800 09/11/15 01/10/20 Sennosides-Docusate Sodium 1 tab PO DAILY 06/16/17 01/10/20 [Senokot-S] Multivitamins, Thera [Multivitamin 1 tab PO DAILY@1800 05/04/18 01/10/20 (formulary)] Sodium Chloride 5% Ophth Soln 1 drop BOTH EYES BID 05/04/18 01/10/20 [Hari 128] Spironolactone [Aldactone] 12.5 mg PO DAILY 07/01/18 01/10/20 Cranberry 450mg 450 mg PO DAILY 10/13/18 01/10/20 Metoprolol Tartrate [Lopressor] 100 mg PO BID 10/13/18 01/10/20 hydrALAZINE HCL [Apresoline] 100 mg PO TID 10/13/18 01/10/20 sitaGLIPtin PHOSPHATE [Januvia] 50 mg PO DAILY@1800 10/13/18 01/10/20 Cholecalciferol (Vitamin D3) 2,000 unit PO DAILY 03/31/19 01/10/20 [Vitamin D3] Ferrous Sulfate [Feosol] 325 mg PO DAILY 03/31/19 01/10/20 Fluticasone Nasal [place] [Flonase 1 spr EA NOSTRIL DAILY 03/31/19 01/10/20 Nasal [place]] Loratadine [Claritin] 10 mg PO DAILY 03/31/19 01/10/20 Acetaminophen [Tylenol Arthritis] 650 mg PO Q6H PRN 01/10/20 01/10/20 Insulin Glargine [Lantus] 25 unit SQ DAILY@1800 01/10/20 01/10/20 Insulin Lispro [humaLOG Kwikpen] 10 unit SQ AC-TID 01/10/20 01/10/20 Insulin Lispro [humaLOG Kwikpen] See Protocol SQ ACHS 01/10/20 01/10/20 Losartan Potassium 50 mg PO BID 01/10/20 01/10/20 Previous Rx's Medication Instructions Recorded Warfarin [Coumadin] 4 mg PO DAILY@1800 tab 04/06/19 Allergies Allergy/AdvReac Type Severity Reaction Status Date / Time No Known Allergies Allergy Verified 01/10/20 18:05 Review of Systems ROS Statement: Those systems with pertinent positive or pertinent negative responses have been documented in the HPI. ROS Other: All systems not noted in ROS Statement are negative. Past Medical History Past Medical History: Atrial Fibrillation, Diabetes Mellitus, Hyperlipidemia, Hypertension, Thyroid Disorder Additional Past Medical History / Comment(s): peripheral neuropathy, UTIs, urinary incontinence, OA bilateral hands and back, PVD, cervical cancer History of Any Multi-Drug Resistant Organisms: ESBL, MRSA Date of last positivie culture/infection: 10/01/17-MRSA; 07/25/17 ESBL-E.coli MDRO Source:: Right Foot-MRSA; ESBL Urine Past Surgical History: Hysterectomy, Tonsillectomy Additional Past Surgical History / Comment(s): R leg bypass surgery, bilateral cataract removal Past Anesthesia/Blood Transfusion Reactions: No Reported Reaction Past Psychological History: No Psychological Hx Reported Smoking Status: Never smoker Past Alcohol Use History: None Reported Past Drug Use History: None Reported - Past Family History Mother Family Medical History: CVA/TIA Additional Family Medical History / Comment(s): Mother in her 70's. Father Family Medical History: Hypertension Additional Family Medical History / Comment(s): Father in his 70's. General Exam - General Exam Comments Initial Comments: Constitutional: NAD, AOX3, Pt has pleasant affect. HEENT: NC/AT, trachea midline, neck supple, no lymphadenopathy. External ears appear normal, without discharge. Mucous membranes moist. EOM intact. There is no scleral icterus. No pallor noted. Cardiopulmonary: RRR, no murmurs, rubs or gallops, no JVD noted. Lungs CTAB in anterior and posterior hastings. No peripheral edema. Abdominal exam: Abdomen soft and non-distended. Abdomen non-tender to palpation in all 4 quadrants. Bowel sounds active in LLQ. No hepatosplenomegaly. Neuro: CN II-XII grossly intact. No nuchal rigidity. No raccon eyes, no womack sign, MSK: Right lower extremity amputation noted. Extremities are warm. Erythema and mild fluctuant mass with active draining noted distal right lower extremity. Mild amount of surrounding cellulitis. No streaking. Limitations: physical limitation Course Vital Signs 01/10/20 01/10/20 01/10/20 15:45 16:31 17:32 Temperature 100.1 F H Pulse Rate 80 93 99 Respiratory 20 20 20 Rate Blood Pressure 152/91 147/79 149/66 O2 Sat by Pulse 97 97 96 Oximetry Medical Decision Making - Medical Decision Making 84-year-old female patient with past history significant for right lower extremity above-knee amputation is sent from rehabilitation facility with concerns of infection. Patient denies any acute complaints at this time. Betito es any other complaints. Patient vital signs are stable, afebrile. Physical exam displayed: Right lower extremity amputation noted. Extremities are warm. Erythema and mild fluctuant mass with active draining noted distal right lower extremity. Mild amount of surrounding cellulitis. No streaking. Patient is anticoagulated on Alquist. Laboratory investigations were obtained. White blood cell count of 11.7. Left shift. Hemoglobin 8.9 around baseline. Creatinine and BUN around baseline. Glucose of 222. Urine is positive for urinary tract infection. Patient has a indwelling catheter this will be replaced. Plain film of femur displayed a patient deformity no specific signs of osteomyelitis. Patient had prior culture which grew Pseudomonas. Patient initiated on vancomycin and Zosyn. EKG displayed a defibrillation of which patient has history. Will be admitted for further evaluation. Case discussed with Dr. Corcoran. - Lab Data Result diagrams: 01/10/20 16:04 01/10/20 16:04 Lab Results 01/10/20 01/10/20 01/10/20 Range/Units 16:04 16:04 16:04 WBC 11.7 H (3.8-10.6) k/uL RBC 3.08 L (3.80-5.40) m/uL Hgb 8.9 L (11.4-16.0) gm/dL Hct 27.9 L (34.0-46.0) % MCV 90.3 (80.0-100.0) fL MCH 28.8 (25.0-35.0) pg MCHC 31.9 (31.0-37.0) g/dL RDW 14.1 (11.5-15.5) % Plt Count 307 (150-450) k/uL Neutrophils % 77 % Lymphocytes % 11 % Monocytes % 8 % Eosinophils % 2 % Basophils % 1 % Neutrophils # 9.0 H (1.3-7.7) k/uL Lymphocytes # 1.3 (1.0-4.8) k/uL Monocytes # 0.9 (0-1.0) k/uL Eosinophils # 0.2 (0-0.7) k/uL Basophils # 0.1 (0-0.2) k/uL Hypochromasia Slight PT 16.2 H (9.0-12.0) sec INR 1.6 H (<1.2) APTT 31.4 H (22.0-30.0) sec Sodium 137 (137-145) mmol/L Potassium 4.9 (3.5-5.1) mmol/L Chloride 110 H (98-107) mmol/L Carbon Dioxide 17 L (22-30) mmol/L Anion Gap 10 mmol/L BUN 63 H (7-17) mg/dL Creatinine 1.96 H (0.52-1.04) mg/dL Est GFR (CKD-EPI)AfAm 26 (>60 ml/min/1.73 sqM) Est GFR (CKD-EPI)NonAf 23 (>60 ml/min/1.73 sqM) Glucose 222 H (74-99) mg/dL Plasma Lactic Acid Misael (0.7-2.0) mmol/L Calcium 9.4 (8.4-10.2) mg/dL Total Bilirubin 0.3 (0.2-1.3) mg/dL AST 19 (14-36) U/L ALT 15 (4-34) U/L Alkaline Phosphatase 69 (38-126) U/L Total Protein 7.0 (6.3-8.2) g/dL Albumin 3.4 L (3.5-5.0) g/dL Urine Color Urine Appearance (Clear) Urine pH (5.0-8.0) Ur Specific [place] (1.001-1.035) Urine Protein (Negative) Urine Glucose (UA) (Negative) Urine Ketones (Negative) Urine Blood (Negative) Urine Nitrite (Negative) Urine Bilirubin (Negative) Urine Urobilinogen (<2.0) mg/dL Ur Leukocyte Esterase (Negative) Urine RBC (0-5) /hpf Urine WBC (0-5) /hpf Urine WBC Clumps (None) /hpf Urine Bacteria (None) /hpf Urine Mucus (None) /hpf Urine Yeast (Budding) (None) /hpf 01/10/20 01/10/20 Range/Units 16:04 17:30 WBC (3.8-10.6) k/uL RBC (3.80-5.40) m/uL Hgb (11.4-16.0) gm/dL Hct (34.0-46.0) % MCV (80.0-100.0) fL MCH (25.0-35.0) pg MCHC (31.0-37.0) g/dL RDW (11.5-15.5) % Plt Count (150-450) k/uL Neutrophils % % Lymphocytes % % Monocytes % % Eosinophils % % Basophils % % Neutrophils # (1.3-7.7) k/uL Lymphocytes # (1.0-4.8) k/uL Monocytes # (0-1.0) k/uL Eosinophils # (0-0.7) k/uL Basophils # (0-0.2) k/uL Hypochromasia PT (9.0-12.0) sec INR (<1.2) APTT (22.0-30.0) sec Sodium (137-145) mmol/L Potassium (3.5-5.1) mmol/L Chloride (98-107) mmol/L Carbon Dioxide (22-30) mmol/L Anion Gap mmol/L BUN (7-17) mg/dL Creatinine (0.52-1.04) mg/dL Est GFR (CKD-EPI)AfAm (>60 ml/min/1.73 sqM) Est GFR (CKD-EPI)NonAf (>60 ml/min/1.73 sqM) Glucose (74-99) mg/dL Plasma Lactic Acid Misael 1.2 (0.7-2.0) mmol/L Calcium (8.4-10.2) mg/dL Total Bilirubin (0.2-1.3) mg/dL AST (14-36) U/L ALT (4-34) U/L Alkaline Phosphatase (38-126) U/L Total Protein (6.3-8.2) g/dL Albumin (3.5-5.0) g/dL Urine Color Yellow Urine Appearance Turbid H (Clear) Urine pH 7.0 (5.0-8.0) Ur Specific [place] 1.015 (1.001-1.035) Urine Protein 1+ H (Negative) Urine Glucose (UA) Negative (Negative) Urine Ketones Negative (Negative) Urine Blood Moderate H (Negative) Urine Nitrite Positive H (Negative) Urine Bilirubin Negative (Negative) Urine Urobilinogen <2.0 (<2.0) mg/dL Ur Leukocyte Esterase Large H (Negative) Urine RBC 90 H (0-5) /hpf Urine WBC >182 H (0-5) /hpf Urine WBC Clumps Many H (None) /hpf Urine Bacteria Moderate H (None) /hpf Urine Mucus Rare H (None) /hpf Urine Yeast (Budding) Many H (None) /hpf - EKG Data -: EKG Interpreted by Me EKG Comments: Ventricular rate 87, QRS 76, QT/QTC 388/466. Atrial fibrillation. No concern for acute ischemia. Disposition Clinical Impression: Skin infection Disposition: ADMITTED IP TO THIS HOSP Condition: Serious Is patient prescribed a controlled substance at d/c from ED?: No Referrals: Jeanne Mendoza MD [Primary Care Provider] - 1-2 days
[2020-01-10 21:38] LABS: Glucose,Whole Blood 145 mg/dL (75-99)
[2020-01-10] MEDS: INSULIN DETEMIR (LEVEMIR) 100 UNIT/ML SYR SQ SCH (21:56)
[2020-01-10] MEDS: SODIUM CHLORIDE 5% OPHTH DROPS 15 ML BTL BOTH EYES SCH (21:56)
[2020-01-10] MEDS: INSULIN ASPART (NovoLOG) 100 UNIT/ML VIAL SQ SCH (21:56)
[2020-01-10] MEDS: SODIUM CHLORIDE 0.9% 1,000 ML IV SCH (21:57)
[2020-01-10] MEDS: LOSARTAN 50 MG TAB PO SCH (21:57)
[2020-01-10] MEDS: hydrALAZINE HCL 50 MG TAB PO SCH (21:57)
[2020-01-10] MEDS: METOPROLOL TARTRATE 50 MG TAB PO SCH (21:57)
[2020-01-10] MEDS: WARFARIN 2 MG TAB PO SCH (21:57)
[2020-01-11] MEDS: PIPERACILLIN-TAZOBACTAM 3.375 GM in SODIUM CHLORIDE 0.9% 100 ML IVPB SCH ×2 (05:59→17:31)
[2020-01-11] MEDS: LEVOTHYROXINE 50 MCG TAB PO SCH (05:59)
[2020-01-11 06:43] LABS: Glucose,Whole Blood 68 mg/dL (75-99)
[2020-01-11 06:56] LABS: Glucose,Whole Blood 84 mg/dL (75-99)
[2020-01-11] MEDS: INSULIN ASPART (NovoLOG) 100 UNIT/ML VIAL SQ SCH ×7 (07:11→20:45)
[2020-01-11] MEDS: METOPROLOL TARTRATE 50 MG TAB PO SCH ×2 (07:58→20:46)
[2020-01-11] MEDS: SODIUM CHLORIDE 0.9% 1,000 ML IV SCH ×2 (07:58→20:46)
[2020-01-11] MEDS: SENNOSIDES-DOCUSATE SODIUM 1 EACH TAB PO SCH (07:59)
[2020-01-11] MEDS: FERROUS SULFATE 325 MG TAB PO SCH (07:59)
[2020-01-11] MEDS: LOSARTAN 50 MG TAB PO SCH ×2 (07:59→20:46)
[2020-01-11] MEDS: hydrALAZINE HCL 50 MG TAB PO SCH ×3 (07:59→23:03)
[2020-01-11] MEDS: CHOLECALCIFEROL 1,000 UNIT TAB PO SCH (07:59)
[2020-01-11] MEDS: ASPIRIN 81 MG PO SCH (07:59)
[2020-01-11] MEDS: LORATADINE 10 MG TAB PO SCH (07:59)
[2020-01-11] MEDS: FLUTICASONE 50MCG/SPRAY NASAL 16GM EA NOSTRIL SCH (07:59)
[2020-01-11 08:00] LABS: INR 1.9 (<1.2); Prothrombin Time 18.6 sec (9.0-12.0)
[2020-01-11] MEDS: SODIUM CHLORIDE 5% OPHTH DROPS 15 ML BTL BOTH EYES SCH ×2 (08:00→20:46)
--- NOTE | 2020-01-11 08:36 | P.HPIM ---
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 and she has done marvelously well after surgery and she was [facility] facility has been doing fine up until 2 days ago when she developed to have a significant redness and increased drainage from the bottom of the right stump, I received a call from the nursing staff stated that the patient has fever and chills her Weeks catheter was cloudy and she was having some bloody pussy drainage from the stump he was recommended for the patient be transferred to the emergency department at [facility] where she was seen and evaluated by an x-ray that did not show any evidence of possible myelitis however because of the presentation she was admitted to the hospital she was started on IV antibiotic in the form of Zosyn and vancomycin and blood cultures and the culture from the stump was obtained, infectious disease consultation was obtained as well as vascular surgery consultation, patient would be kept in the hospital until the final result of the culture is back in until after surgical intervention with I&D to the stump. Review of Systems Constitutional: Denies anorexia, Denies chronic headaches, Denies lethargy, Denies weakness, Denies weight loss Eyes: denies blurred vision, denies bulging eye, denies decreased vision Ears: bilateral: decreased hearing Ears, nose, mouth and throat: Denies dysphagia, Denies neck lump, Denies sore throat Cardiovascular: Reports leg edema, Denies chest pain, Denies decreased exercise tolerance, Denies rapid heart beat, Denies shortness of breath, Denies syncope Respiratory: Denies congestion, Denies cough with sputum, Denies home oxygen, Denies sleep apnea, Denies snoring, Denies wheezing Gastrointestinal: Denies abdominal pain, Denies bloating, Denies BRBPR, Denies excessive gas, Denies heartburn, Denies loss of appetite, Denies melena, Denies nausea, Denies vomiting Genitourinary: Denies dysuria, Denies nocturia Menstruation: Reports postmenopausal Musculoskeletal: Reports gait dysfunction Musculoskeletal: left: foot swelling, absent: hand pain, hand stiffness, hand swelling, hip pain, hip stiffness, hip swelling, shoulder pain, shoulder stiffness, shoulder swelling, wrist pain, wrist stiffness, wrist swelling Integumentary: Denies pruritus, Denies rash Neurological: Denies numbness, Denies weakness Psychiatric: Denies anxiety, Denies depression Endocrine: Denies fatigue, Denies weight change Past Medical History Past Medical History: Atrial Fibrillation, Diabetes Mellitus, Hyperlipidemia, Hypertension, Thyroid Disorder Additional Past Medical History / Comment(s): peripheral neuropathy, UTIs, urinary incontinence, OA bilateral hands and back, PVD, cervical cancer History of Any Multi-Drug Resistant Organisms: ESBL, MRSA Date of last positivie culture/infection: 10/01/17-MRSA; 07/25/17 ESBL-E.coli MDRO Source:: Right Foot-MRSA; ESBL Urine Past Surgical History: Hysterectomy, Tonsillectomy Additional Past Surgical History / Comment(s): R leg bypass surgery, bilateral cataract removal Past Anesthesia/Blood Transfusion Reactions: No Reported Reaction Past Psychological History: No Psychological Hx Reported Additional Psychological History / Comment(s): Pt states she lives at [facility]. States uses a wheelchair to get around. Smoking Status: Never smoker Past Alcohol Use History: None Reported Additional Past Alcohol Use History / Comment(s): Patient resides at [facility] and is wheelchair bound. Past Drug Use History: None Reported - Past Family History Mother Family Medical History: CVA/TIA Additional Family Medical History / Comment(s): Mother in her 70's. Father Family Medical History: Hypertension Additional Family Medical History / Comment(s): Father in his 70's. Medications and Allergies Home Medications Medication Instructions Recorded Confirmed Type Aspirin 81 mg PO DAILY 09/11/15 01/10/20 History Levothyroxine Sodium [Synthroid] 50 mcg PO QAM 09/11/15 01/10/20 History Pravastatin Sodium [Pravachol] 80 mg PO DAILY@1800 09/11/15 01/10/20 History Sennosides-Docusate Sodium 1 tab PO DAILY 06/16/17 01/10/20 History [Senokot-S] Multivitamins, Thera [Multivitamin 1 tab PO DAILY@1800 05/04/18 01/10/20 History (formulary)] Sodium Chloride 5% Ophth Soln 1 drop BOTH EYES BID 05/04/18 01/10/20 History [Hari 128] Spironolactone [Aldactone] 12.5 mg PO DAILY 07/01/18 01/10/20 History Cranberry 450mg 450 mg PO DAILY 10/13/18 01/10/20 History Metoprolol Tartrate [Lopressor] 100 mg PO BID 10/13/18 01/10/20 History hydrALAZINE HCL [Apresoline] 100 mg PO TID 10/13/18 01/10/20 History sitaGLIPtin PHOSPHATE [Januvia] 50 mg PO DAILY@1800 10/13/18 01/10/20 History Cholecalciferol (Vitamin D3) 2,000 unit PO DAILY 03/31/19 01/10/20 History [Vitamin D3] Ferrous Sulfate [Feosol] 325 mg PO DAILY 03/31/19 01/10/20 History Fluticasone Nasal [place] [Flonase 1 spr EA NOSTRIL DAILY 03/31/19 01/10/20 History Nasal [place]] Loratadine [Claritin] 10 mg PO DAILY 03/31/19 01/10/20 History Warfarin [Coumadin] 4 mg PO DAILY@1800 tab 04/06/19 01/10/20 Rx Acetaminophen [Tylenol Arthritis] 650 mg PO Q6H PRN 01/10/20 01/10/20 History Insulin Glargine [Lantus] 25 unit SQ DAILY@1800 01/10/20 01/10/20 History Insulin Lispro [humaLOG Kwikpen] 10 unit SQ AC-TID 01/10/20 01/10/20 History Insulin Lispro [humaLOG Kwikpen] See Protocol SQ ACHS 01/10/20 01/10/20 History Losartan Potassium 50 mg PO BID 01/10/20 01/10/20 History Allergies Allergy/AdvReac Type Severity Reaction Status Date / Time No Known Allergies Allergy Verified 01/10/20 18:05 Physical Exam Vitals: Vital Signs Temp Pulse Pulse Resp BP BP Pulse Ox 01/11/20 06:54 98.5 F 80 16 156/71 99 01/11/20 03:40 16 01/11/20 00:43 98.5 F 82 15 112/65 97 01/10/20 21:55 79 136/68 01/10/20 19:59 97.9 F 78 13 156/79 98 01/10/20 19:30 99.1 F 89 20 144/65 99 01/10/20 18:29 88 20 144/63 99 01/10/20 17:32 99 20 149/66 96 01/10/20 16:31 93 20 147/79 97 01/10/20 15:45 100.1 F H 80 20 152/91 97 Intake and Output 01/10/20 01/11/20 01/11/20 22:59 06:59 14:59 Intake Total 350 Output Total 550 Balance 350 -550 Intake: Intake, IV Titration 350 Amount Piperacillin-Tazobactam 3 100 .375 gm In Sodium Chloride 0.9% 100 ml @ 25 mls/hr IVPB Q12H [facility] Rx# :[id number] Vancomycin 1,500 mg In 250 Sodium Chloride 0.9% 250 ml @ 125 mls/hr IVPB ONCE ONE Rx#:[id number] Output: Urine 550 Other: Voiding Method Indwelling Catheter Weight 81.647 kg HEENT: Head is atraumatic, normocephalic, pupils were equal round reactive to light and accommodations, extraocular muscle movement were intact. Neck: Supple, no JVP, decreased carotid upstroke bilaterally. Chest: Clear to auscultation bilaterally there is no crackles no wheezes no chest wall tenderness no intercostal retractions. Heart: First heart sound is depressed, second heart sound is normal, irregularly irregular, there is systolic ejection murmur 2/6 located in the left sternal border. Abdomen: Soft, nontender, nondistended, positive bowel sounds. Extremities: Right stump from the above knee amputation showed some redness and increase bloody and pus discharge from an open area, left lower extremity with edema no calf tenderness dorsalis pedis is +1 on the left side. Neurologic examination: Patient is awake alert and oriented 3, creatinine nerves III-12 appear grossly intact, patient moves all her extremities. Results CBC & Chem 7: 01/10/20 16:04 01/10/20 16:04 Labs: Abnormal Lab Results - Last 24 Hours (Table) 01/10/20 01/10/2001/09/20 Range/Units 16:04 16:04 16:04 WBC 11.7 H (3.8-10.6) k/uL RBC 3.08 L (3.80-5.40) m/uL Hgb 8.9 L (11.4-16.0) gm/dL Hct 27.9 L (34.0-46.0) % Neutrophils # 9.0 H (1.3-7.7) k/uL PT 16.2 H (9.0-12.0) sec INR 1.6 H (<1.2) APTT 31.4 H (22.0-30.0) sec Chloride 110 H (98-107) mmol/L Carbon Dioxide 17 L (22-30) mmol/L BUN 63 H (7-17) mg/dL Creatinine 1.96 H (0.52-1.04) mg/dL Glucose 222 H (74-99) mg/dL POC Glucose (mg/dL) (75-99) mg/dL Albumin 3.4 L (3.5-5.0) g/dL Urine Appearance (Clear) Urine Protein (Negative) Urine Blood (Negative) Urine Nitrite (Negative) Ur Leukocyte Esterase (Negative) Urine RBC (0-5) /hpf Urine WBC (0-5) /hpf Urine WBC Clumps (None) /hpf Urine Bacteria (None) /hpf Urine Mucus (None) /hpf Urine Yeast (Budding) (None) /hpf 01/10/20 01/10/20 01/11/20 Range/Units 17:30 21:35 06:41 WBC (3.8-10.6) k/uL RBC (3.80-5.40) m/uL Hgb (11.4-16.0) gm/dL Hct (34.0-46.0) % Neutrophils # (1.3-7.7) k/uL PT (9.0-12.0) sec INR (<1.2) APTT (22.0-30.0) sec Chloride (98-107) mmol/L Carbon Dioxide (22-30) mmol/L BUN (7-17) mg/dL Creatinine (0.52-1.04) mg/dL Glucose (74-99) mg/dL POC Glucose (mg/dL) 145 H 68 L (75-99) mg/dL Albumin (3.5-5.0) g/dL Urine Appearance Turbid H (Clear) Urine Protein 1+ H (Negative) Urine Blood Moderate H (Negative) Urine Nitrite Positive H (Negative) Ur Leukocyte Esterase Large H (Negative) Urine RBC 90 H (0-5) /hpf Urine WBC >182 H (0-5) /hpf Urine WBC Clumps Many H (None) /hpf Urine Bacteria Moderate H (None) /hpf Urine Mucus Rare H (None) /hpf Urine Yeast (Budding) Many H (None) /hpf 01/11/20 Range/Units 07:14 WBC (3.8-10.6) k/uL RBC (3.80-5.40) m/uL Hgb (11.4-16.0) gm/dL Hct (34.0-46.0) % Neutrophils # (1.3-7.7) k/uL PT 18.6 H (9.0-12.0) sec INR 1.9 H (<1.2) APTT (22.0-30.0) sec Chloride (98-107) mmol/L Carbon Dioxide (22-30) mmol/L BUN (7-17) mg/dL Creatinine (0.52-1.04) mg/dL Glucose (74-99) mg/dL POC Glucose (mg/dL) (75-99) mg/dL Albumin (3.5-5.0) g/dL Urine Appearance (Clear) Urine Protein (Negative) Urine Blood (Negative) Urine Nitrite (Negative) Ur Leukocyte Esterase (Negative) Urine RBC (0-5) /hpf Urine WBC (0-5) /hpf Urine WBC Clumps (None) /hpf Urine Bacteria (None) /hpf Urine Mucus (None) /hpf Urine Yeast (Budding) (None) /hpf Microbiology - Last 24 Hours (Table) 01/10/20 17:38 Gram Stain - Preliminary Thigh - Right Wound Culture - Preliminary 01/10/20 17:30 Urine Culture - Preliminary Urine,Voided Thrombosis Risk Factor Assmnt - DVT/VTE Prophylaxis DVT/VTE Prophylaxis: Pharmacologic Prophylaxis ordered, Mechanical Prophylaxis o rdered - Choose All That Apply Any of the Below Risk Factors Present?: Yes Each Factor Represents 1 point: Obesity (BMI >25) Each Risk Factor Represents 3 Points: Age 75 years or older Thrombosis Risk Factor Assessment Total Risk Factor Score: 4 Thrombosis Risk Factor Assessment Level: Moderate Risk Assessment and Plan Assessment: Assessment and plan: 1. Right above knee amputation stump cellulitis with possible abscess. Start the patient on IV antibiotic in the form of Zosyn and vancomycin pharmacy to dose the peak and trough, vascular surgery consultation for I&D, infectious disease consultation, obtain blood culture, obtain wound culture, we will monitor the patient very closely, patient the past did have a history of MRSA and Pseudomonas. 2. Urinary tract infection with sepsis. Continue IV antibiotic in the form of Zosyn, obtain urine culture. 3. Acute kidney injury and top of chronic kidney disease stage III. Start the patient on IV fluid in the form of normal saline at 50 mL an hour monitor the patient input and output and daily weight. Monitor the patient CMP. 4. Hypertension and hypertensive cardiovascular disease. We will continue patient on metoprolol 100 mg orally twice every day, losartan 50 minute gram orally twice every day, hydralazine 100 mg orally 3 times every day. 5. Hyperlipidemia. Continue patient on pravastatin 80 mg at bedtime. 6. Diabetes mellitus type 2 into the patient on Levemir 25 units at bedtime along with Humalog 10 units before each meal along with a sliding scale insulin, continue consistent carbohydrate diet, continue with BGM before each meal and at bedtime. 7. Hypothyroidism. Continue patient on Synthroid 50 g orally once every day. 8. Proximal atrial fibrillation. Continue patient on metoprolol 100 mg orally twice every day as well as Coumadin form gram at bedtime. Monitor the patient PT and INR. 9. ALLERGIC rhinitis. Continue Claritin 10 mg orally once every day as well as Flonase nasal spray 1 puff in each nostril twice every day. 10. Severe peripheral arterial occlusive disease status post right above-knee amputation. Continue aspirin and pravastatin for secondary prevention. 11. Iron deficiency anemia. Continue iron 325 mg orally once every day monitor the patient hemoglobin. 12. Vitamin D deficiency. Continue patient on vitamin D supplement. 13. DVT prophylaxis. Currently on Coumadin keep her INR between 2-3. 14. GI prophylaxis. Protonix 40 mg orally once every day. 15. Admit to inpatient. Estimated length of stay 2 midnights. 16. No code. 17. Plan is to go back to [facility].
[2020-01-11] MEDS ORDERED: VANCOMYCIN 1,500 MG in SODIUM CHLORIDE 0.9% 250 ML IVPB ONE (09:00)
[2020-01-11] MEDS ORDERED: NON FORMULARY DRUG (Cranberry 450mg 450 MG) PO SCH (09:00)
[2020-01-11 11:43] LABS: Glucose,Whole Blood 106 mg/dL (75-99)
[2020-01-11 13:51] VITALS: BMI 30.9
--- NOTE | 2020-01-11 14:12 | P.GSCN ---
History of Present Illness Consult date: 01/11/20 Reason for Consult: infection to right viyss-nux-juev amputation site, known to Dr. Weeks. Requesting physician: Jeanne Mendoza History of present illness: Patient is an 84-year-old female who resides at [facility]. she was brought into the emergency department for a wound to her right lower extremity at the site of her AKA. The patient has a history of diabetes mellitus 2 on insulin, peripheral arterial disease, peripheral neuropathy, hypertension, hypothyroid, atrial fibrillation, chronic gangrene and ulcers to the right lower extremity. She has had multiple bypasses in her right lower extremity. The patient was following with vascular surgery regarding a right heel wound which she underwent a right [id number] amputation in March 2019 for infected gangrene of the right heel. The patient states she had had no further complications with the site since that time. Patient denies any fever or chills, she states that she believes the sores began from bumping it on her wheelchair with transferring. She has a history of MRSA and E. coli infections. history of the right femur amputation deformity. No specific sign of osteomyelitis. No definite soft tissue air. she has been started on IV vancomycin and Zosyn. Infectious disease has also been consulted. cultures were collected and pending. Review of Systems A review of systems completed and all pertinent positives and negatives as stated in the HPI. Past Medical History Past Medical History: Atrial Fibrillation, Diabetes Mellitus, Hyperlipidemia, Hypertension, Thyroid Disorder Additional Past Medical History / Comment(s): peripheral neuropathy, UTIs, urinary incontinence, OA bilateral hands and back, PVD, cervical cancer History of Any Multi-Drug Resistant Organisms: ESBL, MRSA Year Discovered:: 10/01/17-MRSA; 07/25/17 ESBL-E.coli MDRO Source:: Right Foot-MRSA; ESBL Urine Past Surgical History: Hysterectomy, Tonsillectomy Additional Past Surgical History / Comment(s): R leg bypass surgery, bilateral cataract removal Past Anesthesia/Blood Transfusion Reactions: No Reported Reaction Past Psychological History: No Psychological Hx Reported Additional Psychological History / Comment(s): Pt states she lives at [facility]. States uses a wheelchair to get around. Smoking Status: Never smoker Past Alcohol Use History: None Reported Additional Past Alcohol Use History / Comment(s): Patient resides at [facility] and is wheelchair bound. Past Drug Use History: None Reported - Past Family History Mother Family Medical History: CVA/TIA Additional Family Medical History / Comment(s): Mother in her 70's. Father Family Medical History: Hypertension Additional Family Medical History / Comment(s): Father in his 70's. Medications and Allergies Home Medications Medication Instructions Recorded Confirmed Type Aspirin 81 mg PO DAILY 09/11/15 01/10/20 History Levothyroxine Sodium [Synthroid] 50 mcg PO QAM 09/11/15 01/10/20 History Pravastatin Sodium [Pravachol] 80 mg PO DAILY@1800 09/11/15 01/10/20 History Sennosides-Docusate Sodium 1 tab PO DAILY 06/16/17 01/10/20 History [Senokot-S] Multivitamins, Thera [Multivitamin 1 tab PO DAILY@1800 05/04/18 01/10/20 History (formulary)] Sodium Chloride 5% Ophth Soln 1 drop BOTH EYES BID 05/04/18 01/10/20 History [Hari 128] Spironolactone [Aldactone] 12.5 mg PO DAILY 07/01/18 01/10/20 History Cranberry 450mg 450 mg PO DAILY 10/13/18 01/10/20 History Metoprolol Tartrate [Lopressor] 100 mg PO BID 10/13/18 01/10/20 History hydrALAZINE HCL [Apresoline] 100 mg PO TID 10/13/18 01/10/20 History sitaGLIPtin PHOSPHATE [Januvia] 50 mg PO DAILY@1800 10/13/18 01/10/20 History Cholecalciferol (Vitamin D3) 2,000 unit PO DAILY 03/31/19 01/10/20 History [Vitamin D3] Ferrous Sulfate [Feosol] 325 mg PO DAILY 03/31/19 01/10/20 History Fluticasone Nasal [place] [Flonase 1 spr EA NOSTRIL DAILY 03/31/19 01/10/20 History Nasal [place]] Loratadine [Claritin] 10 mg PO DAILY 03/31/19 01/10/20 History Warfarin [Coumadin] 4 mg PO DAILY@1800 tab 04/06/19 01/10/20 Rx Acetaminophen [Tylenol Arthritis] 650 mg PO Q6H PRN 01/10/20 01/10/20 History Insulin Glargine [Lantus] 25 unit SQ DAILY@1800 01/10/20 01/10/20 History Insulin Lispro [humaLOG Kwikpen] 10 unit SQ AC-TID 01/10/20 01/10/20 History Insulin Lispro [humaLOG Kwikpen] See Protocol SQ ACHS 01/10/20 01/10/20 History Losartan Potassium 50 mg PO BID 01/10/20 01/10/20 History Allergies Allergy/AdvReac Type Severity Reaction Status Date / Time No Known Allergies Allergy Verified 01/10/20 18:05 Surgical - Exam Vital Signs Temp Pulse Resp BP Pulse Ox 100.1 F H 80 20 152/91 97 01/10/20 15:45 01/10/20 15:45 01/10/20 15:45 01/10/20 15:45 01/10/20 15:45 General appearance: The patient is alert, oriented, in no acute distress. Hard of hearing. HET: Head is normocephalic and atraumatic. Neck: Supple without lymphadenopathy. Trachea midline. Heart: S1 S2. Regular rate and rhythm. Lungs: No crackles or wheezes are heard. Abdomen: Soft, nontender, nondistended with bowel sounds. No peritoneal signs. Extremities: right lower extremity with [id number]-[id number] amputation stump, with erythema and serosanguineous and purulent drainage with fluctuance, warm to the touch. Left lower extremity with edema, palpable dorsalis pedis. Neurological: No focal deficits. Strength and sensation are grossly intact. Results femur x-ray reviewed showing amputation deformity. No specific signs of osteomyelitis. - Labs 01/10/20 16:04 01/10/20 16:04 Abnormal Lab Results - Last 24 Hours (Table) 01/10/20 01/10/20 01/10/20 Range/Units 16:04 16:04 16:04 WBC 11.7 H (3.8-10.6) k/uL RBC 3.08 L (3.80-5.40) m/uL Hgb 8.9 L (11.4-16.0) gm/dL Hct 27.9 L (34.0-46.0) % Neutrophils # 9.0 H (1.3-7.7) k/uL PT 16.2 H (9.0-12.0) sec INR 1.6 H (<1.2) APTT 31.4 H (22.0-30.0) sec Chloride 110 H (98-107) mmol/L Carbon Dioxide 17 L (22-30) mmol/L BUN 63 H (7-17) mg/dL Creatinine 1.96 H (0.52-1.04) mg/dL Glucose 222 H (74-99) mg/dL POC Glucose (mg/dL) (75-99) mg/dL Albumin 3.4 L (3.5-5.0) g/dL Urine Appearance (Clear) Urine Protein (Negative) Urine Blood (Negative) Urine Nitrite (Negative) Ur Leukocyte Esterase (Negative) Urine RBC (0-5) /hpf Urine WBC (0-5) /hpf Urine WBC Clumps (None) /hpf Urine Bacteria (None) /hpf Urine Mucus (None) /hpf Urine Yeast (Budding) (None) /hpf 01/10/20 01/10/20 01/11/20 Range/Units 17:30 21:35 06:41 WBC (3.8-10.6) k/uL RBC (3.80-5.40) m/uL Hgb (11.4-16.0) gm/dL Hct (34.0-46.0) % Neutrophils # (1.3-7.7) k/uL PT (9.0-12.0) sec INR (<1.2) APTT (22.0-30.0) sec Chloride (98-107) mmol/L Carbon Dioxide (22-30) mmol/L BUN (7-17) mg/dL Creatinine (0.52-1.04) mg/dL Glucose (74-99) mg/dL POC Glucose (mg/dL) 145 H 68 L (75-99) mg/dL Albumin (3.5-5.0) g/dL Urine Appearance Turbid H (Clear) Urine Protein 1+ H (Negative) Urine Blood Moderate H (Negative) Urine Nitrite Positive H (Negative) Ur Leukocyte Esterase Large H (Negative) Urine RBC 90 H (0-5) /hpf Urine WBC >182 H (0-5) /hpf Urine WBC Clumps Many H (None) /hpf Urine Bacteria Moderate H (None) /hpf Urine Mucus Rare H (None) /hpf Urine Yeast (Budding) Many H (None) /hpf 01/11/20 Range/Units 07:14 WBC (3.8-10.6) k/uL RBC (3.80-5.40) m/uL Hgb (11.4-16.0) gm/dL Hct (34.0-46.0) % Neutrophils # (1.3-7.7) k/uL PT 18.6 H (9.0-12.0) sec INR 1.9 H (<1.2) APTT (22.0-30.0) sec Chloride (98-107) mmol/L Carbon Dioxide (22-30) mmol/L BUN (7-17) mg/dL Creatinine (0.52-1.04) mg/dL Glucose (74-99) mg/dL POC Glucose (mg/dL) (75-99) mg/dL Albumin (3.5-5.0) g/dL Urine Appearance (Clear) Urine Protein (Negative) Urine Blood (Negative) Urine Nitrite (Negative) Ur Leukocyte Esterase (Negative) Urine RBC (0-5) /hpf Urine WBC (0-5) /hpf Urine WBC Clumps (None) /hpf Urine Bacteria (None) /hpf Urine Mucus (None) /hpf Urine Yeast (Budding) (None) /hpf Microbiology - Last 24 Hours (Table) 01/10/20 17:38 Gram Stain - Preliminary Thigh - Right Wound Culture - Preliminary 01/10/20 17:30 Urine Culture - Preliminary Urine,Voided Diabetes panel 01/10/20 Range/Units 16:04 Sodium 137 (137-145) mmol/L Potassium 4.9 (3.5-5.1) mmol/L Chloride 110 H (98-107) mmol/L Carbon Dioxide 17 L (22-30) mmol/L BUN 63 H (7-17) mg/dL Creatinine 1.96 H (0.52-1.04) mg/dL Glucose 222 H (74-99) mg/dL Calcium 9.4 (8.4-10.2) mg/dL AST 19 (14-36) U/L ALT 15 (4-34) U/L Alkaline Phosphatase 69 (38-126) U/L Total Protein 7.0 (6.3-8.2) g/dL Albumin 3.4 L (3.5-5.0) g/dL Calcium panel 01/10/20 Range/Units 16:04 Calcium 9.4 (8.4-10.2) mg/dL Albumin 3.4 L (3.5-5.0) g/dL Pituitary panel 01/10/20 Range/Units 16:04 Sodium 137 (137-145) mmol/L Potassium 4.9 (3.5-5.1) mmol/L Chloride 110 H (98-107) mmol/L Carbon Dioxide 17 L (22-30) mmol/L BUN 63 H (7-17) mg/dL Creatinine 1.96 H (0.52-1.04) mg/dL Glucose 222 H (74-99) mg/dL Calcium 9.4 (8.4-10.2) mg/dL Adrenal panel 01/10/20 Range/Units 16:04 Sodium 137 (137-145) mmol/L Potassium 4.9 (3.5-5.1) mmol/L Chloride 110 H (98-107) mmol/L Carbon Dioxide 17 L (22-30) mmol/L BUN 63 H (7-17) mg/dL Creatinine 1.96 H (0.52-1.04) mg/dL Glucose 222 H (74-99) mg/dL Calcium 9.4 (8.4-10.2) mg/dL Total Bilirubin 0.3 (0.2-1.3) mg/dL AST 19 (14-36) U/L ALT 15 (4-34) U/L Alkaline Phosphatase 69 (38-126) U/L Total Protein 7.0 (6.3-8.2) g/dL Albumin 3.4 L (3.5-5.0) g/dL Assessment and Plan Assessment: 1. Right [id number] amputation stump abscess with cellulitis 2. Peripheral arterial disease, status post previous failed bypasses, status post right qpyjt-jhi-[id number] amputation for infected gangrene of the right heel 3. Urinary tract infection with sepsis 4. To kidney injury and chronic kidney disease stage III. 5. Type 2 diabetes mellitus 6. Hypertension 6. Hyperlipidemia Plan: She was started on IV antibiotics Zosyn and vancomycin. Patient will be nothing by mouth after midnight, patient will have I&D of the right lower extremity abcess at AKA site. Obtain consent from her grandson who is named power of employee benefits attorney. Cultures were obtained and pending. Infectious disease on consult, appreciate their recommendations. Dr. Weeks discussed with patient that during her procedure she will have to become a full code, after she will return to a no code. Patient states she understood and was agreeable. thank you for this consultation and allowing us to take part in the plan of care this patient during her hospital stay. The above dictated assessment and findings were discussed with Dr. Weeks. The impression and plan of care have been directed as dictated.
[2020-01-11 16:36] LABS: Glucose,Whole Blood 171 mg/dL (75-99)
[2020-01-11] MEDS: LINAGLIPTIN 5 MG TABLET PO SCH (17:31)
[2020-01-11] MEDS: PRAVASTATIN SODIUM 80 MG TAB PO SCH (17:31)
[2020-01-11] MEDS: MULTIVITAMINS, THERA 1 EACH TAB PO SCH (17:31)
[2020-01-11] MEDS: WARFARIN 2 MG TAB PO SCH (17:32)
[2020-01-11] MEDS: INSULIN DETEMIR (LEVEMIR) 100 UNIT/ML SYR SQ SCH (17:50)
[2020-01-11 20:39] LABS: Glucose,Whole Blood 145 mg/dL (75-99)
[2020-01-11] MEDS ORDERED: INSULIN DETEMIR (LEVEMIR) 100 UNIT/ML SYR SQ SCH (21:00)
--- NOTE | 2020-01-11 22:40 | P.CONS ---
History of Present Illness - Reason for Consult Consult date: 01/11/20 UTI and right AKA stump cellulitis Requesting physician: Jeanne Mendoza - Chief Complaint Fever and right aka STUMP WOUND/redness - History of Present Illness Patient is 84-year female with a past medical he significant for insulin-dependent diabetes mellitus and this patient also have a history of PAD and diabetic foot infection requiring right mslxd-yna-uaew amputation in March 2019 the patient has been doing well, however the last few days patient was noticed to have a swelling redness some superficial ulceration to the right gyatx-zls-ncfw amputated stump site and some purulent drainage the patient will also running a fever with the symptom the patient was advised to be admitted to the hospital on arrival to the ER patient did have a x-ray of the right femur with tissues amputation deformity but no signs of osteomyelitis patient on admitted to hospital have fever 100.1 degree for night patient did have white of 11.7 creatinine has been 1.96 urine has been positive with large leukocyte esterase is more than 90 WBC wound cultures are now showing gram-negative bacilli patient has been treated with a vancomycin and Zosyn infectious was consulted for further management of antibiotic therapy most information has been obtained from her review the chart as the patient is currently not a very good historian. Review of Systems Positive point has been mentioned in HPI complete review could not be obtained because of underlying mental status Past Medical History Past Medical History: Atrial Fibrillation, Diabetes Mellitus, Hyperlipidemia, Hypertension, Thyroid Disorder Additional Past Medical History / Comment(s): peripheral neuropathy, UTIs, urinary incontinence, OA bilateral hands and back, PVD, cervical cancer History of Any Multi-Drug Resistant Organisms: ESBL, MRSA Year Discovered:: 10/01/17-MRSA; 07/25/17 ESBL-E.coli MDRO Source:: Right Foot-MRSA; ESBL Urine Past Surgical History: Hysterectomy, Tonsillectomy Additional Past Surgical History / Comment(s): R leg bypass surgery, bilateral cataract removal Past Anesthesia/Blood Transfusion Reactions: No Reported Reaction Past Psychological History: No Psychological Hx Reported Additional Psychological History / Comment(s): Pt states she lives at [facility]. States uses a wheelchair to get around. Smoking Status: Never smoker Past Alcohol Use History: None Reported Additional Past Alcohol Use History / Comment(s): Patient resides at [facility] and is wheelchair bound. Past Drug Use History: None Reported - Past Family History Mother Family Medical History: CVA/TIA Additional Family Medical History / Comment(s): Mother in her 70's. Father Family Medical History: Hypertension Additional Family Medical History / Comment(s): Father in his 70's. Medications and Allergies Home Medications Medication Instructions Recorded Confirmed Type Aspirin 81 mg PO DAILY 09/11/15 01/10/20 History Levothyroxine Sodium [Synthroid] 50 mcg PO QAM 09/11/15 01/10/20 History Pravastatin Sodium [Pravachol] 80 mg PO DAILY@1800 09/11/15 01/10/20 History Sennosides-Docusate Sodium 1 tab PO DAILY 06/16/17 01/10/20 History [Senokot-S] Multivitamins, Thera [Multivitamin 1 tab PO DAILY@1800 05/04/18 01/10/20 History (formulary)] Sodium Chloride 5% Ophth Soln 1 drop BOTH EYES BID 05/04/18 01/10/20 History [Hari 128] Spironolactone [Aldactone] 12.5 mg PO DAILY 07/01/18 01/10/20 History Cranberry 450mg 450 mg PO DAILY 10/13/18 01/10/20 History Metoprolol Tartrate [Lopressor] 100 mg PO BID 10/13/18 01/10/20 History hydrALAZINE HCL [Apresoline] 100 mg PO TID 10/13/18 01/10/20 History sitaGLIPtin PHOSPHATE [Januvia] 50 mg PO DAILY@1800 10/13/18 01/10/20 History Cholecalciferol (Vitamin D3) 2,000 unit PO DAILY 03/31/19 01/10/20 History [Vitamin D3] Ferrous Sulfate [Feosol] 325 mg PO DAILY 03/31/19 01/10/20 History Fluticasone Nasal [place] [Flonase 1 spr EA NOSTRIL DAILY 03/31/19 01/10/20 History Nasal [place]] Loratadine [Claritin] 10 mg PO DAILY 03/31/19 01/10/20 History Warfarin [Coumadin] 4 mg PO DAILY@1800 tab 04/06/19 01/10/20 Rx Acetaminophen [Tylenol Arthritis] 650 mg PO Q6H PRN 01/10/20 01/10/20 History Insulin Glargine [Lantus] 25 unit SQ DAILY@1800 01/10/20 01/10/20 History Insulin Lispro [humaLOG Kwikpen] 10 unit SQ AC-TID 01/10/20 01/10/20 History Insulin Lispro [humaLOG Kwikpen] See Protocol SQ ACHS 01/10/20 01/10/20 History Losartan Potassium 50 mg PO BID 01/10/20 01/10/20 History Allergies Allergy/AdvReac Type Severity Reaction Status Date / Time No Known Allergies Allergy Verified 01/10/20 18:05 Physical Exam Vitals: Vital Signs Temp Pulse Pulse Resp BP BP Pulse Ox 01/11/20 14:13 98.5 F 94 17 127/73 97 01/11/20 06:54 98.5 F 80 16 156/71 99 01/11/20 03:40 16 01/11/20 00:43 98.5 F 82 15 112/65 97 01/10/20 21:55 79 136/68 01/10/20 19:59 97.9 F 78 13 156/79 98 01/10/20 19:30 99.1 F 89 20 144/65 99 01/10/20 18:29 88 20 144/63 99 01/10/20 17:32 99 20 149/66 96 01/10/20 16:31 93 20 147/79 97 01/10/20 15:45 100.1 F H 80 20 152/91 97 Intake and Output 01/10/20 01/11/20 01/11/20 22:59 06:59 14:59 Intake Total 350 Output Total 550 700 Balance 350 -550 -700 Intake: Intake, IV Titration 350 Amount Piperacillin-Tazobactam 3 100 .375 gm In Sodium Chloride 0.9% 100 ml @ 25 mls/hr IVPB Q12H [facility] Rx# :[id number] Vancomycin 1,500 mg In 250 Sodium Chloride 0.9% 250 ml @ 125 mls/hr IVPB ONCE ONE Rx#:[id number] Output: Urine 550 700 Other: Voiding Method Indwelling Catheter Indwelling Catheter Weight 81.647 kg 81.647 kg GENERAL DESCRIPTION: Elderly female lying in bed, no distress. No tachypnea or accessory muscle of respiration use. HEENT: Shows Pallor , no scleral icterus. Oral mucous membrane is dry. NECK: Trachea central, no thyromegaly. LUNGS: Unlabored breathing. Clear to auscultation anteriorly. No wheeze or crackle. HEART: S1, S2, regular rate and rhythm. ABDOMEN: Soft, no tenderness , guarding or rigidity EXTREMITIES: Right AKA stump did have superficial ulceration with some purulent drainage surrounding redness no foul-smelling. SKIN: No rash, no masses palpable. NEUROLOGICAL: The patient is awake, alert, oriented x1, mood and affect normal. Results CBC & Chem 7: 01/10/20 16:04 01/10/20 16:04 Labs: Abnormal Lab Results - Last 24 Hours (Table) 01/10/20 01/10/20 01/10/20 Range/Units 16:04 16:04 16:04 WBC 11.7 H (3.8-10.6) k/uL RBC 3.08 L (3.80-5.40) m/uL Hgb 8.9 L (11.4-16.0) gm/dL Hct 27.9 L (34.0-46.0) % Neutrophils # 9.0 H (1.3-7.7) k/uL PT 16.2 H (9.0-12.0) sec INR 1.6 H (<1.2) APTT 31.4 H (22.0-30.0) sec Chloride 110 H (98-107) mmol/L Carbon Dioxide 17 L (22-30) mmol/L BUN 63 H (7-17) mg/dL Creatinine 1.96 H (0.52-1.04) mg/dL Glucose 222 H (74-99) mg/dL POC Glucose (mg/dL) (75-99) mg/dL Albumin 3.4 L (3.5-5.0) g/dL Urine Appearance (Clear) Urine Protein (Negative) Urine Blood (Negative) Urine Nitrite (Negative) Ur Leukocyte Esterase (Negative) Urine RBC (0-5) /hpf Urine WBC (0-5) /hpf Urine WBC Clumps (None) /hpf Urine Bacteria (None) /hpf Urine Mucus (None) /hpf Urine Yeast (Budding) (None) /hpf 01/10/20 01/10/20 01/11/20 Range/Units 17:30 21:35 06:41 WBC (3.8-10.6) k/uL RBC (3.80-5.40) m/uL Hgb (11.4-16.0) gm/dL Hct (34.0-46.0) % Neutrophils # (1.3-7.7) k/uL PT (9.0-12.0) sec INR (<1.2) APTT (22.0-30.0) sec Chloride (98-107) mmol/L Carbon Dioxide (22-30) mmol/L BUN (7-17) mg/dL Creatinine (0.52-1.04) mg/dL Glucose (74-99) mg/dL POC Glucose (mg/dL) 145 H 68 L (75-99) mg/dL Albumin (3.5-5.0) g/dL Urine Appearance Turbid H (Clear) Urine Protein 1+ H (Negative) Urine Blood Moderate H (Negative) Urine Nitrite Positive H (Negative) Ur Leukocyte Esterase Large H (Negative) Urine RBC 90 H (0-5) /hpf Urine WBC >182 H (0-5) /hpf Urine WBC Clumps Many H (None) /hpf Urine Bacteria Moderate H (None) /hpf Urine Mucus Rare H (None) /hpf Urine Yeast (Budding) Many H (None) /hpf 01/11/20 01/11/20 Range/Units 07:14 11:41 WBC (3.8-10.6) k/uL RBC (3.80-5.40) m/uL Hgb (11.4-16.0) gm/dL Hct (34.0-46.0) % Neutrophils # (1.3-7.7) k/uL PT 18.6 H (9.0-12.0) sec INR 1.9 H (<1.2) APTT (22.0-30.0) sec Chloride (98-107) mmol/L Carbon Dioxide (22-30) mmol/L BUN (7-17) mg/dL Creatinine (0.52-1.04) mg/dL Glucose (74-99) mg/dL POC Glucose (mg/dL) 106 H (75-99) mg/dL Albumin (3.5-5.0) g/dL Urine Appearance (Clear) Urine Protein (Negative) Urine Blood (Negative) Urine Nitrite (Negative) Ur Leukocyte Esterase (Negative) Urine RBC (0-5) /hpf Urine WBC (0-5) /hpf Urine WBC Clumps (None) /hpf Urine Bacteria (None) /hpf Urine Mucus (None) /hpf Urine Yeast (Budding) (None) /hpf Microbiology - Last 24 Hours (Table) 01/10/20 17:38 Gram Stain - Preliminary Thigh - Right Wound Culture - Preliminary 01/10/20 17:30 Urine Culture - Preliminary Urine,Voided Assessment and Plan Assessment: 1-patient presented hospital with a fever and weakness in this patient have evidence of leukocytosis also likely multifactorial in this patient did have a component of urinary tract infection also with a right AKA stump wound infection with secondary cellulitis with a wound culture culture showing gram-negative bacilli. 2-patient with borderline kidney function high risk of nephrotoxicity from vancomycin (1) Cellulitis of right lower limb Current Visit: No Status: Acute Code(s): L03.115 - CELLULITIS OF RIGHT LOWER LIMB SNOMED Code(s): 819093597 (2) UTI (urinary tract infection) Current Visit: No Status: Acute Priority: High Code(s): N39.0 - URINARY TRACT INFECTION, SITE NOT SPECIFIED SNOMED Code(s): 31960163 Plan: 1-Zosyn 3.375 g every 8 hour that should cover both UTI as well as the right AKA stump cellulitis as a culture currently showing only gram-negative and gram- positive 2-discontinue vancomycin decrease risk of nephrotoxicity 3-local wound care per vascular surgery We will follow on clinical condition and cultures to further adjust medication if needed Thank you for this consultation we will follow the patient along with you Time with Patient: Greater than 30
[2020-01-12] MEDS: LEVOTHYROXINE 50 MCG TAB PO SCH (05:38)
[2020-01-12] MEDS: PIPERACILLIN-TAZOBACTAM 3.375 GM in SODIUM CHLORIDE 0.9% 100 ML IVPB SCH ×2 (05:38→17:20)
[2020-01-12] MEDS ORDERED: MORPHINE SULFATE 2 MG/ML SYRINGE IV PRN (06:00)
[2020-01-12] MEDS ORDERED: ONDANSETRON 4 MG/2 ML VIAL IVP ONE ×2 (06:00→13:26)
[2020-01-12] MEDS ORDERED: DEXAMETHASONE SOD PHOSPHATE 10 MG/ML 1 ML VIAL IV ONE (06:00)
[2020-01-12 06:47] LABS: Glucose,Whole Blood 73 mg/dL (75-99)
[2020-01-12] MEDS: INSULIN ASPART (NovoLOG) 100 UNIT/ML VIAL SQ SCH ×7 (07:08→20:44)
--- NOTE | 2020-01-12 08:10 | P.PN ---
Subjective Progress Note Date: 01/12/20 This is an 84-year-old pleasant female followed by me at [facility] known history of diabetes mellitus type 2 requiring insulin, with PAD and other complications peripheral neuropathy hypertension, hypothyroidism atrial fibrillation, PAD, chronic gangrene/chronic ulcer diabetic foot ulcers right heel at least since October 2018, admitted to [facility] back in 04/02/2019 where she ended up going for right above the knee amputation and she has done marvelously well after surgery and she was sent back to the [facility] has been doing fine up until 2 days ago when she developed to have a significant redness and increased drainage from the bottom of the right stump, I received a call from the nursing staff stated that the patient has fever and chills her Weeks catheter was cloudy and she was having some bloody pussy drainage from the stump he was recommended for the patient be transferred to the emergency department at [facility] where she was seen and evaluated by an x-ray that did not show any evidence of possible myelitis however because of the presentation she was admitted to the hospital she was started on IV antibiotic in the form of Zosyn and vancomycin and blood cultures and the culture from the stump was obtained, infectious disease consultation was obtained as well as vascular surgery consultation, patient would be kept in the hospital until the final result of the culture is back in until after surgical intervention with I&D to the stump. 01/11: Patient sitting up in bed in no apparent distress she denies any chest pain, shortness breath, she has not slept well last night, she is scheduled to go for I&D of right stump due to abscess, she is maintained on IV anabiotic in the form of Zosyn and vancomycin was discontinued per infectious disease, blood cultures so far no growth urine culture did show gram-negative bacilli and the preliminary wound culture showed gram-positive cocci and gram-negative bacilli with a few polymorphonuclear leukocytes, patient will be switched to D5 normal saline at 75 mL an hour and we'll hold her diabetic medication as her blood glucose level in the morning was about 70, she will be taking her oral antihypertensive medications with a few sips of water. Objective - Vital Signs Vital signs: Vital Signs Temp 97.9 F 01/12/20 00:33 Pulse 86 01/12/20 00:33 Resp 14 01/12/20 03:36 BP 124/70 01/12/20 00:33 Pulse Ox 98 01/12/20 00:33 Intake & Output 01/11/20 01/12/20 01/12/20 18:59 06:59 18:59 Intake Total 1300 Output Total 700 1100 Balance -700 200 Weight 81.647 kg Intake: Intake, IV Titration 1300 Amount Piperacillin-Tazobactam 3 100 .375 gm In Sodium Chloride 0.9% 100 ml @ 25 mls/hr IVPB Q12H [facility] Rx# :[id number] Sodium Chloride 0.9% 1, 1200 000 ml @ 75 mls/hr IV . [id number] [facility] Rx#:[id number] Output: Urine 700 1100 Other: Voiding Method Indwelling Catheter - Exam Review of Systems Constitutional: Denies anorexia, Denies chronic headaches, Denies lethargy, Denies weakness, Denies weight loss Eyes: denies blurred vision, denies bulging eye, denies decreased vision Ears: bilateral: decreased hearing Ears, nose, mouth and throat: Denies dysphagia, Denies neck lump, Denies sore throat Cardiovascular: Reports leg edema, Denies chest pain, Denies decreased exercise tolerance, Denies rapid heart beat, Denies shortness of breath, Denies syncope Respiratory: Denies congestion, Denies cough with sputum, Denies home oxygen, Denies sleep apnea, Denies snoring, Denies wheezing Gastrointestinal: Denies abdominal pain, Denies bloating, Denies BRBPR, Denies excessive gas, Denies heartburn, Denies loss of appetite, Denies melena, Denies nausea, Denies vomiting Genitourinary: Denies dysuria, Denies nocturia Menstruation: Reports postmenopausal Musculoskeletal: Reports gait dysfunction Musculoskeletal: left: foot swelling, absent: hand pain, hand stiffness, hand swelling, hip pain, hip stiffness, hip swelling, shoulder pain, shoulder stiffne ss, shoulder swelling, wrist pain, wrist stiffness, wrist swelling Integumentary: Denies pruritus, Denies rash Neurological: Denies numbness, Denies weakness Psychiatric: Denies anxiety, Denies depression Endocrine: Denies fatigue, Denies weight change Physical examination: HEENT: Head is atraumatic, normocephalic, pupils were equal round reactive to light and accommodations, extraocular muscle movement were intact. Neck: Supple, no JVP, decreased carotid upstroke bilaterally. Chest: Clear to auscultation bilaterally there is no crackles no wheezes no chest wall tenderness no intercostal retractions. Heart: First heart sound is depressed, second heart sound is normal, irregularly irregular, there is systolic ejection murmur 2/6 located in the left sternal border. Abdomen: Soft, nontender, nondistended, positive bowel sounds. Extremities: Right stump from the above knee amputation showed some redness and increase bloody and pus discharge from an open area, left lower extremity with edema no calf tenderness dorsalis pedis is +1 on the left side. Neurologic examination: Patient is awake alert and oriented 3, creatinine nerves III-12 appear grossly intact, patient moves all her extremities. - Labs CBC & Chem 7: 01/10/20 16:04 01/10/20 16:04 Labs: Abnormal Lab Results - Last 24 Hours (Table) 01/11/20 01/11/20 01/11/20 Range/Units 11:41 16:35 20:21 POC Glucose (mg/dL) 106 H 171 H 145 H (75-99) mg/dL 01/12/20 Range/Units 06:45 POC Glucose (mg/dL) 73 L (75-99) mg/dL Microbiology - Last 24 Hours (Table) 01/10/20 17:30 Urine Culture - Preliminary Urine,Voided Gram Neg Bacilli 01/10/20 17:38 Gram Stain - Preliminary Thigh - Right Wound Culture - Preliminary Gram Neg Bacilli 01/10/20 16:04 Blood Culture - Preliminary Blood No Growth after 24 hours Assessment and Plan Assessment: Assessment and plan: 1. Right above knee amputation stump cellulitis with possible abscess. Continue IV Zosyn 3.375 g IV piggyback every 8 hours, await the final result of the blood culture and wound culture, so far showed gram-positive cocci and gram- negative bacilli , patient is scheduled to go for I&D of the right stump later on today. 2. Urinary tract infection with sepsis. Continue IV antibiotic in the form of Zosyn, urine culture showed gram-negative bacilli greater than 100,000 colonies. 3. Acute kidney injury and top of chronic kidney disease stage III. We will switch the patient to D5 normal saline at 75 mL an hour, monitor the patient BMP today 4. Hypertension and hypertensive cardiovascular disease. We will continue patient on metoprolol 100 mg orally twice every day, losartan 50 mg orally twice every day, hydralazine 100 mg orally 3 times every day. 5. Hyperlipidemia. Continue patient on pravastatin 80 mg at bedtime. 6. Diabetes mellitus type 2 into the patient on Levemir 25 units at bedtime along with Humalog 10 units before each meal along with a sliding scale insulin, continue consistent carbohydrate diet, continue with BGM before each meal and at bedtime we will hold her diabetic medication just before surgery and resume after that. 7. Hypothyroidism. Continue patient on Synthroid 50 g orally once every day. 8. Proximal atrial fibrillation. Continue patient on metoprolol 100 mg orally twice every day as well as Coumadin, patient will have her PT and INR checked prior to her surgical intervention. 9. ALLERGIC rhinitis. Continue Claritin 10 mg orally once every day as well as Flonase nasal spray 1 puff in each nostril twice every day. 10. Severe peripheral arterial occlusive disease status post right above-knee amputation. Continue aspirin and pravastatin for secondary prevention. 11. Iron deficiency anemia. Continue iron 325 mg orally once every day monitor the patient hemoglobin. 12. Vitamin D deficiency. Continue patient on vitamin D supplement. 13. DVT prophylaxis. Currently on Coumadin keep her INR between 2-3. 14. GI prophylaxis. Protonix 40 mg orally once every day. 15. Plan is to transfer the patient back to [facility].
[2020-01-12] MEDS: DEXTROSE 5%-0.9% NACL 1,000 ML IV SCH ×2 (08:14→20:42)
[2020-01-12 08:15] LABS: INR 2.1 (<1.2); Prothrombin Time 20.7 sec (9.0-12.0)
[2020-01-12] MEDS: LOSARTAN 50 MG TAB PO SCH ×2 (08:16→20:43)
[2020-01-12] MEDS: hydrALAZINE HCL 50 MG TAB PO SCH ×3 (08:16→20:43)
[2020-01-12] MEDS: METOPROLOL TARTRATE 50 MG TAB PO SCH ×2 (08:16→20:43)
[2020-01-12 08:19] LABS: Calcium 8.9 mg/dL (8.4-10.2); Potassium 4.4 mmol/L (3.5-5.1)
[2020-01-12] MEDS: LORATADINE 10 MG TAB PO SCH (08:40)
[2020-01-12] MEDS: FERROUS SULFATE 325 MG TAB PO SCH (08:40)
[2020-01-12] MEDS: SENNOSIDES-DOCUSATE SODIUM 1 EACH TAB PO SCH (08:40)
[2020-01-12] MEDS: CHOLECALCIFEROL 1,000 UNIT TAB PO SCH (08:40)
[2020-01-12] MEDS: ASPIRIN 81 MG PO SCH (08:40)
[2020-01-12 08:59] LABS: Basophils # (A) 0.1 k/uL (0-0.2); Basophils % (A) 1 %; Eosinophils # (A) 0.4 k/uL (0-0.7); Eosinophils % (A) 4 %; HCT 26.6 % (34.0-46.0); HGB 7.7 gm/dL (11.4-16.0); Hypochromasia Marked; Lymphocytes # (A) 1.4 k/uL (1.0-4.8); Lymphocytes % (A) 15 %; MCH 27.2 pg (25.0-35.0); MCHC 28.8 g/dL (31.0-37.0); MCV 94.5 fL (80.0-100.0); Mean Platelet Volume 7.5; Monocytes # (A) 0.9 k/uL (0-1.0); Monocytes % (A) 9 %; Neutrophils # (A) 6.4 k/uL (1.3-7.7); Neutrophils % (A) 69 %; Platelet Count 284 k/uL (150-450); RBC 2.82 m/uL (3.80-5.40); RDW 14.3 % (11.5-15.5); WBC 9.2 k/uL (3.8-10.6)
[2020-01-12 10:21] LABS: Vancomycin,Random 18.8 ug/mL
[2020-01-12] MEDS: SODIUM CHLORIDE 5% OPHTH DROPS 15 ML BTL BOTH EYES SCH ×2 (10:51→20:43)
[2020-01-12] MEDS: FLUTICASONE 50MCG/SPRAY NASAL 16GM EA NOSTRIL SCH (10:51)
[2020-01-12] MEDS: SODIUM CHLORIDE 0.9% 1,000 ML IV SCH (10:53)
[2020-01-12] MEDS ORDERED: PHYTONADIONE ORAL 5 MG/5 ML ORAL.SYRG PO STA (11:13)
[2020-01-12 12:01] LABS: Glucose,Whole Blood 199 mg/dL (75-99)
[2020-01-12] MEDS ORDERED: HYDROmorphone 0.5 MG/0.5 ML SYRINGE IVP PRN (13:26)
[2020-01-12] MEDS: LACTATED RINGERS 1,000 ML IV SCH (13:58)
--- NOTE | 2020-01-12 14:48 | P.PN ---
Subjective Progress Note Date: 01/12/20 Patient was seen and examined at the bedside. No acute changes overnight. Patient was scheduled to have incision and debridement of the right lower extremity amputation stump, however patient was given her dose of Coumadin. INR this morning was 2.1. Vitamin K 10 mg ordered, patient to be rescheduled for I&D tomorrow with Dr. Weeks. Infectious disease remains on consult. Patient denies any fever or chills, shortness breath or chest pain. Objective - Vital Signs Vital signs: Vital Signs Temp 98 F 01/12/20 07:00 Pulse 86 01/12/20 07:00 Resp 16 01/12/20 07:00 BP 161/64 01/12/20 07:00 Pulse Ox 100 01/12/20 07:00 Intake & Output 01/11/20 01/12/20 01/12/20 18:59 06:59 18:59 Intake Total 1300 Output Total 700 1100 Balance -700 200 Weight 81.647 kg Intake: Intake, IV Titration 1300 Amount Piperacillin-Tazobactam 3 100 .375 gm In Sodium Chloride 0.9% 100 ml @ 25 mls/hr IVPB Q12H [facility] Rx# :[id number] Sodium Chloride 0.9% 1, 1200 000 ml @ 75 mls/hr IV . [id number] [facility] Rx#:[id number] Output: Urine 700 1100 Other: Voiding Method Indwelling Catheter Indwelling Catheter - Exam General appearance: The patient is alert, oriented, in no acute distress. HET: Head is normocephalic and atraumatic. Pupils are equal and reactive. Oropharynx is clear without lesions. Neck: Supple without lymphadenopathy. Trachea midline. Heart: S1 S2. Regular rate and rhythm. Lungs: No crackles or wheezes are heard. Extremities: Right lower extremity with lhgfx-ylg-qjer amputation, stump with erythema and serosanguineous drainage. Dressing intact. Neurological: No focal deficits. Strength and sensation are grossly intact. - Labs CBC & Chem 7: 01/12/20 07:18 01/12/20 07:18 Labs: Abnormal Lab Results - Last 24 Hours (Table) 01/11/20 01/11/20 01/12/20 Range/Units 16:35 20:21 06:45 RBC (3.80-5.40) m/uL Hgb (11.4-16.0) gm/dL Hct (34.0-46.0) % MCHC (31.0-37.0) g/dL PT (9.0-12.0) sec INR (<1.2) Chloride (98-107) mmol/L Carbon Dioxide (22-30) mmol/L BUN (7-17) mg/dL Creatinine (0.52-1.04) mg/dL Glucose (74-99) mg/dL POC Glucose (mg/dL) 171 H 145 H 73 L (75-99) mg/dL 01/12/20 01/12/20 01/12/20 Range/Units 07:18 07:18 07:18 RBC 2.82 L (3.80-5.40) m/uL Hgb 7.7 L (11.4-16.0) gm/dL Hct 26.6 L (34.0-46.0) % MCHC 28.8 L (31.0-37.0) g/dL PT 20.7 H (9.0-12.0) sec INR 2.1 H (<1.2) Chloride 116 H (98-107) mmol/L Carbon Dioxide 19 L (22-30) mmol/L BUN 54 H (7-17) mg/dL Creatinine 1.81 H (0.52-1.04) mg/dL Glucose 63 L (74-99) mg/dL POC Glucose (mg/dL) (75-99) mg/dL 01/12/20 Range/Units 12:00 RBC (3.80-5.40) m/uL Hgb (11.4-16.0) gm/dL Hct (34.0-46.0) % MCHC (31.0-37.0) g/dL PT (9.0-12.0) sec INR (<1.2) Chloride (98-107) mmol/L Carbon Dioxide (22-30) mmol/L BUN (7-17) mg/dL Creatinine (0.52-1.04) mg/dL Glucose (74-99) mg/dL POC Glucose (mg/dL) 199 H (75-99) mg/dL Microbiology - Last 24 Hours (Table) 01/10/20 17:30 Urine Culture - Preliminary Urine,Voided Gram Neg Bacilli 01/10/20 17:38 Gram Stain - Preliminary Thigh - Right Wound Culture - Preliminary Gram Neg Bacilli 01/10/20 16:04 Blood Culture - Preliminary Blood No Growth after 24 hours Assessment and Plan Assessment: 1. Right rilwu-fyy-lcjz amputation stump abscess with cellulitis 2. Peripheral arterial disease, status post previous failed bypasses, status post right svhii-zkz-upel amputation for infected gangrene of the right heel 3. Urinary tract infection with sepsis 4. To kidney injury and chronic kidney disease stage III. 5. Type 2 diabetes mellitus 6. Hypertension 6. Hyperlipidemia Plan: Patient to be given a dose of vitamin K 10 mg orally. Repeat INR in the morning. Patient is rescheduled for an incision and debridement of the right lower extremity for tomorrow with Dr. Weeks. Hold Coumadin. Nothing by mouth after midnight. Continue IV antibiotics per recommendations by infectious disease. Wound cultures pending. The above dictated assessment and findings were discussed with Dr. Weeks. The impression and plan of care have been directed as dictated.
--- NOTE | 2020-01-12 15:32 | CDI ---
Documentation Clarification Form Date: 01/12/2020 03:13:13 PM From: Brandy Valenzuela RN, CCDS Admit Date: 01/10/2020 05:54:00 PM Patient Name: Fozia Rene Visit Number: [id number] ATTENTION: The Clinical Documentation Specialists (CDI) and [facility] Coding Staff appreciate your assistance in clarifying documentation. Please respond to the clarification below the line at the bottom and electronically sign. The CDI & [facility] Coding staff will review the response and follow-up if needed. Please note: Queries are made part of the Legal Health Record. If you have any questions, please contact the author of this message via ITS. Dr. Jeanne Mendoza A diagnosis of UTI with sepsis has been documented in the H&P and progress notes and requires further clarification as the patient presented to hospital with IDC in place. History/Risk Factors: Per documentation in the H&P and Progress Notes this patient was admitted with an indwelling Weeks catheter Clinical Indicators: 01/10 H&P and 01/11 Progress note: "sent back to the [facility] care facility has been doing fine up until 2 days ago when she developed to have a significant redness and increased drainage from the bottom of the right stump, I received a call from the nursing staff stated that the patient has fever and chills her Weeks catheter was cloudy and she was having some bloody pussy drainage from the stump he was recommended for the patient be transferred to the emergency department at [facility] ." 01/09 EC Note: "Patient has an indwelling catheter this will be replaced." Urinalysis: Turbid, +1 Protein, Moderate blood, +Nitrate, Large Leukocyte esterase, 90 RBC, >182 WBC, many WBC Clumps, moderate urine bacteria, rare urine mucus, many yeast Urine culture: gram neg Bacilli Lab results: WBC 11.7/9.2, Neutrophils 9.0/6.4 Treatment: Iv Zosyn 3.375gm IVPB Q 12 hrs IV Vanco 1,500 mg IVPB x 2 doses IVF D5.45 @ @ 75 cc/hr In your professional opinion, can you please clarify the etiology of the UTI, if known? UTI due to Weeks Catheter POA UTI not related to catheter Other condition, please specify Unable to determine If an infective organism is present, please specify cause and effect relationship if applicable. (Last Revision: November 2017) UTI due to Weeks catheter, OCTAVIO SMITHD
[2020-01-12 17:14] LABS: Glucose,Whole Blood 144 mg/dL (75-99)
[2020-01-12] MEDS: MULTIVITAMINS, THERA 1 EACH TAB PO SCH (17:19)
[2020-01-12] MEDS: LINAGLIPTIN 5 MG TABLET PO SCH (17:19)
[2020-01-12] MEDS: PRAVASTATIN SODIUM 80 MG TAB PO SCH (17:19)
[2020-01-12] MEDS: INSULIN DETEMIR (LEVEMIR) 100 UNIT/ML SYR SQ SCH (18:34)
[2020-01-12 20:32] LABS: Glucose,Whole Blood 114 mg/dL (75-99)
--- NOTE | 2020-01-13 03:45 | PN ---
PROGRESS NOTE DATE OF SERVICE: 01/12/2020 REASON FOR FOLLOWUP: Right AKA stump wound infection and UTI. INTERVAL HISTORY: The patient is currently afebrile. The patient is more awake and alert today. She is breathing comfortably. Denies having any chest pain or cough. No abdominal pain. Pain to the right AKA stump is currently controlled. PHYSICAL EXAMINATION: On examination, her blood pressure is 151/69 with a pulse of 85, temperature 98.4. She is 97% on room air. General description is an elderly female lying in bed in no distress. RESPIRATORY SYSTEM: Unlabored breathing, clear to auscultation anteriorly. HEART: S1, S2. Regular rate and rhythm. Right AKA stump wound is currently dressed up. No obvious drainage on the dressing. LABS: Hemoglobin 7.7, white count 9.2, BUN of 54, creatinine 1.81. Vancomycin random was 18.8. DIAGNOSTIC IMPRESSION AND PLAN: Patient with right AKA stump wound infection with secondary cellulitis, culture showing presumptive MRSA as well as gram-negative. Patient is covered with cefepime and vancomycin to continue while watching her kidney function closely. Continue supportive care. MMODL / IJN: [id number] /
[2020-01-13] MEDS: SODIUM CHLORIDE 0.9% 1,000 ML IV SCH ×2 (04:54→13:48)
[2020-01-13] MEDS: LACTATED RINGERS 1,000 ML IV SCH ×3 (04:54→15:10)
[2020-01-13] MEDS: LEVOTHYROXINE 50 MCG TAB PO SCH (04:55)
[2020-01-13] MEDS: PIPERACILLIN-TAZOBACTAM 3.375 GM in SODIUM CHLORIDE 0.9% 100 ML IVPB SCH (05:40)
[2020-01-13] MEDS: DEXTROSE 5%-0.9% NACL 1,000 ML IV SCH (05:44)
[2020-01-13 06:50] LABS: Glucose,Whole Blood 86 mg/dL (75-99)
[2020-01-13 07:46] LABS: Basophils # (A) 0.1 k/uL (0-0.2); Basophils % (A) 1 %; Eosinophils # (A) 0.4 k/uL (0-0.7); Eosinophils % (A) 5 %; HCT 24.9 % (34.0-46.0); HGB 7.9 gm/dL (11.4-16.0); Hypochromasia Marked; Lymphocytes # (A) 1.4 k/uL (1.0-4.8); Lymphocytes % (A) 17 %; MCH 29.3 pg (25.0-35.0); MCHC 31.6 g/dL (31.0-37.0); MCV 92.9 fL (80.0-100.0); Mean Platelet Volume 7.4; Monocytes # (A) 0.9 k/uL (0-1.0); Monocytes % (A) 10 %; Neutrophils # (A) 5.3 k/uL (1.3-7.7); Neutrophils % (A) 65 %; Platelet Count 269 k/uL (150-450); RBC 2.68 m/uL (3.80-5.40); WBC 8.2 k/uL (3.8-10.6)
[2020-01-13 07:54] LABS: Albumin 2.8 g/dL (3.5-5.0); Calcium 8.6 mg/dL (8.4-10.2); Potassium 4.3 mmol/L (3.5-5.1); Total Bilirubin 0.3 mg/dL (0.2-1.3); Total Protein 6.2 g/dL (6.3-8.2)
[2020-01-13] MEDS: LOSARTAN 50 MG TAB PO SCH ×2 (07:57→20:45)
[2020-01-13] MEDS: SENNOSIDES-DOCUSATE SODIUM 1 EACH TAB PO SCH (07:57)
[2020-01-13] MEDS: hydrALAZINE HCL 50 MG TAB PO SCH ×3 (07:57→23:10)
[2020-01-13] MEDS: METOPROLOL TARTRATE 50 MG TAB PO SCH ×2 (07:58→20:45)
[2020-01-13] MEDS: CHOLECALCIFEROL 1,000 UNIT TAB PO SCH (07:58)
[2020-01-13] MEDS: FERROUS SULFATE 325 MG TAB PO SCH (07:58)
[2020-01-13] MEDS: LORATADINE 10 MG TAB PO SCH (07:58)
[2020-01-13] MEDS: SODIUM CHLORIDE 5% OPHTH DROPS 15 ML BTL BOTH EYES SCH ×2 (07:58→20:45)
[2020-01-13] MEDS: ASPIRIN 81 MG PO SCH (07:58)
[2020-01-13] MEDS: FLUTICASONE 50MCG/SPRAY NASAL 16GM EA NOSTRIL SCH (07:59)
[2020-01-13 08:12] LABS: INR 1.3 (<1.2); Prothrombin Time 12.7 sec (9.0-12.0)
[2020-01-13] MEDS: INSULIN ASPART (NovoLOG) 100 UNIT/ML VIAL SQ SCH ×7 (08:33→20:36)
--- NOTE | 2020-01-13 08:36 | P.PN ---
Subjective Progress Note Date: 01/13/20 This is an 84-year-old pleasant female followed by me at [facility] known history of diabetes mellitus type 2 requiring insulin, with PAD and other complications peripheral neuropathy hypertension, hypothyroidism atrial fibrillation, PAD, chronic gangrene/chronic ulcer diabetic foot ulcers right heel at least since October 2018, admitted to [facility] back in 04/02/2019 where she ended up going for right above the knee amputation and she has done marvelously well after surgery and she was sent back to the [facility] care facility has been doing fine up until 2 days ago when she developed to have a significant redness and increased drainage from the bottom of the right stump, I received a call from the nursing staff stated that the patient has fever and chills her Weeks catheter was cloudy and she was having some bloody pussy drainage from the stump he was recommended for the patient be transferred to the emergency department at [facility] where she was seen and evaluated by an x-ray that did not show any evidence of possible myelitis however because of the presentation she was admitted to the hospital she was started on IV antibiotic in the form of Zosyn and vancomycin and blood cultures and the culture from the stump was obtained, infectious disease consultation was obtained as well as vascular surgery consultation, patient would be kept in the hospital until the final result of the culture is back in until after surgical intervention with I&D to the stump. 01/11: Patient sitting up in bed in no apparent distress she denies any chest pain, shortness breath, she has not slept well last night, she is scheduled to go for I&D of right stump due to abscess, she is maintained on IV anabiotic in the form of Zosyn and vancomycin was discontinued per infectious disease, blood cultures so far no growth urine culture did show gram-negative bacilli and the preliminary wound culture showed gram-positive cocci and gram-negative bacilli with a few polymorphonuclear leukocytes, patient will be switched to D5 normal saline at 75 mL an hour and we'll hold her diabetic medication as her blood glucose level in the morning was about 70, she will be taking her oral antihypertensive medications with a few sips of water. 01/12: Patient is sitting up in bed in no apparent distress she denies any chest pain, shortness breath, she has no abdominal pain, she has slept well last night, she is ready to go for her surgery today for I&D of the right stump ab scess, she has not had any fever last night. Objective - Vital Signs Vital signs: Vital Signs Temp 98.4 F 01/13/20 07:00 Pulse 84 01/13/20 07:00 Resp 18 01/13/20 07:00 BP 149/72 01/13/20 07:00 Pulse Ox 99 01/13/20 07:00 Intake & Output 01/12/20 01/13/20 01/13/20 18:59 06:59 18:59 Intake Total 600 100 Output Total 700 2000 Balance -100 -1900 Intake: IV 600 Dextrose 5%-0.9% NaCl 1, 600 000 ml @ 75 mls/hr IV . [id number] [facility] Rx#:[id number] Oral 100 Output: Urine 700 1999 Other: Voiding Method Indwelling Catheter Indwelling Catheter - Exam Review of Systems Constitutional: Denies anorexia, Denies chronic headaches, Denies lethargy, Denies weakness, Denies weight loss Eyes: denies blurred vision, denies bulging eye, denies decreased vision Ears: bilateral: decreased hearing Ears, nose, mouth and throat: Denies dysphagia, Denies neck lump, Denies sore throat Cardiovascular: Reports leg edema, Denies chest pain, Denies decreased exercise tolerance, Denies rapid heart beat, Denies shortness of breath, Denies syncope Respiratory: Denies congestion, Denies cough with sputum, Denies home oxygen, Denies sleep apnea, Denies snoring, Denies wheezing Gastrointestinal: Denies abdominal pain, Denies bloating, Denies BRBPR, Denies excessive gas, Denies heartburn, Denies loss of appetite, Denies melena, Denies nausea, Denies vomiting Genitourinary: Denies dysuria, Denies nocturia Menstruation: Reports postmenopausal Musculoskeletal: Reports gait dysfunction Musculoskeletal: left: foot swelling, absent: hand pain, hand stiffness, hand swelling, hip pain, hip stiffness, hip swelling, shoulder pain, shoulder stiffness, shoulder swelling, wrist pain, wrist stiffness, wrist swelling Integumentary: Denies pruritus, Denies rash Neurological: Denies numbness, Denies weakness Psychiatric: Denies anxiety, Denies depression Endocrine: Denies fatigue, Denies weight change Physical examination: HEENT: Head is atraumatic, normocephalic, pupils were equal round reactive to light and accommodations, extraocular muscle movement were intact. Neck: Supple, no JVP, decreased carotid upstroke bilaterally. Chest: Clear to auscultation bilaterally there is no crackles no wheezes no chest wall tenderness no intercostal retractions. Heart: First heart sound is depressed, second heart sound is normal, irregularly irregular, there is systolic ejection murmur 2/6 located in the left sternal border. Abdomen: Soft, nontender, nondistended, positive bowel sounds. Extremities: Right stump from the above knee amputation showed some redness and increase bloody and pus discharge from an open area, left lower extremity with edema no calf tenderness dorsalis pedis is +1 on the left side. Neurologic examination: Patient is awake alert and oriented 3, creatinine nerves III-12 appear grossly intact, patient moves all her extremities. - Labs CBC & Chem 7: 01/13/20 06:47 01/13/20 06:47 Labs: Abnormal Lab Results - Last 24 Hours (Table) 01/12/20 01/12/20 01/12/20 Range/Units 07:18 12:00 17:12 RBC 2.82 L (3.80-5.40) m/uL Hgb 7.7 L (11.4-16.0) gm/dL Hct 26.6 L (34.0-46.0) % MCHC 28.8 L (31.0-37.0) g/dL PT (9.0-12.0) sec INR (<1.2) Chloride (98-107) mmol/L Carbon Dioxide (22-30) mmol/L BUN (7-17) mg/dL Creatinine (0.52-1.04) mg/dL POC Glucose (mg/dL) 199 H 144 H (75-99) mg/dL Total Protein (6.3-8.2) g/dL Albumin (3.5-5.0) g/dL 01/12/20 01/13/20 01/13/20 Range/Units 20:30 06:47 06:47 RBC (3.80-5.40) m/uL Hgb (11.4-16.0) gm/dL Hct (34.0-46.0) % MCHC (31.0-37.0) g/dL PT 12.7 H (9.0-12.0) sec INR 1.3 H (<1.2) Chloride 115 H (98-107) mmol/L Carbon Dioxide 19 L (22-30) mmol/L BUN 44 H (7-17) mg/dL Creatinine 1.64 H (0.52-1.04) mg/dL POC Glucose (mg/dL) 114 H (75-99) mg/dL Total Protein 6.2 L (6.3-8.2) g/dL Albumin 2.8 L (3.5-5.0) g/dL 01/13/20 Range/Units 06:47 RBC 2.68 L (3.80-5.40) m/uL Hgb 7.9 L (11.4-16.0) gm/dL Hct 24.9 L (34.0-46.0) % MCHC (31.0-37.0) g/dL PT (9.0-12.0) sec INR (<1.2) Chloride (98-107) mmol/L Carbon Dioxide (22-30) mmol/L BUN (7-17) mg/dL Creatinine (0.52-1.04) mg/dL POC Glucose (mg/dL) (75-99) mg/dL Total Protein (6.3-8.2) g/dL Albumin (3.5-5.0) g/dL Microbiology - Last 24 Hours (Table) 01/10/20 17:38 Gram Stain - Preliminary Thigh - Right Wound Culture - Preliminary Proteus mirabilis Presumptive MRSA Gram Neg Bacilli 01/10/20 16:04 Blood Culture - Preliminary Blood No Growth after 48 hours Assessment and Plan Assessment: Assessment and plan: 1. Right above knee amputation stump cellulitis with possible abscess. Continue IV Zosyn 3.375 g IV piggyback every 8 hours, await the final result of the blood culture and wound culture, so far showed presumptive MRSA and Proteus mirabilis , patient is scheduled to go for I&D of the right stump later on today. 2. Urinary tract infection with sepsis. Continue IV antibiotic in the form of Zosyn, urine culture showed gram-negative bacilli greater than 100,000 colonies. 3. Acute kidney injury and top of chronic kidney disease stage III. We will switch the patient to D5 normal saline at 75 mL an hour, monitor the patient BMP today 4. Hypertension and hypertensive cardiovascular disease. We will continue patient on metoprolol 100 mg orally twice every day, losartan 50 mg orally twice every day, hydralazine 100 mg orally 3 times every day. 5. Hyperlipidemia. Continue patient on pravastatin 80 mg at bedtime. 6. Diabetes mellitus type 2 into the patient on Levemir 25 units at bedtime along with Humalog 10 units before each meal along with a sliding scale insulin, continue consistent carbohydrate diet, continue with BGM before each meal and at bedtime we will hold her diabetic medication just before surgery and resume after that. 7. Hypothyroidism. Continue patient on Synthroid 50 g orally once every day. 8. Proximal atrial fibrillation. Continue patient on metoprolol 100 mg orally twice every day as well as Coumadin, patient will have her PT and INR checked prior to her surgical intervention. 9. ALLERGIC rhinitis. Continue Claritin 10 mg orally once every day as well as Flonase nasal spray 1 puff in each nostril twice every day. 10. Severe peripheral arterial occlusive disease status post right above-knee amputation. Continue aspirin and pravastatin for secondary prevention. 11. Iron deficiency anemia. Continue iron 325 mg orally once every day monitor the patient hemoglobin. 12. Vitamin D deficiency. Continue patient on vitamin D supplement. 13. DVT prophylaxis. Currently on Coumadin keep her INR between 2-3. 14. GI prophylaxis. Protonix 40 mg orally once every day. 15. Plan is to transfer the patient back to [facility].
[2020-01-13] MEDS ORDERED: SODIUM FERRIC GLUCONAT-SUCROSE 125 MG in SODIUM CHLORIDE 0.9% 100 ML IVPB ONE (08:37)
[2020-01-13] MEDS ORDERED: IV FLUID CONTINUATION 900 ML IV ONE (10:40)
[2020-01-13] MEDS ORDERED: IV FLUID CONTINUATION 450 ML IV ONE (10:40)
[2020-01-13] MEDS ORDERED: ONDANSETRON 4 MG/2 ML VIAL IVP ONE (11:05)
[2020-01-13] MEDS ORDERED: PROPOFOL 10 MG/ML 20 ML VIAL IV ONE (11:39)
[2020-01-13] MEDS ORDERED: LIDOCAINE 1% INJ 10MG/ML (20 ML MDV) ONE (11:39)
[2020-01-13 12:27] LABS: Glucose,Whole Blood 110 mg/dL (75-99)
--- NOTE | 2020-01-13 12:27 | P.OP ---
Date of Procedure: 01/13/20 Description of Procedure: Preoperative diagnosis: Right lower extremity above-knee amputation site abscess Postoperative diagnosis: Same, no deyvi purulent drainage, bone wax rejection Procedure: []Sharp incision and debridement of right above-knee amputation site wound final measurement 7 cm x 2 cm x 0.3 cm tunneling 5 cm Surgeon: Shruthi Weeks D.O. EBL: [20 mL] IV fluids: [See anesthesia records] Urine output: [See anesthesia records] Drains: [None] Complications: [None immediately apparent] Condition: [Stable to recovery] Operative indication and findings: [The patient is an 84-year-old female with a previous above-knee amputation on the right side for nonhealing wounds and peripheral arterial disease back in March 2019. She has been utilizing a prosthetic and over the past few weeks has developed a wound of her right lateral portion of the amputation site. She is on Coumadin and once her INR was felt to be adequate she was taken the operative suite for incision and drainage.] Procedure in detail: [The patient was taken to the operative suite and placed in supine position. The right lower extremity was prepped and draped in usual sterile fashion. A preprocedure timeout was performed, all parties were in agreement. The areas of denuded tissue were incised sharply with scalpel, upon unroofing there was found to be multiple areas of bone wax. There was no deyvi purulent drainage. A culture of the tract from the bone was taken. There is an copiously irrigated. Hemostasis was perfected with electrocautery. A wet-to-dry dressing was placed. The resultant wound measured 7 x 2 x 0.3 cm. There was a portion the tunnel approximate 5 cm likely the tract for the bone wax was projected. A dressing was placed. The patient was allowed awaken from surgery and transferred to PACU in stable condition having tolerated her procedure well.]
[2020-01-13] MEDS ORDERED: PIPERACILLIN-TAZOBACTAM 3.375 GM in SODIUM CHLORIDE 0.9% 100 ML IVPB SCH (16:00)
[2020-01-13] MEDS ORDERED: VANCOMYCIN IV PER PHARMACY 1 EACH MISC MISCELLANE PRN (16:48)
[2020-01-13] MEDS ORDERED: VANCOMYCIN 1,500 MG in SODIUM CHLORIDE 0.9% 250 ML IVPB ONE (17:00)
[2020-01-13 17:09] LABS: Glucose,Whole Blood 91 mg/dL (75-99)
--- NOTE | 2020-01-13 17:20 | PN ---
PROGRESS NOTE DATE OF SERVICE: 01/13/2020 REASON FOR FOLLOWUP: Right AKA stump wound infection. INTERVAL HISTORY: The patient is currently afebrile. The patient has been taken to the OR this afternoon in this patient who is status post debridement of the right BK stump wound with no significant purulence. No culture has been obtained. The patient denies having any chest pain, shortness of breath or cough. No nausea, vomiting or diarrhea. PHYSICAL EXAMINATION: Blood pressure 176/73, pulse of 83, temperature is 97.4, she is 100% on 3 L nasal cannula. General description is an elderly female, lying in bed in no distress. RESPIRATORY SYSTEM: Unlabored breathing, clear to auscultation anteriorly. HEART: S1, S2. Regular rate and rhythm. ABDOMEN: Soft, no tenderness. Right AK stump is currently dressed up. No obvious drainage on the dressing. LABS: Hemoglobin 7.1, white count 8.2, BUN of 44, creatinine 1.64. Culture with presumptive MRSA and gram-negative bacilli. DIAGNOSTIC IMPRESSION AND PLAN: Patient with right AKA stump wound infection, status post debridement. Culture has been positive for MRSA and gram-negative antibiotic will be adjusted to cefepime and vancomycin and monitor clinical course closely. MMODL / IJN: [id number] /
[2020-01-13] MEDS: INSULIN DETEMIR (LEVEMIR) 100 UNIT/ML SYR SQ SCH (18:07)
[2020-01-13] MEDS: MULTIVITAMINS, THERA 1 EACH TAB PO SCH (18:07)
[2020-01-13] MEDS: PRAVASTATIN SODIUM 80 MG TAB PO SCH (18:07)
[2020-01-13] MEDS: LINAGLIPTIN 5 MG TABLET PO SCH (18:07)
[2020-01-13 20:18] LABS: Glucose,Whole Blood 187 mg/dL (75-99)
[2020-01-13] MEDS: CEFEPIME 2 GM in SODIUM CHLORIDE 0.9% 100 ML IVPB SCH (20:37)
[2020-01-14] MEDS: DEXTROSE 5%-0.9% NACL 1,000 ML IV SCH ×2 (00:06→14:52)
[2020-01-14] MEDS: SODIUM CHLORIDE 0.9% 1,000 ML IV SCH ×2 (03:38→16:58)
[2020-01-14] MEDS: LACTATED RINGERS 1,000 ML IV SCH ×2 (03:39→14:52)
[2020-01-14 07:10] LABS: Glucose,Whole Blood 131 mg/dL (75-99)
[2020-01-14] MEDS: INSULIN ASPART (NovoLOG) 100 UNIT/ML VIAL SQ SCH ×7 (07:24→20:09)
[2020-01-14] MEDS: SODIUM CHLORIDE 5% OPHTH DROPS 15 ML BTL BOTH EYES SCH ×2 (07:25→20:10)
[2020-01-14] MEDS: FLUTICASONE 50MCG/SPRAY NASAL 16GM EA NOSTRIL SCH (07:25)
[2020-01-14] MEDS: SENNOSIDES-DOCUSATE SODIUM 1 EACH TAB PO SCH (07:26)
[2020-01-14] MEDS: METOPROLOL TARTRATE 50 MG TAB PO SCH ×2 (07:26→20:09)
[2020-01-14] MEDS: CHOLECALCIFEROL 1,000 UNIT TAB PO SCH (07:26)
[2020-01-14] MEDS: FERROUS SULFATE 325 MG TAB PO SCH (07:26)
[2020-01-14] MEDS: LOSARTAN 50 MG TAB PO SCH ×2 (07:26→20:09)
[2020-01-14] MEDS: LEVOTHYROXINE 50 MCG TAB PO SCH (07:27)
[2020-01-14] MEDS: hydrALAZINE HCL 50 MG TAB PO SCH ×3 (07:27→20:09)
[2020-01-14] MEDS: LORATADINE 10 MG TAB PO SCH (07:27)
[2020-01-14] MEDS: ASPIRIN 81 MG PO SCH (07:27)
[2020-01-14 08:16] LABS: Basophils # (A) 0.1 k/uL (0-0.2); Basophils % (A) 1 %; Eosinophils # (A) 0.3 k/uL (0-0.7); Eosinophils % (A) 4 %; HCT 25.5 % (34.0-46.0); HGB 7.5 gm/dL (11.4-16.0); Hypochromasia Marked; Lymphocytes # (A) 1.2 k/uL (1.0-4.8); Lymphocytes % (A) 15 %; MCH 27.7 pg (25.0-35.0); MCHC 29.5 g/dL (31.0-37.0); MCV 93.9 fL (80.0-100.0); Mean Platelet Volume 7.5; Monocytes # (A) 0.8 k/uL (0-1.0); Monocytes % (A) 10 %; Neutrophils # (A) 5.7 k/uL (1.3-7.7); Neutrophils % (A) 69 %; Platelet Count 256 k/uL (150-450); RBC 2.72 m/uL (3.80-5.40); RDW 14.5 % (11.5-15.5); WBC 8.4 k/uL (3.8-10.6)
[2020-01-14 08:24] LABS: INR 1.1 (<1.2); Prothrombin Time 11.3 sec (9.0-12.0)
[2020-01-14 08:30] LABS: Albumin 2.7 g/dL (3.5-5.0); C Reactive Protein 29.8 mg/L (<10.0); Calcium 8.8 mg/dL (8.4-10.2); Potassium 4.5 mmol/L (3.5-5.1); Total Bilirubin 0.2 mg/dL (0.2-1.3); Total Protein 6.1 g/dL (6.3-8.2)
[2020-01-14] MEDS ORDERED: VANCOMYCIN 1,500 MG in SODIUM CHLORIDE 0.9% 250 ML IVPB ONE (09:00)
--- NOTE | 2020-01-14 11:05 | CDI ---
Documentation Clarification Form Date: 01/14/2020 10:56:29 AM From: Brandy Valenzuela RN, CCDS Admit Date: 01/10/2020 05:54:00 PM Patient Name: Fozia Rene Visit Number: [id number] ATTENTION: The Clinical Documentation Specialists (CDI) and [facility] Coding Staff appreciate your assistance in clarifying documentation. Please respond to the clarification below the line at the bottom and electronically sign. The CDI & [facility] Coding staff will review the response and follow-up if needed. Please note: Queries are made part of the Legal Health Record. If you have any questions, please contact the author of this message via ITS. Dr. Shruthi Weeks Per your progress notes/operative note, an "Incisional Debridement" was preformed on 01/12 and requires further specificity. History/Risk Factors: Cellulitis, DM, peripheral neuropathy, PVD Clinical Indicators: 01/12 Procedure Note: "Right lower extremity above-knee amputation site abscess, no deyvi purulent drainage, bone wax rejection." Treatment: 01/12 Procedure Note:"Sharp incision and debridement of right above-knee amputation site wound final measurement 7 cm x 2 cm x 0.3 cm tunneling 5 cm." Five elements required for accurate and compliant documentation of a debridement: 1. Technique used (e.g., excisional, excised, cutting, etc.) 2. Instrument(s) used (e.g., scalpel, curette, etc.) 3. Nature of the tissue removed (e.g., necrotic, devitalized tissues, non- viable tissue, etc.) 4. Appearance and size of the wound (e.g., down to fresh bleeding tissue, 7cm x 10cm, etc.) 5. Depth of the debridement* (e.g., skin, subcutaneous tissue, fascia, muscle, bone, etc.) In order to capture the severity of condition and code the appropriate procedure; could you please document the following: Excisional debridement (the removal of necrotic, devitalized tissue or slough by means of cutting away of tissue) excisional MTDD
[2020-01-14 11:24] LABS: Glucose,Whole Blood 67 mg/dL (75-99)
[2020-01-14 11:40] LABS: Glucose,Whole Blood 92 mg/dL (75-99)
--- NOTE | 2020-01-14 12:03 | P.PN ---
Subjective Progress Note Date: 01/14/20 This is an 84-year-old pleasant female followed by me at [facility] known history of diabetes mellitus type 2 requiring insulin, with PAD and other complications peripheral neuropathy hypertension, hypothyroidism atrial fibrillation, PAD, chronic gangrene/chronic ulcer diabetic foot ulcers right heel at least since October 2018, admitted to [facility] back in 04/02/2019 where she ended up going for right above the knee amputation and she has done marvelously well after surgery and she was sent back to the [facility] care facility has been doing fine up until 2 days ago when she developed to have a significant redness and increased drainage from the bottom of the right stump, I received a call from the nursing staff stated that the patient has fever and chills her Weeks catheter was cloudy and she was having some bloody pussy drainage from the stump he was recommended for the patient be transferred to the emergency department at [facility] where she was seen and evaluated by an x-ray that did not show any evidence of possible myelitis however because of the presentation she was admitted to the hospital she was started on IV antibiotic in the form of Zosyn and vancomycin and blood cultures and the culture from the stump was obtained, infectious disease consultation was obtained as well as vascular surgery consultation, patient would be kept in the hospital until the final result of the culture is back in until after surgical intervention with I&D to the stump. 01/11: Patient sitting up in bed in no apparent distress she denies any chest pain, shortness breath, she has not slept well last night, she is scheduled to go for I&D of right stump due to abscess, she is maintained on IV anabiotic in the form of Zosyn and vancomycin was discontinued per infectious disease, blood cultures so far no growth urine culture did show gram-negative bacilli and the preliminary wound culture showed gram-positive cocci and gram-negative bacilli with a few polymorphonuclear leukocytes, patient will be switched to D5 normal saline at 75 mL an hour and we'll hold her diabetic medication as her blood glucose level in the morning was about 70, she will be taking her oral antihypertensive medications with a few sips of water. 01/12: Patient is sitting up in bed in no apparent distress she denies any chest pain, shortness breath, she has no abdominal pain, she has slept well last night, she is ready to go for her surgery today for I&D of the right stump ab scess, she has not had any fever last night. 01/13: Yesterday, patient underwent debridement of the right above-knee amputation site with Dr. Weeks. She has had no postprocedure complications. Cultures positive for MRSA, Proteus mirabilis and Pseudomonas, urine culture positive for Proteus mirabilis and Citrobacter werkmanii. Antibiotics were adjusted by Dr. Elizabeth to cefepime and vancomycin. Patient has been afebrile, heart rate 89, blood pressure 141/68, pulse ox 97% on room air. Repeat blood work revealed WBC 8.4, hemoglobin 7.5. Platelet count 256. Sodium 140, potassium 4.5, chloride 115, CO2 17, BUN 40 creatinine 1.57. Blood sugars are running between 67 and 187. INR is 1.1 and patient will be resumed back on Coumadin tonight. Anticipate need for PICC line placement will be requested today while patient has subtherapeutic INR. Anticipate discharge back to [facility] on Friday. Objective - Vital Signs Vital signs: Vital Signs Temp 98.9 F 01/14/20 07:00 Pulse 89 01/14/20 07:00 Resp 16 01/14/20 07:00 BP 141/68 01/14/20 07:00 Pulse Ox 97 01/14/20 07:00 Intake & Output 01/13/20 01/14/20 01/14/20 18:59 06:59 18:59 Intake Total 100 1100 Output Total 320 950 Balance -220 150 Intake: IV 100 0 Dextrose 5%-0.9% NaCl 1, 0 000 ml @ 75 mls/hr IV . [id number] DENISE Rx#:[id number] Intake, IV Titration 1100 Amount Cefepime 2 gm In Sodium 100 Chloride 0.9% 100 ml @ 200 mls/hr IVPB Q24H DENISE Rx#:[id number] Sodium Chloride 0.9% 1, 1000 000 ml @ 75 mls/hr IV . [id number] DENISE Rx#:[id number] Output: Urine 300 950 Estimated Blood Loss 20 Other: Voiding Method Indwelling Catheter Indwelling Catheter # Bowel Movements 0 - Exam Review of Systems Constitutional: Denies anorexia, Denies chronic headaches, Denies lethargy, Denies weakness, Denies weight loss Eyes: denies blurred vision, denies bulging eye, denies decreased vision Ears: bilateral: decreased hearing Ears, nose, mouth and throat: Denies dysphagia, Denies neck lump, Denies sore throat Cardiovascular: Reports leg edema, Denies chest pain, Denies decreased exercise tolerance, Denies rapid heart beat, Denies shortness of breath, Denies syncope Respiratory: Denies congestion, Denies cough with sputum, Denies home oxygen, Denies sleep apnea, Denies snoring, Denies wheezing Gastrointestinal: Denies abdominal pain, Denies bloating, Denies BRBPR, Denies excessive gas, Denies heartburn, Denies loss of appetite, Denies melena, Denies nausea, Denies vomiting Genitourinary: Denies dysuria, Denies nocturia Menstruation: Reports postmenopausal Musculoskeletal: Reports gait dysfunction Musculoskeletal: left: foot swelling, absent: hand pain, hand stiffness, hand swelling, hip pain, hip stiffness, hip swelling, shoulder pain, shoulder stiffness, shoulder swelling, wrist pain, wrist stiffness, wrist swelling Integumentary: Denies pruritus, Denies rash Neurological: Denies numbness, Denies weakness Psychiatric: Denies anxiety, Denies depression Endocrine: Denies fatigue, Denies weight change Physical examination: HEENT: Head is atraumatic, normocephalic, pupils were equal round reactive to light and accommodations, extraocular muscle movement were intact. Neck: Supple, no JVP, decreased carotid upstroke bilaterally. Chest: Clear to auscultation bilaterally there is no crackles no wheezes no chest wall tenderness no intercostal retractions. Heart: First heart sound is depressed, second heart sound is normal, irregularly irregular, there is systolic ejection murmur 2/6 located in the left sternal border. Abdomen: Soft, nontender, nondistended, positive bowel sounds. Extremities: Right stump from the above knee amputation showed some redness and increase bloody and pus discharge from an open area, left lower extremity with edema no calf tenderness dorsalis pedis is +1 on the left side. Neurologic examination: Patient is awake alert and oriented 3, creatinine nerves III-12 appear grossly intact, patient moves all her extremities. - Labs CBC & Chem 7: 01/15/20 07:02 01/15/20 07:02 Labs: Abnormal Lab Results - Last 24 Hours (Table) 01/13/20 01/13/20 01/13/20 Range/Units 06:47 12:26 20:17 PT 12.7 H (9.0-12.0) sec INR 1.3 H (<1.2) POC Glucose (mg/dL) 110 H 187 H (75-99) mg/dL 01/14/20 Range/Units 07:04 PT (9.0-12.0) sec INR (<1.2) POC Glucose (mg/dL) 131 H (75-99) mg/dL Microbiology - Last 24 Hours (Table) 01/10/20 17:30 Urine Culture - Final Urine,Voided Proteus mirabilis Citrobacter werkmanii 01/13/20 12:10 Gram Stain - Preliminary Leg - Right Wound Culture - Preliminary 01/10/20 17:38 Gram Stain - Final Thigh - Right Wound Culture - Final Proteus mirabilis Methicillin resist S. aureus Pseudomonas fluorescens/putida 01/10/20 16:04 Blood Culture - Preliminary Blood No Growth after 72 hours 01/13/20 12:10 Anaerobic Culture - Preliminary Leg - Right Assessment and Plan Assessment: Assessment and plan: 1. Right above knee amputation stump cellulitis with possible abscess. Continue IV Zosyn 3.375 g IV piggyback every 8 hours, await the final result of the blood culture and wound culture, so far showed presumptive MRSA and Proteus mirabilis , patient is status post I&D of the right stump. 2. Urinary tract infection with sepsis. Continue IV antibiotic in the form of Zosyn, urine culture showed gram-negative bacilli greater than 100,000 colonies. 3. Acute kidney injury and top of chronic kidney disease stage III. We will switch the patient to D5 normal saline at 75 mL an hour, monitor the patient BMP today 4. Hypertension and hypertensive cardiovascular disease. We will continue patient on metoprolol 100 mg orally twice every day, losartan 50 mg orally twice every day, hydralazine 100 mg orally 3 times every day. 5. Hyperlipidemia. Continue patient on pravastatin 80 mg at bedtime. 6. Diabetes mellitus type 2 into the patient on Levemir 25 units at bedtime along with Humalog 10 units before each meal along with a sliding scale insulin, continue consistent carbohydrate diet, continue with BGM before each meal and at bedtime we will hold her diabetic medication just before surgery and resume after that. 7. Hypothyroidism. Continue patient on Synthroid 50 g orally once every day. 8. Proximal atrial fibrillation. Continue patient on metoprolol 100 mg orally twice every day as well as Coumadin, patient will have her PT and INR checked prior to her surgical intervention. 9. ALLERGIC rhinitis. Continue Claritin 10 mg orally once every day as well as Flonase nasal spray 1 puff in each nostril twice every day. 10. Severe peripheral arterial occlusive disease status post right above-knee amputation. Continue aspirin and pravastatin for secondary prevention. 11. Iron deficiency anemia. Continue iron 325 mg orally once every day monitor the patient hemoglobin. 12. Vitamin D deficiency. Continue patient on vitamin D supplement. 13. DVT prophylaxis. Currently on Coumadin keep her INR between 2-3. 14. GI prophylaxis. Protonix 40 mg orally once every day. 15. Plan is to transfer the patient back to [facility]. Plan: 1. Right above knee amputation stump cellulitis with possible abscess. Continue IV cefepime 2 g IV piggyback every 24 hours, culture positive for MRSA and Proteus mirabilis and Pseudomonas fluorescens, patient is status post I&D of the right stump. Anticipate need for PICC line which will be requested today. Coumadin resumed. 2. Urinary tract infection with sepsis. Continue IV antibiotic in the form of cefepime, urine culture showed Proteus mirabilis and Citrobacter werkmanii. 3. Acute kidney injury and top of chronic kidney disease stage III. We will Hep-Lock IV. 4. Hypertension and hypertensive cardiovascular disease. We will continue patient on metoprolol 100 mg orally twice every day, losartan 50 mg orally twice every day, hydralazine 100 mg orally 3 times every day. 5. Hyperlipidemia. Continue patient on pravastatin 80 mg at bedtime. 6. Diabetes mellitus type 2 into the patient on Levemir 25 units at bedtime along with Humalog 10 units before each meal along with a sliding scale insulin, continue consistent carbohydrate diet, continue with BGM before each meal and at bedtime we will hold her diabetic medication just before surgery and resume after that. 7. Hypothyroidism. Continue patient on Synthroid 50 g orally once every day. 8. Proximal atrial fibrillation. Continue patient on metoprolol 100 mg orally twice every day as well as Coumadin will be resumed this evening she will be getting 4 milligram at night and will repeat another dose tomorrow night and they were going to 2 milligram every night every that. Meanwhile we will bridge with Lovenox. 9. ALLERGIC rhinitis. Continue Claritin 10 mg orally once every day as well as Flonase nasal spray 1 puff in each nostril twice every day. 10. Severe peripheral arterial occlusive disease status post right above-knee amputation. Continue aspirin and pravastatin for secondary prevention. 11. Iron deficiency anemia. Continue iron 325 mg orally once every day monitor the patient hemoglobin. 12. Vitamin D deficiency. Continue patient on vitamin D supplement. 13. DVT prophylaxis. Currently on Coumadin keep her INR between 2-3. 14. GI prophylaxis. Protonix 40 mg orally once every day. 15. Plan is to transfer the patient back to [facility] on Friday.
--- NOTE | 2020-01-14 13:09 | P.PN ---
Subjective Progress Note Date: 01/14/20 Patient seen and examined at the bedside. She has status postop day #1 from a right lower extremity sharp excisional debridement of her right above the knee amputation site, which was found to have bone wax rejection. Patient sitting up in bed in no acute distress. Patient denies any fever or chills. Patient denies any pain, nursing staff said patient has not requested or needed any pain medications through the night. She continues with IV antibiotics per recommendations by infectious disease. Objective - Vital Signs Vital signs: Vital Signs Temp 98.9 F 01/14/20 07:00 Pulse 89 01/14/20 07:00 Resp 16 01/14/20 07:00 BP 141/68 01/14/20 07:00 Pulse Ox 97 01/14/20 07:00 Intake & Output 01/13/20 01/14/20 01/14/20 18:59 06:59 18:59 Intake Total 100 1100 Output Total 320 950 Balance -220 150 Weight 81.647 kg Intake: IV 100 0 Dextrose 5%-0.9% NaCl 1, 0 000 ml @ 75 mls/hr IV . [id number] DENISE Rx#:[id number] Intake, IV Titration 1100 Amount Cefepime 2 gm In Sodium 100 Chloride 0.9% 100 ml @ 200 mls/hr IVPB Q24H DENISE Rx#:[id number] Sodium Chloride 0.9% 1, 1000 000 ml @ 75 mls/hr IV . [id number] DENISE Rx#:[id number] Output: Urine 300 950 Estimated Blood Loss 20 Other: Voiding Method Indwelling Catheter Indwelling Catheter Indwelling Catheter # Bowel Movements 0 - Exam General appearance: The patient is alert, oriented, in no acute distress. HET: Head is normocephalic and atraumatic. Pupils are equal and reactive. Oropharynx is clear without lesions. Neck: Supple without lymphadenopathy. Trachea midline. Heart: S1 S2. Regular rate and rhythm. Lungs: No crackles or wheezes are heard. Extremities: Right lower extremity dressing changed, dressing with moderate amount of dried blood. Dressing was removed, debridement site without any drainage, surrounding erythema improved. Wet-to-dry dressing reapplied, with Curtis wrap Neurological: No focal deficits. Strength and sensation are grossly intact. - Labs CBC & Chem 7: 01/14/20 07:09 01/14/20 07:09 Labs: Abnormal Lab Results - Last 24 Hours (Table) 01/13/20 01/13/20 01/14/20 Range/Units 12:26 20:17 07:04 RBC (3.80-5.40) m/uL Hgb (11.4-16.0) gm/dL Hct (34.0-46.0) % MCHC (31.0-37.0) g/dL Chloride (98-107) mmol/L Carbon Dioxide (22-30) mmol/L BUN (7-17) mg/dL Creatinine (0.52-1.04) mg/dL POC Glucose (mg/dL) 110 H 187 H 131 H (75-99) mg/dL C-Reactive Protein (<10.0) mg/L Total Protein (6.3-8.2) g/dL Albumin (3.5-5.0) g/dL 01/14/20 01/14/20 01/14/20 Range/Units 07:09 07:09 11:23 RBC 2.72 L (3.80-5.40) m/uL Hgb 7.5 L (11.4-16.0) gm/dL Hct 25.5 L (34.0-46.0) % MCHC 29.5 L (31.0-37.0) g/dL Chloride 115 H (98-107) mmol/L Carbon Dioxide 17 L (22-30) mmol/L BUN 40 H (7-17) mg/dL Creatinine 1.57 H (0.52-1.04) mg/dL POC Glucose (mg/dL) 67 L (75-99) mg/dL C-Reactive Protein 29.8 H (<10.0) mg/L Total Protein 6.1 L (6.3-8.2) g/dL Albumin 2.7 L (3.5-5.0) g/dL Microbiology - Last 24 Hours (Table) 01/13/20 12:10 Gram Stain - Preliminary Leg - Right Wound Culture - Preliminary Gram Neg Bacilli 01/10/20 17:30 Urine Culture - Final Urine,Voided Proteus mirabilis Citrobacter werkmanii 01/10/20 17:38 Gram Stain - Final Thigh - Right Wound Culture - Final Proteus mirabilis Methicillin resist S. aureus Pseudomonas fluorescens/putida 01/10/20 16:04 Blood Culture - Preliminary Blood No Growth after 72 hours 01/13/20 12:10 Anaerobic Culture - Preliminary Leg - Right Assessment and Plan Assessment: 1. Right fohtr-sra-mivs amputation stump abscess with cellulitis, status post excisional debridement of bone wax rejection. 2. Positive wound culture for MRSA and gram-negative bacilli 3. Peripheral arterial disease, status post previous failed bypasses, status post right atepm-awe-pdxf amputation for infected gangrene of the right heel 4. Urinary tract infection with sepsis 5. To kidney injury and chronic kidney disease stage III. 6. Type 2 diabetes mellitus 7. Hypertension 9. Hyperlipidemia Plan: Continue with IV antibiotics per recommendation from infectious disease. Daily wet-to-dry dressing changes. Patient is to have a PICC line placed today for IV antibiotics, [facility] To follow-up with Dr. Weeks 1-2 weeks. The above dictated assessment and findings were discussed with Dr. Weeks. The impression and plan of care have been directed as dictated.
--- NOTE | 2020-01-14 14:33 | P.NPCON ---
History of Present Illness - Reason for Consult acute renal failure, chronic renal failure - History of Present Illness Reason for consultation: Acute kidney injury on chronic kidney disease History of present illness: Patient is a 84-year-old female seen in renal consultation for acute kidney injury on chronic kidney disease. Patient has chronic kidney disease stage III with baseline creatinine near 1.5 secondary to diabetic kidney disease. Creatinine was 1.96 on admission and is down to 1.57 today. Patient has history of right lower extremity ltubp-[id number]-[id number] amputation and was sent from rehab fa cility due to concerns for infection. She underwent incision and debridement of the wound site on January 12. She is currently resting in bed. She is receiving IV antibiotics. Oral intake is good. No vomiting or diarrhea. No edema. No chest pain or shortness of breath. Blood pressure is fairly stable. She has been voiding. No hematuria. She is scheduled to receive a PICC line today. Patient is quite hard of hearing. Vital signs are stable. General: The patient appeared well nourished and normally developed. HEENT: Head exam is unremarkable. Neck is without jugular venous distension. LUNGS: Lungs are clear to auscultation and percussion. Breath sounds decreased. HEART: Rate and Rhythm are regular. ABDOMEN: Soft, nontender. EXTREMITITES: No edema. Right AKA noted. Wound site wrapped. No drainage. Past Medical History Past Medical History: Atrial Fibrillation, Diabetes Mellitus, Hyperlipidemia, Hypertension, Thyroid Disorder Additional Past Medical History / Comment(s): peripheral neuropathy, UTIs, urinary incontinence, OA bilateral hands and back, PVD, cervical cancer History of Any Multi-Drug Resistant Organisms: ESBL, MRSA Date of last positivie culture/infection: 01/10/20-MRSA; 07/25/17 ESBL-E.coli MDRO Source:: THIGH-MRSA; ESBL Urine Past Surgical History: Hysterectomy, Tonsillectomy Additional Past Surgical History / Comment(s): R leg bypass surgery, bilateral cataract removal Past Anesthesia/Blood Transfusion Reactions: No Reported Reaction Past Psychological History: No Psychological Hx Reported Additional Psychological History / Comment(s): Pt states she lives at [facility]. States uses a wheelchair to get around. Smoking Status: Never smoker Past Alcohol Use History: None Reported Additional Past Alcohol Use History / Comment(s): Patient resides at [facility] and is wheelchair bound. Past Drug Use History: None Reported - Past Family History Mother Family Medical History: CVA/TIA Additional Family Medical History / Comment(s): Mother in her 70's. Father Family Medical History: Hypertension Additional Family Medical History / Comment(s): Father in his 70's. Medications and Allergies Home Medications Medication Instructions Recorded Confirmed Type Aspirin 81 mg PO DAILY 09/11/15 01/10/20 History Levothyroxine Sodium [Synthroid] 50 mcg PO QAM 09/11/15 01/10/20 History Pravastatin Sodium [Pravachol] 80 mg PO DAILY@1800 09/11/15 01/10/20 History Sennosides-Docusate Sodium 1 tab PO DAILY 06/16/17 01/10/20 History [Senokot-S] Multivitamins, Thera [Multivitamin 1 tab PO DAILY@1800 05/04/18 01/10/20 History (formulary)] Sodium Chloride 5% Ophth Soln 1 drop BOTH EYES BID 05/04/18 01/10/20 History [Hari 128] Spironolactone [Aldactone] 12.5 mg PO DAILY 07/01/18 01/10/20 History Cranberry 450mg 450 mg PO DAILY 10/13/18 01/10/20 History Metoprolol Tartrate [Lopressor] 100 mg PO BID 10/13/18 01/10/20 History hydrALAZINE HCL [Apresoline] 100 mg PO TID 10/13/18 01/10/20 History sitaGLIPtin PHOSPHATE [Januvia] 50 mg PO DAILY@1800 10/13/18 01/10/20 History Cholecalciferol (Vitamin D3) 2,000 unit PO DAILY 03/31/19 01/10/20 History [Vitamin D3] Ferrous Sulfate [Feosol] 325 mg PO DAILY 03/31/19 01/10/20 History Fluticasone Nasal Union [Flonase 1 spr EA NOSTRIL DAILY 03/31/19 01/10/20 History Nasal Union] Loratadine [Claritin] 10 mg PO DAILY 03/31/19 01/10/20 History Warfarin [Coumadin] 4 mg PO DAILY@1800 tab 04/06/19 01/10/20 Rx Acetaminophen [Tylenol Arthritis] 650 mg PO Q6H PRN 01/10/20 01/10/20 History Insulin Glargine [Lantus] 25 unit SQ DAILY@1800 01/10/20 01/10/20 History Insulin Lispro [humaLOG Kwikpen] 10 unit SQ AC-TID 01/10/20 01/10/20 History Insulin Lispro [humaLOG Kwikpen] See Protocol SQ ACHS 01/10/20 01/10/20 History Losartan Potassium 50 mg PO BID 01/10/20 01/10/20 History Allergies Allergy/AdvReac Type Severity Reaction Status Date / Time No Known Allergies Allergy Verified 01/10/20 18:05 Physical Exam Vitals: Vital Signs Temp Pulse Resp BP Pulse Ox 01/14/20 14:20 99.4 F 80 18 165/69 100 01/14/20 07:00 98.9 F 89 16 141/68 97 01/14/20 01:17 99.0 F 113 H 16 143/76 100 01/13/20 23:10 148/73 01/13/20 20:44 101 H 154/74 01/13/20 18:58 99.5 F 105 H 16 146/77 100 01/13/20 15:15 72 122/80 01/13/20 15:00 72 169/80 01/13/20 14:45 83 157/88 01/13/20 14:30 91 159/80 Intake and Output 01/13/20 01/14/20 01/14/20 22:59 06:59 14:59 Intake Total 700 400 Output Total 450 500 625 Balance 250 -100 -625 Intake: IV 0 Dextrose 5%-0.9% NaCl 1, 0 000 ml @ 75 mls/hr IV . [id number] DENISE Rx#:[id number] Intake, IV Titration 700 400 Amount Cefepime 2 gm In Sodium 100 Chloride 0.9% 100 ml @ 200 mls/hr IVPB Q24H DENISE Rx#:[id number] Sodium Chloride 0.9% 1, 600 400 000 ml @ 75 mls/hr IV . [id number] DENISE Rx#:[id number] Output: Urine 450 500 625 Other: Voiding Method Indwelling Catheter Indwelling Catheter # Bowel Movements 0 Weight 81.647 kg Results - Lab Results Most recent lab results Calcium 8.8 mg/dL (8.4-10.2) 01/14/20 07:09 01/14/20 07:09 01/14/20 07:09 Assessment and Plan Plan: Assessment: 1. Acute kidney injury mostly prerenal secondary to infection. Improved. 2. Chronic kidney disease stage III with baseline creatinine near 1.5. Etiology is diabetic kidney disease. 3. Right lower extremity [id number] amputation site abscess status post incision and debridement on January 12. 4. Hypertension with chronic kidney disease. 5. Insulin-dependent diabetes mellitus. 6. History of A. fib. 7. Metabolic acidosis secondary to chronic kidney disease and IV fluids. Plan: Encouraged oral intake. Add oral sodium bicarbonate. Avoid nephrotoxins. Maintain current antihypertensives, including Cozaar, as blood pressure is on the higher side. Cleared for PICC line placement on the dominant arm. Thank you for the consultation. I will continue to follow the patient with you during her hospital stay.
[2020-01-14] MEDS ORDERED: LIDOCAINE 1% INJ 10MG/ML (20 ML MDV) SQ ONE (15:11)
--- NOTE | 2020-01-14 15:29 | PN ---
PROGRESS NOTE DATE OF SERVICE: 01/14/2020 REASON FOR FOLLOWUP: Right AKA stump wound infection. INTERVAL HISTORY: The patient is currently afebrile. The patient is breathing comfortably. Overall pain and discomfort to the right AKA stump is currently controlled. No chest pain. No cough. No abdominal pain or diarrhea. PHYSICAL EXAMINATION: Blood pressure 165/69 with a pulse of 80, temperature 99.4. She is 100% on room air. General description is an elderly female lying in bed in no distress. RESPIRATORY SYSTEM: Unlabored breathing. Clear to auscultation anteriorly. HEART: S1, S2. Regular rate and rhythm. ABDOMEN: Soft. No tenderness. LABS: Hemoglobin 7.5, white count 8.4, creatinine 1.57. Blood cultures are showing Gram- negative bacilli. DIAGNOSTIC IMPRESSION AND PLAN: Patient with right above-knee amputation stump wound infection. Culture obtained shows Pseudomonas, Proteus and MRSA. Patient is covered with vancomycin and cefepime; to continue while waiting for the OR culture to be finalized. She will get a PICC line for outpatient IV antibiotic. Continue with supportive care. MMODL / IJN: [id number] /
--- NOTE | 2020-01-14 15:49 | IR ---
EXAMINATION TYPE: IR cvc insert >=5 years DATE OF EXAM: 01/14/2020 COMPARISON: NONE CLINICAL HISTORY: Infection Needs long-term intravenous access for antibiotics. PROCEDURE: Hand hygiene obtained with soap and water and alcohol-based hand rub. After informed consent, the skin overlying the right brachial vein was localized with ultrasound and noted to be compressible and patent. An ultrasound image was obtained and submitted on the patient's chart. The overlying skin was prepped and draped and Lidocaine was used for local anesthesia. A sk in monique was made with a scalpel. Access was gained to the vein under ultrasound guidance with a 21 g auge needle and a 0.018 inch wire was advanced. Access site was dilated with Peel-Away sheath and ca theter tailored to the appropriate length and advanced such that the distal tip is at the cavoatrial junction. Spot image was obtained verifying placement. Catheter was fixed to the skin and a sterile dressing was placed following hemostasis. Catheter was aspirated and flushed with saline. Patient was discharged in stable condition without complication. Maximal barrier technique is utilized. Ultr asound image is documented on the chart. Ultrasound used with sterile technique. Fluoro time and fluoroscopic images submitted to document procedure: 34 intraoperative C-arm images d ocument the procedure, 0.2 minutes fluoroscopy time IMPRESSION: STATUS POST ULTRASOUND AND FLUOROSCOPIC GUIDED PICC LINE PLACEMENT, READY FOR USE. THIS PROCEDURE WAS PERFORMED BY THE UNDERSIGNED.
[2020-01-14 16:26] LABS: Glucose,Whole Blood 172 mg/dL (75-99)
[2020-01-14] MEDS: PRAVASTATIN SODIUM 80 MG TAB PO SCH (16:54)
[2020-01-14] MEDS: MULTIVITAMINS, THERA 1 EACH TAB PO SCH (16:54)
[2020-01-14] MEDS: LINAGLIPTIN 5 MG TABLET PO SCH (16:54)
[2020-01-14] MEDS: INSULIN DETEMIR (LEVEMIR) 100 UNIT/ML SYR SQ SCH (17:47)
[2020-01-14] MEDS ORDERED: WARFARIN 2 MG TAB PO ONE (18:00)
[2020-01-14 20:04] LABS: Glucose,Whole Blood 194 mg/dL (75-99)
[2020-01-14] MEDS: CEFEPIME 2 GM in SODIUM CHLORIDE 0.9% 100 ML IVPB SCH (20:08)
[2020-01-14] MEDS: SODIUM BICARBONATE TAB 650 MG TAB PO SCH (20:11)
[2020-01-15] MEDS: DEXTROSE 5%-0.9% NACL 1,000 ML IV SCH ×2 (04:14→11:20)
[2020-01-15] MEDS: LACTATED RINGERS 1,000 ML IV SCH ×2 (05:40→11:20)
[2020-01-15] MEDS: LEVOTHYROXINE 50 MCG TAB PO SCH (05:40)
[2020-01-15] MEDS: SODIUM CHLORIDE 0.9% 1,000 ML IV SCH ×2 (05:41→11:21)
[2020-01-15 07:08] LABS: Glucose,Whole Blood 75 mg/dL (75-99)
[2020-01-15] MEDS: INSULIN ASPART (NovoLOG) 100 UNIT/ML VIAL SQ SCH ×7 (07:39→21:33)
[2020-01-15 07:52] LABS: Basophils # (A) 0.1 k/uL (0-0.2); Basophils % (A) 1 %; Eosinophils # (A) 0.4 k/uL (0-0.7); Eosinophils % (A) 5 %; HCT 24.9 % (34.0-46.0); HGB 7.9 gm/dL (11.4-16.0); Hypochromasia Moderate; Lymphocytes # (A) 1.4 k/uL (1.0-4.8); Lymphocytes % (A) 17 %; MCH 28.9 pg (25.0-35.0); MCHC 31.5 g/dL (31.0-37.0); MCV 91.6 fL (80.0-100.0); Mean Platelet Volume 7.5; Monocytes # (A) 0.8 k/uL (0-1.0); Monocytes % (A) 9 %; Neutrophils # (A) 5.6 k/uL (1.3-7.7); Neutrophils % (A) 67 %; Platelet Count 228 k/uL (150-450); RBC 2.72 m/uL (3.80-5.40); RDW 14.1 % (11.5-15.5); WBC 8.4 k/uL (3.8-10.6)
[2020-01-15 08:00] LABS: INR 1.2 (<1.2); Prothrombin Time 11.9 sec (9.0-12.0)
[2020-01-15 08:07] LABS: Albumin 2.7 g/dL (3.5-5.0); Calcium 8.7 mg/dL (8.4-10.2); Total Bilirubin 0.2 mg/dL (0.2-1.3)
[2020-01-15] MEDS: ASPIRIN 81 MG PO SCH (08:14)
[2020-01-15] MEDS: SENNOSIDES-DOCUSATE SODIUM 1 EACH TAB PO SCH (08:14)
[2020-01-15] MEDS: LORATADINE 10 MG TAB PO SCH (08:14)
[2020-01-15] MEDS: SODIUM BICARBONATE TAB 650 MG TAB PO SCH ×2 (08:14→21:34)
[2020-01-15] MEDS: hydrALAZINE HCL 50 MG TAB PO SCH ×3 (08:14→21:34)
[2020-01-15] MEDS: FERROUS SULFATE 325 MG TAB PO SCH (08:14)
[2020-01-15] MEDS: LOSARTAN 50 MG TAB PO SCH ×2 (08:14→21:33)
[2020-01-15] MEDS: CHOLECALCIFEROL 1,000 UNIT TAB PO SCH (08:14)
[2020-01-15] MEDS: METOPROLOL TARTRATE 50 MG TAB PO SCH ×2 (08:14→21:34)
[2020-01-15] MEDS: SODIUM CHLORIDE 5% OPHTH DROPS 15 ML BTL BOTH EYES SCH ×2 (08:17→21:35)
[2020-01-15] MEDS: FLUTICASONE 50MCG/SPRAY NASAL 16GM EA NOSTRIL SCH (08:17)
[2020-01-15 09:13] LABS: Vancomycin,Random 24.9 ug/mL
--- NOTE | 2020-01-15 09:38 | P.PN ---
Subjective Progress Note Date: 01/15/20 This is an 84-year-old pleasant female followed by me at [facility] known history of diabetes mellitus type 2 requiring insulin, with PAD and other complications peripheral neuropathy hypertension, hypothyroidism atrial fibrillation, PAD, chronic gangrene/chronic ulcer diabetic foot ulcers right heel at least since October 2018, admitted to [facility] back in 04/02/2019 where she ended up going for right above the knee amputation and she has done marvelously well after surgery and she was sent back to the [facility] care facility has been doing fine up until 2 days ago when she developed to have a significant redness and increased drainage from the bottom of the right stump, I received a call from the nursing staff stated that the patient has fever and chills her Weeks catheter was cloudy and she was having some bloody pussy drainage from the stump he was recommended for the patient be transferred to the emergency department at [facility] where she was seen and evaluated by an x-ray that did not show any evidence of possible myelitis however because of the presentation she was admitted to the hospital she was started on IV antibiotic in the form of Zosyn and vancomycin and blood cultures and the culture from the stump was obtained, infectious disease consultation was obtained as well as vascular surgery consultation, patient would be kept in the hospital until the final result of the culture is back in until after surgical intervention with I&D to the stump. 01/11: Patient sitting up in bed in no apparent distress she denies any chest pain, shortness breath, she has not slept well last night, she is scheduled to go for I&D of right stump due to abscess, she is maintained on IV anabiotic in the form of Zosyn and vancomycin was discontinued per infectious disease, blood cultures so far no growth urine culture did show gram-negative bacilli and the preliminary wound culture showed gram-positive cocci and gram-negative bacilli with a few polymorphonuclear leukocytes, patient will be switched to D5 normal saline at 75 mL an hour and we'll hold her diabetic medication as her blood glucose level in the morning was about 70, she will be taking her oral antihypertensive medications with a few sips of water. 01/12: Patient is sitting up in bed in no apparent distress she denies any chest pain, shortness breath, she has no abdominal pain, she has slept well last night, she is ready to go for her surgery today for I&D of the right stump ab scess, she has not had any fever last night. 01/13: Yesterday, patient underwent debridement of the right above-knee amputation site with Dr. Weeks. She has had no postprocedure complications. Cultures positive for MRSA, Proteus mirabilis and Pseudomonas, urine culture positive for Proteus mirabilis and Citrobacter werkmanii. Antibiotics were adjusted by Dr. Elizabeth to cefepime and vancomycin. Patient has been afebrile, heart rate 89, blood pressure 141/68, pulse ox 97% on room air. Repeat blood work revealed WBC 8.4, hemoglobin 7.5. Platelet count 256. Sodium 140, potassium 4.5, chloride 115, CO2 17, BUN 40 creatinine 1.57. Blood sugars are running between 67 and 187. INR is 1.1 and patient will be resumed back on Coumadin tonight. Anticipate need for PICC line placement will be requested today while patient has subtherapeutic INR. Anticipate discharge back to [facility] on Friday. 01/14: Patient is sitting up in bed in no apparent distress she denies any chest pain, shortness breath, she has no abdominal pain, nausea or vomiting, she did receive her PICC line in the right upper extremity yesterday, urine culture was positive for on Citrobacter as well as Proteus mirabilis, wound cultures positive for MRSA as well as pseudomonas Pituda, she will be maintained on vancomycin and cefepime, she will be kept in the hospital for another 24 hours and she will be transferred back to the [facility] care [facility] Friday morning. Objective - Vital Signs Vital signs: Vital Signs Temp 98.3 F 01/15/20 08:01 Pulse 79 01/15/20 08:01 Resp 16 01/15/20 08:02 BP 164/81 01/15/20 08:01 Pulse Ox 98 01/15/20 08:01 Intake & Output 01/14/20 01/15/20 01/15/20 18:59 06:59 18:59 Intake Total 250 Output Total 625 1000 Balance -625 -750 Weight 81.647 kg Intake: Oral 250 Output: Urine 625 1000 Other: Voiding Method Indwelling Catheter Indwelling Catheter Indwelling Catheter - Exam Review of Systems Constitutional: Denies anorexia, Denies chronic headaches, Denies lethargy, Denies weakness, Denies weight loss Eyes: denies blurred vision, denies bulging eye, denies decreased vision Ears: bilateral: decreased hearing Ears, nose, mouth and throat: Denies dysphagia, Denies neck lump, Denies sore throat Cardiovascular: Reports leg edema, Denies chest pain, Denies decreased exercise tolerance, Denies rapid heart beat, Denies shortness of breath, Denies syncope Respiratory: Denies congestion, Denies cough with sputum, Denies home oxygen, Denies sleep apnea, Denies snoring, Denies wheezing Gastrointestinal: Denies abdominal pain, Denies bloating, Denies BRBPR, Denies excessive gas, Denies heartburn, Denies loss of appetite, Denies melena, Denies nausea, Denies vomiting Genitourinary: Denies dysuria, Denies nocturia Menstruation: Reports postmenopausal Musculoskeletal: Reports gait dysfunction Musculoskeletal: left: foot swelling, absent: hand pain, hand stiffness, hand swelling, hip pain, hip stiffness, hip swelling, shoulder pain, shoulder stiffness, shoulder swelling, wrist pain, wrist stiffness, wrist swelling Integumentary: Denies pruritus, Denies rash Neurological: Denies numbness, Denies weakness Psychiatric: Denies anxiety, Denies depression Endocrine: Denies fatigue, Denies weight change Physical examination: HEENT: Head is atraumatic, normocephalic, pupils were equal round reactive to light and accommodations, extraocular muscle movement were intact. Neck: Supple, no JVP, decreased carotid upstroke bilaterally. Chest: Clear to auscultation bilaterally there is no crackles no wheezes no chest wall tenderness no intercostal retractions. Heart: First heart sound is depressed, second heart sound is normal, irregularly irregular, there is systolic ejection murmur 2/6 located in the left sternal border. Abdomen: Soft, nontender, nondistended, positive bowel sounds. Extremities: Right stump from the above knee amputation showed some redness and increase bloody and pus discharge from an open area, left lower extremity with edema no calf tenderness dorsalis pedis is +1 on the left side. Neurologic examination: Patient is awake alert and oriented 3, creatinine nerves III-12 appear grossly intact, patient moves all her extremities. - Labs CBC & Chem 7: 01/15/20 07:02 01/15/20 07:02 Labs: Abnormal Lab Results - Last 24 Hours (Table) 01/14/20 01/14/20 01/14/20 Range/Units 11:23 12:21 16:25 RBC (3.80-5.40) m/uL Hgb (11.4-16.0) gm/dL Hct (34.0-46.0) % ESR 101 H (0-20) mm/hr INR (<1.2) Chloride (98-107) mmol/L Carbon Dioxide (22-30) mmol/L BUN (7-17) mg/dL Creatinine (0.52-1.04) mg/dL Glucose (74-99) mg/dL POC Glucose (mg/dL) 67 L 172 H (75-99) mg/dL Total Protein (6.3-8.2) g/dL Albumin (3.5-5.0) g/dL 01/14/20 01/15/20 01/15/20 Range/Units 20:03 07:02 07:02 RBC 2.72 L (3.80-5.40) m/uL Hgb 7.9 L (11.4-16.0) gm/dL Hct 24.9 L (34.0-46.0) % ESR (0-20) mm/hr INR 1.2 H (<1.2) Chloride (98-107) mmol/L Carbon Dioxide (22-30) mmol/L BUN (7-17) mg/dL Creatinine (0.52-1.04) mg/dL Glucose (74-99) mg/dL POC Glucose (mg/dL) 194 H (75-99) mg/dL Total Protein (6.3-8.2) g/dL Albumin (3.5-5.0) g/dL 01/15/20 Range/Units 07:02 RBC (3.80-5.40) m/uL Hgb (11.4-16.0) gm/dL Hct (34.0-46.0) % ESR (0-20) mm/hr INR (<1.2) Chloride 114 H (98-107) mmol/L Carbon Dioxide 21 L (22-30) mmol/L BUN 36 H (7-17) mg/dL Creatinine 1.54 H (0.52-1.04) mg/dL Glucose 64 L (74-99) mg/dL POC Glucose (mg/dL) (75-99) mg/dL Total Protein 6.0 L (6.3-8.2) g/dL Albumin 2.7 L (3.5-5.0) g/dL Microbiology - Last 24 Hours (Table) 01/10/20 16:04 Blood Culture - Preliminary Blood No Growth after 96 hours 01/13/20 12:10 Gram Stain - Preliminary Leg - Right Wound Culture - Preliminary Gram Neg Bacilli Assessment and Plan Plan: Assessment and plan: 1. Right above knee amputation stump cellulitis with possible abscess. Continue IV cefepime 2 g IV piggyback every 24 hours, culture positive for MRSA and Proteus mirabilis and Pseudomonas fluorescens, patient is status post I&D of the right stump. Anticipate need for PICC line which will be requested today. Coumadin resumed. 2. Urinary tract infection with sepsis. Continue IV antibiotic in the form of cefepime, urine culture showed Proteus mirabilis and Citrobacter werkmanii. 3. Acute kidney injury and top of chronic kidney disease stage III. We will Hep-Lock IV. 4. Hypertension and hypertensive cardiovascular disease. We will continue patient on metoprolol 100 mg orally twice every day, losartan 50 mg orally twice every day, hydralazine 100 mg orally 3 times every day. 5. Hyperlipidemia. Continue patient on pravastatin 80 mg at bedtime. 6. Diabetes mellitus type 2 into the patient on Levemir 25 units at bedtime along with Humalog 10 units before each meal along with a sliding scale insulin, continue consistent carbohydrate diet, continue with BGM before each meal and at bedtime we will hold her diabetic medication just before surgery and resume after that. 7. Hypothyroidism. Continue patient on Synthroid 50 g orally once every day. 8. Proximal atrial fibrillation. Continue patient on metoprolol 100 mg orally twice every day as well as Coumadin will be resumed this evening she will be getting 4 milligram at night and will repeat another dose tomorrow night and they were going to 2 milligram every night every that. Meanwhile we will bridge with Lovenox. 9. ALLERGIC rhinitis. Continue Claritin 10 mg orally once every day as well as Flonase nasal spray 1 puff in each nostril twice every day. 10. Severe peripheral arterial occlusive disease status post right above-knee amputation. Continue aspirin and pravastatin for secondary prevention. 11. Iron deficiency anemia. Continue iron 325 mg orally once every day monitor the patient hemoglobin. 12. Vitamin D deficiency. Continue patient on vitamin D supplement. 13. DVT prophylaxis. Currently on Coumadin keep her INR between 2-3. 14. GI prophylaxis. Protonix 40 mg orally once every day. 15. Plan is to transfer the patient back to [facility] on Friday.
[2020-01-15] MEDS: ENOXAPARIN 80 MG/0.8 ML SYRINGE SQ SCH (09:58)
[2020-01-15 11:22] LABS: Glucose,Whole Blood 175 mg/dL (75-99)
--- NOTE | 2020-01-15 13:50 | P.PN ---
Subjective Progress Note Date: 01/15/20 Follow-up for acute kidney injury. Objective - Vital Signs Vital signs: Vital Signs Temp 98.3 F 01/15/20 08:01 Pulse 79 01/15/20 08:01 Resp 16 01/15/20 08:02 BP 164/81 01/15/20 08:01 Pulse Ox 98 01/15/20 08:01 Intake & Output 01/14/20 01/15/20 01/15/20 18:59 06:59 18:59 Intake Total 250 240 Output Total 625 1000 Balance -625 -750 240 Weight 81.647 kg Intake: Oral 250 240 Output: Urine 625 1000 Other: Voiding Method Indwelling Catheter Indwelling Catheter Indwelling Catheter - Exam No acute distress S1-S2 heard Lungs clear Abdomen soft Right AKA. - Labs CBC & Chem 7: 01/15/20 07:02 01/15/20 07:02 Labs: Abnormal Lab Results - Last 24 Hours (Table) 01/14/20 01/14/20 01/14/20 Range/Units 12:21 16:25 20:03 RBC (3.80-5.40) m/uL Hgb (11.4-16.0) gm/dL Hct (34.0-46.0) % ESR 101 H (0-20) mm/hr INR (<1.2) Chloride (98-107) mmol/L Carbon Dioxide (22-30) mmol/L BUN (7-17) mg/dL Creatinine (0.52-1.04) mg/dL Glucose (74-99) mg/dL POC Glucose (mg/dL) 172 H 194 H (75-99) mg/dL Total Protein (6.3-8.2) g/dL Albumin (3.5-5.0) g/dL 01/15/20 01/15/20 01/15/20 Range/Units 07:02 07:02 07:02 RBC 2.72 L (3.80-5.40) m/uL Hgb 7.9 L (11.4-16.0) gm/dL Hct 24.9 L (34.0-46.0) % ESR (0-20) mm/hr INR 1.2 H (<1.2) Chloride 114 H (98-107) mmol/L Carbon Dioxide 21 L (22-30) mmol/L BUN 36 H (7-17) mg/dL Creatinine 1.54 H (0.52-1.04) mg/dL Glucose 64 L (74-99) mg/dL POC Glucose (mg/dL) (75-99) mg/dL Total Protein 6.0 L (6.3-8.2) g/dL Albumin 2.7 L (3.5-5.0) g/dL 01/15/20 Range/Units 11:21 RBC (3.80-5.40) m/uL Hgb (11.4-16.0) gm/dL Hct (34.0-46.0) % ESR (0-20) mm/hr INR (<1.2) Chloride (98-107) mmol/L Carbon Dioxide (22-30) mmol/L BUN (7-17) mg/dL Creatinine (0.52-1.04) mg/dL Glucose (74-99) mg/dL POC Glucose (mg/dL) 175 H (75-99) mg/dL Total Protein (6.3-8.2) g/dL Albumin (3.5-5.0) g/dL Microbiology - Last 24 Hours (Table) 01/13/20 12:10 Gram Stain - Preliminary Leg - Right Wound Culture - Preliminary Pseudomonas aeruginosa Presumptive MRSA 01/10/20 16:04 Blood Culture - Preliminary Blood No Growth after 96 hours Assessment and Plan Assessment: #1 nonoliguric acute kidney injury secondary to septic ATN. 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 #3 right AKA status post stump infection #4 hypertension with chronic kidney disease #5 diabetes #6 atrial fibrillation #7" vancomycin toxicity with level of 24 Plan: #1 encourage by mouth intake, creatinine currently stable at baseline. #2 antibiotics as per infectious disease. Keep Vanco trough level less than 20 #3 avoid nephrotoxic agents and hypotensive episodes.
[2020-01-15 16:25] LABS: Glucose,Whole Blood 146 mg/dL (75-99)
[2020-01-15] MEDS: LINAGLIPTIN 5 MG TABLET PO SCH (17:28)
[2020-01-15] MEDS: MULTIVITAMINS, THERA 1 EACH TAB PO SCH (17:28)
[2020-01-15] MEDS: PRAVASTATIN SODIUM 80 MG TAB PO SCH (17:28)
[2020-01-15] MEDS: WARFARIN 2 MG TAB PO SCH (17:29)
[2020-01-15] MEDS: INSULIN DETEMIR (LEVEMIR) 100 UNIT/ML SYR SQ SCH (18:23)
[2020-01-15 21:33] LABS: Glucose,Whole Blood 199 mg/dL (75-99)
[2020-01-15] MEDS: CEFEPIME 2 GM in SODIUM CHLORIDE 0.9% 100 ML IVPB SCH (21:34)
--- NOTE | 2020-01-15 22:51 | PN ---
PROGRESS NOTE DATE OF SERVICE: 02/01/2020 REASON FOR FOLLOWUP: Right AK stump wound infection. INTERVAL HISTORY: The patient is currently afebrile. Patient is breathing comfortably. Denies having any chest pain or shortness of breath or cough. Pain to the right AK stump is currently controlled. No diarrhea reported. PHYSICAL EXAMINATION: Blood pressure 116/72 with a pulse of 93, temperature 98.4, she is 100% on room air. General description is an elderly female lying in bed in no distress. Respiratory system: Unlabored breathing, clear to auscultation anteriorly. Heart S1, S2. Regular rate and rhythm. Abdomen soft. No tenderness. Right AKA stump wound looks clean with no significant slough tissue, surrounding redness has improved. LABS: Hemoglobin is 7.8, white count 8.0, BUN of 26, creatinine 1.54. Vanco random has been on the high side. DIAGNOSTIC IMPRESSION AND PLAN: Patient with right above knee amputation stump infection with Pseudomonas and MRSA. Patient is covered with cefepime and vancomycin, to continue. Will need to cover. We will watch kidney function closely and if needed we will cut it back to keep the trough around 15. MMODL / IJN: [id number] /
[2020-01-16] MEDS: DEXTROSE 5%-0.9% NACL 1,000 ML IV SCH ×2 (02:25→17:11)
[2020-01-16] MEDS: LACTATED RINGERS 1,000 ML IV SCH ×3 (02:25→21:46)
[2020-01-16] MEDS: LEVOTHYROXINE 50 MCG TAB PO SCH (05:22)
[2020-01-16 06:56] LABS: Glucose,Whole Blood 182 mg/dL (75-99)
[2020-01-16] MEDS: INSULIN ASPART (NovoLOG) 100 UNIT/ML VIAL SQ SCH ×7 (08:01→20:50)
[2020-01-16] MEDS: SODIUM CHLORIDE 0.9% 1,000 ML IV SCH ×2 (08:03→21:03)
[2020-01-16] MEDS: LORATADINE 10 MG TAB PO SCH (08:10)
[2020-01-16] MEDS: SENNOSIDES-DOCUSATE SODIUM 1 EACH TAB PO SCH (08:10)
[2020-01-16] MEDS: ASPIRIN 81 MG PO SCH (08:10)
[2020-01-16] MEDS: LOSARTAN 50 MG TAB PO SCH ×2 (08:10→20:50)
[2020-01-16] MEDS: ENOXAPARIN 80 MG/0.8 ML SYRINGE SQ SCH (08:10)
[2020-01-16] MEDS: METOPROLOL TARTRATE 50 MG TAB PO SCH ×2 (08:10→20:50)
[2020-01-16] MEDS: SODIUM BICARBONATE TAB 650 MG TAB PO SCH ×2 (08:10→20:50)
[2020-01-16] MEDS: FERROUS SULFATE 325 MG TAB PO SCH (08:10)
[2020-01-16] MEDS: hydrALAZINE HCL 50 MG TAB PO SCH ×3 (08:10→20:50)
[2020-01-16] MEDS: CHOLECALCIFEROL 1,000 UNIT TAB PO SCH (08:10)
[2020-01-16] MEDS: FLUTICASONE 50MCG/SPRAY NASAL 16GM EA NOSTRIL SCH (08:11)
[2020-01-16] MEDS: SODIUM CHLORIDE 5% OPHTH DROPS 15 ML BTL BOTH EYES SCH ×2 (08:11→20:50)
[2020-01-16 08:24] LABS: Basophils # (A) 0.1 k/uL (0-0.2); Basophils % (A) 1 %; Eosinophils # (A) 0.5 k/uL (0-0.7); Eosinophils % (A) 5 %; HCT 25.9 % (34.0-46.0); HGB 8.3 gm/dL (11.4-16.0); Hypochromasia Slight; Lymphocytes # (A) 1.6 k/uL (1.0-4.8); Lymphocytes % (A) 18 %; MCH 29.3 pg (25.0-35.0); MCHC 32.1 g/dL (31.0-37.0); MCV 91.2 fL (80.0-100.0); Mean Platelet Volume 7.5; Monocytes # (A) 0.8 k/uL (0-1.0); Monocytes % (A) 9 %; Neutrophils % (A) 66 %; Platelet Count 276 k/uL (150-450); RBC 2.83 m/uL (3.80-5.40); RDW 14.6 % (11.5-15.5); WBC 9.1 k/uL (3.8-10.6)
[2020-01-16 08:26] LABS: Potassium 3.5 mmol/L (3.5-5.1)
[2020-01-16 08:28] LABS: INR 1.3 (<1.2); Prothrombin Time 13.3 sec (9.0-12.0)
[2020-01-16 11:33] LABS: Glucose,Whole Blood 114 mg/dL (75-99)
--- NOTE | 2020-01-16 12:48 | P.PN ---
Subjective Progress Note Date: 01/16/20 This is an 84-year-old pleasant female followed by me at [facility] known history of diabetes mellitus type 2 requiring insulin, with PAD and other complications peripheral neuropathy hypertension, hypothyroidism atrial fibrillation, PAD, chronic gangrene/chronic ulcer diabetic foot ulcers right heel at least since October 2018, admitted to [facility] back in 04/02/2019 where she ended up going for right above the knee amputation and she has done marvelously well after surgery and she was sent back to the [facility] care facility has been doing fine up until 2 days ago when she developed to have a significant redness and increased drainage from the bottom of the right stump, I received a call from the nursing staff stated that the patient has fever and chills her Weeks catheter was cloudy and she was having some bloody pussy drainage from the stump he was recommended for the patient be transferred to the emergency department at [facility] where she was seen and evaluated by an x-ray that did not show any evidence of possible myelitis however because of the presentation she was admitted to the hospital she was started on IV antibiotic in the form of Zosyn and vancomycin and blood cultures and the culture from the stump was obtained, infectious disease consultation was obtained as well as vascular surgery consultation, patient would be kept in the hospital until the final result of the culture is back in until after surgical intervention with I&D to the stump. 01/11: Patient sitting up in bed in no apparent distress she denies any chest pain, shortness breath, she has not slept well last night, she is scheduled to go for I&D of right stump due to abscess, she is maintained on IV anabiotic in the form of Zosyn and vancomycin was discontinued per infectious disease, blood cultures so far no growth urine culture did show gram-negative bacilli and the preliminary wound culture showed gram-positive cocci and gram-negative bacilli with a few polymorphonuclear leukocytes, patient will be switched to D5 normal saline at 75 mL an hour and we'll hold her diabetic medication as her blood glucose level in the morning was about 70, she will be taking her oral antihypertensive medications with a few sips of water. 01/12: Patient is sitting up in bed in no apparent distress she denies any chest pain, shortness breath, she has no abdominal pain, she has slept well last night, she is ready to go for her surgery today for I&D of the right stump ab scess, she has not had any fever last night. 01/13: Yesterday, patient underwent debridement of the right above-knee amputation site with Dr. Weeks. She has had no postprocedure complications. Cultures positive for MRSA, Proteus mirabilis and Pseudomonas, urine culture positive for Proteus mirabilis and Citrobacter werkmanii. Antibiotics were adjusted by Dr. Elizabeth to cefepime and vancomycin. Patient has been afebrile, heart rate 89, blood pressure 141/68, pulse ox 97% on room air. Repeat blood work revealed WBC 8.4, hemoglobin 7.5. Platelet count 256. Sodium 140, potassium 4.5, chloride 115, CO2 17, BUN 40 creatinine 1.57. Blood sugars are running between 67 and 187. INR is 1.1 and patient will be resumed back on Coumadin tonight. Anticipate need for PICC line placement will be requested today while patient has subtherapeutic INR. Anticipate discharge back to [facility] on Friday. 01/14: Patient is sitting up in bed in no apparent distress she denies any chest pain, shortness breath, she has no abdominal pain, nausea or vomiting, she did receive her PICC line in the right upper extremity yesterday, urine culture was positive for on Citrobacter as well as Proteus mirabilis, wound cultures positive for MRSA as well as pseudomonas Pituda, she will be maintained on vancomycin and cefepime, she will be kept in the hospital for another 24 hours and she will be transferred back to the [facility] care facility Friday. 01/15: Patient is laying down in bed in no apparent distress, she denies any chest pain, she doesn't appear to be in acute shortness of breath, she has no abdominal pain, she has not had a bowel movement, she has no acute complaint, she likely be discharged back to the extended care facility tomorrow morning. Objective - Vital Signs Vital signs: Vital Signs Temp 98.4 F 01/16/20 06:48 Pulse 87 01/16/20 06:48 Resp 16 01/16/20 06:48 BP 172/76 01/16/20 06:48 Pulse Ox 100 01/16/20 06:48 Intake & Output 0601/16/20 01/16/20 18:59 06:59 18:59 Intake Total 240 220 240 Output Total 650 625 Balance -410 -405 240 Intake: Intake, IV Titration 220 Amount Cefepime 2 gm In Sodium 100 Chloride 0.9% 100 ml @ 200 mls/hr IVPB Q24H [facility] Rx#:[id number] Sodium Chloride 0.9% 1, 120 000 ml @ 75 mls/hr IV . [id number] [facility] Rx#:[id number] Oral 240 240 Output: Urine 650 625 Uretheral (Weeks) 625 Other: Voiding Method Indwelling Catheter Indwelling Catheter Indwelling Catheter # Voids 1 - Exam Review of Systems Constitutional: Denies anorexia, Denies chronic headaches, Denies lethargy, Denies weakness, Denies weight loss Eyes: denies blurred vision, denies bulging eye, denies decreased vision Ears: bilateral: decreased hearing Ears, nose, mouth and throat: Denies dysphagia, Denies neck lump, Denies sore throat Cardiovascular: Reports leg edema, Denies chest pain, Denies decreased exercise tolerance, Denies rapid heart beat, Denies shortness of breath, Denies syncope Respiratory: Denies congestion, Denies cough with sputum, Denies home oxygen, Denies sleep apnea, Denies snoring, Denies wheezing Gastrointestinal: Denies abdominal pain, Denies bloating, Denies BRBPR, Denies excessive gas, Denies heartburn, Denies loss of appetite, Denies melena, Denies nausea, Denies vomiting Genitourinary: Denies dysuria, Denies nocturia Menstruation: Reports postmenopausal Musculoskeletal: Reports gait dysfunction Musculoskeletal: left: foot swelling, absent: hand pain, hand stiffness, hand swelling, hip pain, hip stiffness, hip swelling, shoulder pain, shoulder stiffness, shoulder swelling, wrist pain, wrist stiffness, wrist swelling Integumentary: Denies pruritus, Denies rash Neurological: Denies numbness, Denies weakness Psychiatric: Denies anxiety, Denies depression Endocrine: Denies fatigue, Denies weight change Physical examination: HEENT: Head is atraumatic, normocephalic, pupils were equal round reactive to light and accommodations, extraocular muscle movement were intact. Neck: Supple, no JVP, decreased carotid upstroke bilaterally. Chest: Clear to auscultation bilaterally there is no crackles no wheezes no chest wall tenderness no intercostal retractions. Heart: First heart sound is depressed, second heart sound is normal, irregularly irregular, there is systolic ejection murmur 2/6 located in the left sternal border. Abdomen: Soft, nontender, nondistended, positive bowel sounds. Extremities: Right stump from the above knee amputation showed some redness and increase bloody and pus discharge from an open area, left lower extremity with edema no calf tenderness dorsalis pedis is +1 on the left side. Neurologic examination: Patient is awake alert and oriented 3, creatinine nerves III-12 appear grossly intact, patient moves all her extremities. - Labs CBC & Chem 7: 01/16/20 07:06 01/16/20 07:06 Labs: Abnormal Lab Results - Last 24 Hours (Table) 01/15/20 01/15/20 01/15/20 Range/Units 11:21 16:24 21:21 RBC (3.80-5.40) m/uL Hgb (11.4-16.0) gm/dL Hct (34.0-46.0) % PT (9.0-12.0) sec INR (<1.2) Chloride (98-107) mmol/L Carbon Dioxide (22-30) mmol/L BUN (7-17) mg/dL Creatinine (0.52-1.04) mg/dL Glucose (74-99) mg/dL POC Glucose (mg/dL) 175 H 146 H 199 H (75-99) mg/dL 01/16/20 01/16/20 01/16/20 Range/Units 06:55 07:06 07:06 RBC (3.80-5.40) m/uL Hgb (11.4-16.0) gm/dL Hct (34.0-46.0) % PT 13.3 H (9.0-12.0) sec INR 1.3 H (<1.2) Chloride 112 H (98-107) mmol/L Carbon Dioxide 21 L (22-30) mmol/L BUN 32 H (7-17) mg/dL Creatinine 1.52 H (0.52-1.04) mg/dL Glucose 63 L (74-99) mg/dL POC Glucose (mg/dL) 182 H (75-99) mg/dL 01/16/20 Range/Units 07:06 RBC 2.83 L (3.80-5.40) m/uL Hgb 8.3 L (11.4-16.0) gm/dL Hct 25.9 L (34.0-46.0) % PT (9.0-12.0) sec INR (<1.2) Chloride (98-107) mmol/L Carbon Dioxide (22-30) mmol/L BUN (7-17) mg/dL Creatinine (0.52-1.04) mg/dL Glucose (74-99) mg/dL POC Glucose (mg/dL) (75-99) mg/dL Microbiology - Last 24 Hours (Table) 01/13/20 12:10 Gram Stain - Final Leg - Right Wound Culture - Final Pseudomonas aeruginosa Methicillin resist S. aureus 01/10/20 16:04 Blood Culture - Preliminary Blood No Growth after 120 hours Assessment and Plan Plan: Assessment and plan: 1. Right above knee amputation stump cellulitis with possible abscess. Continue IV cefepime 2 g IV piggyback every 24 hours, culture positive for MRSA and Proteus mirabilis and Pseudomonas fluorescens, patient is status post I&D of the right stump. Post PICC line placement patient is ready to be transferred to extended care facility tomorrow morning. 2. Urinary tract infection with sepsis. Continue IV antibiotic in the form of cefepime, urine culture showed Proteus mirabilis and Citrobacter werkmanii. 3. Acute kidney injury and top of chronic kidney disease stage III. We will Hep-Lock IV. 4. Hypertension and hypertensive cardiovascular disease. We will continue patient on metoprolol 100 mg orally twice every day, losartan 50 mg orally twice every day, hydralazine 100 mg orally 3 times every day. 5. Hyperlipidemia. Continue patient on pravastatin 80 mg at bedtime. 6. Diabetes mellitus type 2 into the patient on Levemir 25 units at bedtime along with Humalog 10 units before each meal along with a sliding scale insulin, continue consistent carbohydrate diet, continue with BGM before each meal and at bedtime we will hold her diabetic medication just before surgery and resume after that. 7. Hypothyroidism. Continue patient on Synthroid 50 g orally once every day. 8. Proximal atrial fibrillation. Continue patient on metoprolol 100 mg orally twice every day as well as Coumadin will be resumed this evening she will be getting 4 milligram at night and will repeat another dose tomorrow night and they were going to 2 milligram every night every that. Meanwhile we will bridge with Lovenox. 9. ALLERGIC rhinitis. Continue Claritin 10 mg orally once every day as well as Flonase nasal spray 1 puff in each nostril twice every day. 10. Severe peripheral arterial occlusive disease status post right above-knee amputation. Continue aspirin and pravastatin for secondary prevention. 11. Iron deficiency anemia. Continue iron 325 mg orally once every day monitor the patient hemoglobin. 12. Vitamin D deficiency. Continue patient on vitamin D supplement. 13. DVT prophylaxis. Currently on Coumadin keep her INR between 2-3. 14. GI prophylaxis. Protonix 40 mg orally once every day. 15. Plan is to transfer the patient back to [facility] on Friday.
[2020-01-16] MEDS ORDERED: VANCOMYCIN 1,500 MG in SODIUM CHLORIDE 0.9% 250 ML IVPB ONE (14:00)
--- NOTE | 2020-01-16 14:03 | P.PN ---
Subjective Progress Note Date: 01/16/20 Follow-up for acute kidney injury. Objective - Vital Signs Vital signs: Vital Signs Temp 98.4 F 01/16/20 06:48 Pulse 87 01/16/20 06:48 Resp 16 01/16/20 06:48 BP 172/76 01/16/20 06:48 Pulse Ox 100 01/16/20 06:48 Intake & Output 01/15/20 01/16/20 01/16/20 18:59 06:59 18:59 Intake Total 240 220 240 Output Total 650 625 Balance -410 -405 240 Intake: Intake, IV Titration 220 Amount Cefepime 2 gm In Sodium 100 Chloride 0.9% 100 ml @ 200 mls/hr IVPB Q24H [facility] Rx#:[id number] Sodium Chloride 0.9% 1, 120 000 ml @ 75 mls/hr IV . [id number] [facility] Rx#:[id number] Oral 240 240 Output: Urine 650 625 Uretheral (Weeks) 625 Other: Voiding Method Indwelling Catheter Indwelling Catheter Indwelling Catheter # Voids 1 - Exam No acute distress S1-S2 heard Lungs clear Abdomen soft Right AKA. - Labs CBC & Chem 7: 01/16/20 07:06 01/16/20 07:06 Labs: Abnormal Lab Results - Last 24 Hours (Table) 01/15/20 01/15/20 01/16/20 Range/Units 16:24 21:21 06:55 RBC (3.80-5.40) m/uL Hgb (11.4-16.0) gm/dL Hct (34.0-46.0) % PT (9.0-12.0) sec INR (<1.2) Chloride (98-107) mmol/L Carbon Dioxide (22-30) mmol/L BUN (7-17) mg/dL Creatinine (0.52-1.04) mg/dL Glucose (74-99) mg/dL POC Glucose (mg/dL) 146 H 199 H 182 H (75-99) mg/dL 01/16/20 01/16/20 01/16/20 Range/Units 07:06 07:06 07:06 RBC 2.83 L (3.80-5.40) m/uL Hgb 8.3 L (11.4-16.0) gm/dL Hct 25.9 L (34.0-46.0) % PT 13.3 H (9.0-12.0) sec INR 1.3 H (<1.2) Chloride 112 H (98-107) mmol/L Carbon Dioxide 21 L (22-30) mmol/L BUN 32 H (7-17) mg/dL Creatinine 1.52 H (0.52-1.04) mg/dL Glucose 63 L (74-99) mg/dL POC Glucose (mg/dL) (75-99) mg/dL 01/16/20 Range/Units 11:32 RBC (3.80-5.40) m/uL Hgb (11.4-16.0) gm/dL Hct (34.0-46.0) % PT (9.0-12.0) sec INR (<1.2) Chloride (98-107) mmol/L Carbon Dioxide (22-30) mmol/L BUN (7-17) mg/dL Creatinine (0.52-1.04) mg/dL Glucose (74-99) mg/dL POC Glucose (mg/dL) 114 H (75-99) mg/dL Microbiology - Last 24 Hours (Table) 01/13/20 12:10 Gram Stain - Final Leg - Right Wound Culture - Final Pseudomonas aeruginosa Methicillin resist S. aureus 01/10/20 16:04 Blood Culture - Preliminary Blood No Growth after 120 hours Assessment and Plan Assessment: #1 nonoliguric acute kidney injury secondary to septic ATN. 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 #3 right AKA status post stump infection #4 hypertension with chronic kidney disease #5 diabetes #6 atrial fibrillation #7" vancomycin toxicity with level of 24, Repeat levels are 18. Plan: #1 encourage Oral intake, creatinine currently stable at baseline. #2 antibiotics as per infectious disease. Keep Vanco trough level less than 20 #3 avoid nephrotoxic agents and hypotensive episodes.
[2020-01-16 16:57] LABS: Glucose,Whole Blood 115 mg/dL (75-99)
[2020-01-16] MEDS: LINAGLIPTIN 5 MG TABLET PO SCH (17:22)
[2020-01-16] MEDS: MULTIVITAMINS, THERA 1 EACH TAB PO SCH (17:22)
[2020-01-16] MEDS: PRAVASTATIN SODIUM 80 MG TAB PO SCH (17:22)
[2020-01-16] MEDS: WARFARIN 2 MG TAB PO SCH (17:23)
[2020-01-16] MEDS: INSULIN DETEMIR (LEVEMIR) 100 UNIT/ML SYR SQ SCH (17:25)
[2020-01-16 20:22] LABS: Glucose,Whole Blood 166 mg/dL (75-99)
[2020-01-16] MEDS: CEFEPIME 2 GM in SODIUM CHLORIDE 0.9% 100 ML IVPB SCH (20:51)
--- NOTE | 2020-01-17 01:41 | PN ---
PROGRESS NOTE DATE OF SERVICE: 01/16/2020 REASON FOR FOLLOWUP: Right AKA stump wound infection. INTERVAL HISTORY: The patient is currently afebrile. Patient is breathing comfortably. The patient denies having any chest pain, shortness of breath or cough. No nausea, no vomiting, or any worsening pain to the right AKA stump. PHYSICAL EXAMINATION: Blood pressure 174/60 with a pulse of 84, temperature 98. She is 100% on room air. General description is an elderly female lying in bed in no distress. RESPIRATORY SYSTEM: Unlabored breathing, clear to auscultation anteriorly. HEART: S1, S2. Regular rate and rhythm. ABDOMEN: Soft, no tenderness. Right AKA stump is currently dressed. No obvious drainage on the dressing. LABS: Hemoglobin 8.3, white count 9.1. BUN of 32, creatinine 1.52. DIAGNOSTIC IMPRESSION AND PLAN: Patient with right above knee stump wound infection status post debridement. Culture with Pseudomonas and MRSA. The patient at this time is covered with vancomycin and cefepime to to continue for 2 weeks. Local wound care with wet-to-dry dressing, which can be switched to wound VAC on discharge to custodial. Continue with supportive care. MMODL / IJN: [id number] /
[2020-01-17] MEDS: LEVOTHYROXINE 50 MCG TAB PO SCH (05:36)
[2020-01-17 07:30] LABS: Glucose,Whole Blood 56 mg/dL (75-99)
[2020-01-17] MEDS: INSULIN ASPART (NovoLOG) 100 UNIT/ML VIAL SQ SCH ×6 (07:38→16:51)
[2020-01-17] MEDS: hydrALAZINE HCL 50 MG TAB PO SCH ×2 (07:39→16:50)
[2020-01-17] MEDS: ENOXAPARIN 80 MG/0.8 ML SYRINGE SQ SCH (07:39)
[2020-01-17] MEDS: ASPIRIN 81 MG PO SCH (07:40)
[2020-01-17] MEDS: SENNOSIDES-DOCUSATE SODIUM 1 EACH TAB PO SCH (07:40)
[2020-01-17] MEDS: LOSARTAN 50 MG TAB PO SCH (07:40)
[2020-01-17] MEDS: FERROUS SULFATE 325 MG TAB PO SCH (07:40)
[2020-01-17] MEDS: LORATADINE 10 MG TAB PO SCH (07:40)
[2020-01-17] MEDS: METOPROLOL TARTRATE 50 MG TAB PO SCH (07:40)
[2020-01-17] MEDS: SODIUM BICARBONATE TAB 650 MG TAB PO SCH (07:40)
[2020-01-17] MEDS: CHOLECALCIFEROL 1,000 UNIT TAB PO SCH (07:40)
[2020-01-17] MEDS: FLUTICASONE 50MCG/SPRAY NASAL 16GM EA NOSTRIL SCH (07:41)
[2020-01-17] MEDS: SODIUM CHLORIDE 5% OPHTH DROPS 15 ML BTL BOTH EYES SCH (07:41)
[2020-01-17 07:51] LABS: Glucose,Whole Blood 60 mg/dL (75-99)
[2020-01-17 08:00] LABS: Glucose,Whole Blood 86 mg/dL (75-99)
[2020-01-17] MEDS ORDERED: MAGNESIUM HYDROXIDE 2,400 MG/10 ML CUP PO PRN (08:18)
[2020-01-17] MEDS ORDERED: BISACODYL 10 MG SUPP RECTAL STA (08:18)
--- NOTE | 2020-01-17 08:20 | P.DS ---
Providers Date of admission: 01/10/20 17:54 Expected date of discharge: 01/17/20 Attending physician: Jeanne Mendoza Consults: 01/10/20 18:18 Consult Physician Stat Consulting Provider: Shruthi Weeks Consult Reason/Comments: right lower extremity infection s/p amputation Do you want consulting provider notified?: Yes 01/10/20 18:52 Consult Physician Stat Consulting Provider: Brennan Elizaebth Consult Reason/Comments: LLE infection hx pseudomonas Do you want consulting provider notified?: Yes 01/14/20 13:10 Consult Physician Routine Consulting Provider: Dalton Fernandez Consult Reason/Comments: PICC placement. low GFR. Need Clearance and arm choice Do you want consulting provider notified?: Yes 01/14/20 13:12 Consult Physician Routine Consulting Provider: Dalton Fernandez Consult Reason/Comments: ALEA, PICC insertion Do you want consulting provider notified?: Yes Primary care physician: Jeanne Mendoza [facility] Course: This is an 84-year-old pleasant female followed by me at [facility] known history of diabetes mellitus type 2 requiring insulin, with PAD and other complications peripheral neuropathy hypertension, hypothyroidism atrial fibrillation, PAD, chronic gangrene/chronic ulcer diabetic foot ulcers right heel at least since October 2018, admitted to [facility] back in 04/02/2019 where she ended up going for right above the knee amputation and she has done marvelously well after surgery and she was sent back to the [facility] care facility has been doing fine up until 2 days ago when she developed to have a significant redness and increased drainage from the bottom of the right stump, I received a call from the nursing staff stated that the patient has fever and chills her Weeks catheter was cloudy and she was having some bloody pussy drainage from the stump he was recommended for the patient be transferred to the emergency department at [facility] where she was seen and evaluated by an x-ray that did not show any evidence of possible myelitis however because of the presentation she was admitted to the hospital she was started on IV antibiotic in the form of Zosyn and vancomycin and blood cultures and the culture from the stump was obtained, infectious disease consultation was obtained as well as vascular surgery consultation, patient would be kept in the hospital until the final result of the culture is back in until after surgical intervention with I&D to the stump. 01/11: Patient sitting up in bed in no apparent distress she denies any chest pain, shortness breath, she has not slept well last night, she is scheduled to go for I&D of right stump due to abscess, she is maintained on IV anabiotic in the form of Zosyn and vancomycin was discontinued per infectious disease, blood cultures so far no growth urine culture did show gram-negative bacilli and the preliminary wound culture showed gram-positive cocci and gram-negative bacilli with a few polymorphonuclear leukocytes, patient will be switched to D5 normal saline at 75 mL an hour and we'll hold her diabetic medication as her blood glucose level in the morning was about 70, she will be taking her oral antihypertensive medications with a few sips of water. 01/12: Patient is sitting up in bed in no apparent distress she denies any chest pain, shortness breath, she has no abdominal pain, she has slept well last night, she is ready to go for her surgery today for I&D of the right stump abscess, she has not had any fever last night. 01/13: Yesterday, patient underwent debridement of the right above-knee amputation site with Dr. Weeks. She has had no postprocedure complications. Cultures positive for MRSA, Proteus mirabilis and Pseudomonas, urine culture positive for Proteus mirabilis and Citrobacter werkmanii. Antibiotics were adjusted by Dr. Elizabeth to cefepime and vancomycin. Patient has been afebrile, heart rate 89, blood pressure 141/68, pulse ox 97% on room air. Repeat blood work revealed WBC 8.4, hemoglobin 7.5. Platelet count 256. Sodium 140, potassium 4.5, chloride 115, CO2 17, BUN 40 creatinine 1.57. Blood sugars are running between 67 and 187. INR is 1.1 and patient will be resumed back on Coumadin tonight. Anticipate need for PICC line placement will be requested today while patient has subtherapeutic INR. Anticipate discharge back to [facility] [place] on Friday. 01/14: Patient is sitting up in bed in no apparent distress she denies any chest pain, shortness breath, she has no abdominal pain, nausea or vomiting, she did receive her PICC line in the right upper extremity yesterday, urine culture was positive for on Citrobacter as well as Proteus mirabilis, wound cultures positive for MRSA as well as pseudomonas Pituda, she will be maintained on vancomycin and cefepime, she will be kept in the hospital for another 24 hours and she will be transferred back to the [facility] care [facility] Friday. 01/15: Patient is laying down in bed in no apparent distress, she denies any c hest pain, she doesn't appear to be in acute shortness of breath, she has no abdominal pain, she has not had a bowel movement, she has no acute complaint, she likely be discharged back to the extended care facility tomorrow morning. 01/16: Patient continues to do well. She denies any chest pain or shortness of breath. Patient has been afebrile, heart rate 86, blood pressure 136/72, pulse ox 90% on room air. Wound cultures positive for Pseudomonas and MRSA and Dr. Elizabeth recommends 2 weeks of vancomycin and cefepime. PICC line was inserted on Friday. Local wound care with wet-to-dry dressing which can be switched to a Pleur-evac and discharged to correction. Repeat lab work reveals INR 1.6, BUN 29 creatinine 1.44. Hemoglobin 8.5. Patient will be discharged to correction on Lovenox and Coumadin until INR is therapeutic. Patient will be discharged once all arrangements are completed. Discharge Diagnoses: 1. Right above knee amputation stump cellulitis with amputation site abscess. 2. Urinary tract infection with sepsis. Continue IV antibiotic in the form of cefepime, urine culture showed Proteus mirabilis and Citrobacter werkmanii. 3. Acute kidney injury and top of chronic kidney disease stage III. 4. Hypertension and hypertensive cardiovascular disease. 5. Hyperlipidemia. 6. Diabetes mellitus type 2 . 7. Hypothyroidism. 8. Proximal atrial fibrillation. 9. ALLERGIC rhinitis. 10. Severe peripheral arterial occlusive disease status post right above-knee amputation. 11. Iron deficiency anemia. 12. Vitamin D deficiency. Discharge plan: Return to [facility] Patient Condition at Discharge: Good Plan - Discharge Summary Discharge Rx Participant: No New Discharge Prescriptions: New Magnesium Hydroxide [Milk of Magnesia Concentrate] 2,400 mg PO ONCE PRN ml PRN Reason: Constipation Sodium Bicarbonate Tab 650 mg PO BID tab Cefepime HCl [Maxipime] 2 gm IVPB Q24H #14 vial Vancomycin 1,000 mg IVPB Q24HR #14 bag Warfarin [Coumadin] 2 mg PO DAILY@1800 tab Continue Aspirin 81 mg PO DAILY Pravastatin Sodium [Pravachol] 80 mg PO DAILY@1800 Levothyroxine Sodium [Synthroid] 50 mcg PO QAM Sennosides-Docusate Sodium [Senokot-S] 1 tab PO DAILY Sodium Chloride 5% Ophth Soln [Hari 128] 1 drop BOTH EYES BID Multivitamins, Thera [Multivitamin (formulary)] 1 tab PO DAILY@1800 hydrALAZINE HCL [Apresoline] 100 mg PO TID Metoprolol Tartrate [Lopressor] 100 mg PO BID sitaGLIPtin PHOSPHATE [Januvia] 50 mg PO DAILY@1800 Cranberry 450mg 450 mg PO DAILY Cholecalciferol (Vitamin D3) [Vitamin D3] 2,000 unit PO DAILY Fluticasone Nasal [place] [Flonase Nasal [place]] 1 spr EA NOSTRIL DAILY Ferrous Sulfate [Feosol] 325 mg PO DAILY Loratadine [Claritin] 10 mg PO DAILY Insulin Lispro [humaLOG Kwikpen] See Protocol SQ ACHS Insulin Lispro [humaLOG Kwikpen] 10 unit SQ AC-TID Losartan Potassium 50 mg PO BID Insulin Glargine [Lantus] 25 unit SQ DAILY@1800 Acetaminophen [Tylenol Arthritis] 650 mg PO Q6H PRN PRN Reason: Pain Discontinued Spironolactone [Aldactone] 12.5 mg PO DAILY Warfarin [Coumadin] 4 mg PO DAILY@1800 tab Discharge Medication List Aspirin 81 mg PO DAILY 09/11/15 [History] Levothyroxine Sodium [Synthroid] 50 mcg PO QAM 09/11/15 [History] Pravastatin Sodium [Pravachol] 80 mg PO DAILY@1800 09/11/15 [History] Sennosides-Docusate Sodium [Senokot-S] 1 tab PO DAILY 06/16/17 [History] Multivitamins, Thera [Multivitamin (formulary)] 1 tab PO DAILY@1800 05/04/18 [History] Sodium Chloride 5% Ophth Soln [Hari 128] 1 drop BOTH EYES BID 05/04/18 [History] Cranberry 450mg 450 mg PO DAILY 10/13/18 [History] Metoprolol Tartrate [Lopressor] 100 mg PO BID 10/13/18 [History] hydrALAZINE HCL [Apresoline] 100 mg PO TID 10/13/18 [History] sitaGLIPtin PHOSPHATE [Januvia] 50 mg PO DAILY@1800 10/13/18 [History] Cholecalciferol (Vitamin D3) [Vitamin D3] 2,000 unit PO DAILY 03/31/19 [History] Ferrous Sulfate [Feosol] 325 mg PO DAILY 03/31/19 [History] Fluticasone Nasal [place] [Flonase Nasal [place]] 1 spr EA NOSTRIL DAILY 03/31/19 [History] Loratadine [Claritin] 10 mg PO DAILY 03/31/19 [History] Acetaminophen [Tylenol Arthritis] 650 mg PO Q6H PRN 01/10/20 [History] Insulin Glargine [Lantus] 25 unit SQ DAILY@1800 01/10/20 [History] Insulin Lispro [humaLOG Kwikpen] 10 unit SQ AC-TID 01/10/20 [History] Insulin Lispro [humaLOG Kwikpen] See Protocol SQ ACHS 01/10/20 [History] Losartan Potassium 50 mg PO BID 01/10/20 [History] Cefepime HCl [Maxipime] 2 gm IVPB Q24H #14 vial 01/17/20 [Rx] Magnesium Hydroxide [Milk of Magnesia Concentrate] 2,400 mg PO ONCE PRN ml 01/17/20 [Rx] Sodium Bicarbonate Tab 650 mg PO BID tab 01/17/20 [Rx] Vancomycin 1,000 mg IVPB Q24HR #14 bag 01/17/20 [Rx] Warfarin [Coumadin] 2 mg PO DAILY@1800 tab 01/17/20 [Rx] Follow up Appointment(s)/Referral(s): Jeanne Mendoza MD [Primary Care Provider] - 1-2 days (at [facility]) Shruthi Weeks DO [STAFF PHYSICIAN] - 02/02/20 10:30 am (1-2 weeks [facility] ) Dalton Fernandez DO [STAFF PHYSICIAN] - 02/08/20 11:20 am Ambulatory/Diagnostic Orders: Basic Metabolic Panel [LAB.AMB] Location: None Selected Complete Blood Count w/diff [LAB.AMB] Location: None Selected Prothrombin Time INR [LAB.AMB] Location: None Selected Activity/Diet/Wound Care/Special Instructions: Wound Vac Discharge Disposition: TRANSFER TO SNF/ECF
[2020-01-17 08:30] VITALS: TEMP 98.3
[2020-01-17 09:12] LABS: INR 1.6 (<1.2); Prothrombin Time 15.7 sec (9.0-12.0)
[2020-01-17 09:22] LABS: Calcium 9.2 mg/dL (8.4-10.2); Potassium 3.7 mmol/L (3.5-5.1)
[2020-01-17 09:29] LABS: Basophils # (A) 0.1 k/uL (0-0.2); Basophils % (A) 1 %; Eosinophils # (A) 0.6 k/uL (0-0.7); Eosinophils % (A) 6 %; HCT 26.6 % (34.0-46.0); HGB 8.5 gm/dL (11.4-16.0); Hypochromasia Slight; Lymphocytes # (A) 1.8 k/uL (1.0-4.8); Lymphocytes % (A) 19 %; MCHC 31.9 g/dL (31.0-37.0); MCV 90.9 fL (80.0-100.0); Mean Platelet Volume 8.3; Monocytes # (A) 0.9 k/uL (0-1.0); Monocytes % (A) 9 %; Neutrophils # (A) 6.1 k/uL (1.3-7.7); Neutrophils % (A) 64 %; Platelet Count 297 k/uL (150-450); RBC 2.93 m/uL (3.80-5.40); RDW 14.6 % (11.5-15.5); WBC 9.6 k/uL (3.8-10.6)
[2020-01-17 11:41] LABS: Glucose,Whole Blood 175 mg/dL (75-99)
[2020-01-17] MEDS: DEXTROSE 5%-0.9% NACL 1,000 ML IV SCH (11:48)
[2020-01-17] MEDS: SODIUM CHLORIDE 0.9% 1,000 ML IV SCH (12:03)
[2020-01-17] MEDS: LACTATED RINGERS 1,000 ML IV SCH (14:53)
[2020-01-17 15:14] VITALS: BP 145/72; PULSE 76; RESP 17
[2020-01-17 16:35] LABS: Glucose,Whole Blood 98 mg/dL (75-99)
[2020-01-17] MEDS: PRAVASTATIN SODIUM 80 MG TAB PO SCH (16:50)
[2020-01-17] MEDS: MULTIVITAMINS, THERA 1 EACH TAB PO SCH (16:50)
[2020-01-17] MEDS: LINAGLIPTIN 5 MG TABLET PO SCH (16:50)
--- NOTE | 2020-01-17 17:18 | PN ---
PROGRESS NOTE DATE OF SERVICE: 01/17/2020. REASON FOR FOLLOWUP: Right AKA stump wound infection pneumonia, MRSA. INTERVAL HISTORY: The patient is currently afebrile, she is breathing comfortably. No distress. No chest pain, no cough. No abdominal pain. PHYSICAL EXAMINATION: Blood pressure 146/72 with a pulse of 86, temperature 98.3, she is 98% on room air. General description is an elderly female, up in the bed in no distress. RESPIRATORY SYSTEM: Unlabored breathing, clear to auscultation anteriorly. HEART: S1, S2. Regular rate and rhythm. ABDOMEN: Soft, no tenderness. EXTREMITIES: No edema, no swelling. LABS: White count 9.7, BUN of 29, creatinine 1.44. DIAGNOSTIC IMPRESSION AND PLAN: Patient with right AK stump wound infection with Pseudomonas and MRSA for about two weeks, covered with IV vancomycin and cefepime. Local care with wound VAC. Continue supportive care. MMODL / IJN: [id number] /
[2020-01-17] MEDS: INSULIN DETEMIR (LEVEMIR) 100 UNIT/ML SYR SQ SCH (17:44)
[2020-01-17] MEDS ORDERED: WARFARIN 2 MG TAB PO SCH (18:00)
--- NOTE | 2020-01-17 18:08 | PN ---
PROGRESS NOTE Patient is seen for followup for acute kidney injury. Renal function is improving creatinine down to 1.4 from 1.9 on initial admission. Previous creatinine has been as high as 2.5 in October of 2019. The patient is currently maintained on D5 0.9 at 75 mL an hour. He has an indwelling Weeks catheter with 24 hour urine output at about 3 L. PHYSICAL EXAMINATION: On examination today, blood pressure 146/72, heart rate 86 per minute. He is afebrile. Examination of the heart S1, S2. Examination of the lungs, bilateral breath sounds are heard. Abdomen is soft, nontender. Examination of lower extremities shows no significant edema. LABS: Show sodium 138, potassium 3.7, chloride 109 BUN 29, creatinine 1.4. ASSESSMENT: 1. Acute kidney injury, acute tubular necrosis, currently improving. 2. Urinary tract infection, maintained on antibiotics. 3. Chronic kidney disease with previous creatinine 1.5 secondary to diabetic nephropathy. The patient has had previous episodes of acute kidney injury in October of 2019. 4. Right above knee amputation with stump infection maintained on Cefepime. 5. Vancomycin toxicity, currently improved. 6. Metabolic acidosis maintained on oral sodium bicarb which I will decrease. PLAN: Encourage increased oral intake. Continue antibiotics. Decrease oral sodium bicarb tomorrow. MMODL / IJN: [id number] /
== END 2020-01-17 18:08 | DRG 498 ==
LOC: EC 15:40 → 4SSUR 17:54
PROVIDERS: ADMIT Internal Medicine; ATTEND Internal Medicine
PROC: 0QBB0ZZ Excision of Right Lower Femur, Open Approach (ICD-10-PCS; principal; 2020-01-13 12:00)
PROC: 02HV33Z Insertion of Infusion Device into Superior Vena Cava, Percutaneous Approach (ICD-10-PCS; 2020-01-14)
DX: T87.43 Infection of amputation stump, right lower extremity (principal); A41.9 Sepsis, unspecified organism; N17.0 Acute kidney failure with tubular necrosis; T83.511A Infection and inflammatory reaction due to indwelling urethral catheter, initial encounter; N39.0 Urinary tract infection, site not specified; L03.115 Cellulitis of right lower limb; E87.2 Acidosis; E03.9 Hypothyroidism, unspecified; E78.5 Hyperlipidemia, unspecified; I13.10 Hypertensive heart and chronic kidney disease without heart failure, with stage 1 through stage 4 chronic kidney disease, or unspecified chronic kidney disease; E11.51 Type 2 diabetes mellitus with diabetic peripheral angiopathy without gangrene; E11.22 Type 2 diabetes mellitus with diabetic chronic kidney disease; H91.90 Unspecified hearing loss, unspecified ear; M19.042 Primary osteoarthritis, left hand; M19.041 Primary osteoarthritis, right hand; J30.9 Allergic rhinitis, unspecified; D50.9 Iron deficiency anemia, unspecified; N18.3 Chronic kidney disease, stage 3 (moderate); B96.89 Other specified bacterial agents as the cause of diseases classified elsewhere; Z11.59 Encounter for screening for other viral diseases; I48.0 Paroxysmal atrial fibrillation; B96.4 Proteus (mirabilis) (morganii) as the cause of diseases classified elsewhere; T36.8X5A Adverse effect of other systemic antibiotics, initial encounter; E55.9 Vitamin D deficiency, unspecified; B96.5 Pseudomonas (aeruginosa) (mallei) (pseudomallei) as the cause of diseases classified elsewhere; Y83.5 Amputation of limb(s) as the cause of abnormal reaction of the patient, or of later complication, without mention of misadventure at the time of the procedure; Z79.899 Other long term (current) drug therapy; Z79.890 Hormone replacement therapy; Z79.82 Long term (current) use of aspirin; Z79.4 Long term (current) use of insulin; Z79.01 Long term (current) use of anticoagulants; Z90.710 Acquired absence of both cervix and uterus; Z98.42 Cataract extraction status, left eye; Z98.41 Cataract extraction status, right eye; Z98.890 Other specified postprocedural states; Z90.89 Acquired absence of other organs; Z82.49 Family history of ischemic heart disease and other diseases of the circulatory system; Z82.3 Family history of stroke; Z86.19 Personal history of other infectious and parasitic diseases; Z99.3 Dependence on wheelchair; Z87.440 Personal history of urinary (tract) infections; Z85.41 Personal history of malignant neoplasm of cervix uteri; Z86.14 Personal history of Methicillin resistant Staphylococcus aureus infection
CPT/HCPCS: 36415; 36573; 51702; 80048; 80053; 80202; 81001; 83605; 85025; 85610; 85652; 85730; 86140; 87040; 87070; 87075; 87077; 87086; 87186; 87205; 93005; 96365; 96367; 99285

== ENCOUNTER 2020-08-05 20:07 | Emergency (ER) | payer MEDICARE, BC, OTHER ==
[2020-08-05] MEDS ORDERED: KETOROLAC 15 MG/ML 1 ML VIAL IVP STA (20:31)
[2020-08-05 20:33] VITALS: RESP 18; TEMP 98.6
[2020-08-05] MEDS ORDERED: valACYclovir HCL 1,000 MG TABLET PO STA (20:33)
[2020-08-05] MEDS ORDERED: ZINC OXIDE 20% OINT 28.4 GM TUBE TOPICAL STA (20:33)
[2020-08-05] MEDS ORDERED: GABAPENTIN 300 MG CAP PO STA (20:34)
--- NOTE | 2020-08-05 20:48 | ED ---
General Adult HPI - General Chief complaint: Skin/Abscess/Foreign Body Stated complaint: rash Time Seen by Provider: 08/05/20 20:10 Source: patient, EMS, RN notes reviewed Mode of arrival: EMS Limitations: no limitations - History of Present Illness Initial comments: 85-year-old female with a past medical history of atrial fibrillation, diabetes mellitus, hyperlipidemia, hypertension presents to the emergency room for a chief complaint of rash and pain. Apparently patient has had a rash on the left hip and back for over a week now. Patient has had increased pain in the past day. She is refusing turns because of this pain. Nurse reports that when patient arrives she had to soak off a dry dressing and the patient had breakdown under this. Steroid cream was being applied to area of breakdown at [facility]. Patient has not had any fevers. She does not have any other pain aside from the rash.Patient has no other complaints at this time including shortness of breath, chest pain, abdominal pain, nausea or vomiting, headache, or visual changes. - Related Data Home Medications Medication Instructions Recorded Confirmed Aspirin 81 mg PO DAILY 09/11/15 01/10/20 Levothyroxine Sodium [Synthroid] 50 mcg PO QAM 09/11/15 01/10/20 Pravastatin Sodium [Pravachol] 80 mg PO DAILY@1800 09/11/15 01/10/20 Sennosides-Docusate Sodium 1 tab PO DAILY 06/16/17 01/10/20 [Senokot-S] Multivitamins, Thera [Multivitamin 1 tab PO DAILY@1800 05/04/18 01/10/20 (formulary)] Sodium Chloride 5% Ophth Soln 1 drop BOTH EYES BID 05/04/18 01/10/20 [Hari 128] Cranberry 450mg 450 mg PO DAILY 10/13/18 01/10/20 Metoprolol Tartrate [Lopressor] 100 mg PO BID 10/13/18 01/10/20 hydrALAZINE HCL [Apresoline] 100 mg PO TID 10/13/18 01/10/20 sitaGLIPtin PHOSPHATE [Januvia] 50 mg PO DAILY@1800 10/13/18 01/10/20 Cholecalciferol (Vitamin D3) 2,000 unit PO DAILY 03/31/19 01/10/20 [Vitamin D3] Ferrous Sulfate [Feosol] 325 mg PO DAILY 03/31/19 01/10/20 Fluticasone Nasal [place] [Flonase 1 spr EA NOSTRIL DAILY 03/31/19 01/10/20 Nasal [place]] Loratadine [Claritin] 10 mg PO DAILY 03/31/19 01/10/20 Acetaminophen [Tylenol Arthritis] 650 mg PO Q6H PRN 01/10/20 01/10/20 Insulin Glargine [Lantus] 25 unit SQ DAILY@1800 01/10/20 01/10/20 Insulin Lispro [humaLOG Kwikpen] 10 unit SQ AC-TID 01/10/20 01/10/20 Insulin Lispro [humaLOG Kwikpen] See Protocol SQ ACHS 01/10/20 01/10/20 Losartan Potassium 50 mg PO BID 01/10/20 01/10/20 Previous Rx's Medication Instructions Recorded Cefepime HCl [Maxipime] 2 gm IVPB Q24H #14 vial 01/17/20 Magnesium Hydroxide [Milk of 2,400 mg PO ONCE PRN ml 01/17/20 Magnesia Concentrate] Sodium Bicarbonate Tab 650 mg PO BID tab 01/17/20 Vancomycin 1,000 mg IVPB Q24HR #14 bag 01/17/20 Warfarin [Coumadin] 2 mg PO DAILY@1800 tab 01/17/20 Cephalexin [Keflex] 500 mg PO BID 7 Days #14 cap 08/05/20 Gabapentin 300 mg PO TID 3 Days #9 cap 08/05/20 HYDROcodone/APAP 5-325MG [[place] 1 tab PO Q6HR PRN #10 tab 08/05/20 5-325] valACYclovir HCL [Valtrex] 1,000 mg PO Q8HR #21 tab 08/05/20 Allergies Allergy/AdvReac Type Severity Reaction Status Date / Time No Known Allergies Allergy Verified 08/05/20 21:32 Review of Systems ROS Statement: Those systems with pertinent positive or pertinent negative responses have been documented in the HPI. ROS Other: All systems not noted in ROS Statement are negative. Past Medical History Past Medical History: Atrial Fibrillation, Diabetes Mellitus, Hyperlipidemia, Hypertension, Thyroid Disorder Additional Past Medical History / Comment(s): peripheral neuropathy, UTIs, urinary incontinence, OA bilateral hands and back, PVD, cervical cancer History of Any Multi-Drug Resistant Organisms: ESBL, MRSA Date of last positivie culture/infection: 9/11/20-MRSA; 07/25/17 ESBL-E.coli MDRO Source:: LEG-MRSA; ESBL Urine Past Surgical History: Hysterectomy, Tonsillectomy Additional Past Surgical History / Comment(s): R leg bypass surgery, bilateral cataract removal Past Anesthesia/Blood Transfusion Reactions: No Reported Reaction Past Psychological History: No Psychological Hx Reported Smoking Status: Never smoker Past Alcohol Use History: None Reported Past Drug Use History: None Reported - Past Family History Mother Family Medical History: CVA/TIA Additional Family Medical History / Comment(s): Mother in her 70's. Father Family Medical History: Hypertension Additional Family Medical History / Comment(s): Father in his 70's. General Exam Limitations: no limitations General appearance: alert, in no apparent distress Head exam: Present: atraumatic, normocephalic, normal inspection Eye exam: Present: normal appearance, PERRL, EOMI. Absent: scleral icterus, conjunctival injection, periorbital swelling ENT exam: Present: normal exam, mucous membranes moist Neck exam: Present: normal inspection, full ROM. Absent: tenderness, meningismus, lymphadenopathy Respiratory exam: Present: normal lung sounds bilaterally. Absent: respiratory distress, wheezes, rales, rhonchi, stridor Cardiovascular Exam: Present: regular rate, normal rhythm, normal heart sounds. Absent: systolic murmur, diastolic murmur, rubs, gallop, clicks GI/Abdominal exam: Present: soft, normal bowel sounds. Absent: distended, tenderness, guarding, rebound, rigid Back exam: Present: other (Patient has erythematous macular lesions noted in the lower left back extending around to the left hip in 1 dermatome but not crossing the midline. Dry crusts noted. On patient's sacral area there is an area of skin breakdown 5 cm x 5 cm. No evidence of cellulitis or infection at this time. ) Course Vital Signs 08/05/20 20:29 Temperature 98.6 F Pulse Rate 96 Respiratory 18 Rate Blood Pressure 138/72 O2 Sat by Pulse 100 Oximetry Medical Decision Making - Medical Decision Making HPI and physical exam as documented. Dry gauze was soaked off. Wet gauze was applied. Patient was ordered a barrier cream. She'll be started on Valtrex and gabapentin as this is likely shingles given it is presenting in 1 dermatome and is consistent with a shingles rash. She will also be started on [place] for pain as she is only taking Tylenol at the [facility]. Patient was given 100 micrograms of fentanyl in EMS and 15 minutes of Toradol here in the emergency room for pain control. Disposition Clinical Impression: Shingles, Skin breakdown Disposition: HOME SELF-CARE Condition: Good Instructions (If sedation given, give patient instructions): Shingles (ED), How to Prevent Pressure Injuries (ED) Additional Instructions: Please give [place] for pain. Please give Valtrex and gabapentin as directed and turn patient frequently. Give antibiotic to prevent infection of this wound. Return to the emergency room for worsening symptoms or fevers. Prescriptions: Gabapentin 300 mg PO TID 3 Days #9 cap Cephalexin [Keflex] 500 mg PO BID 7 Days #14 cap HYDROcodone/APAP 5-325MG [[place] 5-325] 1 tab PO Q6HR PRN #10 tab PRN Reason: Pain valACYclovir HCL [Valtrex] 1,000 mg PO Q8HR #21 tab Is patient prescribed a controlled substance at d/c from ED?: No Referrals: Jeanne Mendoza MD [Primary Care Provider] - 1-2 days Time of Disposition: 20:47
[2020-08-05 21:42] VITALS: BP 147/84; PULSE 76
== END 2020-08-05 22:11 | disposition home or self-care (01) ==
LOC: EC 20:07
DX: B02.9 Zoster without complications (principal); L98.8 Other specified disorders of the skin and subcutaneous tissue; I10 Essential (primary) hypertension; E11.42 Type 2 diabetes mellitus with diabetic polyneuropathy; E07.9 Disorder of thyroid, unspecified; M19.042 Primary osteoarthritis, left hand; M19.041 Primary osteoarthritis, right hand; M19.09 Primary osteoarthritis, other specified site; E78.5 Hyperlipidemia, unspecified; Z79.51 Long term (current) use of inhaled steroids; Z79.899 Other long term (current) drug therapy; Z79.890 Hormone replacement therapy; Z79.82 Long term (current) use of aspirin; Z79.4 Long term (current) use of insulin; Z86.14 Personal history of Methicillin resistant Staphylococcus aureus infection; Z85.41 Personal history of malignant neoplasm of cervix uteri
CPT/HCPCS: 99283; 96374; J1885